=== PATIENT | female | born 1990 | race Caucasian/White ===

== ENCOUNTER 2020-12-30 14:46 | Outpatient (CLI) | payer OTHER, SELFPAY ==
[2020-12-30 15:30] VITALS: BP 117/72; PULSE 74; PULSE 78
[2020-12-30 15:34] LABS: Basophils Percent Auto 0.4 % (0.2-1.2); Eosinophils Absolute Auto 0.1 K/mm3 (0-0.3); Eosinophils Percent Auto 0.8 % (0-4.4); Hematocrit 34.8 % (37.0-47.0); Hemoglobin 11.8 g/dL (12.0-15.0); Immature Granulocyte Absolute 0.04 K/mm3 (0.00-0.031); Immature Granulocyte Percent A 0.4 % (0-0.5); Lymphocytes Absolute Auto 2.27 K/mm3 (0.9-3.2); Lymphocytes Percent Auto 22.8 % (18.3-44.2); Mean Corpuscular HGB Conc 33.9 g/dl (32-36); Mean Corpuscular Hemoglobin 30.1 pg (26-34); Mean Corpuscular Volume 88.8 fl (80-100); Mean Platelet Volume 12.3 fl (7.4-10.4); Monocytes Absolute Auto 0.8 K/mm3 (0.1-0.6); Neutrophils Absolute Auto 6.7 K/mm3 (1.3-6.7); Neutrophils Percent Auto 67.6 % (45.5-73.1); Platelet Count Result 158 k/mm3 (150-375); Red Blood Count 3.92 M/mm3 (4.2-5.4); Red Cell Distribution Width 13.4 % (11.5-14.5)
[2020-12-30 15:37] LABS: Add Urine Microscopic? NO; Appearance Urine Clear (Clear); Bilirubin Urine Negative (Negative); Blood Urine Negative (Negative); Color Urine Colorless (Yellow); Glucose Urine UA Negative (Negative); Ketones Urine Negative (Negative); Leukocyte Esterase Ur Negative LEU/UL (NEGATIVE); Nitrate Urine Negative (Negative); Protein Urine Negative (Negative); Specific Grav Ur 1.006 (1.001-1.035); Urobilinogen Urine Negative mg/dL (<2.0)
[2020-12-30 15:42] LABS: Creatinine Urine 33.1 mg/dL; Total Protein Urine Random 13 mg/dL; Ur Ttl Prot Creatinine Ratio 0.39 mg/mg (0-0.20)
[2020-12-30 15:45] LABS: Alanine Aminotransferase 23 U/L (4-35); Albumin Level 3.1 g/dL (3.5-5.1); Alkaline Phosphatase 130 U/L (38-126); Anion Gap 5 mmol/L (8-16); Aspartate Amino Transferase 31 U/L (14-36); Bilirubin,Total 0.2 mg/dL (0.2-1.3); Blood Urea Nitrogen 7 mg/dL (7-17); Calcium 8.7 mg/dL (8.4-10.2); Carbon Dioxide 24 mmol/L (22-30); Chloride 107 mmol/L (98-107); Estimated Glomerular Filt Rate > 60; Glucose 65 mg/dL (65-105); Potassium 4.3 mmol/L (3.4-5.0); Sodium 136 mmol/L (137-145); Uric Acid 4.8 mg/dL (2.5-7.5)
[2020-12-30 15:46] VITALS: BP 98/68; PULSE 78
[2020-12-30 15:51] VITALS: BP 128/76; PULSE 76
[2020-12-30 16:01] VITALS: BP 108/68; PULSE 76
--- NOTE | 2020-12-30 16:03 | PM.OBTRLD ---
OB - Triage/Final Diagnosis Visit Information Date of evaluation: 12/30/20 Reason for evaluation: other (htn) Comments/Additional reasons for admission: I have assessed the risk for this patient, Yumi Maravilla, and determined that she would benefit from observation care. Evaluation Laboratory results: Laboratory Tests 12/30/20 12/30/20 12/30/20 15:23 15:23 15:23 WBC 10.0 RBC 3.92 L Hgb 11.8 L Hct 34.8 L MCV 88.8 MCH 30.1 MCHC 33.9 RDW 13.4 Plt Count 158 MPV 12.3 H Immature Gran % (Auto) 0.4 Neut % (Auto) 67.6 Lymph % (Auto) 22.8 [place] % (Auto) 8.0 Eos % (Auto) 0.8 Baso % (Auto) 0.4 Lymph # (Auto) 2.27 [place] # (Auto) 0.8 H Eos # (Auto) 0.1 Baso # (Auto) 0.0 Abs Immat Gran (auto) 0.04 H Absolute Neuts (auto) 6.7 Absolute Nucleated RBC 0.0 Nucleated RBC % 0.0 Sodium 136 L Potassium 4.3 Chloride 107 Carbon Dioxide 24 Anion Gap 5 L BUN 7 Creatinine 0.80 Estim Creat Clear Calc Not Reportable Estimated GFR > 60 Glucose 65 Uric Acid 4.8 Calcium 8.7 Total Bilirubin 0.2 AST 31 ALT 23 Alkaline Phosphatase 130 H Total Protein 6.0 L Albumin 3.1 L Urine Color Colorless Urine Appearance Clear Urine pH 7.0 Ur Specific [place] 1.006 Urine Protein Negative Urine Glucose (UA) Negative Urine Ketones Negative Ur Blood (Man) Negative Urine Nitrate Negative Urine Bilirubin Negative Urine Urobilinogen Negative Ur Leukocyte Esterase Negative U Random Total Protein Urine Creatinine Protein/Creat Ratio 2 12/30/20 15:23 WBC RBC Hgb Hct MCV MCH MCHC RDW Plt Count MPV Immature Gran % (Auto) Neut % (Auto) Lymph % (Auto) [place] % (Auto) Eos % (Auto) Baso % (Auto) Lymph # (Auto) [place] # (Auto) Eos # (Auto) Baso # (Auto) Abs Immat Gran (auto) Absolute Neuts (auto) Absolute Nucleated RBC Nucleated RBC % Sodium Potassium Chloride Carbon Dioxide Anion Gap BUN Creatinine Estim Creat Clear Calc Estimated GFR Glucose Uric Acid Calcium Total Bilirubin AST ALT Alkaline Phosphatase Total Protein Albumin Urine Color Urine Appearance Urine pH Ur Specific [place] Urine Protein Urine Glucose (UA) Urine Ketones Ur Blood (Man) Urine Nitrate Urine Bilirubin Urine Urobilinogen Ur Leukocyte Esterase U Random Total Protein 13 Urine Creatinine 33.1 Protein/Creat Ratio 2 0.39 H Vital signs: Vital Signs - 24 hr 12/30/20 15:30 12/30/20 15:46 12/30/20 15:51 Pulse Rate 78 78 76 Blood Pressure 117/72 98/68 L 128/76 Blood Pressure [Left Arm] 117/72 12/30/20 16:01 Pulse Rate 76 Blood Pressure 108/68 Blood Pressure [Left Arm]
[2020-12-30 16:06] VITALS: BP 128/76; PULSE 77
== END 2020-12-30 16:15 | disposition home or self-care (01) ==
LOC: ANHOBOP 14:53 → ANHOBPP 14:57
PROVIDERS: PCP Family Medicine; Visit Provider Obstetrics & Gynecology
DX: O13.9 Gestational [pregnancy-induced] hypertension without significant proteinuria, unspecified trimester (principal); Z3A.00 Weeks of gestation of pregnancy not specified
CPT/HCPCS: 36415; 59025; 80053; 81003; 82570; 84156; 84550; 85025; 87086; 99199

== ENCOUNTER 2021-01-17 12:33 | Inpatient (IN) | payer OTHER, SELFPAY ==
[2021-01-17] VITALS (118 sets, daily range): BP systolic 92–154; BP diastolic 38–133; PULSE 68–188; TEMP 36.6–37.1; O2SAT 97–100
--- NOTE | 2021-01-17 12:57 | LDADM ---
This patient, Yumi Maravilla, was admitted to Labor/Delivery/Recovery 108 on 01/17/21 at 12:33. Plans for labor, pain management and were discussed with patient. Patient/family oriented to hospital policies and general routines including ID bracelet, bed and alarms, visiting hours, pain management, procedures, bathroom and other care routines, personal items, smoking policy, room service/diet and guest tray routines, security routines, and visiting hours. Patient/Family are encouraged to report perceived risks to care and to ask questions if they do not understand what they are told or what they should do. See OBIX for further documentation.
--- NOTE | 2021-01-17 13:09 | WPDOBADMIT ---
Obstetrics - Admit Note Admission Note: record reviewed. Additions to the history and/or subsequent changes in the physical findings follow. 30 y/o G1 at 37 weeks here with a gush of clear fluid at 1215 today. Irregular contractions. GBS unknown. Apparently she has chronic HTN and takes labetalol 200 mg po bid. Also takes Valtrex daily, no outbreaks. AVSS ABD soft, nontender, gravid, vertex EXT nontender Cervix 1/50/-3, gross ROM. BLE neg. NST reactive TOCO: irregular contractions A: IUP at 37 weeks with SROM, chronic HTN. P: Expectant management. Augment labor as needed.
[2021-01-17 13:47] LABS: Basophils Percent Auto 0.3 % (0.2-1.2); Eosinophils Absolute Auto 0.1 K/mm3 (0-0.3); Eosinophils Percent Auto 0.8 % (0-4.4); Hematocrit 35.6 % (37.0-47.0); Hemoglobin 11.8 g/dL (12.0-15.0); Immature Granulocyte Absolute 0.04 K/mm3 (0.00-0.031); Immature Granulocyte Percent A 0.4 % (0-0.5); Lymphocytes Absolute Auto 2.23 K/mm3 (0.9-3.2); Lymphocytes Percent Auto 21.6 % (18.3-44.2); Mean Corpuscular HGB Conc 33.1 g/dl (32-36); Mean Corpuscular Hemoglobin 29.4 pg (26-34); Mean Corpuscular Volume 88.6 fl (80-100); Mean Platelet Volume 12.9 fl (7.4-10.4); Monocytes Absolute Auto 0.8 K/mm3 (0.1-0.6); Monocytes Percent Auto 7.4 % (2.6-8.5); Neutrophils Absolute Auto 7.2 K/mm3 (1.3-6.7); Neutrophils Percent Auto 69.5 % (45.5-73.1); Platelet Count Result 168 k/mm3 (150-375); Red Blood Count 4.02 M/mm3 (4.2-5.4); Red Cell Distribution Width 13.7 % (11.5-14.5); White Blood Count 10.3 K/mm3 (4.5-10.0)
[2021-01-17 14:01] LABS: Alanine Aminotransferase 29 U/L (4-35); Albumin Level 3.4 g/dL (3.5-5.1); Alkaline Phosphatase 174 U/L (38-126); Anion Gap 8 mmol/L (8-16); Aspartate Amino Transferase 40 U/L (14-36); Bilirubin,Total 0.2 mg/dL (0.2-1.3); Blood Urea Nitrogen 12 mg/dL (7-17); Calcium 8.8 mg/dL (8.4-10.2); Carbon Dioxide 21 mmol/L (22-30); Chloride 106 mmol/L (98-107); Estimated Glomerular Filt Rate 59; Glucose 84 mg/dL (65-105); Potassium 4.4 mmol/L (3.4-5.0); Sodium 135 mmol/L (137-145)
[2021-01-17] MEDS: LACTATED RINGERS 1,000 ML 125 ML IV CONT (17:47)
[2021-01-17] MEDS: OXYTOCIN 30 UNITS/NS 500 ML 30 UNITS/500 ML BAG 6 UNITS IV CONT (17:47)
--- NOTE | 2021-01-17 20:47 | WPDANESEPP ---
Anes - Eval Pre Procedure Procedure: labor epidural Date/Time: 01/17/21 20:47 Surgeon: Izzy Preop Diagnosis: Labor pain Pre Op Diagnosis: Labor Patient Data Age: 30 Gender: F Height: Weight: Last Vital Signs Temp 37.1 C 01/17/21 17:30 Pulse 85 01/17/21 20:45 BP 127/74 01/17/21 20:45 Pulse Ox 100 01/17/21 20:45 Allergies Allergy/AdvReac Type Severity Reaction Status Date / Time Cephalosporins Allergy Intermediate HIVES Verified 04/02/19 07:54 lisinopril Allergy Unknown cough Verified 04/02/19 07:54 Home Medications Medication Instructions Recorded Confirmed Type PNV cmb#95-ferrous fumarate-FA 1 tablet PO DAILY 01/15/21 01/17/21 History [] cetirizine [Zyrtec] 10 mg PO DAILY 01/15/21 01/17/21 History labetalol 200 mg PO Q12H 01/15/21 01/17/21 History omega-3 fatty acids-vitamin E 2 cap PO DAILY 01/15/21 01/17/21 History [Fish Oil] valacyclovir [Valtrex] 500 mg PO DAILY 01/15/21 01/17/21 History venlafaxine 150 mg PO DAILY 01/15/21 01/17/21 History Laboratory Tests 01/17/21 01/17/21 01/17/21 13:34 13:34 13:34 WBC 10.3 K/mm3 H K/mm3 (4.5-10.0) RBC 4.02 M/mm3 L M/mm3 (4.2-5.4) Hgb 11.8 g/dL L g/dL (12.0-15.0) Hct 35.6 % L % (37.0-47.0) MCV 88.6 fl fl (80-100) MCH 29.4 pg pg (26-34) MCHC 33.1 g/dl g/dl (32-36) RDW 13.7 % % (11.5-14.5) Plt Count 168 k/mm3 k/mm3 (150-375) MPV 12.9 fl H fl (7.4-10.4) Immature Gran % (Auto) 0.4 % % (0-0.5) Neut % (Auto) 69.5 % % (45.5-73.1) Lymph % (Auto) 21.6 % % (18.3-44.2) [place] % (Auto) 7.4 % % (2.6-8.5) Eos % (Auto) 0.8 % % (0-4.4) Baso % (Auto) 0.3 % % (0.2-1.2) Lymph # (Auto) 2.23 K/mm3 K/mm3 (0.9-3.2) [place] # (Auto) 0.8 K/mm3 H K/mm3 (0.1-0.6) Eos # (Auto) 0.1 K/mm3 K/mm3 (0-0.3) Baso # (Auto) 0.0 K/mm3 K/mm3 (0.0-0.1) Abs Immat Gran (auto) 0.04 K/mm3 H K/mm3 (0.00-0.031) Absolute Neuts (auto) 7.2 K/mm3 H K/mm3 (1.3-6.7) Absolute Nucleated RBC 0.0 K/mm3 K/mm3 (0.0-0.012) Nucleated RBC % 0.0 % % (0.0-0.2) Sodium Potassium Chloride Carbon Dioxide Anion Gap BUN Creatinine Estim Creat Clear Calc Estimated GFR Glucose Uric Acid Calcium Total Bilirubin AST ALT Alkaline Phosphatase Total Protein Albumin RPR Pending Blood Type B Positive Antibody Screen Negative 01/17/21 13:34 WBC RBC Hgb Hct MCV MCH MCHC RDW Plt Count MPV Immature Gran % (Auto) Neut % (Auto) Lymph % (Auto) [place] % (Auto) Eos % (Auto) Baso % (Auto) Lymph # (Auto) [place] # (Auto) Eos # (Auto) Baso # (Auto) Abs Immat Gran (auto) Absolute Neuts (auto) Absolute Nucleated RBC Nucleated RBC % Sodium 135 mmol/L L mmol/L (137-145) Potassium 4.4 mmol/L mmol/L (3.4-5.0) Chloride 106 mmol/L mmol/L (98-107) Carbon Dioxide 21 mmol/L L mmol/L (22-30) Anion Gap 8 mmol/L mmol/L (8-16) BUN 12 mg/dL D mg/dL (7-17) Creatinine 1.10 mg/dL H mg/dL (0.7-1.0) Estim Creat Clear Calc Not Reportable Estimated GFR 59 (59 - ) Glucose 84 mg/dL mg/dL (65-105) Uric Acid 6.0 mg/dL mg/dL (2.5-7.5) Calcium 8.8 mg/dL mg/dL (8.4-10.2) Total Bilirubin 0.2 mg/dL mg/dL (0.2-1.3) AST 40 U/L H U/L (14-36) ALT 29 U/L U/L (4-35) Alkaline Phosphatase 174 U/L H U/L (38-126) Total Protein 7.0 g/dL g/dL (6.3-8.2) Albumin 3.
--- NOTE | 2021-01-17 22:26 | PM.OBPNLAB ---
Pain Control Date/time seen: 01/17/21 22:26 Comments: Comfortable with epidural. Pelvic Exam Dilation (cm): 8 Effacement (%): 100 station: 0 Contractions Contraction frequency: 4 Contraction pattern: Regular Status status: Category l Assessment and Plan Plan: continuous present management
[2021-01-18] VITALS (22 sets, daily range): BP systolic 55–150; BP diastolic 36–92; PULSE 67–125; RESP 16–18; TEMP 36.2–36.8; O2SAT 98–99
--- NOTE | 2021-01-18 01:43 | P.PCNOB_ITS ---
OB - Delivery Note Procedure Delivery date: 01/18/21 Procedure: Induction method: none Delivery augmentation: pitocin Delivery monitor: external FHT, external uterine and internal uterine Route of delivery: Laceration Description: Perineal - 2nd Degree Delivery repair: vicryl (3-0) Specimen: Yes (cord blood, placenta) Quantitative Blood Loss (ml): 120 Anesthesia type: Epidural Disposition: PACU Complications: None Narrative: 30 y/o G1 at 37 1/7 weeks gestation who presented to the hospital after a gush of fluid. SROM was diagnosed. Oxytocin was subsequently administered intravenously for augmentation of labor. She received an epidural for pain control. Her labor progressed and her cervix dilated completely. She pushed with good effort and delivered the infant's head to the perineum, followed by the body. The nose and mouth were bulb suctioned. After a delay, the cord was clamped and cut. The was handed off the field. Cord blood was collected. The placenta delivered spontaneously and was grossly normal in appearance. The usual 3 vessel cord was noted. A second degree midline perineal laceration was sustained. This was reapproximated using 3 0 Vicryl in the usual layered fashion. Excellent hemostasis resulted as did excellent reapproximation of the normal anatomy. Needle and instrument counts were correc t. The patient was taken to recovery room in stable condition. The infant went to the nursery in stable condition. I was present and scrubbed for the entire delivery. [place] [facility] Date of : 01/18/21 Time of : 01:16 Weeks of gestation at delivery: 37 Infant gender: Male Weight (pounds): 8 Weight (ounces): 4 presentation: vertex position: Left Occiput Anterior Placenta delivery description: Spontaneous and Normal Configuration cord vessel description: 3 Vessels and Delayed Cord Clamping score one minute: 9 score five minutes: 9
--- NOTE | 2021-01-18 01:48 | PM.OBDSVD ---
DS: Admitting Diagnosis Admitting Diagnosis Admitting Diagnosis: IUP at 37 1/7 weeks SROM Chronic HTN DS: Discharge Diagnosis Discharge Diagnosis (1) (normal spontaneous vaginal delivery): Code(s): O80 - Encounter for full-term uncomplicated delivery Status: Acute (2) SROM (spontaneous rupture of membranes): Status: Acute (3) Chronic hypertension affecting : Code(s): O10.919 - Unspecified pre-existing hypertension complicating , unspecified trimester Status: Acute OB - DS: Summary OB Procedures : None OB Procedures Intrapartum: Spontaneous Vag Delivery OB Procedures: : None DS: Data Data Completed and Pending Labs on day of discharge: Labs from last 24 hours 01/17/21 01/17/21 01/17/21 13:34 13:34 13:34 WBC RBC Hgb Hct MCV MCH MCHC RDW Plt Count MPV Immature Gran % (Auto) Neut % (Auto) Lymph % (Auto) [place] % (Auto) Eos % (Auto) Baso % (Auto) Lymph # (Auto) [place] # (Auto) Eos # (Auto) Baso # (Auto) Abs Immat Gran (auto) Absolute Neuts (auto) Absolute Nucleated RBC Nucleated RBC % Sodium 135 L Potassium 4.4 Chloride 106 Carbon Dioxide 21 L Anion Gap 8 BUN 12 D Creatinine 1.10 H Estim Creat Clear Calc Not Reportable Estimated GFR 59 Glucose 84 Uric Acid 6.0 Calcium 8.8 Total Bilirubin 0.2 AST 40 H ALT 29 Alkaline Phosphatase 174 H Total Protein 7.0 Albumin 3.4 L RPR Pending Blood Type B Positive Antibody Screen Negative 01/17/21 13:34 WBC 10.3 H RBC 4.02 L Hgb 11.8 L Hct 35.6 L MCV 88.6 MCH 29.4 MCHC 33.1 RDW 13.7 Plt Count 168 MPV 12.9 H Immature Gran % (Auto) 0.4 Neut % (Auto) 69.5 Lymph % (Auto) 21.6 [place] % (Auto) 7.4 Eos % (Auto) 0.8 Baso % (Auto) 0.3 Lymph # (Auto) 2.23 [place] # (Auto) 0.8 H Eos # (Auto) 0.1 Baso # (Auto) 0.0 Abs Immat Gran (auto) 0.04 H Absolute Neuts (auto) 7.2 H Absolute Nucleated RBC 0.0 Nucleated RBC % 0.0 Sodium Potassium Chloride Carbon Dioxide Anion Gap BUN Creatinine Estim Creat Clear Calc Estimated GFR Glucose Uric Acid Calcium Total Bilirubin AST ALT Alkaline Phosphatase Total Protein Albumin RPR Blood Type Antibody Screen Discharge Plan Discharge Attending physician on discharge: Romeo Magana Discharging Clinician: Romeo Magana Patient Disposition: Home, Self-Care Activity: may shower and pelvic rest Diet: regular Discharge Instructions: Call or return if temperature above 100.4? F, increased abdominal pain, increased vaginal bleeding or any new problems. Stand Alone Forms: General Discharge Information Follow-up/Referrals: Romeo Magana MD [Physician] - 6 Weeks Discharge Medications: New ibuprofen 600 mg tablet 600 mg PO Q6H PRN (Reason: cramps) Qty: 30 RF: 0 Continued labetalol 200 mg Tablet 200 mg PO Q12H RF: 0 cetirizine [Zyrtec] 10 mg Tablet 10 mg PO DAILY RF: 0 venlafaxine 150 mg Capsule,Extended Release 24hr 150 mg PO DAILY RF: 0 valacyclovir [Valtrex] 500 mg Tablet 500 mg PO DAILY RF: 0 Fish Oil 1,000 mg Capsule 2 cap PO DAILY RF: 0 PNV cmb#95-ferrous fumarate-FA [] 28 mg iron- 800 mcg Tablet 1 tablet PO DAILY RF: 0 Date of admission: 01/17/21 12:33 Primary Care Provider: Lexis,Caroline Harper Admitting Provider: Romeo Magana Attending physician on admission: Romeo Magana Condition: Stable
[2021-01-18] MEDS: OXYTOCIN 30 UNITS/NS 500 ML 30 UNITS/500 ML BAG 125 UNITS IV CONT (02:37)
[2021-01-18] MEDS: WITCH HAZEL 40 PADS 1 PAD TOPICAL (05:25)
[2021-01-18] MEDS: BENZOCAINE 20% AER SPR (*SP) 56 GM CAN 1 SPRAY TOPICAL (05:26)
--- NOTE | 2021-01-18 05:40 | OBPPTRN ---
Patient transferred to post room #291 via wheelchair with in crib. Support person present. Oriented to unit, room, information board, rooming in, admission packet and security measures. Patient verbalizes understanding.
--- NOTE | 2021-01-18 07:45 | PC.NURSE ---
Pt introductions made and plan of care discussed per post , pain management, breast feeding, daily care activities. PT verbalized understanding of such care
[2021-01-18 09:05] LABS: Rapid Plasma Reagin Non-Reactive (NonReactive)
[2021-01-18] MEDS: POLYSACCHARIDE IRON COMPLEX 150 MG CAPSULE PO (12:21)
[2021-01-18] MEDS: MULTIVIT/MIN/PREN/FOL AC/IRON TABLET 1 TAB PO (12:21)
[2021-01-18] MEDS: LABETALOL HCL 100 MG TABLET 200 MG PO (12:21)
[2021-01-18] MEDS: DOCUSATE SODIUM 100 MG CAPSULE PO (12:24)
[2021-01-18] MEDS: IBUPROFEN 600 MG TABLET PO ×2 (12:24→19:30)
[2021-01-18] MEDS: ACETAMINOPHEN 325 MG TABLET 650 MG PO (12:28)
[2021-01-19 00:20] VITALS: BP 124/71; PULSE 76; RESP 20; TEMP 36.4; O2SAT 98
[2021-01-19 00:24] VITALS: PULSE 74
[2021-01-19] MEDS: LABETALOL HCL 100 MG TABLET 200 MG PO ×2 (00:24→08:37)
[2021-01-19] MEDS: IBUPROFEN 600 MG TABLET PO (05:18)
[2021-01-19 06:53] LABS: Hematocrit 32.3 % (37.0-47.0); Hemoglobin 10.5 g/dL (12.0-15.0)
--- NOTE | 2021-01-19 07:05 | PM.OBPNVD ---
OB - PN: Subj Subjective Date/time seen: 01/19/21 07:05 Patient comments: no complaints and pain well controlled baby status: doing well and nursing well OB - PN: Obj Data Labs CBC & Chem 7: 01/19/21 05:05 01/17/21 13:34 Labs: Laboratory Results - last 24 hr 01/17/21 01/19/21 13:34 05:05 Hgb 10.5 L Hct 32.3 L RPR Non-reactive OB - PN A/P Plan day: 1 Plan: routine care, discharge home and follow up 6 weeks Time Spent With Patient Time: Total time spent is greater than 50% in coordination of care (as documented) at patient's floor/unit and/or counseling patient: Time with patient: less than 15 minutes Review of Systems Review of Systems: All systems reviewed & are unremarkable except as noted in HPI and below Exam Const: General: no acute distress Eyes: General: appearance normal, both eyes and all related structures Neck: Neck: supple and no JVD Thyroid: thyroid normal Resp: Effort & Inspection: normal respiratory effort Auscultation: clear to auscultation bilaterally Cardio: Rate: regular rate Rhythm: regular rhythm GI: Inspection: non-distended GI Palp: Yes Soft to palpation, No Tenderness to palpation present (GI) and No Guarding due to palpation present (GI) Auscultation: normal bowel sounds : General: Yes bladder normal to palpation External Female Exam: normal external appearance Speculum Exam - Vagina: normal vaginal discharge and No vaginal bleeding Speculum Exam - Cervix: nontender Bimanual exam- vagina & uterus: bladder normal to palpation and No Cervical tenderness present OB/external & speculum: No vaginal bleeding Skin: General skin exam: no rashes or lesions noted Extrem: General: normal to inspection and no edema Psych: Mental Status: mental status grossly normal Affect: normal affect
--- NOTE | 2021-01-19 07:06 | PM.DS ---
DS: Admitting Diagnosis Admitting Diagnosis Admitting Diagnosis: gest htn term iup DS: Summary Hospital Course Hospital Course: The patient was admitted at term in active labor with chronic hypertension. She underwent spontaneous vaginal delivery which was unremarkable. Her blood pressure was stable. Her hospital course was unremarkable. She was discharged home without reservation Time Spent with Patient Time attestation: Total time spent providing and/or coordinating discharge services: Exam Const: General: no acute distress Eyes: General: appearance normal, both eyes and all related structures Neck: Neck: supple and no JVD Thyroid: thyroid normal Resp: Effort & Inspection: normal respiratory effort Auscultation: clear to auscultation bilaterally Cardio: Rate: regular rate Rhythm: regular rhythm GI: Inspection: non-distended GI Palp: Yes Soft to palpation, No Tenderness to palpation present (GI) and No Guarding due to palpation present (GI) Auscultation: normal bowel sounds : General: Yes bladder normal to palpation External Female Exam: normal external appearance Speculum Exam - Vagina: normal vaginal discharge and No vaginal bleeding Speculum Exam - Cervix: nontender Bimanual exam- vagina & uterus: bladder normal to palpation and No Cervical tenderness present OB/external & speculum: No vaginal bleeding Skin: General skin exam: no rashes or lesions noted Extrem: General: normal to inspection and no edema Psych: Mental Status: mental status grossly normal Affect: normal affect DS: Data Data Completed and Pending Pending studies at discharge: Pending at discharge 01/18/21 01:22 Surgical [PTH] Routine Labs on day of discharge: Labs from last 24 hours 01/19/21 01/17/21 05:05 13:34 Hgb 10.5 L Hct 32.3 L RPR Non-reactive Discharge Plan Discharge Attending physician on discharge: Romeo Magana Discharging Clinician: Romeo Magana Patient Disposition: Home, Self-Care Activity: may shower and pelvic rest Diet: regular Discharge Instructions: Call or return if temperature above 100.4? F, increased abdominal pain, increased vaginal bleeding or any new problems. Stand Alone Forms: General Discharge Information Follow-up/Referrals: Romeo Magana MD [Physician] - 6 Weeks Discharge Medications: New ibuprofen 600 mg tablet 600 mg PO Q6H PRN (Reason: cramps) Qty: 30 RF: 0 Continued labetalol 200 mg Tablet 200 mg PO Q12H RF: 0 cetirizine [Zyrtec] 10 mg Tablet 10 mg PO DAILY RF: 0 venlafaxine 150 mg Capsule,Extended Release 24hr 150 mg PO DAILY RF: 0 valacyclovir [Valtrex] 500 mg Tablet 500 mg PO DAILY RF: 0 Fish Oil 1,000 mg Capsule 2 cap PO DAILY RF: 0 PNV cmb#95-ferrous fumarate-FA [] 28 mg iron- 800 mcg Tablet 1 tablet PO DAILY RF: 0 Date of admission: 01/17/21 12:33 Primary Care Provider: Lexis,Caroline Harper Admitting Provider: Romeo Magana Attending physician on admission: Romeo Magana Condition: Stable
[2021-01-19 08:00] VITALS: BP 137/87; PULSE 72; RESP 18; TEMP 36.3; O2SAT 99
--- NOTE | 2021-01-19 08:30 | PC.NURSE ---
Consult with pt., mother reports she has put to breast a few times, was sleepy and required supplementation. Mother has decided to pump and bottle feed and will continue. Mother is pumping using her Spectra pump from home. Mother is pumping regularly without difficulties or discomfort. Discussed infant is 37 week and may be sleepy at feedings. Advised to wake to feed every 3-4 hours and to work with 20-60 mls per feeding. is eagerly nippling EBM/formula. Reviewed breast pump care and usage, pumping schedule, nipple care, and collection and storage of breast milk. Encouraged [id number], breast massage and manual expression to stimulate supply. Assessed patient for correct flange size, placement and draw. Patient verbalizes and demonstrates understanding of instructions. Mother is feeding as required and waking infant to feed if needed. is currently meeting outcomes for weight, output, jaundice and feeding frequencies. Mother states she feels confident to continue current feeding plan at home. Reviewed transition to breast milk, signs of adequate intake, and engorgement/relief. Instructed to call ICP if intake/output less than required. Reviewed regular medications mother is taking. Information provided per Kaylyn. Reviewed community resources on the [facility] website and in the Mom/Baby guide. Information on outpatient services provided. Mother has no further questions at this time.
[2021-01-19 08:37] VITALS: PULSE 72
[2021-01-19] MEDS: DOCUSATE SODIUM 100 MG CAPSULE PO (08:37)
[2021-01-19] MEDS: MULTIVIT/MIN/PREN/FOL AC/IRON TABLET 1 TAB PO (08:39)
--- NOTE | 2021-01-19 10:53 | WPDANLDPN2 ---
Anes-Prog Note L&D Date/Time: 01/19/21 10:53 Comfortable throughout: labor and delivery Neuraxial method: epidural Epidural/Spinal procedure site: clean & non-tender Neuro status: Neuro function grossly intact. Cardiovascular status: normal Respiratory status: normal Airway patency: baseline Mental status: baseline Post-Op hydration status: normal Vital Signs: Last Vital Signs Temp 36.4 C 01/19/21 00:20 Pulse 72 01/19/21 08:37 Resp 20 01/19/21 00:20 BP 124/71 01/19/21 00:20 Pulse Ox 98 01/19/21 00:20 Pain score (VAS): 3 Post-procedural complaints: none Patient feedback: Patient satisfied with anesthetic care.
--- NOTE | 2021-01-19 11:34 | PC.NURSE ---
Patient viewed the discharge video Mother & Baby Care, The First Two Weeks . Patient was given the opportunity and encouraged to ask questions. Patient verbalized understanding of information shared and has been given the mother/baby guide for home reference.
[2021-01-21 08:13] VITALS: BP 139/72; PULSE 83; RESP 20; TEMP 36.8; O2SAT 100
== END 2021-01-19 12:58 | disposition home or self-care (01) | DRG 806 ==
LOC: ANHLDR 01-18 01:49 → ANHOB2 01-18 06:10
PROVIDERS: Admitting Provider Obstetrics & Gynecology; PCP Family Medicine; Visit Provider Obstetrics & Gynecology
DX: O10.92 Unspecified pre-existing hypertension complicating childbirth (principal); O98.52 Other viral diseases complicating childbirth; Z37.0 Single live birth; Z3A.37 37 weeks gestation of pregnancy; O36.8330 Maternal care for abnormalities of the fetal heart rate or rhythm, third trimester, not applicable or unspecified; O70.1 Second degree perineal laceration during delivery; O99.214 Obesity complicating childbirth; E66.9 Obesity, unspecified; B00.9 Herpesviral infection, unspecified
CPT/HCPCS: 36415; 80053; 84550; 85014; 85018; 85025; 86592; 86850; 86900; 86901; 88307; A9270; J2590; J2795; J7120

== ENCOUNTER 2022-03-03 15:34 | Outpatient (CLI) | payer OTHER, SELFPAY ==
--- NOTE | 2022-03-03 15:45 | ECG_ITS ---
Measurements Intervals [place] Rate: 73 P: 53 VT: 139 QRS: 40 QRSD: 78 T: 50 QT: 373 QTc: 413 Interpretive Statements SINUS RHYTHM BASELINE ARTIFACT NORMAL ECG COMPARED TO ECG 03/30/2019 10:40:53 NO SIGNIFICANT CHANGES Electronically Signed On 03-03-2022 18:15:40 CDT by Arnol Pang M.D.
== END 2022-03-03 15:35 | disposition home or self-care (01) ==
LOC: ANHSURGERY 15:36
PROVIDERS: PCP Family Medicine; Visit Provider Obstetrics & Gynecology
DX: Z01.818 Encounter for other preprocedural examination (principal); I10 Essential (primary) hypertension; N83.209 Unspecified ovarian cyst, unspecified side
CPT/HCPCS: 36415; 86850; 86900; 86901; 93005

== ENCOUNTER 2022-03-05 01:17 | Day surgery (SDC) | payer OTHER, SELFPAY ==
[2022-03-02 12:33] VITALS: BMI 37.0
--- NOTE | 2022-03-02 12:42 | PC.NURSE ---
Report to the Outpatient Waiting Room, entrance under the green pavilion located off [facility], at time 8:30 on date 03/05/22. OR Time: 10:30. - You and your visitor will be asked a series of questions to screen for COVID 19 for your protection. - A mask is required within the hospital. One visitor will be allowed to accompany the patient into the hospital. Patients visitor will be instructed to remain with patient at all times or leave the building. We will allow the visitor to come back to the postoperative area when patient is ready. Preoperative COVID Testing Requirements: No COVID Test needed if: (proof is required; if not received patient will have Rapid Test prior to entry) - Patient has received COVID Vaccine at least 14 days prior to procedure date or - Patient has positive COVID test result within last 90 days of surgery date. COVID Test needed if above criteria is not met Patients may have clear liquids (water, carbonated beverages, clear teas, apple juice) until 3 hours prior to surgery (7:30) with a maximum of 20 ounces. - No food from midnight until time of surgery Take the following medications with a SIP of water the morning of surgery: LABETALOL, VENLAFAXINE, PAIN PILL (IF NEEDED) Medications to discontinue per physician: VITAMINS/SUPPLEMENTS Date to take last dose: 03/02/22 Please no make-up, nail azerbaijani, hairspray, perfume, deodorant, or body powder the day of surgery. No jewelry (including any body piercings) or valuables the day of surgery, leave them at home. Please take a shower or bath the night before, or the morning of, surgery with an antibacterial soap. Wear comfortable, loose fitting clothing. - Jewelry must be removed prior to entering the operating room. Rings and piercings that are not removed may be cut off. - The hospital will not accept responsibility for valuables. - Please leave all valuables, including medications, at home the day of surgery. If you are going home after surgery, a licensed bobcat driver/labor must drive you home. - NO public transportation without another adult. - We recommend that an adult stay with you for 24 hours following discharge. - We also recommend that you do not drive, make important decision, drink alcoholic beverages, or take any drugs that were not prescribed by your health care provider for at least 24 hours after your discharge time. Follow any additional instructions given to you from your surgeon. Telephone instructions given to RANDALL WILKINS and asked if any additional questions and then verbalized understanding. Patient advised to call surgeon office or pre surgery nurse liaison [phone] if any additional questions.
--- NOTE | 2022-03-03 07:48 | PM.IMHP ---
H&P: HPI History of Present Illness Date/Time: 03/03/22 07:48 32-year-old female admitted for laparoscopy and possible left cystectomy on likely left oophorectomy admitted for laparoscopic procedure is noted. She has had pain discomfort and dyspareunia. She has got IUD in. Scan has shown complex left ovarian cyst measuring 4.2x3.5x3.7cm but no evidence of torsion. Watchful waiting was initially prescribed but she continues to have severe pain and will undergo the laparoscopy. Risks and benefits reviewed Chief Complaint: Pelvic pain and left ovarian cyst Review of Systems Review of Systems: All systems reviewed & are unremarkable except as noted in HPI and below PMFSH Family History Family History Father Diabetes mellitus Hypertension Mother Hypertension Social History Social History Smoking status: Never smoker Alcohol intake: never Substance use: never Substance use type: does not use Gender identity (if verbalized by the patient): Female Spiritual care concerns: No Meds Home Medications and Allergies Home Medications Medication Instructions Recorded Confirmed Type cetirizine [Zyrtec] 10 mg PO DAILY 01/15/21 03/02/22 History labetalol 200 mg PO DAILY 01/15/21 03/02/22 History omega-3 fatty acids-vitamin E 2 cap PO DAILY 01/15/21 03/02/22 History venlafaxine 150 mg PO DAILY 01/15/21 03/02/22 History ibuprofen 600 mg PO Q6H PRN #30 tablet 01/18/21 03/02/22 Rx acetaminophen-codeine 1 tablet PO Q4-6H PRN 03/02/22 03/02/22 History topiramate 100 mg PO HS 03/02/22 03/02/22 History Allergies Allergy/AdvReac Type Severity Reaction Status Date / Time Cephalosporins Allergy Intermediate HIVES Verified 03/02/22 12:32 lisinopril Allergy Unknown cough Verified 03/02/22 12:32 Exam Const: General: no acute distress Eyes: General: appearance normal, both eyes and all related structures Neck: Neck: supple and no JVD Thyroid: thyroid normal Resp: Effort & Inspection: normal respiratory effort Auscultation: clear to auscultation bilaterally Cardio: Rate: regular rate Rhythm: regular rhythm GI: Inspection: non-distended GI Palp: Yes Soft to palpation, No Tenderness to palpation present (GI) and No Guarding due to palpation present (GI) Auscultation: normal bowel sounds : External Female Exam: normal external appearance Speculum Exam - Vagina: normal appearance of the vagina Speculum Exam - Cervix: Cervical os closed Bimanual Exam- Adnexa, other: Adnexal mass present on the left tender Skin: General skin exam: no rashes or lesions noted Extrem: General: normal to inspection and no edema Psych: Mental Status: mental status grossly normal Affect: normal affect Assessment and Plan Additional Plan Impression: Complex left ovarian cyst with resultant pain Plan: Laparoscopy possible left cystectomy possible left oophorectomy
--- NOTE | 2022-03-04 13:00 | P.PNAN_ITS ---
Anes - Initial Pre Proc Eval Procedure: Operation Date: 03/05/22 10:30 Proposed Procedures p Laparoscopic Left Ovarian Cystectomy - Romeo Paul MD Date/Time: 03/04/22 13:00 Surgeon: Romeo Paul MD Pre Op Diagnosis: Pelvic Pain, Lt Ovarian Cyst Patient Data Age: 32 Gender: F Height: 1.73 m Weight: 110.68 kg Allergies Allergy/AdvReac Type Severity Reaction Status Date / Time Cephalosporins Allergy Intermediate HIVES Verified 03/05/22 08:48 lisinopril Allergy Unknown cough Verified 03/05/22 08:48 Home Medications Medication Instructions Recorded Confirmed Type cetirizine [Zyrtec] 10 mg PO DAILY 01/15/21 03/05/22 History labetalol 200 mg PO DAILY 01/15/21 03/05/22 History omega-3 fatty acids-vitamin E 2 cap PO DAILY 01/15/21 03/05/22 History venlafaxine 150 mg PO DAILY 01/15/21 03/05/22 History ibuprofen 600 mg PO Q6H PRN #30 tablet 01/18/21 03/05/22 Rx acetaminophen-codeine 1 tablet PO Q4-6H PRN 03/02/22 03/05/22 History topiramate 100 mg PO HS 03/02/22 03/05/22 History hydrocodone-acetaminophen 1 tablet PO Q4H PRN #30 tablet 03/05/22 Rx Patient hx anesthesia problems: none Family hx anesthesia problems: none Results Review: All pre-operative results and documents have been reviewed as part of the pre-operative evaluation. [facility] Past Medical History Medical History (Updated 03/05/22 @ 07:22 by Romeo Paul MD) Anxiety Depression Hypertension Migraine PATRICIA (obstructive sleep apnea) quit CPAP Family History Family History Father Diabetes mellitus Hypertension Mother Hypertension Social History Social History Smoking status: Never smoker Alcohol intake: never Substance use: never Substance use type: does not use Living arrangements: with family Gender identity (if verbalized by the patient): Female Spiritual care concerns: No Anes - Eval Final PreProcedure Day of Procedure 03/04/22 13:00 Patient weight: obese Heart: regular rate and rhythm Lungs: clear to auscultation and normal air movement Airway: Mallampati scale class II Neurological: alert and oriented Last oral intake: >/= 8 hours ASA classification: III Emergent: no Anesthetic plan: proceed Anesthesia type and monitoring: general ETT and standard monitoring Results Review: All pre-operative results and documents have been reviewed as part of the pre-operative evaluation. Informed Consent: The patient's anesthetic plan and its attendant risks and benefits were discussed with the patient/family/POA. Questions were solicited and answers provided to the satisfaction of the patient/family/POA.
[2022-03-05] VITALS (10 sets, daily range): BP systolic 102–129; BP diastolic 50–82; PULSE 60–85; RESP 9–16; TEMP 36–36.3; O2SAT 95–100
--- NOTE | 2022-03-05 07:21 | WPDHPUPDATE1 ---
History and Physical Update Update Date/Time: 03/05/22 07:21 History and Physical has been reviewed, including an updated exam of the patient. There are NO changes in the patient's condition. Risks, benefits, and alternatives have been discussed and questions answered. Patient agrees to proceed with procedure.
[2022-03-05] MEDS: ACETAMINOPHEN 500 MG TABLET 1000 MG PO (08:52)
[2022-03-05] MEDS: LACTATED RINGERS 1,000 ML 30 ML IV CONT ×2 (09:12→11:33)
[2022-03-05] MEDS: KETOROLAC 15 MG/ML VIAL (*BKC) IV PUSH (09:13)
[2022-03-05] MEDS: ceFAZolin SODIUM 1 GM VIAL IV PUSH (10:51)
--- NOTE | 2022-03-05 11:09 | P.OP_ITS ---
Procedure Note - Detailed Date of Procedure 03/05/22 Pre-op Diagnosis Pelvic Pain, Lt Ovarian Cyst Post-op Diagnosis Other (Abnormal placement IUD) Procedure Performed Diagnostic laparoscopy/laparoscopic left ovarian cyst destruction. Destruction of endometriosis. Removal of irregularly placed IUD Surgeon Romeo Paul MD Anesthesia General Indications This is 32 year female with large left ovarian cyst and pelvic pain. Findings Normal size uterus. The wing of the IUD was extruded approximately a 0.5cm through the fundus of the uterus. Small areas of endometriosis on the uterus were noted and 1 area of endometriosis along the left uterosacral ligament. Was a large left hemorrhagic cyst which was drained of his hemorrhagic fluid. Normal-appearing gallbladder in liver edge although the gallbladder was enlarged it did not look inflamed. Normal-appearing appendix was seen Description of Procedure Patient was prepped and draped in the normal sterile fashion placed in dorsal lithotomy position. Under excellent general trach anesthesia weighted speculum placed post were statin. Anterior lip of the cervix grasped with single-tooth tenaculum and the Forbes's cannula inserted the cervix attached to the single- tooth to be used later for uterine manipulation. After emptying the bladder clear urine the weighted speculum was removed the gloves were changed. Assuring no injury. Patient placed in Trendelenburg and suprapubic incision made. The 5mm trocar advanced under direct visualization assuring no injury. There was a fair amount of fluid in the cul-de-sac and this was suction. The wing of IUD was noted extruding through the fundus and a picture was taken. A large hemorrhagic cyst was seen on the left the right ovary appeared within normal limits as did the tubes bilaterally. The gallbladder was enlarged but not inflamed and appendix appeared within normal limits. Photo documentation was undertaken. Small area of endometriosis was seen anteriorly on the uterine fundus. There was a small area of endometriosis on the left uterosacral ligament. After suctioning this fluid the left ovary was opened in linear fashion using monopolar cautery at 35 w per 2nd. The inside of the ovarian cyst appeared consistent with and benign hemorrhagic cyst and irrigation was undertaken until clear. The small areas of endometriosis on the left uterosacral and the anterior portion of the uterus were cauterized at 35 w per 2nd with monopolar cautery. No other abnormality was seen and irrigation was undertaken until clear. The patient did receive 2 doses of Ancef IV. Watching from above the eye and returned to the vagina. The speculum was placed and the strings were grasped and the IUD was removed without difficulty. No bleeding was seen at the top of the fundus where the IUD had extruded. Irrigation was again undertaken after gloves were changed again. The gas was removed from the abdomen and the trocars removed. The incisions closed with 4 Monocryl and glue. The patient was awakened and went to recovery in satisfactory condition. All sponge, needle, instrument counts were correct. There were no complications noted An infraumbilical incision made the Veress needle passed in the abdomen. Abdomen filled with CO2 gas to 15mm. The 5mm trocar advanced under direct visualization Estimated Blood Loss 5 Drains No Packing No Pathology None sent Complications No immediate complications Condition Stable Disposition PACU
[2022-03-05] MEDS: ONDANSETRON INJ 4 MG/2 ML VIAL IV PUSH (11:36)
[2022-03-05] MEDS: fentaNYL CITRATE INJ (*CRX) 100 MCG/2 ML VIAL 25 MCG IV PUSH ×8 (11:41→13:39)
[2022-03-05] MEDS: oxyCODONE HCL (*CRX) 5 MG TAB IR PO (12:52)
== END 2022-03-05 13:55 | disposition home or self-care (01) ==
PROVIDERS: PCP Family Medicine; Visit Provider Obstetrics & Gynecology
PROC: (CPT 49320; principal; 2022-03-05 10:30)
DX: N83.202 Unspecified ovarian cyst, left side (principal); R10.2 Pelvic and perineal pain; T83.39XA Other mechanical complication of intrauterine contraceptive device, initial encounter; Y84.8 Other medical procedures as the cause of abnormal reaction of the patient, or of later complication, without mention of misadventure at the time of the procedure; N80.0 Endometriosis of uterus; N80.3 Endometriosis of pelvic peritoneum; N94.10 Unspecified dyspareunia; I10 Essential (primary) hypertension; G47.33 Obstructive sleep apnea (adult) (pediatric); F41.8 Other specified anxiety disorders; E66.9 Obesity, unspecified; Z68.36 Body mass index [BMI] 36.0-36.9, adult
CPT/HCPCS: 58301; 58662; A9270; J0690; J1100; J1170; J1200; J1885; J2250; J2405; J2704; J2710; J3010; J7030; J7120

== ENCOUNTER 2022-10-26 15:25 | Outpatient (CLI) | payer OTHER, SELFPAY ==
[2022-10-26 12:00] LABS: Mean Corpuscular HGB Conc 34.1 g/dl (32-36); Mean Corpuscular Hemoglobin 29.5 pg (26-34); Mean Corpuscular Volume 86.3 fl (80-100); Platelet Count Result 231 k/mm3 (150-375); Red Blood Count 4.75 M/mm3 (4.2-5.4); Red Cell Distribution Width 12.9 % (11.5-14.5); White Blood Count 7.2 K/mm3 (4.5-10.0)
[2022-10-26 12:17] LABS: Alanine Aminotransferase 50 U/L (6-35); Albumin Level 4.5 g/dL (3.5-5.1); Alkaline Phosphatase 81 U/L (38-126); Anion Gap 9 mmol/L (8-16); Aspartate Amino Transferase 31 U/L (14-36); Bilirubin,Total 0.4 mg/dL (0.2-1.3); Blood Urea Nitrogen 10 mg/dL (7-17); CRP 0.7 mg/dL (<1.0); Calcium 8.9 mg/dL (8.4-10.2); Carbon Dioxide 19 mmol/L (22-30); Chloride 110 mmol/L (98-107); Estimated Glomerular Filt Rate 41; Glucose 90 mg/dL (65-110); Lipase 114 U/L (23-300); Potassium 4.4 mmol/L (3.4-5.0); Sodium 138 mmol/L (137-145)
[2022-10-26 12:46] LABS: Monoscreen Negative (Negative); Negative Monotest Control Negative (Negative); Positive Monotest Control Positive (Positive)
[2022-10-26 12:54] LABS: Erythrocyte Sedimentation Rate 7 mm/hr (0-20)
[2022-10-26 19:13] LABS: Toxigenic C. Diff NEGATIVE (NEGATIVE)
[2022-10-30 11:32] LABS: Tissue Transglutaminase IgA Ab <1.0 U/mL (<15.0)
[2022-10-31 08:50] LABS: Tissue Transglutaminase IgG Ab <1.0 U/mL (<15.0)
[2022-11-01 23:17] LABS: Calprotectin, Stool 25 mcg/g
== END 2022-10-26 15:26 | disposition home or self-care (01) ==
LOC: ANHLAB 15:25
PROVIDERS: PCP Nurse Practitioner Family; Visit Provider Nurse Practitioner
DX: K52.9 Noninfective gastroenteritis and colitis, unspecified (principal); R10.9 Unspecified abdominal pain; K92.1 Melena
CPT/HCPCS: 36415; 80053; 83516; 83690; 83993; 84443; 85027; 85652; 86140; 86308; 87045; 87269; 87427; 87493

== ENCOUNTER 2022-11-19 01:44 | Day surgery (SDC) | payer OTHER, SELFPAY ==
[2022-11-11 11:02] VITALS: BMI 31.8
[2022-11-19] MEDS: LACTATED RINGERS 1,000 ML 150 ML IV CONT (11:53)
[2022-11-19 12:00] VITALS: BP 120/71; PULSE 82; RESP 18; TEMP 36.5; O2SAT 100
--- NOTE | 2022-11-19 12:22 | WPDANESEPPF ---
Anes - Initial Pre Proc Eval Procedure: Operation Date: 11/19/22 13:00 Proposed Procedures p Colonoscopy - Charbel Kaiser MD Date/Time: 11/19/22 12:22 Surgeon: Charbel Kaiser MD Pre Op Diagnosis: coloitis, abdominal pain Patient Data Age: 32 Gender: F Height: 1.73 m Weight: 94.5 kg Last Vital Signs Temp 97.7 F 11/19/22 12:00 Pulse 82 11/19/22 12:00 Resp 18 11/19/22 12:00 BP 120/71 11/19/22 12:00 Pulse Ox 100 11/19/22 12:00 O2 Del Method Room Air 11/19/22 12:00 Allergies Allergy/AdvReac Type Severity Reaction Status Date / Time Cephalosporins Allergy Intermediate HIVES Verified 11/19/22 11:58 lisinopril Allergy Unknown cough Verified 11/19/22 11:58 Home Medications Medication Instructions Recorded Confirmed Type cetirizine 10 mg tablet (Zyrtec) 10 mg PO DAILY 01/15/21 11/11/22 History labetalol 200 mg tablet 200 mg PO DAILY 01/15/21 11/11/22 History omega-3 fatty acids-vitamin E 2 cap PO DAILY 01/15/21 11/11/22 History 1,000 mg capsule topiramate 100 mg tablet 100 mg PO HS 03/02/22 11/11/22 History rifaximin 550 mg tablet (Xifaxan) 550 mg PO TID #42 tabs 10/28/22 11/11/22 Rx vilazodone 20 mg tablet (Viibryd) 20 mg PO DAILY 11/11/22 11/11/22 History Patient hx anesthesia problems: none Family hx anesthesia problems: none Results Review: All pre-operative results and documents have been reviewed as part of the pre-operative evaluation. [facility] Past Medical History Medical History (Updated 10/26/22 @ 10:50 by Dinorah Richard APRN) Abdominal pain Anxiety Colitis Depression Diarrhea Hematochezia Hypertension Migraine PATRICIA (obstructive sleep apnea) quit CPAP Family History Family History Father Diabetes mellitus Hypertension Mother Hypertension Social History Social History Smoking status: Never smoker Alcohol intake: never Substance use: never Substance use type: does not use Living arrangements: with family Gender identity (if verbalized by the patient): Female Spiritual care concerns: No Anes - Eval Final PreProcedure Day of Procedure 11/19/22 12:22 Patient weight: normal Heart: regular rate and rhythm Lungs: clear to auscultation Airway: Mallampati scale Neurological: alert and oriented Last oral intake: >/= 8 hours ASA classification: II Emergent: no Anesthetic plan: proceed Anesthesia type and monitoring: general GIVS and standard monitoring Results Review: All pre-operative results and documents have been reviewed as part of the pre-operative evaluation. Informed Consent: The patient's anesthetic plan and its attendant risks and benefits were discussed with the patient/family/POA. Questions were solicited and answers provided to the satisfaction of the patient/family/POA.
--- NOTE | 2022-11-19 12:49 | PM.HPGS ---
History of Present Illness History of Present Illness Consent: Risks, benefits, and alternatives have been discussed and questions answered. Patient agrees to proceed with procedure. Chief complaint: coloitis, abdominal pain Narrative: Yumi Maravilla is a 32 year old female was been having problems with her digestive tract since last August. She had developed abdominal discomfort and severe diarrhea. She went to emergency room where CT scan showed mild wall thickening of most of the colon. Apparently white blood count was normal at that time. She was given Augmentin for 10 days. She would be better, but symptoms and return. Another emergency room visit in October resulted in the finding of a normal colon on her CT scan. He has had stool cultures done which were negative. She has been tried on dicyclomine. Stool calprotectin level was done which was negative a celiac testing was negative. Review of Systems Review of Systems: All systems reviewed & are unremarkable except as noted in HPI and below PMFSH Past Medical History Medical History Abdominal pain Anxiety Colitis Depression Diarrhea Hematochezia Hypertension Migraine PATRICIA (obstructive sleep apnea) quit CPAP Family History Family History Father Diabetes mellitus Hypertension Mother Hypertension Social History Social History Smoking status: Never smoker Alcohol intake: never Substance use: never Substance use type: does not use Living arrangements: with family Gender identity (if verbalized by the patient): Female Spiritual care concerns: No Meds Home Medications and Allergies Home Medications Medication Instructions Recorded Confirmed Type cetirizine 10 mg tablet (Zyrtec) 10 mg PO DAILY 01/15/21 11/11/22 History labetalol 200 mg tablet 200 mg PO DAILY 01/15/21 11/11/22 History omega-3 fatty acids-vitamin E 2 cap PO DAILY 01/15/21 11/11/22 History 1,000 mg capsule topiramate 100 mg tablet 100 mg PO HS 03/02/22 11/11/22 History rifaximin 550 mg tablet (Xifaxan) 550 mg PO TID #42 tabs 10/28/22 11/11/22 Rx vilazodone 20 mg tablet (Viibryd) 20 mg PO DAILY 11/11/22 11/11/22 History Allergies Allergy/AdvReac Type Severity Reaction Status Date / Time Cephalosporins Allergy Intermediate HIVES Verified 11/19/22 11:58 lisinopril Allergy Unknown cough Verified 11/19/22 11:58 Vital Signs Vital Signs - 24 hr 11/19/22 12:00 Temperature 36.5 C Pulse Rate 82 Respiratory Rate 18 Blood Pressure 120/71 Pulse Oximetry 100 Oxygen Delivery Room Air Exam Const: General: alert Orientation/consciousness: patient oriented x3 Resp: Auscultation: clear to auscultation bilaterally Cardio: Rhythm: regular rhythm GI: GI Palp: Yes Soft to palpation and No Tenderness to palpation present (GI) Neuro: General: patient oriented x3 Assessment and Plan Assessment and plan (1) Diarrhea: Code(s): R19.7 - Diarrhea, unspecified Status: Acute Assessment and Plan: Colonoscopy with possible biopsy or polypectomy or cautery or injection of substances.
[2022-11-19 13:05] VITALS: BP 108/70; PULSE 74; RESP 20; O2SAT 98
[2022-11-19 13:15] VITALS: BP 116/61; PULSE 79; RESP 20; O2SAT 100
[2022-11-19 13:25] VITALS: BP 112/73; PULSE 69; RESP 17; O2SAT 100
== END 2022-11-19 13:41 | disposition home or self-care (01) ==
PROVIDERS: PCP Nurse Practitioner Family; Visit Provider Internal Medicine Gastroenterology
PROC: 0DJD8ZZ Inspection of Lower Intestinal Tract, Via Natural or Artificial Opening Endoscopic (ICD-10-PCS; CPT 45378; principal; 2022-11-19 13:00)
DX: R19.7 Diarrhea, unspecified (principal); K64.8 Other hemorrhoids; I10 Essential (primary) hypertension; G47.33 Obstructive sleep apnea (adult) (pediatric); F41.9 Anxiety disorder, unspecified; F32.A Depression, unspecified
CPT/HCPCS: 45380; 88305; J2704; J7120

== ENCOUNTER 2023-12-03 09:57 | Outpatient (CLI) | payer OTHER, SELFPAY ==
--- NOTE | 2023-12-03 10:11 | ECG_ITS ---
Measurements Intervals [place] Rate: 70 P: 65 WV: 137 QRS: 47 QRSD: 75 T: 63 QT: 382 QTc: 413 Interpretive Statements SINUS RHYTHM BASELINE ARTIFACT- II, III NORMAL ECG COMPARED TO ECG 03/03/2022 15:47:48 NO SIGNIFICANT CHANGES Electronically Signed On 12-03-2023 15:13:13 [employer] by Anthony Booker D.O.
== END 2023-12-03 09:58 | disposition home or self-care (01) ==
LOC: ANHLAB 09:58
PROVIDERS: PCP Nurse Practitioner Family; Visit Provider Obstetrics & Gynecology
DX: Z01.818 Encounter for other preprocedural examination (principal); I10 Essential (primary) hypertension; R10.2 Pelvic and perineal pain
CPT/HCPCS: 36415; 86850; 86900; 86901; 93005

== ENCOUNTER 2023-12-09 00:32 | Day surgery (SDC) | payer OTHER, SELFPAY ==
[2023-12-01 12:39] VITALS: BMI 26.2
--- NOTE | 2023-12-01 14:35 | PC.NURSE ---
Report to the Outpatient Waiting Room, entrance under the green pavilion located off [facility], at 1100 on 12-09-23. Planned Procedure Time: 1300. Time changes happen often and if your time is changed the preop area will call you the afternoon before. - You and your visitor will be asked to self-screen and do not enter if you have any COVID symptoms. - A mask is optional within the hospital at this time. Patients may have clear liquids (water, carbonated beverages, clear teas, apple juice) until 3 hours prior to surgery with a maximum of 20 ounces. - No food from midnight until time of surgery - Infants may have breast milk until 4 hours before surgery, infant formula 6 hours prior to surgery. - Children will be allowed to drink immediately following surgery. If applicable, please bring a bottle or sippy cup to assist with drinking. Juice, water, soda, and popsicles are readily available. For infants on formula, please bring formula the day of surgery. Pacifiers are allowed. Take the following medications with a SIP of water the morning of surgery: buspirone, escitalopram DO NOT STOP ANY OF YOUR OTHER PRESCRIPTION MEDICATIONS PRIOR TO SURGERY ?EXCEPT THE FOLLOWING Medications to discontinue per physician: vitamins and supplements; ibuprofen Date to take last dose: 12-06-23; per Dr. Beny Paul Please no make-up, nail indonesian, hairspray, perfume, deodorant, or body powder the day of surgery. No jewelry (including any body piercings) or valuables the day of surgery, leave them at home. Please take a shower or bath the night before, or the morning of, surgery with an antibacterial soap. Wear comfortable, loose fitting clothing. Children are encouraged to wear pajamas. - Jewelry must be removed prior to entering the operating room. Rings and piercings that are not removed may be cut off. - The hospital will not accept responsibility for valuables. - Please leave all valuables, including medications, at home the day of surgery. If you are going home after surgery, a licensed shag truck driver must drive you home. - NO public transportation without another adult if you receive anesthesia. - We recommend that an adult stay with you for 24 hours following discharge. - We also recommend that you do not drive, make important decision, drink alcoholic beverages, or take any drugs that were not prescribed by your health care provider for at least 24 hours after your discharge time. For Pediatric surgeries, we recommend two adults accompany the child home. Follow any additional instructions given to you from your surgeon. If you or anyone in your household have experienced Covid symptoms in the past week, please notify your surgeon or the nurse liaison at the phone number below for possible testing. Telephone instructions given Yumi Maravilla to and asked if any additional questions and then verbalized understanding. Patient advised to call surgeon office or pre surgery nurse liaison [phone] if any additional questions.
--- NOTE | 2023-12-06 13:12 | PM.IMHP ---
H&P: HPI History of Present Illness Date/Time: 12/06/23 13:12 Chief Complaint: Pelvic pain and desires permanent sterilization Narrative: 33-year-old 1 para 1 admitted for diagnostic laparoscopy and tubal ligation. She desires permanent irreversible sterilization. She was offered pills/patches/implants/injections and understands this to be permanent and irreversible. She also complains of pain discomfort and dyspareunia. Risks benefits reviewed in full [facility] Past Medical History Medical History Abdominal pain Anxiety Colitis Depression Diarrhea Hematochezia Hypertension Migraine PATRICIA (obstructive sleep apnea) quit CPAP Family History Family History Father Diabetes mellitus Hypertension Mother Hypertension Social History Social History Smoking status: Never smoker Second hand tobacco smoke exposure: No Alcohol intake: never Substance use: never Substance use type: does not use Living arrangements: with family Gender identity (if verbalized by the patient): Female Spiritual care concerns: No Meds Home Medications and Allergies Home Medications Medication Instructions Recorded Confirmed Type cetirizine 10 mg tablet (Zyrtec) 10 mg PO DAILY 01/15/21 12/01/23 History labetalol 200 mg tablet 200 mg PO DAILY 01/15/21 12/01/23 History omega-3 fatty acids-vitamin E 2 cap PO DAILY 01/15/21 12/01/23 History 1,000 mg capsule topiramate 100 mg tablet 100 mg PO HS 03/02/22 12/01/23 History buspirone 10 mg tablet 10 mg PO TID 12/01/23 12/01/23 History escitalopram oxalate 20 mg tablet 20 mg PO DAILY 12/01/23 12/01/23 History ibuprofen 200 mg tablet 400 mg PO Q6H PRN pain 12/01/23 12/01/23 History relugolix 40 mg-estradiol 1 1 tablet PO DAILY 12/01/23 12/01/23 History mg-norethindrone acetate 0.5 mg tablet ([place]) Allergies Allergy/AdvReac Type Severity Reaction Status Date / Time Cephalosporins Allergy Intermediate HIVES Verified 12/01/23 12:32 lisinopril Allergy Mild cough Verified 12/01/23 12:32 Exam Const: General: cooperative, healthy appearing and comfortable Orientation/consciousness: oriented to person, oriented to place and oriented to time Resp: Effort & Inspection: normal respiratory effort Cardio: Rate: regular rate Rhythm: regular rhythm Heart sounds: S1 normal heart sound present and S2 normal heart sound present GI: Inspection: normal to inspection : External Female Exam: normal external appearance Speculum Exam - Vagina: normal appearance of the vagina Speculum Exam - Cervix: normal appearance of the cervix Bimanual exam- vagina & uterus: uterine shape normal Bimanual Exam- Adnexa, other: tender bilaterally Assessment and Plan Assessment and plan (1) Pelvic pain: Code(s): R10.2 - Pelvic and perineal pain Status: Acute (2) Sterilization: Code(s): Z30.2 - Encounter for sterilization Status: Acute Plan Diagnostic laparoscopy with bilateral tubal ligation
[2023-12-09] VITALS (11 sets, daily range): BP systolic 90–116; BP diastolic 48–71; PULSE 74–87; RESP 11–22; TEMP 36.7–36.9; O2SAT 93–100
--- NOTE | 2023-12-09 06:39 | WPDHPUPDATE1 ---
History and Physical Update Update Date/Time: 12/09/23 06:39 History and Physical has been reviewed, including an updated exam of the patient. There are NO changes in the patient's condition. Risks, benefits, and alternatives have been discussed and questions answered. Patient agrees to proceed with procedure.
--- NOTE | 2023-12-09 11:38 | P.PNAN_ITS ---
Anes - Initial Pre Proc Eval Procedure: Operation Date: 12/09/23 13:00 Proposed Procedures p Diagnostic Laparoscopy, Laparoscopic Bilateral Tubal Sterilization with Fallopian Rings - Romeo Paul MD Date/Time: 12/09/23 11:38 Surgeon: Romeo Paul MD Pre Op Diagnosis: desires sterilization, pelvic pain,endometriosis Patient Data Age: 33 Gender: F Height: 1.75 m Weight: 81.1 kg Allergies Allergy/AdvReac Type Severity Reaction Status Date / Time Cephalosporins Allergy Intermediate HIVES Verified 12/01/23 12:32 lisinopril AdvReac Mild cough Verified 12/09/23 11:27 Home Medications Medication Instructions Recorded Confirmed Type cetirizine 10 mg tablet (Zyrtec) 10 mg PO DAILY 01/15/21 12/09/23 History labetalol 200 mg tablet 200 mg PO DAILY 01/15/21 12/09/23 History omega-3 fatty acids-vitamin E 2 cap PO DAILY 01/15/21 12/09/23 History 1,000 mg capsule topiramate 100 mg tablet 100 mg PO HS 03/02/22 12/09/23 History buspirone 10 mg tablet 10 mg PO TID 12/01/23 12/09/23 History escitalopram oxalate 20 mg tablet 20 mg PO DAILY 12/01/23 12/09/23 History ibuprofen 200 mg tablet 400 mg PO Q6H PRN pain 12/01/23 12/09/23 History relugolix 40 mg-estradiol 1 1 tablet PO DAILY 12/01/23 12/09/23 History mg-norethindrone acetate 0.5 mg tablet (Myfembree) hydrocodone 5 mg-acetaminophen 325 1 tablet PO Q4H PRN pain #20 tabs 12/09/23 Rx mg tablet Patient hx anesthesia problems: none Family hx anesthesia problems: none Results Review: All pre-operative results and documents have been reviewed as part of the pre-operative evaluation. [facility] Past Medical History Medical History (Updated 12/09/23 @ 12:19 by David Crawford DO) Abdominal pain Anxiety Colitis Depression Diarrhea Hematochezia Hypertension Migraine PATRICIA (obstructive sleep apnea) lost 80 lbs, no longer needed Family History Family History Father Diabetes mellitus Hypertension Mother Hypertension Social History Social History Smoking status: Never smoker Second hand tobacco smoke exposure: No Alcohol intake: never Substance use: never Substance use type: does not use Living arrangements: with family Gender identity (if verbalized by the patient): Female Spiritual care concerns: No Anes - Eval Final PreProcedure Day of Procedure 12/09/23 11:38 Patient weight: overweight Heart: regular rate and rhythm Lungs: clear to auscultation Airway: Mallampati scale class II Neurological: alert and oriented Last oral intake: >/= 8 hours ASA classification: II Emergent: no Anesthetic plan: proceed Anesthesia type and monitoring: general ETT and standard monitoring Results Review: All pre-operative results and documents have been reviewed as part of the pre- operative evaluation. Informed Consent: The patient's anesthetic plan and its attendant risks and benefits were discussed with the patient/family/POA. Questions were solicited and answers provided to the satisfaction of the patient/family/POA.
[2023-12-09] MEDS: LACTATED RINGERS 1,000 ML 30 ML IV CONT ×3 (11:49→15:24)
[2023-12-09] MEDS: ACETAMINOPHEN 500 MG TABLET 1000 MG PO (11:49)
[2023-12-09] MEDS: KETOROLAC 15 MG/ML VIAL (*BKC) IV PUSH (11:50)
--- NOTE | 2023-12-09 13:14 | W.PM.PROC2 ---
Procedure Note - Detailed Date of Procedure 12/09/23 Pre-op Diagnosis desires sterilization, pelvic pain,endometriosis Post-op Diagnosis Same (Desires sterilization/pelvic pain / endometriosis/left ovarian cyst) Procedure Performed laparoscopic destruction of endometriosis /bilateral tubal ligation with rings/ destruction of left ovarian cyst Surgeon Romeo Paul MD Anesthesia General Indications this is a 33-year-old female desires permanent sterilization and has pelvic pain with history of endometriosis and a left ovarian cyst Findings endometriosis along the left and right uterosacral ligaments. Benign-appearing left ovarian cyst. Normal appearing ovaries and tubes. Description of Procedure Patient was prepped and draped in the normal sterile fashion placed in the dorsal lithotomy position. Under excellent general trach anesthesia weighted speculum placed in posterior fornix vagina. Anterior lip of the cervix grasped with single-tooth tenaculum. The Forbes's cannula was inserted and attached to the single-tooth to be used later for uterine manipulation. After emptying bladder clear urine weighted speculum was removed and the gloves were changed. A supraumbilical incision made the Veress needle passed in the abdomen. Abdomen filled with CO2 gas to 15mm the 5mm trocar advanced under direct visualization assuring no injury. The patient placed in Trendelenburg and a suprapubic incision made. The 8mm trocar advanced under direct visualization assuring injury. The above findings were seen. The areas of endometriosis were cauterized at the with monopolar cautery at 35 w per 2nd. The left ovarian cyst was opened in linear fashion and drained of follicular fluid. The left fallopian tube was then grasped and a good knuckle of tube formed with excellent blanching following this the right fallopian tube was grasped was midportion a good knuckle of tube formed. Blanching was noted as well. The instruments were withdrawn the patient was awakened. The incisions closed with 4 Monocryl and glue after the trocars removed and the incisions were intact. There were no immediate complications Implants fallopian tube rings Estimated Blood Loss 5 Drains No Packing No Pathology None sent Complications No immediate complications Condition Stable Disposition PACU
[2023-12-09] MEDS: fentaNYL CITRATE INJ (*CRX) 100 MCG/2 ML VIAL 25 MCG IV PUSH ×8 (13:38→14:13)
[2023-12-09] MEDS: HYDROmorphone HCL INJ (*CRX) 1 MG/ML SYR 0.5 MG IV PUSH ×3 (14:30→14:40)
[2023-12-09] MEDS: oxyCODONE HCL (*CRX) 5 MG TAB IR PO (15:34)
== END 2023-12-09 15:58 | disposition home or self-care (01) ==
PROVIDERS: PCP Nurse Practitioner Family; Visit Provider Obstetrics & Gynecology
PROC: (CPT 49320; principal; 2023-12-09 13:00)
DX: Z30.2 Encounter for sterilization (principal); N80.3C3 Endometriosis of bilateral uterosacral ligament(s), unspecified depth; N83.202 Unspecified ovarian cyst, left side; I10 Essential (primary) hypertension; F41.9 Anxiety disorder, unspecified; F32.A Depression, unspecified
CPT/HCPCS: 58671; 58662; A4264; A9270; J1100; J1170; J1885; J2250; J2405; J2704; J3010; J7030; J7120

== ENCOUNTER 2023-12-18 17:12 | Emergency (ER) | payer OTHER, SELFPAY ==
--- NOTE | ~2023-12-18 | XR_ITS ---
EXAMINATION: XR chest 2V Exam Date/Time: 12/18/2023 18:00 RFID ENGINEER HISTORY: sepsis Comparison: None. RESULT: Lines, tubes, and devices: None. Lungs and pleura: Clear. Cardiomediastinal silhouette: Stable. Other: No acute osseous or upper abdominal finding. IMPRESSION: No acute cardiopulmonary process. Reviewed, dictated and finalized at location K. ENGINEER
--- NOTE | ~2023-12-18 | CT_ITS ---
EXAMINATION: CT abdomen pelvis w con DATE: 12/18/2023 19:17 INDICATION: abdominal pain, post operative pain TECHNIQUE: Computed tomography (CT) of the abdomen and pelvis was performed with 100 mL Omnipaque-350 intravenous contrast. Automated exposure control and iterative reconstruction technique were employe d. The dose-length product was 417.05 mGy-cm. COMPARISON: None. FINDINGS: Lower thorax: Unremarkable Liver: Subcentimeter hypodensities, likely cysts or hemangiomas. Mild enlargement. Biliary/Gallbladder: Gallbladder is normal. No bile duct dilation. Pancreas: No mass or duct dilation. Spleen: Mild enlargement. Adrenals:No mass. Kidneys: No suspicious mass, obstructing stone, or hydronephrosis. GI tract: Mild distal esophageal and gastric wall edema. Fluid-filled colon and wall hyperemia. No sm all or large bowel dilation. Appendix not visualized, no right lower quadrant inflammatory process Mesentery/Peritoneum: No ascites, mass, or free air. Retroperitoneum: No mass. Pelvis: Pelvic organs are within normal limits. Bilateral tubal ligation. Soft Tissues: Soft tissues and body wall unremarkable. Bones: No acute osseous finding. IMPRESSION: Mild esophagitis/gastritis. Mild hepatosplenomegaly. Fluid-filled colon with bowel wall hyperemia, may reflect a degree of colitis in the appropriate clin ical context. Reviewed, dictated and finalized at location K. GER COPY IMPRESSION: Mild esophagitis/gastritis. Mild hepatosplenomegaly. Fluid-filled colon with bowel wall hyperemia, may reflect a degree of colitis i n the appropriate clinical context.
[2023-12-18 17:21] VITALS: BP 114/74; PULSE 120; RESP 16; TEMP 37.3; O2SAT 100
--- NOTE | 2023-12-18 17:30 | ED.NAVMDI ---
HPI - Nausea/Vomiting/Diarrhea General Chief complaint: Nausea/Vomiting/Diarrhea Stated complaint: nausea, diarrhea Time Seen by Provider: 12/18/23 17:20 History of Present Illness HPI Narrative: Patient is a 33 year old female with history of HTN here with nausea, vomiting, diarrhea and lip swelling. She notes that on 12/09 She had a tubal ligation, ovarian cyst resection, endometriosis removal by Dr. Barros. She has been having continued pain since that surgery. Med last couple of days she started developing some associated nausea, vomiting, diarrhea. She has been having significantly worsening suprapubic pain/pelvic pain. She states it feels like her bladder is completely full however she has been having no difficulty with urination and no burning with urination. She denies any vaginal bleeding or discharge. She has been unable to keep anything down over the last 2 days and has had no solid p.o. intake over that time. When she woke up this morning she additionally noted some lip swelling which has been constant throughout the day today and not worsening. She Contacted the clinic today, advised that she likely needed to be seen in the clinic but were unable to get her in until office hours early this week. Given her persistent worsening symptoms she decided to come to the emergency department for further evaluation. She has been taking some Compazine without relief of symptoms. Related Data Home Medications Medication Instructions Recorded Confirmed cetirizine 10 mg tablet (Zyrtec) 10 mg PO DAILY 01/15/21 12/09/23 labetalol 200 mg tablet 200 mg PO DAILY 01/15/21 12/09/23 omega-3 fatty acids-vitamin E 2 cap PO DAILY 01/15/21 12/09/23 1,000 mg capsule topiramate 100 mg tablet 100 mg PO HS 03/02/22 12/09/23 buspirone 10 mg tablet 10 mg PO TID 12/01/23 12/09/23 escitalopram oxalate 20 mg tablet 20 mg PO DAILY 12/01/23 12/09/23 ibuprofen 200 mg tablet 400 mg PO Q6H PRN pain 12/01/23 12/09/23 relugolix 40 mg-estradiol 1 1 tablet PO DAILY 12/01/23 12/09/23 mg-norethindrone acetate 0.5 mg tablet (Myfembree) Allergies Allergy/AdvReac Type Severity Reaction Status Date / Time Cephalosporins Allergy Intermediate HIVES Verified 12/18/23 17:29 lisinopril AdvReac Mild cough Verified 12/18/23 17:29 Review of Systems Review of Systems: All systems reviewed & are unremarkable except as noted in HPI and below PMFSH Past Medical History Medical History (Updated 12/18/23 @ 20:04 by Piper Lawrence MD) Abdominal pain Anxiety Colitis Depression Diarrhea Hematochezia Hypertension Migraine PATRICIA (obstructive sleep apnea) lost 80 lbs, no longer needed Family History Family History Father Diabetes mellitus Hypertension Mother Hypertension Social History Social History Smoking status: Never smoker Second hand tobacco smoke exposure: No Alcohol intake: never Substance use: never Substance use type: does not use Living arrangements: with family Gender identity (if verbalized by the patient): Female Spiritual care concerns: No Exam Narrative: GENERAL: Ill-appearing, well-nourished, and in no acute distress. HEAD: Normocephalic, atraumatic. EYES: PERRLA and EOMI. ENT: Nares clear. Mucous membranes moist. upper lower lip swelling present, no intraoral swelling, no stridor present. NECK: Supple. CHEST: Clear to auscultation. No respiratory distress. HEART: tachycardic. Normal peripheral pulses. ABDOMEN: Soft, suprapubic tenderness without rebound or guarding. No CVA tenderness. Postoperative surgical incision sites appear clean and dry with only mild surrounding bruising consistent with recent surgery. EXTREMITIES: Normal range of motion. No edema. SKIN: Warm, dry, no rash. NEURO: No focal deficits. Alert and oriented x3. PSYCH: Normal mood and affect. Course Course E
[2023-12-18] MEDS: LACTATED RINGERS 1,000 ML 999 ML IV CONT (17:53)
[2023-12-18] MEDS: PANTOPRAZOLE SODIUM IV 40 MG VIAL IV PUSH (17:54)
[2023-12-18] MEDS: diphenhydrAMINE HCl INJ 50 MG/ML VIAL 25 MG IV PUSH (17:54)
[2023-12-18] MEDS: MORPHINE SULFATE (*CRX) 4 MG/ML INJ IV PUSH (17:54)
[2023-12-18] MEDS: ONDANSETRON INJ 4 MG/2 ML VIAL IV PUSH (17:54)
[2023-12-18 17:56] LABS: Basophils Percent Auto 0.4 % (0.2-1.2); Eosinophils Percent Auto 0.1 % (0-4.4); Hematocrit 41.2 % (37.0-47.0); Immature Granulocyte Absolute 0.04 K/mm3 (0.00-0.031); Immature Granulocyte Percent A 0.4 % (0-0.5); Immature Platelet Fraction Pct 5.2 % (0.9-11.2); Lymphocytes Absolute Auto 0.93 K/mm3 (0.9-3.2); Lymphocytes Percent Auto 9.4 % (18.3-44.2); Mean Corpuscular Hemoglobin 31.2 pg (26-34); Mean Corpuscular Volume 91.8 fl (80-100); Mean Platelet Volume 11.1 fl (7.4-10.4); Monocytes Absolute Auto 0.7 K/mm3 (0.1-0.6); Neutrophils Absolute Auto 8.2 K/mm3 (1.3-6.7); Neutrophils Percent Auto 82.7 % (45.5-73.1); Platelet Count Result 140 k/mm3 (150-375); Red Blood Count 4.49 M/mm3 (4.2-5.4); Red Cell Distribution Width 13.1 % (11.5-14.5); White Blood Count 9.9 K/mm3 (4.5-10.0)
[2023-12-18 18:04] LABS: INR 1.1; Prothrombin Time 14.2 Seconds (11.1-14.7)
[2023-12-18 18:05] LABS: Partial Thromboplastin Time 37.2 SECONDS (22.3-36.8)
[2023-12-18 18:06] LABS: Lipase 50 U/L (23-300)
[2023-12-18 18:08] LABS: Lactic Acid Reflex 1.2 mmol/L (0.7-2.0)
[2023-12-18 18:10] LABS: Alanine Aminotransferase 30 U/L (6-35); Albumin Level 4.2 g/dL (3.5-5.1); Alkaline Phosphatase 74 U/L (38-126); Anion Gap 9 mmol/L (8-16); Aspartate Amino Transferase 26 U/L (14-36); Bilirubin,Total 0.7 mg/dL (0.2-1.3); Blood Urea Nitrogen 12 mg/dL (7-17); CRP 6.7 mg/dL (<1.0); Calcium 9.2 mg/dL (8.4-10.2); Carbon Dioxide 20 mmol/L (22-30); Chloride 108 mmol/L (98-107); Estimated CRCL calculation 63 ml/min; Estimated Glomerular Filt Rate 52; Glucose 99 mg/dL (65-110); Potassium 3.6 mmol/L (3.4-5.0); Sodium 137 mmol/L (137-145)
[2023-12-18 18:23] VITALS: BP 107/67; PULSE 95; RESP 14; O2SAT 98
[2023-12-18 18:26] LABS: Appearance Urine Cloudy (Clear); Bacteria Urine None Seen /hpf; Bilirubin Urine 1+ (Negative); Blood Urine Negative (Negative); Color Urine Dark Yellow (Yellow); Glucose Urine UA Negative (Negative); Ketones Urine Trace mg/dL (Negative); Leukocyte Esterase Ur 1+ LEU/UL (Negative); Nitrate Urine Negative (Negative); Non Pathogenic Casts 0-2; Protein Urine 1+ mg/dL (Negative); RBC Urine 0-2 /hpf (0-2); Squamous Epithelial Cell Urine Many /hpf (Few); WBC Urine 21-50 /hpf; pH Urine 5.5 (5.0-9.0)
[2023-12-18 18:32] LABS: Add Urine Microscopic? YES
--- NOTE | 2023-12-18 18:41 | ECG_ITS ---
Measurements Intervals [place] Rate: 91 P: 68 [place]: 135 QRS: 50 QRSD: 74 T: 53 QT: 332 QTc: 410 Interpretive Statements SINUS RHYTHM WITHIN NORMAL LIMITS COMPARED TO ECG 12/03/2023 10:21:39 NO DIFFERENCE Electronically Signed On 12-19-2023 7:37:43 CREDIT BALANCE SPECIALIST by Timo De Leon M.D.
[2023-12-18] MEDS: CIPROFLOXACIN 400 MG/D5W 200ML 200 ML 200 MG IVPB (19:12)
[2023-12-18] MEDS: metroNIDAZOLE 500 MG TABLET PO (20:17)
[2023-12-18 20:20] VITALS: BP 104/74; PULSE 87; RESP 16; O2SAT 99
== END 2023-12-18 20:21 | disposition home or self-care (01) ==
PROVIDERS: Emergency Provider Student in an Organized Health Care Education/Training Program; PCP Nurse Practitioner Family
DX: K52.9 Noninfective gastroenteritis and colitis, unspecified (principal); N39.0 Urinary tract infection, site not specified; Z98.890 Other specified postprocedural states; I10 Essential (primary) hypertension; F41.9 Anxiety disorder, unspecified; F32.A Depression, unspecified
CPT/HCPCS: 36415; 71046; 74177; 80053; 81001; 83605; 83690; 85025; 85055; 85610; 85730; 86140; 87040; 87086; 93005; 96361; 96365; 96375; 99284; A9270; C9113; J0744; J1200; J2270; J2405; J7120; Q9967

== ENCOUNTER 2024-09-01 11:27 | Outpatient (CLI) | payer OTHER, SELFPAY ==
[2024-09-01 11:40] LABS: Basophils Absolute Auto 0.1 K/mm3 (0.0-0.1); Basophils Percent Auto 1.2 % (0.2-1.2); Eosinophils Absolute Auto 0.3 K/mm3 (0-0.3); Hematocrit 45.7 % (37.0-47.0); Hemoglobin 15.6 g/dL (12.0-15.0); Immature Granulocyte Absolute 0.01 K/mm3 (0.00-0.031); Immature Granulocyte Percent A 0.1 % (0-0.5); Lymphocytes Absolute Auto 2.66 K/mm3 (0.9-3.2); Lymphocytes Percent Auto 34.5 % (18.3-44.2); Mean Corpuscular HGB Conc 34.1 g/dl (32-36); Mean Corpuscular Hemoglobin 32.4 pg (26-34); Mean Corpuscular Volume 94.8 fl (80-100); Mean Platelet Volume 10.5 fl (7.4-10.4); Monocytes Absolute Auto 0.4 K/mm3 (0.1-0.6); Monocytes Percent Auto 5.3 % (2.6-8.5); Neutrophils Absolute Auto 4.2 K/mm3 (1.3-6.7); Neutrophils Percent Auto 54.9 % (45.5-73.1); Platelet Count Result 184 k/mm3 (150-375); Red Blood Count 4.82 M/mm3 (4.2-5.4); Red Cell Distribution Width 12.8 % (11.5-14.5); White Blood Count 7.7 K/mm3 (4.5-10.0)
[2024-09-01 11:48] LABS: Alanine Aminotransferase 32 U/L (6-35); Albumin Level 4.8 g/dL (3.5-5.1); Alkaline Phosphatase 59 U/L (38-126); Amylase 63 U/L (30-110); Aspartate Amino Transferase 35 U/L (14-36); Bilirubin,Total 0.6 mg/dL (0.2-1.3); Lipase 149 U/L (23-300)
== END 2024-09-01 11:28 | disposition home or self-care (01) ==
LOC: ANHLAB 11:28
PROVIDERS: PCP Nurse Practitioner Family; Visit Provider Surgery
DX: K80.10 Calculus of gallbladder with chronic cholecystitis without obstruction (principal)
CPT/HCPCS: 36415; 80076; 82150; 83690; 85025

== ENCOUNTER 2024-09-05 04:57 | Day surgery (SDC) | payer OTHER, SELFPAY ==
[2024-08-28 12:19] VITALS: BMI 24.0
--- NOTE | 2024-08-28 12:27 | SUR.PREOP ---
Report to the Outpatient Waiting Room, entrance under the green pavilion located off [facility], at time 0630 on date 09/05/2024. Planned Procedure Time: 0830.? Time changes happen often and if your time is changed the preop area will call you the afternoon before. - You and your visitor will be asked to self-screen and do not enter if you have any COVID symptoms. Please call surgeon if you need to reschedule. - A mask is optional within the hospital at this time. Patients may have clear liquids (water, carbonated beverages, clear teas, apple juice) until 3 hours prior to surgery with a maximum of 20 ounces. - No food from midnight until time of surgery and no smoking - Infants may have breast milk until 4 hours before surgery, infant formula 6 hours prior to surgery. - Children will be allowed to drink immediately following surgery.? If applicable, please bring a bottle or sippy cup to assist with drinking. Juice, water, soda, and popsicles are readily available.? For infants on formula, please bring formula the day of surgery.? Pacifiers are allowed. Take only the following medications with a SIP of water on the morning of surgery: levothyroxine, buspirone, escitalopram, control DO NOT STOP ANY OF YOUR OTHER PRESCRIPTION MEDICATIONS PRIOR TO SURGERY EXCEPT THE FOLLOWING Medications to discontinue per physician N/A Date to take last dose N/A Please no make-up, nail bulgarian, hairspray, perfume, deodorant, or body powder the day of surgery.? No jewelry (including any body piercings) or valuables the day of surgery, leave them at home.? Please take a shower or bath the night before, or the morning of, surgery with an antibacterial soap.? Wear comfortable, loose fitting clothing.? Children are encouraged to wear pajamas. - Jewelry must be removed prior to entering the operating room.? Rings and piercings that are not removed may be cut off. - The hospital will not accept responsibility for valuables.? - Please leave all valuables, including medications, at home the day of surgery. If you are going home after surgery, a licensed coal tram driver must drive you home.? - NO public transportation without another adult if you receive anesthesia. - We recommend that an adult stay with you for 24 hours following discharge. - We also recommend that you do not drive, make important decision, drink alcoholic beverages, or take any drugs that were not prescribed by your health care provider for at least 24 hours after your discharge time. For Pediatric surgeries, we recommend two adults accompany the child home. Follow any additional instructions given to you from your surgeon. Telephone instructions given to Yumi Maravilla and asked if any additional questions and then verbalized understanding. Patient advised to call surgeon office or pre surgery nurse liaison [phone] if any additional questions.
[2024-09-05] VITALS (9 sets, daily range): BP systolic 101–134; BP diastolic 54–67; PULSE 71–93; RESP 10–17; TEMP 36.1–36.3; O2SAT 94–100
[2024-09-05] MEDS: ACETAMINOPHEN 500 MG TABLET 1000 MG PO (06:55)
[2024-09-05] MEDS: LACTATED RINGERS 1,000 ML 30 ML IV CONT ×2 (07:00→10:03)
[2024-09-05] MEDS: KETOROLAC 15 MG/ML VIAL (*BKC) IV PUSH (07:05)
--- NOTE | 2024-09-05 07:16 | P.PNAN_ITS ---
Anes - Initial Pre Proc Eval Procedure: Operation Date: 09/05/24 08:30 Proposed Procedures p Laparoscopic Cholecystectomy - Fer Lopez MD Date/Time: 09/05/24 07:16 Surgeon: Fer Lopez MD Pre Op Diagnosis: Chr Cholecystitis with Stones Patient Data Age: 34 Gender: F Height: 1.75 m Weight: 74 kg Allergies Allergy/AdvReac Type Severity Reaction Status Date / Time Cephalosporins Allergy Intermediate HIVES Verified 08/28/24 12:18 lisinopril AdvReac Mild cough Verified 08/28/24 12:18 Home Medications Medication Instructions Recorded Confirmed Type cetirizine 10 mg tablet (Zyrtec) 10 mg PO DAILY 01/15/21 08/28/24 History topiramate 100 mg tablet 125 mg PO HS 03/02/22 08/28/24 History buspirone 10 mg tablet 10 mg PO TID 12/01/23 08/28/24 History escitalopram oxalate 20 mg tablet 20 mg PO DAILY 12/01/23 08/28/24 History relugolix 40 mg-estradiol 1 1 tablet PO DAILY 12/01/23 08/28/24 History mg-norethindrone acetate 0.5 mg tablet (Myfembree) Patient hx anesthesia problems: none Family hx anesthesia problems: none Results Review: All pre-operative results and documents have been reviewed as part of the pre- operative evaluation. [facility] Past Medical History Medical History Abdominal pain Anxiety Colitis Depression Diarrhea Hematochezia Hypertension Migraine PATRICIA (obstructive sleep apnea) lost 80 lbs, no longer needed Surgical History Surgical History H/O elbow surgery History of placement of ear tubes History of removal of ovarian cyst History of tubal ligation Family History Family History Father Diabetes mellitus Hypertension Mother Hypertension Social History Social History Smoking status: Never smoker Second hand tobacco smoke exposure: No Alcohol intake: never Substance use: never Substance use type: does not use Do You Feel Safe in your Home?: Yes Lack of Transportation: No Lack of Food: Never True Current Housing: I Have Housing Concerned About Future Housing: No Difficulty Paying Gas/Electric Bills: No Difficulty Paying for Meds: No Currently Unemployed: No Education: Bachelor's Degree Difficulty w/ Childcare or Family Care: No Living arrangements: with family Gender identity (if verbalized by the patient): Female Spiritual care concerns: No Anes - Eval Final PreProcedure Day of Procedure 09/05/24 07:16 Patient weight: normal Heart: regular rate and rhythm Lungs: clear to auscultation Airway: Mallampati scale class II Neurological: alert and oriented Last oral intake: >/= 8 hours ASA classification: II Emergent: no Anesthetic plan: proceed Anesthesia type and monitoring: general ETT and standard monitoring Results Review: All pre-operative results and documents have been reviewed as part of the pre- operative evaluation. Informed Consent: The patient's anesthetic plan and its attendant risks and benefits were discussed with the patient/family/POA. Questions were solicited and answers provided to the satisfaction of the patient/family/POA.
--- NOTE | 2024-09-05 07:40 | WPDHPUPDATE1 ---
History and Physical Update Update Date/Time: 09/05/24 07:40 History and Physical has been reviewed, including an updated exam of the patient. There are NO changes in the patient's condition. Risks, benefits, and alternatives have been discussed and questions answered. Patient agrees to proceed with procedure.
[2024-09-05 07:55] LABS: BEDSIDEPREGUCG Negative (Negative)
[2024-09-05] MEDS: CLINDAMYCIN 900 MG/D5W 50 ML 900 MG/50 ML PIGGYBACK 50 MG IVPB (09:07)
[2024-09-05] MEDS: BUPIVACAINE/EPINEPHRINE 0.5% 50 ML VIAL 20 ML INFILTRATE (09:38)
[2024-09-05] MEDS: fentaNYL CITRATE INJ (*CRX) 100 MCG/2 ML VIAL 25 MCG IV PUSH ×6 (10:24→10:52)
--- NOTE | 2024-09-05 11:05 | W.PM.PROC2 ---
Procedure Note - Detailed Date of Procedure 09/05/24 Pre-op Diagnosis Chr Cholecystitis with Stones Post-op Diagnosis Same Procedure Performed Laparoscopic cholecystectomy Surgeon Fer Lopez MD Roller Machine Operator Rica Jones [facility] Anesthesia General and Local Indications Patient has had postprandial right upper quadrant abdominal pain that is been very severe. She had an ultrasound that showed gallstones and a sonographic Ramirez sign. She continues to have symptoms and is taken to surgery now for laparoscopic cholecystectomy Findings Chronic inflammation, stones, normal liver, no biliary ductal dilatation Description of Procedure Patient was taken to surgery and induced into general anesthesia. The abdomen is prepped and draped. Trocars were placed in the usual fashion using a 5 mm camera and applied Medical optical trocars. The gallbladder was decompressed with a laparoscopic aspirator. The cholecystotomy was closed with a Vicryl endoloop. Gallbladder was carefully dissected in the cholecystohepatic triangle. The cystic artery and cystic duct were clearly dissected. Gallbladder was dissected off the liver over its lower 3rd and critical view was achieved. I securely clipped and divided the cystic duct and cystic artery. The gallbladder was then carefully dissected free of the peritoneum another attachments to the liver. Once it was completely freed, it was placed in an Endo-Catch bag and retrieved through the 10 11 epigastric trocar site. We replaced the epigastric trocar and reviewed the gallbladder fossa and right upper quadrant. There had really been no bleeding whatsoever. No irrigation was needed. We then evacuated CO2 and removed the trocar sleeves. The fascia at the epigastric trocar site was closed with [id number] 0 Vicryl suture. All skin wounds were closed with subcuticular 4-0 Monocryl skin suture. The wounds were dressed with Exofin surgical adhesive. Patient was awakened and taken to recovery in good condition. Sponge needle counts were correct x2. Estimated Blood Loss -5 Drains No Packing No Pathology Yes (Gallbladder) Complications None Condition Stable Disposition PACU [facility] Billing Surgery - Charge Forward: Surgery Billing (Laparoscopic cholecystectomy)
[2024-09-05] MEDS: ONDANSETRON INJ 4 MG/2 ML VIAL IV PUSH (11:13)
[2024-09-05] MEDS: oxyCODONE HCL (*CRX) 5 MG TAB IR PO (11:37)
== END 2024-09-05 11:50 | disposition home or self-care (01) ==
PROVIDERS: PCP Nurse Practitioner Family; Visit Provider Surgery
PROC: 0FT44ZZ Resection of Gallbladder, Percutaneous Endoscopic Approach (ICD-10-PCS; CPT 47562; principal; 2024-09-05 08:30)
DX: K80.10 Calculus of gallbladder with chronic cholecystitis without obstruction (principal); G89.18 Other acute postprocedural pain; F41.9 Anxiety disorder, unspecified; F32.A Depression, unspecified; I10 Essential (primary) hypertension; G47.33 Obstructive sleep apnea (adult) (pediatric); Z98.890 Other specified postprocedural states; Z98.51 Tubal ligation status
CPT/HCPCS: 47562; 36415; 86850; 86900; 86901; 88304; A9270; J1100; J1171; J1885; J2003; J2250; J2405; J2704; J3010; J7030; J7120

== ENCOUNTER 2024-09-10 13:59 | Outpatient (CLI) | payer OTHER, SELFPAY ==
--- NOTE | ~2024-09-10 | US_ITS ---
EXAMINATION: US right upper quadrant DATE: 09/10/2024 14:44 INDICATION: Upper quadrant abdominal pain. Other acute post procedural pain. TECHNIQUE: Multiple grayscale and Doppler ultrasound images of the abdomen were obtained. COMPARISON: CT abdomen and pelvis 12/18/2023 FINDINGS: The visualized portions of the head and body of the pancreas are normal. The liver is matheus l without focal lesion. There is normal flow in main portal vein. The gallbladder is absent. The comm on duct is normal and measures 4 mm. IMPRESSION: 1. Normal right upper quadrant ultrasound status post cholecystectomy. Reviewed, dictated and finalized at location B.
[2024-09-10 14:32] LABS: Basophils Absolute Auto 0.1 K/mm3 (0.0-0.1); Basophils Percent Auto 1.1 % (0.2-1.2); Eosinophils Absolute Auto 0.3 K/mm3 (0-0.3); Eosinophils Percent Auto 4.5 % (0-4.4); Immature Granulocyte Absolute 0.01 K/mm3 (0.00-0.031); Immature Granulocyte Percent A 0.1 % (0-0.5); Lymphocytes Absolute Auto 2.72 K/mm3 (0.9-3.2); Lymphocytes Percent Auto 36.9 % (18.3-44.2); Mean Corpuscular HGB Conc 34.1 g/dl (32-36); Mean Corpuscular Hemoglobin 32.4 pg (26-34); Mean Corpuscular Volume 94.9 fl (80-100); Mean Platelet Volume 10.6 fl (7.4-10.4); Monocytes Absolute Auto 0.3 K/mm3 (0.1-0.6); Monocytes Percent Auto 4.3 % (2.6-8.5); Neutrophils Absolute Auto 3.9 K/mm3 (1.3-6.7); Neutrophils Percent Auto 53.1 % (45.5-73.1); Platelet Count Result 172 k/mm3 (150-375); Red Blood Count 4.32 M/mm3 (4.2-5.4); Red Cell Distribution Width 12.3 % (11.5-14.5); White Blood Count 7.4 K/mm3 (4.5-10.0)
[2024-09-10 14:47] LABS: Alanine Aminotransferase 60 U/L (6-35); Albumin Level 4.2 g/dL (3.5-5.1); Alkaline Phosphatase 73 U/L (38-126); Aspartate Amino Transferase 65 U/L (14-36); Bilirubin,Total 0.4 mg/dL (0.2-1.3)
== END 2024-09-10 14:00 | disposition home or self-care (01) ==
PROVIDERS: PCP Nurse Practitioner Family; Visit Provider Surgery
DX: G89.18 Other acute postprocedural pain (principal)
CPT/HCPCS: 36415; 76705; 80076; 85025

== ENCOUNTER 2024-09-12 09:41 | Outpatient (CLI) | payer OTHER, SELFPAY ==
--- NOTE | ~2024-09-12 | NM_ITS ---
EXAMINATION: NM hepatobiliary wo pharm DATE: 09/12/2024 10:45 INDICATION: Abdominal pain postcholecystectomy COMPARISON: CT dated 09/11/2024 TECHNIQUE: 4 mCi Tc-99m mebrofenin (Choletec) was administered intravenously. Scintigraphic images o f the abdomen were obtained for one hour. FINDINGS: There is normal clearance of radiotracer from the blood pool. There is homogeneous tracer u ptake by the liver. There is extension of activity into the gallbladder fossa and caudally along the right paracolic gutter into the pelvis consistent with bile leak. There is a collection of activity i n the central upper abdomen which could be within the duodenum, reflux into the stomach or and additi onal biloma. IMPRESSION: 1. Prominent bile leak extending along the right paracolic gutter into the pelvis. Reviewed, dictated and finalized at location A. IMPRESSION: 1. Prominent bile leak extending along the right paracolic gutter into the pel vis.
== END 2024-09-12 09:42 | disposition home or self-care (01) ==
LOC: ANHIMG 09:41
PROVIDERS: PCP Nurse Practitioner Family; Visit Provider Surgery
DX: G89.18 Other acute postprocedural pain (principal); Z90.49 Acquired absence of other specified parts of digestive tract
CPT/HCPCS: 78226; A9537

== ENCOUNTER 2024-09-12 12:50 | Inpatient (IN) | payer OTHER, SELFPAY ==
--- NOTE | ~2024-09-12 | XR_ITS ---
EXAMINATION: XR ERCP DATE: 09/13/2024 08:41 INDICATION: Bile leak. TECHNIQUE: 5 spot fluoroscopic images of the right upper quadrant were obtained during endoscopic ret rograde cholangiopancreatography (ERCP). Fluoroscopy exposure time was 111 seconds. COMPARISON: CT abdomen and pelvis 09/11/2024 FINDINGS: There are surgical clips from cholecystectomy. The endoscope is in the second portion of th e duodenum. There is contrast opacification of the common duct with extraluminal leakage of contrast. The final images demonstrate a biliary stent in expected position. IMPRESSION: 1. Bile leak. 2. Biliary stent in expected position. Please refer to the ERCP procedure note for additional details . Reviewed, dictated and finalized at location [] IMPRESSION: 1. Bile leak. 2. Biliary stent in expected position. Please refer to the ERCP procedure note for additional details.
--- NOTE | ~2024-09-12 | XR_ITS ---
XR chest 2V Ordering provider: Fer Lopez MD History: 34 years Female with . NEW onset cough POST ERCP . Comparison: None. FINDINGS: MEDIASTINUM: The cardiac silhouette is not enlarged. LUNGS: No infiltrates, effusions or pneumothorax. OTHER: No free air under the diaphragm. IMPRESSION: No acute cardiopulmonary pathology. Reviewed, dictated and finalized at location A. BODY TECHNICIAN
--- NOTE | ~2024-09-12 | NM_ITS ---
EXAMINATION: NM hepatobiliary wo pharm DATE: 09/14/2024 13:58 INDICATION: Evaluate for persistent bile leak post ERCP and biliary stenting. COMPARISON: 09/12/2024 TECHNIQUE: 5 mCi Tc-99m mebrofenin (Choletec) was administered intravenously. Scintigraphic images o f the abdomen were obtained for one hour. FINDINGS: There is normal clearance of radiotracer from the blood pool. There is homogeneous tracer u ptake by the liver. Activity progresses through the common bile duct to the duodenum with initially activity evident at 10 minutes. No abnormal regions of activity accumulation to suggest bile leak. IMPRESSION: 1. Normal post cholecystectomy hepatobiliary scan with resolution of prior leak. Reviewed, dictated and finalized at location A. IMPRESSION: 1. Normal post cholecystectomy hepatobiliary scan with resolution of prior lou k.
--- NOTE | ~2024-09-12 | CT_ITS ---
CT abdomen pelvis wo con Ordering provider: Fer Lopez MD History: 34 years Female with . abdominal pain . Comparison: None. Technique: CT abdomen and pelvis without IV and without oral contrast. Automated exposure control and iterative reconstruction technique were employed. The dose-length product was 703.81 mGy-cm. Findings: VISUALIZED LOWER CHEST: Bilateral minimal effusion with adjacent atelectatic changes. UPPER ABDOMINAL ORGANS: Liver: Hepatomegaly. Biliary stent is noted. Gallbladder: Status post cholecystectomy. Spleen: Normal. Stomach/duodenum: Normal. Pancreas: Prominent pancreatic duct measuring 1.3 cm. Adrenals: Normal. Kidneys: Normal. PELVIC ORGANS: The bladder shows slightly thickened wall. Uterus: Normal. BOWEL AND MESENTERY: Colon: No evidence of diverticulitis. Fecal material is loaded in the colon. Appendix is not demonstr ated. Small Bowel: Slightly dilated small bowel loops are seen in the left pelvic area. Follow-up advised. No definite obstruction. Peritoneum/mesentery: No free air. Ascites is seen in the pelvis and in the upper abdomen. No mesenteric lymphadenopathy. Small mesenteric lymph nodes are noted. Possible Swirl sign is seen i n the root of the mesentery which may indicate internal hernia. Clinical correlation and follow-up ad vised. RETROPERITONEUM: Normal aorta. No retroperitoneal lymphadenopathy. MUSCULOSKELETAL: Superficial soft tissues: Fat stranding seen in the subcutaneous tissues which may indicate volume ov erload. The superficial soft tissues are normal. Bones: Normal spine. IMPRESSION: 1. Gross ascites. 2. Slightly dilated bowel loops in the left abdomen follow-up and clinical correlation advised. 3. Dilated pancreatic duct. 4. Possible Swirl sign of the mesentery. Possibility of internal hernia cannot be excluded. Clinica l correlation and follow-up advised. 5. Hepatomegaly 6. Bilateral basal atelectatic changes with minimal effusion. Reviewed, dictated and finalized at location A. T MARKETING INTERN IMPRESSION: 1. Gross ascites. 2. Slightly dilated bowel loops in the left abdomen follow-up and clinical cor relation advised. 3. Dilated pancreatic duct. 4. Possible Swirl sign of the mesentery. Possibility of internal hernia canno t be excluded. Clinical correlation and follow-up advised. 5. Hepatomegaly 6. Bilateral basal atelectatic changes with minimal effusion.
--- NOTE | ~2024-09-12 | CT_ITS ---
EXAMINATION:CT diagnostic chest wo con DATE: 09/17/2024 14:06 INDICATION: Back pain. TECHNIQUE: Computed tomography (CT) of the chest was performed without intravenous contrast. Automate d exposure control and iterative reconstruction technique were employed. The dose-length product (DLP ) was 189.04 mGy-cm. COMPARISON: CT abdomen and pelvis 09/17/2024 FINDINGS: The lungs demonstrate mild atelectasis. There are small pleural effusions. The heart size i s normal. There is a trace pericardial effusion. Partially visualized is a biliary stent in expected position. There are surgical clips from cholecystectomy. Periportal edema is noted. There is fat stra nding around the pancreas, consistent with pancreatitis. There is a small volume of perihepatic ascit es. There is multilevel mild facet joint osteoarthritis in the spine. IMPRESSION: 1. Small pleural effusions. 2. Acute pancreatitis. 3. Small volume of ascites. Reviewed, dictated and finalized at location A. ER
[2024-09-12 11:55] VITALS: BP 128/72; PULSE 73; RESP 16; TEMP 36.5; O2SAT 100
[2024-09-12 12:26] VITALS: BMI 24.0
--- NOTE | 2024-09-12 12:32 | ADMGEN ---
This patient, Yumi Maravilla, was admitted to [facility] Surg Room 314-01. Patient/family oriented to hospital policies and general routines including ID bracelet, bed and alarms, visiting hours, pain management, procedures, bathroom and other care routines, personal items, smoking policy, room service/diet, and visiting hours. Information on how to activate the Rapid Response Team has been discussed. Patient/Family are encouraged to report perceived risks to care and to ask questions if they do not understand what they are told or what they should do. Direct admit from home in [place]. pt had planned HIDA scan per Dr. Lopez. pt arrived at 1155 by wheelchair.
[2024-09-12] MEDS: IBUPROFEN IV 800 MG/200 ML 800 MG/200 ML BAG 400 MG IVPB ×2 (13:16→18:02)
[2024-09-12 13:17] LABS: Basophils Absolute Auto 0.1 K/mm3 (0.0-0.1); Basophils Percent Auto 0.5 % (0.2-1.2); Eosinophils Absolute Auto 0.1 K/mm3 (0-0.3); Eosinophils Percent Auto 0.9 % (0-4.4); Hematocrit 43.2 % (37.0-47.0); Hemoglobin 14.8 g/dL (12.0-15.0); Immature Granulocyte Absolute 0.03 K/mm3 (0.00-0.031); Immature Granulocyte Percent A 0.3 % (0-0.5); Lymphocytes Absolute Auto 1.38 K/mm3 (0.9-3.2); Lymphocytes Percent Auto 13.5 % (18.3-44.2); Mean Corpuscular HGB Conc 34.3 g/dl (32-36); Mean Corpuscular Volume 93.5 fl (80-100); Mean Platelet Volume 10.4 fl (7.4-10.4); Monocytes Absolute Auto 0.8 K/mm3 (0.1-0.6); Neutrophils Absolute Auto 7.8 K/mm3 (1.3-6.7); Neutrophils Percent Auto 76.8 % (45.5-73.1); Platelet Count Result 174 k/mm3 (150-375); Red Blood Count 4.62 M/mm3 (4.2-5.4); Red Cell Distribution Width 12.2 % (11.5-14.5); White Blood Count 10.2 K/mm3 (4.5-10.0)
[2024-09-12] MEDS: LACTATED RINGERS 1,000 ML 100 ML IV CONT (13:19)
[2024-09-12 13:27] LABS: Alanine Aminotransferase 57 U/L (6-35); Albumin Level 4.4 g/dL (3.5-5.1); Alkaline Phosphatase 84 U/L (38-126); Anion Gap 9 mmol/L (4-12); Aspartate Amino Transferase 39 U/L (14-36); Bilirubin,Total 1.1 mg/dL (0.2-1.3); Blood Urea Nitrogen 11 mg/dL (7-17); Calcium 9.3 mg/dL (8.4-10.2); Carbon Dioxide 26 mmol/L (22-30); Chloride 102 mmol/L (98-107); Estimated CRCL calculation 68 ml/min; Estimated Glomerular Filt Rate 58; Glucose 103 mg/dL (65-110); Sodium 137 mmol/L (137-145)
[2024-09-12] MEDS: ONDANSETRON INJ 4 MG/2 ML VIAL IV PUSH (13:32)
[2024-09-12 13:34] LABS: INR 1.1; Partial Thromboplastin Time 28.6 Seconds (22.3-36.8); Prothrombin Time 14.6 Seconds (11.1-14.7)
[2024-09-12 14:00] VITALS: BP 117/71; PULSE 81; RESP 16; TEMP 36.5; O2SAT 100
--- NOTE | 2024-09-12 14:08 | P.HP_ITS ---
H&P: HPI History of Present Illness Date/Time: 09/12/24 14:08 Chief Complaint: Postoperative bile leak Narrative: This is a 34-year-old woman who underwent laparoscopic cholecystectomy on 09/05/2024 for chronic calculous cholecystitis by Dr. Lopez. She was initially doing well following the surgery. She was taking the pain medication for her incisional pain. By postop day 5, she began to develop worsening abdominal pain. She reports the pain was different than the incisional pain. She describes her pain is radiating all the way from the suprapubic area across her entire upper abdomen and wraps around her right upper quadrant to her mid back. The pain also radiates into her right chest. She had associated nausea and poor appetite, but no vomiting. She called our office 2 days ago regarding her ab dominal pain. She had outpatient labs with a CBC and hepatic panel that were unremarkable with only mild elevation of AST and ALT. Total bilirubin normal. Right upper quadrant abdominal ultrasound was normal with an absent gallbladder, but no additional findings. Her symptoms progressively got worse yesterday and she presented to [facility]. They contacted our office and she was discharged from their ER and scheduled for an outpatient HIDA scan today. The HIDA scan showed a prominent bile leak extending along the right paracolic gutter into the pelvis. She was then directly admitted in the setting of a postoperative bile leak. GI has been consulted. She is now seen on the medical floor. Review of Systems Review of Systems: All systems reviewed & are unremarkable except as noted in HPI and below PMFSH Past Medical History Medical History (Updated 09/12/24 @ 14:17 by MARISOL Ferrell) Abdominal pain Anxiety Colitis Depression Diarrhea Hematochezia Hypertension Migraine PATRICIA (obstructive sleep apnea) lost 80 lbs, no longer needed Surgical History Surgical History (Updated 09/12/24 @ 14:17 by MARISOL Ferrell) H/O elbow surgery History of placement of ear tubes History of removal of ovarian cyst History of tubal ligation Status post laparoscopic cholecystectomy Family History Family History Father Diabetes mellitus Hypertension Mother Hypertension Social History Social History Smoking status: Never smoker Second hand tobacco smoke exposure: No Alcohol intake: former Drinks per week: 1 Substance use: never Substance use type: does not use Do You Feel Safe in your Home?: Yes Lack of Transportation: No Lack of Food: Never True Current Housing: I Have Housing Concerned About Future Housing: No Difficulty Paying Gas/Electric Bills: No Difficulty Paying for Meds: No Currently Unemployed: No Education: Don't Know Difficulty w/ Childcare or Family Care: No Living arrangements: with family Gender identity (if verbalized by the patient): Female Spiritual care concerns: No Meds Home Medications and Allergies Home Medications Medication Instructions Recorded Confirmed Type cetirizine 10 mg tablet (Zyrtec) 10 mg PO DAILY 01/15/21 09/12/24 History topiramate 100 mg tablet 125 mg PO HS 03/02/22 09/12/24 History buspirone 10 mg tablet 10 mg PO TID 12/01/23 09/12/24 History escitalopram oxalate 20 mg tablet 30 mg PO DAILY 12/01/23 09/12/24 History relugolix 40 mg-estradiol 1 1 tablet PO DAILY 12/01/23 09/12/24 History mg-norethindrone acetate 0.5 mg tablet (Myfembree) ketorolac 10 mg tablet 10 mg PO Q6H 4 days #16 tabs 09/05/24 09/12/24 Rx oxycodone-acetaminophen 5 mg-325 0.5 - 1 tablet PO Q6H PRN pain #15 09/10/24 09/12/24 Rx mg tablet tabs Allergies Allergy/AdvReac Type Severity Reaction Status Date / Time Cephalosporins Allergy Intermediate HIVES Verified 09/12/24 12:22 lisinopril AdvReac Mild cough Verified 09/12/24 12:22 Vital Signs Vital Signs - 24 hr 09/12/24 11:55 09/12/24 14:00 Temperature 97.7 F 97.7 F Pulse Rate 73 81 Respiratory Rate 16 16 Blood Pressure 128/72 117/71 Pulse Oximetry 100 100 Exam Const: General: no acute distress, awake and uncomfortable (Due to pain) Nutritional Appearance: average body habitus Orientation/consciousness: patient oriented x3 HENMT: Head: normocephalic and atraumatic Ears: hearing grossly normal bilaterally Mouth: Yes moist mucous membranes Eyes: General: appearance normal, both eyes and all related structures Pupils: Equal, round and reactive pupils present Neck: Neck: normal visual inspection and full ROM Resp: Effort & Inspection: no respiratory distress Auscultation: clear to auscultation bilaterally Cardio: Rate: regular rate Rhythm: regular rhythm Heart sounds: S1 normal heart sound present and S2 normal heart sound present Peripheral pulses: Peripheral pulses 2+ throughout GI: Inspection: non-distended and incision (dry and glue intact, healing well, no erythema) GI Palp: Yes Soft to palpation, Yes Tenderness to palpation present (GI) (Patient is diffusely tender with increased tenderness in RUQ), Yes Guarding due to palpation present (GI) (RUQ), Yes No hepatosplenomegaly present, No Hernia present and No Rebound tenderness present Auscultation: Hypoactive bowel sounds present Skin: General skin exam: normal color Neuro: General: moves all extremities and no focal motor deficits Speech: normal speech Motor exam (neuro): 5/5 motor strength present throughout Extrem: General: normal to inspection and no edema Psych: Mental Status: mental status grossly normal Attitude: cooperative Insight: Good insight present (Psych) Judgement: Good judgement present (Psych) H&P: Results Labs Labs: Short CBC 09/12/24 Range/Units 13:10 WBC 10.2 H (4.5-10.0) K/mm3 Hgb 14.8 (12.0-15.0) g/dL Hct 43.2 (37.0-47.0) % Plt Count 174 (150-375) k/mm3 BMP 09/12/24 13:10 Sodium 137 Potassium 4.0 Chloride 102 Carbon Dioxide 26 BUN 11 Creatinine 1.10 H Glucose 103 Calcium 9.3 Liver Function 09/12/24 Range/Units 13:10 Total Bilirubin 1.1 (0.2-1.3) mg/dL AST 39 H (14-36) U/L ALT 57 H (6-35) U/L Alkaline Phosphatase 84 (38-126) U/L Albumin 4.4 (3.5-5.1) g/dL Assessment and Plan Assessment and plan (1) Postoperative bile leak: Code(s): K91.89 - Other postprocedural complications and disorders of digestive system; K83.8 - Other specified diseases of biliary tract Status: Acute Assessment and Plan: Patient is one week postop from a laparoscopic cholecystectomy. She was found to have a postoperative bile leak on HIDA scan today. She has been admitted and started on IV antibiotics with levofloxacin and metronidazole. We will keep her NPO with IV fluids for hydration and analgesics as needed. GI has been consulted for ERCP, which they are planning for this afternoon. Findings on the HIDA scan, along with the plan of care at this time, was all discussed with the patient in detail. All questions were answered. (2) Status post laparoscopic cholecystectomy: Code(s): Z90.49 - Acquired absence of other specified parts of digestive tract Status: Acute Assessment and Plan: Laparoscopic cholecystectomy on 09/05/[address] Lopez (3) Chronic cholecystitis with calculus: Code(s): K80.10 - Calculus of gallbladder with chronic cholecystitis without obstruction Status: Acute Plan I have discussed the patient's case and plan of care with Dr. Lopez.
[2024-09-12] MEDS: MORPHINE SULFATE (*CRX) 2 MG/ML INJ IV PUSH ×2 (14:16→21:41)
[2024-09-12] MEDS: levoFLOXacin 750 MG/D5W 150 ML 750 MG/150 ML BAG 100 MG IVPB (14:19)
[2024-09-12 14:21] VITALS: O2SAT 100
[2024-09-12] MEDS: MORPHINE SULFATE (*CRX) 4 MG/ML INJ IV PUSH ×2 (15:51→19:20)
[2024-09-12] MEDS: metroNIDAZOLE 500 MG/ISO 100ML 500 MG/100 ML BAG 100 MG IVPB ×2 (15:53→21:41)
[2024-09-12] MEDS: busPIRone HCL 10 MG TABLET PO (16:55)
--- NOTE | 2024-09-12 17:04 | WPDGICN ---
Assessment and Plan Assessment and plan (1) Postoperative bile leak: Code(s): K91.89 - Other postprocedural complications and disorders of digestive system; K83.8 - Other specified diseases of biliary tract Status: Acute Assessment and Plan: The patient has clear evidence of bile duct leak post laparoscopic cholecystectomy. ERCP and stent placement is planned for tomorrow around 7:00 a.m.. (2) Status post laparoscopic cholecystectomy: Code(s): Z90.49 - Acquired absence of other specified parts of digestive tract Status: Acute GI Consult Note Consult date/time: 09/12/24 17:04 HPI: Yumi Maravilla is a 34 year old female who underwent lap travis on 09/05. The day after discharge, she started developing moderate to severe right shoulder pain, which she tolerated for a few days. However she started complaining of significant right upper quadrant abdominal pain about 5 days later. Initial studies 2 days ago included ultrasound of the right upper quadrant, CBC with diff, LFTs. CT scan at another institution was done and did not show anything other than postoperative changes . A HIDA scan revealed a bile leak. Consult requested for ERCP with the intention of placing a biliary stent. Patient is receiving analgesics and is covered with antibiotics. [facility] Past Medical History Medical History (Updated 09/12/24 @ 14:17 by MARISOL Ferrell) Abdominal pain Anxiety Colitis Depression Diarrhea Hematochezia Hypertension Migraine PATRICIA (obstructive sleep apnea) lost 80 lbs, no longer needed Surgical History Surgical History (Updated 09/12/24 @ 14:17 by MARISOL Ferrell) H/O elbow surgery History of placement of ear tubes History of removal of ovarian cyst History of tubal ligation Status post laparoscopic cholecystectomy Family History Family History Father Diabetes mellitus Hypertension Mother Hypertension Social History Social History Smoking status: Never smoker Second hand tobacco smoke exposure: No Alcohol intake: former Drinks per week: 1 Substance use: never Substance use type: does not use Do You Feel Safe in your Home?: Yes Lack of Transportation: No Lack of Food: Never True Current Housing: I Have Housing Concerned About Future Housing: No Difficulty Paying Gas/Electric Bills: No Difficulty Paying for Meds: No Currently Unemployed: No Education: Don't Know Difficulty w/ Childcare or Family Care: No Living arrangements: with family Gender identity (if verbalized by the patient): Female Spiritual care concerns: No Meds Home Medications and Allergies Home Medications Medication Instructions Recorded Confirmed Type cetirizine 10 mg tablet (Zyrtec) 10 mg PO DAILY 01/15/21 09/12/24 History topiramate 100 mg tablet 125 mg PO HS 03/02/22 09/12/24 History buspirone 10 mg tablet 10 mg PO TID 12/01/23 09/12/24 History escitalopram oxalate 20 mg tablet 30 mg PO DAILY 12/01/23 09/12/24 History relugolix 40 mg-estradiol 1 1 tablet PO DAILY 12/01/23 09/12/24 History mg-norethindrone acetate 0.5 mg tablet (Myfembree) ketorolac 10 mg tablet 10 mg PO Q6H 4 days #16 tabs 09/05/24 09/12/24 Rx oxycodone-acetaminophen 5 mg-325 0.5 - 1 tablet PO Q6H PRN pain #15 09/10/24 09/12/24 Rx mg tablet tabs Allergies Allergy/AdvReac Type Severity Reaction Status Date / Time Cephalosporins Allergy Intermediate HIVES Verified 09/12/24 12:22 lisinopril AdvReac Mild cough Verified 09/12/24 12:22 Vital Signs Vital Signs - 24 hr 09/12/24 11:55 09/12/24 14:00 09/12/24 14:21 Temperature 97.7 F 97.7 F Pulse Rate 73 81 Respiratory Rate 16 16 Blood Pressure 128/72 117/71 Pulse Oximetry 100 100 100 Oxygen Delivery Room Air Exam Const: General: in distress Eyes: Other: anicteric GI: GI Palp: Yes Soft to palpation, Yes Tenderness to palpation present (GI) and Yes Guarding due to palpation present (GI) Auscultation: normal bowel sounds Results Labs 09/12/24 13:10 09/12/24 13:10 Labs: Short CBC 09/12/24 Range/Units 13:10 WBC 10.2 H (4.5-10.0) K/mm3 Hgb 14.8 (12.0-15.0) g/dL Hct 43.2 (37.0-47.0) % Plt Count 174 (150-375) k/mm3 BMP 09/12/24 13:10 Sodium 137 Potassium 4.0 Chloride 102 Carbon Dioxide 26 BUN 11 Creatinine 1.10 H Glucose 103 Calcium 9.3 Liver Function 09/12/24 Range/Units 13:10 Total Bilirubin 1.1 (0.2-1.3) mg/dL AST 39 H (14-36) U/L ALT 57 H (6-35) U/L Alkaline Phosphatase 84 (38-126) U/L Albumin 4.4 (3.5-5.1) g/dL
[2024-09-12] MEDS: TOPIRAMATE 25 MG TABLET 125 MG PO (21:41)
[2024-09-12] MEDS: FAMOTIDINE 20 MG/2 ML VIAL IV PUSH (21:41)
[2024-09-12 22:08] VITALS: BP 105/62; PULSE 79; RESP 18; TEMP 36.6; O2SAT 96
[2024-09-13] VITALS (15 sets, daily range): BP systolic 102–133; BP diastolic 61–82; PULSE 86–102; RESP 12–20; TEMP 35.9–37.4; O2SAT 98–100
[2024-09-13] MEDS: MORPHINE SULFATE (*CRX) 4 MG/ML INJ IV PUSH ×3 (00:06→13:20)
[2024-09-13] MEDS: IBUPROFEN IV 800 MG/200 ML 800 MG/200 ML BAG 400 MG IVPB ×5 (00:08→23:55)
[2024-09-13] MEDS: metroNIDAZOLE 500 MG/ISO 100ML 500 MG/100 ML BAG 100 MG IVPB ×3 (04:31→21:37)
[2024-09-13] MEDS: INDOMETHACIN 50 MG SUPP.RECT 100 MG RECTAL (05:44)
[2024-09-13] MEDS: LACTATED RINGERS 1,000 ML 100 ML IV CONT (05:49)
[2024-09-13] MEDS: MORPHINE SULFATE (*CRX) 2 MG/ML INJ IV PUSH ×2 (06:23→10:04)
[2024-09-13] MEDS: LACTATED RINGERS 1,000 ML 150 ML IV CONT ×2 (06:37→21:36)
--- NOTE | 2024-09-13 07:13 | WPDANESEPPF ---
Anes - Initial Pre Proc Eval Procedure: Operation Date: 09/13/24 07:30 Proposed Procedures p Endoscopic Retro Cholangiopancreatogram - Kamaljit Jaramillo MD Date/Time: 09/13/24 07:13 Surgeon: Fer Lopez MD Pre Op Diagnosis: Bile leak Patient Data Age: 34 Gender: F Height: 1.75 m Weight: 73.7 kg Last Vital Signs Temp 36.5 C 09/13/24 06:20 Pulse 88 09/13/24 06:20 Resp 18 09/13/24 06:20 BP 117/72 09/13/24 06:20 Pulse Ox 99 09/13/24 06:20 O2 Del Method Room Air 09/13/24 06:20 Allergies Allergy/AdvReac Type Severity Reaction Status Date / Time Cephalosporins Allergy Intermediate HIVES Verified 09/13/24 06:33 lisinopril AdvReac Mild cough Verified 09/13/24 06:33 Home Medications Medication Instructions Recorded Confirmed Type cetirizine 10 mg tablet (Zyrtec) 10 mg PO DAILY 01/15/21 09/12/24 History topiramate 100 mg tablet 125 mg PO HS 03/02/22 09/12/24 History buspirone 10 mg tablet 10 mg PO TID 12/01/23 09/12/24 History escitalopram oxalate 20 mg tablet 30 mg PO DAILY 12/01/23 09/12/24 History relugolix 40 mg-estradiol 1 1 tablet PO DAILY 12/01/23 09/12/24 History mg-norethindrone acetate 0.5 mg tablet (Myfembree) ketorolac 10 mg tablet 10 mg PO Q6H 4 days #16 tabs 09/05/24 09/12/24 Rx oxycodone-acetaminophen 5 mg-325 0.5 - 1 tablet PO Q6H PRN pain #15 09/10/24 09/12/24 Rx mg tablet tabs Laboratory Tests 09/12/24 13:10 WBC 10.2 H K/mm3 (4.5-10.0) RBC 4.62 M/mm3 (4.2-5.4) Hgb 14.8 g/dL (12.0-15.0) Hct 43.2 % (37.0-47.0) MCV 93.5 fl (80-100) MCH 32.0 pg (26-34) MCHC 34.3 g/dl (32-36) RDW 12.2 % (11.5-14.5) Plt Count 174 k/mm3 (150-375) MPV 10.4 fl (7.4-10.4) Immature Gran % (Auto) 0.3 % (0-0.5) Neut % (Auto) 76.8 H % (45.5-73.1) Lymph % (Auto) 13.5 L % (18.3-44.2) Blair % (Auto) 8.0 % (2.6-8.5) Eos % (Auto) 0.9 % (0-4.4) Baso % (Auto) 0.5 % (0.2-1.2) Lymph # (Auto) 1.38 K/mm3 (0.9-3.2) Blair # (Auto) 0.8 H K/mm3 (0.1-0.6) Eos # (Auto) 0.1 K/mm3 (0-0.3) Baso # (Auto) 0.1 K/mm3 (0.0-0.1) Abs Immat Gran (auto) 0.03 K/mm3 (0.00-0.031) Absolute Neuts (auto) 7.8 H K/mm3 (1.3-6.7) Absolute Nucleated RBC 0.000 K/mm3 (0.0-0.012) Nucleated RBC % 0.0 % (0.0-0.2) PT 14.6 Seconds (11.1-14.7) INR 1.1 APTT 28.6 Seconds (22.3-36.8) Sodium 137 mmol/L (137-145) Potassium 4.0 mmol/L (3.4-5.0) Chloride 102 mmol/L (98-107) Carbon Dioxide 26 mmol/L (22-30) Anion Gap 9 mmol/L (4-12) BUN 11 mg/dL (7-17) Creatinine 1.10 H mg/dL (0.7-1.0) Estim Creat Clear Calc 68 ml/min Estimated GFR 58 L (59 - ) Glucose 103 mg/dL (65-110) Calcium 9.3 mg/dL (8.4-10.2) Total Bilirubin 1.1 mg/dL (0.2-1.3) AST 39 H U/L (14-36) ALT 57 H U/L (6-35) Alkaline Phosphatase 84 U/L (38-126) Total Protein 8.0 g/dL (6.3-8.2) Albumin 4.4 g/dL (3.5-5.1) Patient hx anesthesia problems: none Family hx anesthesia problems: none Results Review: All pre-operative results and documents have been reviewed as part of the pre-operative evaluation. COUNTS INCLUDE 234 BEDS AT THE [facility] Past Medical History Medical History Abdominal pain Anxiety Colitis Depression Diarrhea Hematochezia Hypertension Migraine PATRICIA (obstructive sleep apnea) lost 80 lbs, no longer needed Surgical History Surgical History H/O elbow surgery History of placement of ear tubes History of removal of ovarian cyst History of tubal ligation Status post laparoscopic cholecystectomy Family History Family History Father Diabetes mellitus Hypertension Mother Hypertension Social History Social History Smoking status: Never smoker Second hand tobacco smoke exposure: No Alcohol intake: former Drinks per week: 1 Substance use: never Substance use type: does not use Do You Feel Safe in your Home?: Yes Lack of Transportation: No Lack of Food: Never True Current Housing: I Have Housing Concerned About Future Housing: No Difficulty Paying Gas/Electric Bills: No Difficulty Paying for Meds: No Currently Unemployed: No Education: Don't Know Difficulty w/ Childcare or Family Care: No Living arrangements: with family Gender identity (if verbalized by the patient): Female Spiritual care concerns: No Anes - Eval Final PreProcedure Day of Procedure 09/13/24 07:13 Patient weight: normal Heart: regular rate and rhythm Lungs: clear to auscultation Airway: Mallampati scale class II Neurological: alert and oriented Last oral intake: >/= 8 hours ASA classification: II Emergent: no Anesthetic plan: proceed Anesthesia type and monitoring: general ETT Results Review: All pre-operative results and documents have been reviewed as part of the pre-operative evaluation. Informed Consent: The patient's anesthetic plan and its attendant risks and benefits were discussed with the patient/family/POA. Questions were solicited and answers provided to the satisfaction of the patient/family/POA.
--- NOTE | 2024-09-13 08:21 | P.PNGI_ITS ---
Progress Note: A&P Assessment and Plan (1) Postoperative bile leak: Code(s): K91.89 - Other postprocedural complications and disorders of digestive system; K83.8 - Other specified diseases of biliary tract Status: Acute Assessment and Plan: The patient is deemed a good candidate for the ERCP. . Consent signed. Will proceed. (2) Status post laparoscopic cholecystectomy: Code(s): Z90.49 - Acquired absence of other specified parts of digestive tract Status: Acute Subjective Date/time seen: 09/13/24 08:21 Interval history: Patient continued to have generalized abdominal pain throughout the night. No fever. She is down for ERCP and stent placement. Objective Data Vital Signs Vital Signs: Vital Signs - 24 hr 09/12/24 11:55 09/12/24 14:00 09/12/24 14:21 Temperature 97.7 F 97.7 F Pulse Rate 73 81 Respiratory Rate 16 16 Blood Pressure 128/72 117/71 Pulse Oximetry 100 100 100 Oxygen Delivery Room Air 09/12/24 22:08 09/13/24 05:23 09/13/24 06:20 Temperature 97.9 F 97.8 F 97.7 F Pulse Rate 79 93 88 Respiratory Rate 18 18 18 Blood Pressure 105/62 113/79 117/72 Pulse Oximetry 96 100 99 Oxygen Delivery Room Air Intake/Output Intake/Output: Intake & Output 09/10/24 09/11/24 09/12/24 09/13/24 23:59 23:59 23:59 23:59 Intake Total 1840 200 Balance 1840 200 Meds/Results Medications: Active Medications Generic Name Dose Route Start Last Admin Trade Name Freq PRN Reason Stop Dose Admin Buspirone HCl 10 mg 09/12/24 17:00 09/12/24 16:55 Buspirone Hcl 10 Mg Tablet PO 10 mg TID RAFAEL Administration Famotidine 20 mg 09/12/24 21:00 09/12/24 21:41 Famotidine 20 Mg/2 Ml Vial IV PUSH 20 mg Q12HR RAFAEL Administration Lactated Ringer's 1,000 mls @ 100 mls/hr 09/12/24 12:50 09/13/24 05:49 Lr - Lactated Ringers Iv IV CONT 100 mls/hr .Q10H RAFAEL Administration Ibuprofen 800 mg in 200 mls @ 400 mls/hr 09/12/24 19:00 09/13/24 05:44 Caldolor 800 Mg/200 Ml IVPB 400 mls/hr Q6HR RAFAEL Administration Levofloxacin/Dextrose 750 mg in 150 mls @ 100 mls/hr 09/13/24 09:00 Levaquin 750 Mg/D5w 150 Ml IVPB Q24H RAFAEL Metronidazole 500 mg in 100 mls @ 100 mls/hr 09/12/24 14:00 09/13/24 04:31 Flagyl 500 Mg/Iso Soln 100 Ml IVPB 100 mls/hr Q8HR RAFAEL Administration Lactated Ringer's 1,000 mls @ 150 mls/hr 09/13/24 06:35 09/13/24 08:18 Lr - Lactated Ringers Iv IV CONT 150 mls/hr .Q6H40M RAFAEL Infusion Morphine Sulfate 2 mg 09/12/24 12:50 09/13/24 06:23 Morphine Sulfate (*Crx) 2 Mg/Ml Inj IV PUSH 2 mg Q2H PRN Administration Breakthrough Pain Rated 4-6 or NPO Morphine Sulfate 4 mg 09/12/24 12:50 09/13/24 04:29 Morphine Sulfate (*Crx) 4 Mg/Ml Inj IV PUSH 4 mg Q2H PRN Administration Breakthrough Pain Rated 7-10 or NPO Naloxone HCl 0.1 mg 09/12/24 12:50 Naloxone Hcl 0.4 Mg/Ml Vial IV PUSH Q2M PRN Opiate Reversal Ondansetron HCl 4 mg 09/12/24 12:50 09/12/24 13:32 Ondansetron Inj 4 Mg/2 Ml Vial IV PUSH 4 mg Q4H PRN Administration Nausea And Vomiting Topiramate 125 mg 09/12/24 21:00 09/12/24 21:41 Topiramate 25 Mg Tablet PO 125 mg HS RAFAEL Administration Labs Labs: Laboratory Results - last 24 hr 09/12/24 13:10 WBC 10.2 H RBC 4.62 Hgb 14.8 Hct 43.2 MCV 93.5 MCH 32.0 MCHC 34.3 RDW 12.2 Plt Count 174 MPV 10.4 Immature Gran % (Auto) 0.3 Neut % (Auto) 76.8 H Lymph % (Auto) 13.5 L [place] % (Auto) 8.0 Eos % (Auto) 0.9 Baso % (Auto) 0.5 Lymph # (Auto) 1.38 [place] # (Auto) 0.8 H Eos # (Auto) 0.1 Baso # (Auto) 0.1 Abs Immat Gran (auto) 0.03 Absolute Neuts (auto) 7.8 H Absolute Nucleated RBC 0.000 Nucleated RBC % 0.0 PT 14.6 INR 1.1 APTT 28.6 Sodium 137 Potassium 4.0 Chloride 102 Carbon Dioxide 26 Anion Gap 9 BUN 11 Creatinine 1.10 H Estim Creat Clear Calc 68 Estimated GFR 58 L Glucose 103 Calcium 9.3 Total Bilirubin 1.1 AST 39 H ALT 57 H Alkaline Phosphatase 84 Total Protein 8.0 Albumin 4.4
--- NOTE | 2024-09-13 09:27 | PC.NURSE ---
Report from Amy in GI
[2024-09-13] MEDS: busPIRone HCL 10 MG TABLET PO ×3 (09:53→17:11)
[2024-09-13] MEDS: levoFLOXacin 750 MG/D5W 150 ML 750 MG/150 ML BAG 100 MG IVPB (09:53)
[2024-09-13] MEDS: FAMOTIDINE 20 MG/2 ML VIAL IV PUSH ×2 (09:53→20:08)
[2024-09-13] MEDS: HYDROmorphone HCL INJ (*CRX) 1 MG/ML SYR IV PUSH ×4 (15:26→22:11)
--- NOTE | 2024-09-13 15:27 | PM.PNGS ---
Progress Note: A&P Assessment and Plan (1) Postoperative bile leak: Code(s): K91.89 - Other postprocedural complications and disorders of digestive system; K83.8 - Other specified diseases of biliary tract Status: Acute Assessment and Plan: Successful ERCP with stent placement done today. Patient is having some nausea and still complaining of a lot of abdominal pain. Her abdominal pain is likely related to bile peritonitis. Continue IV antibiotics. Discussed the case with Dr. Lopez, who will speak with the patient in regards to the option of laparoscopic washout versus monitoring with antibiotics for now. I will also switch her pain medication to IV Dilaudid to try and improve her pain control. Will keep her on a clear liquid diet for now. Will make her NPO while waiting for the discussion regarding surgery. (2) Status post laparoscopic cholecystectomy: Code(s): Z90.49 - Acquired absence of other specified parts of digestive tract Status: Acute Assessment and Plan: Laparoscopic cholecystectomy on 09/05/[address] Lopez (3) Chronic cholecystitis with calculus: Code(s): K80.10 - Calculus of gallbladder with chronic cholecystitis without obstruction Status: Acute Plan I have discussed the patient's case and plan of care with Dr. Lopez. Subjective Subjective Date/Time Seen: 09/13/24 15:27 Patient reports: voiding w/o difficulty, no flatus and no bowel movement Interval history: 09/05/24 - Laparoscopic cholecystectomy 09/12/24 - ERCP ERCP with stent placement done this morning and successful. Patient still complaining of a lot of abdominal pain. She now feels like her pain is across her entire abdomen and more in the pelvis today. She states her pain is going into her lower back today. She feels bloated and distended. She had a small amount of Jell-O for lunch and developed nausea. She denies vomiting. She is afebrile. Review of Systems Review of Systems: All systems reviewed & are unremarkable except as noted in HPI and below Exam Const: General: uncomfortable Orientation/consciousness: patient oriented x3 GI: Inspection: incision (incisions healing well, dry and intact) and other (mildly distended) GI Palp: Yes Soft to palpation, Yes Tenderness to palpation present (GI) (diffusely tender), Yes Guarding due to palpation present (GI) and No Rebound tenderness present Auscultation: Hypoactive bowel sounds present Objective Data Vital Signs Vital Signs: Vital Signs - 24 hr 09/12/24 22:08 09/13/24 05:23 09/13/24 06:20 Temperature 97.9 F 97.8 F 97.7 F Pulse Rate 79 93 88 Respiratory Rate 18 18 18 Blood Pressure 105/62 113/79 117/72 Pulse Oximetry 96 100 99 Oxygen Delivery Room Air Oxygen Flow Rate 09/13/24 08:22 09/13/24 08:32 09/13/24 08:42 Temperature 96.7 F L Pulse Rate 93 94 96 Respiratory Rate 14 16 12 Blood Pressure 106/69 112/72 117/77 Pulse Oximetry 100 100 100 Oxygen Delivery Simple Face Mask Simple Face Mask Simple Face Mask Oxygen Flow Rate 8 8 8 09/13/24 08:52 09/13/24 09:02 09/13/24 09:12 Temperature Pulse Rate 96 94 97 Respiratory Rate 18 12 18 Blood Pressure 126/82 126/79 126/75 Pulse Oximetry 100 100 100 Oxygen Delivery Room Air Simple Face Mask Room Air Oxygen Flow Rate 4 09/13/24 09:22 09/13/24 09:55 09/13/24 10:10 Temperature 97.5 F L 97.6 F Pulse Rate 95 98 86 Respiratory Rate 18 18 20 Blood Pressure 118/72 127/74 133/76 Pulse Oximetry 99 98 99 Oxygen Delivery Room Air Oxygen Flow Rate 09/13/24 10:36 09/13/24 14:36 Temperature 97.5 F L 98.4 F Pulse Rate 92 86 Respiratory Rate 20 18 Blood Pressure 120/80 124/78 Pulse Oximetry 100 100 Oxygen Delivery Oxygen Flow Rate Intake/Output Intake/Output: Intake & Output 09/10/24 09/11/24 09/12/24 09/13/24 23:59 23:59 23:59 23:59 Intake Total 1840 900 Balance 1840 900 Meds/Results Medications: Active Medications Generic Name Dose Route Start Last Admin Trade Name Freq PRN Reason Stop Dose Admin Buspirone HCl 10 mg 09/12/24 17:00 09/13/24 12:19 Buspirone Hcl 10 Mg Tablet PO 10 mg TID RAFAEL Administration Famotidine 20 mg 09/12/24 21:00 09/13/24 09:53 Famotidine 20 Mg/2 Ml Vial IV PUSH 20 mg Q12HR RAFAEL Administration Hydromorphone HCl 0.5 mg 09/13/24 14:57 Hydromorphone Hcl Inj (*Crx) 1 Mg/Ml Syr IV PUSH Q3H PRN Pain Rated 4-6 Hydromorphone HCl 1 mg 09/13/24 14:57 09/13/24 15:26 Hydromorphone Hcl Inj (*Crx) 1 Mg/Ml Syr IV PUSH 1 mg Q2H PRN Administration Pain Rated 7-10 Lactated Ringer's 1,000 mls @ 100 mls/hr 09/12/24 12:50 09/13/24 05:49 Lr - Lactated Ringers Iv IV CONT 100 mls/hr .Q10H RAFAEL Administration Ibuprofen 800 mg in 200 mls @ 400 mls/hr 09/12/24 19:00 09/13/24 12:48 Caldolor 800 Mg/200 Ml IVPB Infused Q6HR RAFAEL Infusion Levofloxacin/Dextrose 750 mg in 150 mls @ 100 mls/hr 09/13/24 09:00 09/13/24 11:23 Levaquin 750 Mg/D5w 150 Ml IVPB Infused Q24H RAFAEL Infusion Metronidazole 500 mg in 100 mls @ 100 mls/hr 09/12/24 14:00 09/13/24 13:21 Flagyl 500 Mg/Iso Soln 100 Ml IVPB 100 mls/hr Q8HR RAFAEL Administration Naloxone HCl 0.1 mg 09/12/24 12:50 Naloxone Hcl 0.4 Mg/Ml Vial IV PUSH Q2M PRN Opiate Reversal Ondansetron HCl 4 mg 09/12/24 12:50 09/12/24 13:32 Ondansetron Inj 4 Mg/2 Ml Vial IV PUSH 4 mg Q4H PRN Administration Nausea And Vomiting Topiramate 125 mg 09/12/24 21:00 09/12/24 21:41 Topiramate 25 Mg Tablet PO 125 mg HS RAFAEL Administration Radiology Results: ITS Impressions Endo Retro Cholangiopancreatogram 09/13/24 09:29 IMPRESSION: 1. Bile leak. 2. Biliary stent in expected position. Please refer to the ERCP procedure note for additional details.
--- NOTE | 2024-09-13 16:58 | WPDGIPROGNO ---
Progress Note: A&P Assessment and Plan (1) Postoperative bile leak: Code(s): K91.89 - Other postprocedural complications and disorders of digestive system; K83.8 - Other specified diseases of biliary tract Status: Acute (2) Status post endoscopic retrograde cholangiopancreatography: Code(s): Z98.890 - Other specified postprocedural states Status: Acute Assessment and Plan: Bile leak resolved with stent, however manipulation of the papilla might have cause pancreatitis. Will order lipase in am along with CBC, CMP and increase LR rate to 150 cc/hr since now. Subjective Date/time seen: 09/13/24 16:58 Interval history: the patient underwent ERCP with stent placement for bile leak this am. She started getting epigastric pain, sometimes radiating to the back , pressure like. She received dilaudid with relief Objective Data Vital Signs Vital Signs: Vital Signs - 24 hr 09/12/24 22:08 09/13/24 05:23 09/13/24 06:20 Temperature 97.9 F 97.8 F 97.7 F Pulse Rate 79 93 88 Respiratory Rate 18 18 18 Blood Pressure 105/62 113/79 117/72 Pulse Oximetry 96 100 99 Oxygen Delivery Room Air Oxygen Flow Rate 09/13/24 08:22 09/13/24 08:32 09/13/24 08:42 Temperature 96.7 F L Pulse Rate 93 94 96 Respiratory Rate 14 16 12 Blood Pressure 106/69 112/72 117/77 Pulse Oximetry 100 100 100 Oxygen Delivery Simple Face Mask Simple Face Mask Simple Face Mask Oxygen Flow Rate 8 8 8 09/13/24 08:52 09/13/24 09:02 09/13/24 09:12 Temperature Pulse Rate 96 94 97 Respiratory Rate 18 12 18 Blood Pressure 126/82 126/79 126/75 Pulse Oximetry 100 100 100 Oxygen Delivery Room Air Simple Face Mask Room Air Oxygen Flow Rate 4 09/13/24 09:22 09/13/24 09:55 09/13/24 10:10 Temperature 97.5 F L 97.6 F Pulse Rate 95 98 86 Respiratory Rate 18 18 20 Blood Pressure 118/72 127/74 133/76 Pulse Oximetry 99 98 99 Oxygen Delivery Room Air Oxygen Flow Rate 09/13/24 10:36 09/13/24 14:36 Temperature 97.5 F L 98.4 F Pulse Rate 92 86 Respiratory Rate 20 18 Blood Pressure 120/80 124/78 Pulse Oximetry 100 100 Oxygen Delivery Oxygen Flow Rate Intake/Output Intake/Output: Intake & Output 09/10/24 09/11/24 09/12/24 09/13/24 23:59 23:59 23:59 23:59 Intake Total 1840 900 Balance 1840 900 Meds/Results Medications: Active Medications Generic Name Dose Route Start Last Admin Trade Name Freq PRN Reason Stop Dose Admin Buspirone HCl 10 mg 09/12/24 17:00 09/13/24 12:19 Buspirone Hcl 10 Mg Tablet PO 10 mg TID RAFAEL Administration Famotidine 20 mg 09/12/24 21:00 09/13/24 09:53 Famotidine 20 Mg/2 Ml Vial IV PUSH 20 mg Q12HR RAFAEL Administration Hydromorphone HCl 0.5 mg 09/13/24 14:57 Hydromorphone Hcl Inj (*Crx) 1 Mg/Ml Syr IV PUSH Q3H PRN Pain Rated 4-6 Hydromorphone HCl 1 mg 09/13/24 14:57 09/13/24 15:26 Hydromorphone Hcl Inj (*Crx) 1 Mg/Ml Syr IV PUSH 1 mg Q2H PRN Administration Pain Rated 7-10 Lactated Ringer's 1,000 mls @ 100 mls/hr 09/12/24 12:50 09/13/24 05:49 Lr - Lactated Ringers Iv IV CONT 100 mls/hr .Q10H RAFAEL Administration Ibuprofen 800 mg in 200 mls @ 400 mls/hr 09/12/24 19:00 09/13/24 12:48 Caldolor 800 Mg/200 Ml IVPB Infused Q6HR RAFAEL Infusion Levofloxacin/Dextrose 750 mg in 150 mls @ 100 mls/hr 09/13/24 09:00 09/13/24 11:23 Levaquin 750 Mg/D5w 150 Ml IVPB Infused Q24H RAFAEL Infusion Metronidazole 500 mg in 100 mls @ 100 mls/hr 09/12/24 14:00 09/13/24 13:21 Flagyl 500 Mg/Iso Soln 100 Ml IVPB 100 mls/hr Q8HR RAFAEL Administration Naloxone HCl 0.1 mg 09/12/24 12:50 Naloxone Hcl 0.4 Mg/Ml Vial IV PUSH Q2M PRN Opiate Reversal Ondansetron HCl 4 mg 09/12/24 12:50 09/12/24 13:32 Ondansetron Inj 4 Mg/2 Ml Vial IV PUSH 4 mg Q4H PRN Administration Nausea And Vomiting Topiramate 125 mg 09/12/24 21:00 09/12/24 21:41 Topiramate 25 Mg Tablet PO 125 mg HS RAFAEL Administration Radiology Results: ITS Impressions Endo Retro Cholangiopancreatogram 09/13/24 09:29 IMPRESSION: 1. Bile leak. 2. Biliary stent in expected position. Please refer to the ERCP procedure note for additional details.
[2024-09-13] MEDS: DEXTROSE 5%/LACTATED RINGERS 1,000 ML 150 ML IV CONT (17:12)
[2024-09-13] MEDS: TOPIRAMATE 25 MG TABLET 125 MG PO (20:08)
[2024-09-14] VITALS (10 sets, daily range): BP systolic 112–124; BP diastolic 67–80; PULSE 98–109; RESP 13–20; TEMP 36.5–36.6; O2SAT 96–100
[2024-09-14] MEDS: HYDROmorphone HCL INJ (*CRX) 1 MG/ML SYR IV PUSH ×5 (02:12→12:47)
[2024-09-14] MEDS: metroNIDAZOLE 500 MG/ISO 100ML 500 MG/100 ML BAG 100 MG IVPB ×3 (05:20→21:27)
[2024-09-14] MEDS: IBUPROFEN IV 800 MG/200 ML 800 MG/200 ML BAG 400 MG IVPB ×4 (06:21→23:07)
[2024-09-14] MEDS: ONDANSETRON INJ 4 MG/2 ML VIAL IV PUSH (06:21)
[2024-09-14] MEDS: LACTATED RINGERS 1,000 ML 150 ML IV CONT ×3 (06:25→21:35)
[2024-09-14 06:26] LABS: Basophils Percent Auto 0.4 % (0.2-1.2); Eosinophils Absolute Auto 0.3 K/mm3 (0-0.3); Eosinophils Percent Auto 3.9 % (0-4.4); Hematocrit 35.8 % (37.0-47.0); Hemoglobin 12.4 g/dL (12.0-15.0); Immature Granulocyte Absolute 0.02 K/mm3 (0.00-0.031); Immature Granulocyte Percent A 0.3 % (0-0.5); Immature Platelet Fraction Pct 3.4 % (0.9-11.2); Lymphocytes Absolute Auto 1.13 K/mm3 (0.9-3.2); Lymphocytes Percent Auto 16.2 % (18.3-44.2); Mean Corpuscular HGB Conc 34.6 g/dl (32-36); Mean Corpuscular Hemoglobin 32.7 pg (26-34); Mean Corpuscular Volume 94.5 fl (80-100); Monocytes Absolute Auto 0.6 K/mm3 (0.1-0.6); Monocytes Percent Auto 8.8 % (2.6-8.5); Neutrophils Absolute Auto 4.9 K/mm3 (1.3-6.7); Neutrophils Percent Auto 70.4 % (45.5-73.1); Platelet Count Result 133 k/mm3 (150-375); Red Blood Count 3.79 M/mm3 (4.2-5.4); Red Cell Distribution Width 12.2 % (11.5-14.5)
[2024-09-14 07:22] LABS: Alanine Aminotransferase 31 U/L (6-35); Albumin Level 3.3 g/dL (3.5-5.1); Alkaline Phosphatase 103 U/L (38-126); Anion Gap 7 mmol/L (4-12); Aspartate Amino Transferase 23 U/L (14-36); Bilirubin,Total 1.4 mg/dL (0.2-1.3); Blood Urea Nitrogen 7 mg/dL (7-17); Calcium 8.2 mg/dL (8.4-10.2); Carbon Dioxide 24 mmol/L (22-30); Chloride 105 mmol/L (98-107); Estimated CRCL calculation 75 ml/min; Estimated Glomerular Filt Rate > 60; Glucose 97 mg/dL (65-110); Potassium 3.4 mmol/L (3.4-5.0); Sodium 136 mmol/L (137-145)
[2024-09-14 08:16] LABS: Lipase 14709 U/L (23-300)
[2024-09-14] MEDS: busPIRone HCL 10 MG TABLET PO ×3 (09:09→18:06)
[2024-09-14] MEDS: levoFLOXacin 750 MG/D5W 150 ML 750 MG/150 ML BAG 100 MG IVPB (09:21)
[2024-09-14] MEDS: FAMOTIDINE 20 MG/2 ML VIAL IV PUSH ×2 (09:21→20:36)
--- NOTE | 2024-09-14 09:22 | WPDGIPROGNO ---
Progress Note: A&P Assessment and Plan (1) Pancreatitis: Code(s): K85.90 - Acute pancreatitis without necrosis or infection, unspecified Status: Acute Assessment and Plan: Patient's lipase this morning was 14,000. there is post ERCP pancreatitis, however her hematocrit is down to 35 from 41 and BUN and creatinine are also low, with adequate hydration with lactated Ringer's at 150 cc/hour, that is, 1.5 cc/kilogram per hour. She is getting a HIDA scan this morning to document closure of the bile leak. Will continue hydrating and watch for objective signs of evolving pancreatitis, however at this moment despite pain, she does not exhibit signs of necrosis or SIRS. Subjective Date/time seen: 09/14/24 09:22 Interval history: The patient continued having generalized abdominal pain, with intermittent component localized to the epigastrium and occasional radiation to the back. She has been requiring Dilaudid. Objective Data Vital Signs Vital Signs: Vital Signs - 24 hr 09/13/24 09:55 09/13/24 10:10 09/13/24 10:36 Temperature 97.5 F L 97.6 F 97.5 F L Pulse Rate 98 86 92 Respiratory Rate 18 20 20 Blood Pressure 127/74 133/76 120/80 Pulse Oximetry 98 99 100 Oxygen Delivery 09/13/24 14:36 09/13/24 20:10 09/13/24 20:00 Temperature 98.4 F 98.8 F Pulse Rate 86 102 H Respiratory Rate 18 18 Blood Pressure 124/78 120/77 Pulse Oximetry 100 99 Oxygen Delivery Room Air 09/13/24 23:48 09/14/24 04:25 Temperature 99.4 F 97.7 F Pulse Rate 100 98 Respiratory Rate 20 20 Blood Pressure 102/61 120/76 Pulse Oximetry 98 99 Oxygen Delivery Intake/Output Intake/Output: Intake & Output 09/11/24 09/12/24 09/13/24 09/14/24 23:59 23:59 23:59 23:59 Intake Total 1840 1711.5 1944 Output Total 700 Balance 1840 1711.5 1244 Meds/Results Medications: Active Medications Generic Name Dose Route Start Last Admin Trade Name Freq PRN Reason Stop Dose Admin Buspirone HCl 10 mg 09/12/24 17:00 09/14/24 09:09 Buspirone Hcl 10 Mg Tablet PO 10 mg TID RAFAEL Administration Famotidine 20 mg 09/12/24 21:00 09/14/24 09:21 Famotidine 20 Mg/2 Ml Vial IV PUSH 20 mg Q12HR RAFAEL Administration Hydromorphone HCl 0.5 mg 09/13/24 14:57 Hydromorphone Hcl Inj (*Crx) 1 Mg/Ml Syr IV PUSH Q3H PRN Pain Rated 4-6 Hydromorphone HCl 1 mg 09/13/24 14:57 09/14/24 09:18 Hydromorphone Hcl Inj (*Crx) 1 Mg/Ml Syr IV PUSH 1 mg Q2H PRN Administration Pain Rated 7-10 Ibuprofen 800 mg in 200 mls @ 400 mls/hr 09/12/24 19:00 09/14/24 06:51 Caldolor 800 Mg/200 Ml IVPB Infused Q6HR RAFAEL Infusion Levofloxacin/Dextrose 750 mg in 150 mls @ 100 mls/hr 09/13/24 09:00 09/14/24 09:21 Levaquin 750 Mg/D5w 150 Ml IVPB 100 mls/hr Q24H RAFAEL Administration Metronidazole 500 mg in 100 mls @ 100 mls/hr 09/12/24 14:00 09/14/24 06:20 Flagyl 500 Mg/Iso Soln 100 Ml IVPB Infused Q8HR RAFAEL Infusion Lactated Ringer's 1,000 mls @ 150 mls/hr 09/13/24 21:15 09/14/24 06:25 Lr - Lactated Ringers Iv IV CONT 150 mls/hr .Q6H40M RAFAEL Administration Naloxone HCl 0.1 mg 09/12/24 12:50 Naloxone Hcl 0.4 Mg/Ml Vial IV PUSH Q2M PRN Opiate Reversal Ondansetron HCl 4 mg 09/12/24 12:50 09/14/24 06:21 Ondansetron Inj 4 Mg/2 Ml Vial IV PUSH 4 mg Q4H PRN Administration Nausea And Vomiting Topiramate 125 mg 09/12/24 21:00 09/13/24 20:08 Topiramate 25 Mg Tablet PO 125 mg HS RAFAEL Administration Radiology Results: ITS Impressions Endo Retro Cholangiopancreatogram 09/13/24 09:29 IMPRESSION: 1. Bile leak. 2. Biliary stent in expected position. Please refer to the ERCP procedure note for additional details. Labs Labs: Laboratory Results - last 24 hr 09/14/24 05:56 WBC 7.0 RBC 3.79 L Hgb 12.4 Hct 35.8 L MCV 94.5 MCH 32.7 MCHC 34.6 RDW 12.2 Plt Count 133 L MPV 11.0 H Immature Gran % (Auto) 0.3 Neut % (Auto) 70.4 Lymph % (Auto) 16.2 L [place] % (Auto) 8.8 H Eos % (Auto) 3.9 Baso % (Auto) 0.4 Lymph # (Auto) 1.13 [place] # (Auto) 0.6 Eos # (Auto) 0.3 Baso # (Auto) 0.0 Abs Immat Gran (auto) 0.02 Absolute Neuts (auto) 4.9 Absolute Nucleated RBC 0.000 Nucleated RBC % 0.0 % Immature Plt Fraction 3.4 Sodium 136 L Potassium 3.4 Chloride 105 Carbon Dioxide 24 Anion Gap 7 BUN 7 Creatinine 1.00 Estim Creat Clear Calc 75 Estimated GFR > 60 Glucose 97 Calcium 8.2 L Total Bilirubin 1.4 H AST 23 ALT 31 Alkaline Phosphatase 103 Total Protein 6.0 L Albumin 3.3 L Lipase 98854 H
--- NOTE | 2024-09-14 11:01 | P.PNGS_ITS ---
Progress Note: A&P Assessment and Plan (1) Post-ERCP acute pancreatitis: Code(s): K91.89 - Other postprocedural complications and disorders of digestive system; K85.90 - Acute pancreatitis without necrosis or infection, unspecified Status: Acute Assessment and Plan: Lipase 14,709. Pain severe today and not being managed with p.r.n. medications. Will start Dilaudid [employer] for better pain control. (2) Postoperative bile leak: Code(s): K91.89 - Other postprocedural complications and disorders of digestive system; K83.8 - Other specified diseases of biliary tract Status: Acute Assessment and Plan: The patient had stent placed yesterday and now has pancreatitis. Most likely her pain is due to pancreatitis but will repeat HIDA scan today to see if there is any additional bile leakage. (3) Status post laparoscopic cholecystectomy: Code(s): Z90.49 - Acquired absence of other specified parts of digestive tract Status: Chronic Assessment and Plan: Surgery performed 8 days ago, 09/05/2024 Subjective Subjective Date/Time Seen: 09/14/24 11:01 Post Op day: 1 (Post ERCP with stent) Patient reports: still having pain (Pain not really controlled with p.r.n. Dilaudid q.2 hours), afebrile and other (Voiding very infrequently, difficult to urinate) Review of Systems Review of Systems: All systems reviewed & are unremarkable except as noted in HPI and below (HPI) Exam Const: General: no acute distress, alert, awake, uncomfortable and thin Nutritional Appearance: thin Orientation/consciousness: patient oriented x3 and No confusion GI: Inspection: non-distended, incision (All incisions healing well) and scaphoid GI Palp: Yes Soft to palpation, Yes Tenderness to palpation present (GI) (Diffusely tender with guarding), Yes Guarding due to palpation present (GI), No Hernia present and No Palpable mass present Auscultation: Hypoactive bowel sounds present Objective Data Vital Signs Vital Signs: Vital Signs - 24 hr 09/13/24 14:36 09/13/24 20:10 09/13/24 20:00 Temperature 36.9 C 37.1 C Pulse Rate 86 102 H Respiratory Rate 18 18 Blood Pressure 124/78 120/77 Pulse Oximetry 100 99 Oxygen Delivery Room Air 09/13/24 23:48 09/14/24 04:25 Temperature 37.4 C 36.5 C Pulse Rate 100 98 Respiratory Rate 20 20 Blood Pressure 102/61 120/76 Pulse Oximetry 98 99 Oxygen Delivery Intake/Output Intake/Output: Intake & Output 09/11/24 09/12/24 09/13/24 09/14/24 23:59 23:59 23:59 23:59 Intake Total 1840 1711.5 1944 Output Total 700 Balance 1840 1711.5 1244 Meds/Results Medications: Active Medications Generic Name Dose Route Start Last Admin Trade Name Freq PRN Reason Stop Dose Admin Buspirone HCl 10 mg 09/12/24 17:00 09/14/24 09:09 Buspirone Hcl 10 Mg Tablet PO 10 mg TID RAFAEL Administration Famotidine 20 mg 09/12/24 21:00 09/14/24 09:21 Famotidine 20 Mg/2 Ml Vial IV PUSH 20 mg Q12HR RAFAEL Administration Hydromorphone HCl 0.5 mg 09/13/24 14:57 Hydromorphone Hcl Inj (*Crx) 1 Mg/Ml Syr IV PUSH Q3H PRN Pain Rated 4-6 Hydromorphone HCl 1 mg 09/13/24 14:57 09/14/24 09:18 Hydromorphone Hcl Inj (*Crx) 1 Mg/Ml Syr IV PUSH 1 mg Q2H PRN Administration Pain Rated 7-10 Ibuprofen 800 mg in 200 mls @ 400 mls/hr 09/12/24 19:00 09/14/24 06:51 Caldolor 800 Mg/200 Ml IVPB Infused Q6HR RAFAEL Infusion Levofloxacin/Dextrose 750 mg in 150 mls @ 100 mls/hr 09/13/24 09:00 09/14/24 09:21 Levaquin 750 Mg/D5w 150 Ml IVPB 100 mls/hr Q24H RAFAEL Administration Metronidazole 500 mg in 100 mls @ 100 mls/hr 09/12/24 14:00 09/14/24 06:20 Flagyl 500 Mg/Iso Soln 100 Ml IVPB Infused Q8HR RAFAEL Infusion Lactated Ringer's 1,000 mls @ 150 mls/hr 09/13/24 21:15 09/14/24 06:25 Lr - Lactated Ringers Iv IV CONT 150 mls/hr .Q6H40M RAFAEL Administration Hydromorphone HCl 6 mg in 30 mls @ 5 mls/hr 09/14/24 10:38 Dilaudid 0.2 Mg/Ml [employer] IV CONT PRN PRN [employer] Management Protocol 1 MG/HR Sodium Chloride 1,000 mls @ 999 mls/hr 09/14/24 10:43 Normal Saline Iv IV CONT 09/14/24 11:43 .Q1H1M ONE Naloxone HCl 0.1 mg 09/12/24 12:50 Naloxone Hcl 0.4 Mg/Ml Vial IV PUSH Q2M PRN Opiate Reversal Ondansetron HCl 4 mg 09/12/24 12:50 09/14/24 06:21 Ondansetron Inj 4 Mg/2 Ml Vial IV PUSH 4 mg Q4H PRN Administration Nausea And Vomiting Topiramate 125 mg 09/12/24 21:00 09/13/24 20:08 Topiramate 25 Mg Tablet PO 125 mg HS RAFAEL Administration Radiology Results: ITS Impressions Endo Retro Cholangiopancreatogram 09/13/24 09:29 IMPRESSION: 1. Bile leak. 2. Biliary stent in expected position. Please refer to the ERCP procedure note for additional details. Labs Labs: Laboratory Results - last 24 hr 09/14/24 05:56 WBC 7.0 RBC 3.79 L Hgb 12.4 Hct 35.8 L MCV 94.5 MCH 32.7 MCHC 34.6 RDW 12.2 Plt Count 133 L MPV 11.0 H Immature Gran % (Auto) 0.3 Neut % (Auto) 70.4 Lymph % (Auto) 16.2 L [place] % (Auto) 8.8 H Eos % (Auto) 3.9 Baso % (Auto) 0.4 Lymph # (Auto) 1.13 [place] # (Auto) 0.6 Eos # (Auto) 0.3 Baso # (Auto) 0.0 Abs Immat Gran (auto) 0.02 Absolute Neuts (auto) 4.9 Absolute Nucleated RBC 0.000 Nucleated RBC % 0.0 % Immature Plt Fraction 3.4 Sodium 136 L Potassium 3.4 Chloride 105 Carbon Dioxide 24 Anion Gap 7 BUN 7 Creatinine 1.00 Estim Creat Clear Calc 75 Estimated GFR > 60 Glucose 97 Calcium 8.2 L Total Bilirubin 1.4 H AST 23 ALT 31 Alkaline Phosphatase 103 Total Protein 6.0 L Albumin 3.3 L Lipase 72574 H
--- NOTE | 2024-09-14 13:35 | WPDANESPN ---
Anes - Prog Note Post-Op Date/Time: 09/14/24 13:35 Cardiovascular status: normal Respiratory status: normal Airway patency: baseline Mental status: baseline Post-Op hydration status: normal Vital Signs: Last Vital Signs Temp 36.5 C 09/14/24 04:25 Pulse 98 09/14/24 04:25 Resp 20 09/14/24 04:25 BP 120/76 09/14/24 04:25 Pulse Ox 99 09/14/24 04:25 O2 Del Method Room Air 09/13/24 20:00 O2 Flow Rate 4 09/13/24 09:02 Pain Score (VAS): 1 I/O: Intake & Output 09/13/24 09/14/24 09/14/24 23:59 07:59 15:59 Intake Total 711.5 1944 350 Output Total 700 Balance 711.5 1244 350 Laboratory Tests 09/14/24 05:56 09/14/24 05:56 09/14/24 05:56 WBC 7.0 RBC 3.79 L Hgb 12.4 Hct 35.8 L MCV 94.5 MCH 32.7 MCHC 34.6 RDW 12.2 Plt Count 133 L MPV 11.0 H Immature Gran % (Auto) 0.3 Neut % (Auto) 70.4 Lymph % (Auto) 16.2 L [place] % (Auto) 8.8 H Eos % (Auto) 3.9 Baso % (Auto) 0.4 Lymph # (Auto) 1.13 [place] # (Auto) 0.6 Eos # (Auto) 0.3 Baso # (Auto) 0.0 Abs Immat Gran (auto) 0.02 Absolute Neuts (auto) 4.9 Absolute Nucleated RBC 0.000 Nucleated RBC % 0.0 % Immature Plt Fraction 3.4 Sodium 136 L Potassium 3.4 Chloride 105 Carbon Dioxide 24 Anion Gap 7 BUN 7 Creatinine 1.00 Estim Creat Clear Calc 75 Estimated GFR > 60 Glucose 97 Calcium 8.2 L Total Bilirubin 1.4 H AST 23 ALT 31 Alkaline Phosphatase 103 Total Protein 6.0 L Albumin 3.3 L Lipase 85590 H Post-procedural complaints: none Patient Feedback: Patient satisfied with anesthetic care.
--- NOTE | 2024-09-14 13:36 | WPDANESPN ---
Anes - Prog Note Post-Op Date/Time: 09/14/24 13:36 Cardiovascular status: normal Respiratory status: normal Airway patency: baseline Mental status: baseline Post-Op hydration status: normal Vital Signs: Last Vital Signs Temp 36.5 C 09/14/24 04:25 Pulse 98 09/14/24 04:25 Resp 20 09/14/24 04:25 BP 120/76 09/14/24 04:25 Pulse Ox 99 09/14/24 04:25 O2 Del Method Room Air 09/13/24 20:00 O2 Flow Rate 4 09/13/24 09:02 Pain Score (VAS): 5 I/O: Intake & Output 09/13/24 09/14/24 09/14/24 23:59 07:59 15:59 Intake Total 711.5 1944 350 Output Total 700 Balance 711.5 1244 350 Laboratory Tests 09/14/24 05:56 09/14/24 05:56 09/14/24 05:56 WBC 7.0 RBC 3.79 L Hgb 12.4 Hct 35.8 L MCV 94.5 MCH 32.7 MCHC 34.6 RDW 12.2 Plt Count 133 L MPV 11.0 H Immature Gran % (Auto) 0.3 Neut % (Auto) 70.4 Lymph % (Auto) 16.2 L [place] % (Auto) 8.8 H Eos % (Auto) 3.9 Baso % (Auto) 0.4 Lymph # (Auto) 1.13 [place] # (Auto) 0.6 Eos # (Auto) 0.3 Baso # (Auto) 0.0 Abs Immat Gran (auto) 0.02 Absolute Neuts (auto) 4.9 Absolute Nucleated RBC 0.000 Nucleated RBC % 0.0 % Immature Plt Fraction 3.4 Sodium 136 L Potassium 3.4 Chloride 105 Carbon Dioxide 24 Anion Gap 7 BUN 7 Creatinine 1.00 Estim Creat Clear Calc 75 Estimated GFR > 60 Glucose 97 Calcium 8.2 L Total Bilirubin 1.4 H AST 23 ALT 31 Alkaline Phosphatase 103 Total Protein 6.0 L Albumin 3.3 L Lipase 07529 H Post-procedural complaints: none Patient Feedback: Patient satisfied with anesthetic care.
[2024-09-14] MEDS: HYDROmorphon 0.2MG/ML PCA(*CRX 6 MG/30 ML PCA.VIAL IV CONT (14:32)
[2024-09-14] MEDS: SODIUM CHLORIDE 0.9% IV 1,000 ML 999 ML IV CONT (15:43)
[2024-09-14] MEDS: TOPIRAMATE 25 MG TABLET 125 MG PO (20:36)
[2024-09-15] VITALS (12 sets, daily range): BP systolic 98–119; BP diastolic 60–75; PULSE 90–112; RESP 16–20; TEMP 36.4–36.9; O2SAT 94–99
[2024-09-15] MEDS: LACTATED RINGERS 1,000 ML 150 ML IV CONT ×4 (04:20→23:07)
[2024-09-15] MEDS: HYDROmorphon 0.2MG/ML PCA(*CRX 6 MG/30 ML PCA.VIAL IV CONT ×2 (04:46→15:21)
[2024-09-15] MEDS: IBUPROFEN IV 800 MG/200 ML 800 MG/200 ML BAG 400 MG IVPB ×3 (06:08→19:47)
[2024-09-15 06:36] LABS: Basophils Percent Auto 0.5 % (0.2-1.2); Eosinophils Absolute Auto 0.3 K/mm3 (0-0.3); Eosinophils Percent Auto 3.7 % (0-4.4); Hemoglobin 10.4 g/dL (12.0-15.0); Immature Granulocyte Absolute 0.02 K/mm3 (0.00-0.031); Immature Granulocyte Percent A 0.3 % (0-0.5); Immature Platelet Fraction Pct 3.5 % (0.9-11.2); Lymphocytes Percent Auto 16.5 % (18.3-44.2); Mean Corpuscular HGB Conc 34.7 g/dl (32-36); Mean Corpuscular Hemoglobin 32.4 pg (26-34); Mean Corpuscular Volume 93.5 fl (80-100); Mean Platelet Volume 10.4 fl (7.4-10.4); Monocytes Absolute Auto 0.5 K/mm3 (0.1-0.6); Monocytes Percent Auto 6.7 % (2.6-8.5); Neutrophils Absolute Auto 5.7 K/mm3 (1.3-6.7); Neutrophils Percent Auto 72.3 % (45.5-73.1); Platelet Count Result 118 k/mm3 (150-375); Red Blood Count 3.21 M/mm3 (4.2-5.4); Red Cell Distribution Width 12.4 % (11.5-14.5); White Blood Count 7.9 K/mm3 (4.5-10.0)
[2024-09-15] MEDS: metroNIDAZOLE 500 MG/ISO 100ML 500 MG/100 ML BAG 100 MG IVPB ×3 (06:42→20:54)
[2024-09-15 06:52] LABS: Alanine Aminotransferase 20 U/L (6-35); Albumin Level 2.5 g/dL (3.5-5.1); Alkaline Phosphatase 89 U/L (38-126); Anion Gap 10 mmol/L (4-12); Aspartate Amino Transferase 19 U/L (14-36); Bilirubin,Total 1.1 mg/dL (0.2-1.3); Blood Urea Nitrogen 9 mg/dL (7-17); Calcium 7.8 mg/dL (8.4-10.2); Carbon Dioxide 21 mmol/L (22-30); Chloride 107 mmol/L (98-107); Estimated CRCL calculation 54 ml/min; Estimated Glomerular Filt Rate 44; Glucose 70 mg/dL (65-110); Sodium 138 mmol/L (137-145)
[2024-09-15 07:10] LABS: CRP 24.4 mg/dL (<1.0)
[2024-09-15 07:27] LABS: Lipase 9947 U/L (23-300)
[2024-09-15] MEDS: busPIRone HCL 10 MG TABLET PO ×3 (08:39→16:24)
[2024-09-15] MEDS: FAMOTIDINE 20 MG/2 ML VIAL IV PUSH ×2 (08:39→19:59)
[2024-09-15] MEDS: levoFLOXacin 750 MG/D5W 150 ML 750 MG/150 ML BAG 100 MG IVPB (08:39)
[2024-09-15] MEDS: ONDANSETRON INJ 4 MG/2 ML VIAL IV PUSH (08:43)
--- NOTE | 2024-09-15 09:27 | P.PNGI_ITS ---
Progress Note: A&P Assessment and Plan (1) Postoperative bile leak: Code(s): K91.89 - Other postprocedural complications and disorders of digestive system; K83.8 - Other specified diseases of biliary tract Status: Acute Assessment and Plan: treated with ercp, sphincterotomy and stenting hida post ercp without any more leak on abx (2) Status post laparoscopic cholecystectomy: Code(s): Z90.49 - Acquired absence of other specified parts of digestive tract Status: Chronic (3) Post-ERCP acute pancreatitis: Code(s): K91.89 - Other postprocedural complications and disorders of digestive system; K85.90 - Acute pancreatitis without necrosis or infection, unspecified Status: Acute Assessment and Plan: clinically better, normal h/h (actually down after fluids) and no sirs criteria still npo, will start diet once pain is better (4) Upper abdominal pain: Code(s): R10.10 - Upper abdominal pain, unspecified Status: Acute Assessment and Plan: on pain meds (5) Elevated liver enzymes: Code(s): R74.8 - Abnormal levels of other serum enzymes Status: Acute Assessment and Plan: normalization of liver enzymes after ercp with bile duct stenting Subjective Date/time seen: 09/15/24 09:27 Interval history: 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, 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 still npo but having ice chips Review of Systems 2 Review of Systems: All systems reviewed & are unremarkable except as noted in HPI and below Exam Const: General: no acute distress, alert, awake and thin Orientation/consciousness: patient oriented x3 HENMT: Face/Nose/Sinus: Normal nares present Eyes: General: appearance normal, both eyes and all related structures Neck: Neck: supple Resp: Effort & Inspection: normal respiratory effort Cardio: Rate: regular rate GI: Inspection: non-distended and incision (All incisions healing well) GI Palp: Yes Soft to palpation, Yes Tenderness to palpation present (GI) (Diffusely tender with guarding) and Yes Guarding due to palpation present (GI) Auscultation: Hypoactive bowel sounds present Skin: General skin exam: normal color Neuro: Speech: normal speech Motor exam (neuro): 5/5 motor strength present throughout Extrem: General: normal to inspection Psych: Mental Status: mental status grossly normal Objective Data Vital Signs Vital Signs: Vital Signs - 24 hr 09/14/24 14:32 09/14/24 15:00 09/14/24 15:32 Temperature 97.9 F Pulse Rate 104 H Respiratory Rate 13 13 14 Blood Pressure 124/80 Pulse Oximetry 99 100 98 Oxygen Delivery 09/14/24 16:30 09/14/24 17:30 09/14/24 20:00 Temperature 97.9 F Pulse Rate 109 H Respiratory Rate 14 16 Blood Pressure 112/67 Pulse Oximetry 99 99 96 Oxygen Delivery 09/14/24 19:38 09/14/24 21:38 09/14/24 20:00 Temperature Pulse Rate Respiratory Rate 16 16 Blood Pressure Pulse Oximetry 96 97 Oxygen Delivery Room Air 09/14/24 23:38 09/15/24 00:00 09/15/24 01:38 Temperature 98.2 F Pulse Rate 90 Respiratory Rate 14 16 16 Blood Pressure 118/70 Pulse Oximetry 97 99 99 Oxygen Delivery 09/15/24 03:38 09/15/24 04:46 09/15/24 04:46 Temperature Pulse Rate Respiratory Rate 16 18 18 Blood Pressure Pulse Oximetry 98 Oxygen Delivery 09/15/24 04:00 09/15/24 05:38 Temperature 98.2 F Pulse Rate 106 H Respiratory Rate 18 16 Blood Pressure 119/75 Pulse Oximetry 96 Oxygen Delivery Intake/Output Intake/Output: Intake & Output 09/12/24 09/13/24 09/14/24 09/15/24 23:59 23:59 23:59 23:59 Intake Total 1840 1711.5 3914 1560 Output Total 1600 650 Balance 1840 1711.5 2314 910 Meds/Results Medications: Active Medications Generic Name Dose Route Start Last Admin Trade Name Freq PRN Reason Stop Dose Admin Buspirone HCl 10 mg 09/12/24 17:00 09/15/24 08:39 Buspirone Hcl 10 Mg Tablet PO 10 mg TID RAFAEL Administration Famotidine 20 mg 09/12/24 21:00 09/15/24 08:39 Famotidine 20 Mg/2 Ml Vial IV PUSH 20 mg Q12HR RAFAEL Administration Hydromorphone HCl 0.5 mg 09/13/24 14:57 Hydromorphone Hcl Inj (*Crx) 1 Mg/Ml Syr IV PUSH Q3H PRN Pain Rated 4-6 Hydromorphone HCl 1 mg 09/13/24 14:57 09/14/24 12:47 Hydromorphone Hcl Inj (*Crx) 1 Mg/Ml Syr IV PUSH 1 mg Q2H PRN Administration Pain Rated 7-10 Ibuprofen 800 mg in 200 mls @ 400 mls/hr 09/12/24 19:00 09/15/24 06:38 Caldolor 800 Mg/200 Ml IVPB Infused Q6HR RAFAEL Infusion Levofloxacin/Dextrose 750 mg in 150 mls @ 100 mls/hr 09/13/24 09:00 09/15/24 08:39 Levaquin 750 Mg/D5w 150 Ml IVPB 100 mls/hr Q24H RAFAEL Administration Metronidazole 500 mg in 100 mls @ 100 mls/hr 09/12/24 14:00 09/15/24 07:42 Flagyl 500 Mg/Iso Soln 100 Ml IVPB Infused Q8HR RAFAEL Infusion Lactated Ringer's 1,000 mls @ 150 mls/hr 09/13/24 21:15 09/15/24 04:20 Lr - Lactated Ringers Iv IV CONT 150 mls/hr .Q6H40M RAFAEL Administration Hydromorphone HCl 6 mg in 30 mls @ 0 mls/hr 09/14/24 10:38 09/15/24 05:38 Dilaudid 0.2 Mg/Ml Nursing Education Specialist IV CONT 0 mg/hr PRN PRN 0 mls/hr PRESCRIPTION BENEFIT SPECIALIST Management Titration Protocol 0 MG/HR Naloxone HCl 0.1 mg 09/12/24 12:50 Naloxone Hcl 0.4 Mg/Ml Vial IV PUSH Q2M PRN Opiate Reversal Ondansetron HCl 4 mg 09/12/24 12:50 09/15/24 08:43 Ondansetron Inj 4 Mg/2 Ml Vial IV PUSH 4 mg Q4H PRN Administration Nausea And Vomiting Topiramate 125 mg 09/12/24 21:00 09/14/24 20:36 Topiramate 25 Mg Tablet PO 125 mg HS RAFAEL Administration Radiology Results: ITS Impressions Endo Retro Cholangiopancreatogram 09/13/24 09:29 IMPRESSION: 1. Bile leak. 2. Biliary stent in expected position. Please refer to the ERCP procedure note for additional details. Hepatobiliary Scan Nuclear Medicine 09/14/24 13:59 IMPRESSION: 1. Normal post cholecystectomy hepatobiliary scan with resolution of prior leak. Labs Labs: Laboratory Results - last 24 hr 09/15/24 06:11 WBC 7.9 RBC 3.21 L Hgb 10.4 L Hct 30.0 L MCV 93.5 MCH 32.4 MCHC 34.7 RDW 12.4 Plt Count 118 L MPV 10.4 Immature Gran % (Auto) 0.3 Neut % (Auto) 72.3 Lymph % (Auto) 16.5 L [place] % (Auto) 6.7 Eos % (Auto) 3.7 Baso % (Auto) 0.5 Lymph # (Auto) 1.30 [place] # (Auto) 0.5 Eos # (Auto) 0.3 Baso # (Auto) 0.0 Abs Immat Gran (auto) 0.02 Absolute Neuts (auto) 5.7 Absolute Nucleated RBC 0.000 Nucleated RBC % 0.0 % Immature Plt Fraction 3.5 Sodium 138 Potassium 3.0 L Chloride 107 Carbon Dioxide 21 L Anion Gap 10 BUN 9 Creatinine 1.40 H Estim Creat Clear Calc 54 Estimated GFR 44 L Glucose 70 Calcium 7.8 L Total Bilirubin 1.1 AST 19 ALT 20 Alkaline Phosphatase 89 C-Reactive Protein 24.4 H Total Protein 5.0 L Albumin 2.5 L Lipase 9947 H
[2024-09-15] MEDS: HYDROmorphone HCL INJ (*CRX) 1 MG/ML SYR 0.5 MG IV PUSH (13:50)
--- NOTE | 2024-09-15 13:54 | WPDPN ---
Progress Note: A&P Assessment and Plan (1) Post-ERCP acute pancreatitis: Code(s): K91.89 - Other postprocedural complications and disorders of digestive system; K85.90 - Acute pancreatitis without necrosis or infection, unspecified Status: Acute Assessment and Plan: Mild improvement today. She is still having some mild to moderate epigastric abdominal pain. Lipase is decreased down to 10,000 today. Still has some nausea which is liquids so will hold off on advancing diet today and continue with sips of clear liquids as tolerated. Her potassium is low 3.0. Will need to give her some IV bolus potassium today. Recheck potassium levels tomorrow. (2) Postoperative bile leak: Code(s): K91.89 - Other postprocedural complications and disorders of digestive system; K83.8 - Other specified diseases of biliary tract Status: Acute Assessment and Plan: Postop bile leak seems to have stopped. HIDA scan yesterday was negative for bile leak. Continue supportive management. Continue with [employer] for now. If she is able to take p.o. better then hopefully can transition to oral pain medications. Subjective Date/time seen: 09/15/24 13:54 Interval history: Patient's feels a little bit better today but still having moderate amount of nausea. Very small bowel movement today. Has been trying few sips of water which causes to have some mild abdominal pain. White blood count is normal. Lipase is decreased from 15,000 down to 10,000. Liver enzymes are otherwise normal. Potassium is low today at 3.0. Still has a White in but is willing to have removed today. She continues on a demand [employer] and scheduled IV ibuprofen Exam GI: Other: And soft nondistended. Mild diffuse tenderness. Little more pronounced tenderness in the epigastric region of the abdomen. No peritoneal signs. Urinary Catheter: Urinary Catheter: patent and draining and urine clear Objective Data Vital Signs Vital Signs: Vital Signs - 24 hr 09/14/24 14:32 09/14/24 15:00 09/14/24 15:32 Temperature 36.6 C Pulse Rate 104 H Respiratory Rate 13 13 14 Blood Pressure 124/80 Pulse Oximetry 99 100 98 Oxygen Delivery 09/14/24 16:30 09/14/24 17:30 09/14/24 20:00 Temperature 36.6 C Pulse Rate 109 H Respiratory Rate 14 16 Blood Pressure 112/67 Pulse Oximetry 99 99 96 Oxygen Delivery 09/14/24 19:38 09/14/24 21:38 09/14/24 20:00 Temperature Pulse Rate Respiratory Rate 16 16 Blood Pressure Pulse Oximetry 96 97 Oxygen Delivery Room Air 09/14/24 23:38 09/15/24 00:00 09/15/24 01:38 Temperature 36.8 C Pulse Rate 90 Respiratory Rate 14 16 16 Blood Pressure 118/70 Pulse Oximetry 97 99 99 Oxygen Delivery 09/15/24 03:38 09/15/24 04:46 09/15/24 04:46 Temperature Pulse Rate Respiratory Rate 16 18 18 Blood Pressure Pulse Oximetry 98 Oxygen Delivery 09/15/24 04:00 09/15/24 05:38 09/15/24 08:00 Temperature 36.8 C 36.4 C Pulse Rate 106 H 108 H Respiratory Rate 18 16 16 Blood Pressure 119/75 108/70 Pulse Oximetry 96 98 Oxygen Delivery 09/15/24 08:39 09/15/24 12:00 Temperature 36.8 C Pulse Rate 105 H Respiratory Rate 16 Blood Pressure 99/62 L Pulse Oximetry 98 Oxygen Delivery Room Air Intake/Output Intake/Output: Intake & Output 09/12/24 09/13/24 09/14/24 09/15/24 23:59 23:59 23:59 23:59 Intake Total 1840 1711.5 3914 2542.5 Output Total 1600 650 Balance 1840 1711.5 2314 1892.5 Meds/Results Medications: Active Medications Generic Name Dose Route Start Last Admin Trade Name Freq PRN Reason Stop Dose Admin Buspirone HCl 10 mg 09/12/24 17:00 09/15/24 12:35 Buspirone Hcl 10 Mg Tablet PO 10 mg TID RAFAEL Administration Famotidine 20 mg 09/12/24 21:00 09/15/24 08:39 Famotidine 20 Mg/2 Ml Vial IV PUSH 20 mg Q12HR RAFAEL Administration Hydromorphone HCl 0.5 mg 09/13/24 14:57 09/15/24 13:50 Hydromorphone Hcl Inj (*Crx) 1 Mg/Ml Syr IV PUSH 0.5 mg Q3H PRN Administration Pain Rated 4-6 Hydromorphone HCl 1 mg 09/13/24 14:57 09/14/24 12:47 Hydromorphone Hcl Inj (*Crx) 1 Mg/Ml Syr IV PUSH 1 mg Q2H PRN Administration Pain Rated 7-10 Ibuprofen 800 mg in 200 mls @ 400 mls/hr 09/12/24 19:00 09/15/24 12:35 Caldolor 800 Mg/200 Ml IVPB 400 mls/hr Q6HR RAFAEL Administration Levofloxacin/Dextrose 750 mg in 150 mls @ 100 mls/hr 09/13/24 09:00 09/15/24 08:39 Levaquin 750 Mg/D5w 150 Ml IVPB 100 mls/hr Q24H RAFAEL Administration Metronidazole 500 mg in 100 mls @ 100 mls/hr 09/12/24 14:00 09/15/24 13:11 Flagyl 500 Mg/Iso Soln 100 Ml IVPB 100 mls/hr Q8HR RAFAEL Administration Lactated Ringer's 1,000 mls @ 150 mls/hr 09/13/24 21:15 09/15/24 10:53 Lr - Lactated Ringers Iv IV CONT 150 mls/hr .Q6H40M RAFAEL Administration Hydromorphone HCl 6 mg in 30 mls @ 0 mls/hr 09/14/24 10:38 09/15/24 05:38 Dilaudid 0.2 Mg/Ml Business Management Associate IV CONT 0 mg/hr PRN PRN 0 mls/hr [employer]O Management Titration Protocol 0 MG/HR Sodium Chloride 500 mls @ 500 mls/hr 09/15/24 13:51 Normal Saline Iv IV CONT 09/15/24 14:50 .Q1H ONE Potassium Chloride 40 meq/ 520 mls @ 130 mls/hr 09/15/24 13:51 Sodium Chloride IVPB 09/15/24 17:50 ONCE ONE Naloxone HCl 0.1 mg 09/12/24 12:50 Naloxone Hcl 0.4 Mg/Ml Vial IV PUSH Q2M PRN Opiate Reversal Ondansetron HCl 4 mg 09/12/24 12:50 09/15/24 08:43 Ondansetron Inj 4 Mg/2 Ml Vial IV PUSH 4 mg Q4H PRN Administration Nausea And Vomiting Topiramate 125 mg 09/12/24 21:00 09/14/24 20:36 Topiramate 25 Mg Tablet PO 125 mg HS RAFAEL Administration Radiology Results: ITS Impressions Endo Retro Cholangiopancreatogram 09/13/24 09:29 IMPRESSION: 1. Bile leak. 2. Biliary stent in expected position. Please refer to the ERCP procedure note for additional details. Hepatobiliary Scan Nuclear Medicine 09/14/24 13:59 IMPRESSION: 1. Normal post cholecystectomy hepatobiliary scan with resolution of prior leak. Labs Labs: Laboratory Results - last 24 hr 09/15/24 06:11 WBC 7.9 RBC 3.21 L Hgb 10.4 L Hct 30.0 L MCV 93.5 MCH 32.4 MCHC 34.7 RDW 12.4 Plt Count 118 L MPV 10.4 Immature Gran % (Auto) 0.3 Neut % (Auto) 72.3 Lymph % (Auto) 16.5 L [place] % (Auto) 6.7 Eos % (Auto) 3.7 Baso % (Auto) 0.5 Lymph # (Auto) 1.30 [place] # (Auto) 0.5 Eos # (Auto) 0.3 Baso # (Auto) 0.0 Abs Immat Gran (auto) 0.02 Absolute Neuts (auto) 5.7 Absolute Nucleated RBC 0.000 Nucleated RBC % 0.0 % Immature Plt Fraction 3.5 Sodium 138 Potassium 3.0 L Chloride 107 Carbon Dioxide 21 L Anion Gap 10 BUN 9 Creatinine 1.40 H Estim Creat Clear Calc 54 Estimated GFR 44 L Glucose 70 Calcium 7.8 L Total Bilirubin 1.1 AST 19 ALT 20 Alkaline Phosphatase 89 C-Reactive Protein 24.4 H Total Protein 5.0 L Albumin 2.5 L Lipase 9947 H
[2024-09-15] MEDS: SODIUM CHLORIDE 0.9% IV 500 ML IV CONT (14:33)
[2024-09-15] MEDS: POTASSIUM CHLORIDE INJ 40 MEQ in SODIUM CHLORIDE 0.9% IV 500 ML 130 MEQ IVPB (14:33)
[2024-09-15] MEDS: TOPIRAMATE 25 MG TABLET 125 MG PO (20:14)
[2024-09-15] MEDS: HYDROmorphone HCL INJ (*CRX) 1 MG/ML SYR IV PUSH (23:33)
--- NOTE | 2024-09-16 01:29 | PC.NURSE ---
Daylight Savings Time For Daylight Savings Time Ending in the Fall - Clocks are moved back. For Daylight Savings Time Beginning in the Spring - Clocks are moved ahead. For [facility], the time of change occurs at 0200 hrs. Time is taken from the printing pressman. This entry on the patient's chart recognizes the change in time reflected during documentation. Example: 2 entries for vital signs may be charted for 0200 hrs.
--- NOTE | 2024-09-16 01:30 | PC.NURSE ---
Daylight Savings Time For Daylight Savings Time Ending in the Fall - Clocks are moved back. For Daylight Savings Time Beginning in the Spring - Clocks are moved ahead. For [facility], the time of change occurs at 0200 hrs. Time is taken from the fence manufacture supervisor. This entry on the patient's chart recognizes the change in time reflected during documentation. Example: 2 entries for vital signs may be charted for 0200 hrs.
[2024-09-16 04:00] VITALS: BP 104/68; PULSE 99; RESP 20; TEMP 36.9; O2SAT 98
[2024-09-16] MEDS: LACTATED RINGERS 1,000 ML 150 ML IV CONT (04:34)
[2024-09-16] MEDS: HYDROmorphone HCL INJ (*CRX) 1 MG/ML SYR 0.5 MG IV PUSH (04:40)
[2024-09-16] MEDS: IBUPROFEN IV 800 MG/200 ML 800 MG/200 ML BAG 400 MG IVPB (04:43)
[2024-09-16] MEDS: metroNIDAZOLE 500 MG/ISO 100ML 500 MG/100 ML BAG 100 MG IVPB (05:22)
[2024-09-16 06:05] VITALS: RESP 18
[2024-09-16] MEDS: HYDROmorphon 0.2MG/ML PCA(*CRX 6 MG/30 ML PCA.VIAL IV CONT (06:05)
[2024-09-16 06:32] LABS: Hemoglobin 9.3 g/dL (12.0-15.0); Mean Corpuscular HGB Conc 34.4 g/dl (32-36); Mean Corpuscular Hemoglobin 31.8 pg (26-34); Mean Corpuscular Volume 92.5 fl (80-100); Platelet Count Result 114 k/mm3 (150-375); Red Blood Count 2.92 M/mm3 (4.2-5.4); White Blood Count 6.1 K/mm3 (4.5-10.0)
[2024-09-16 06:47] LABS: Anion Gap 10 mmol/L (4-12); Blood Urea Nitrogen 10 mg/dL (7-17); Calcium 7.8 mg/dL (8.4-10.2); Carbon Dioxide 20 mmol/L (22-30); Chloride 107 mmol/L (98-107); Estimated CRCL calculation 51 ml/min; Estimated Glomerular Filt Rate 40; Glucose 64 mg/dL (65-110); Potassium 2.9 mmol/L (3.4-5.0); Sodium 137 mmol/L (137-145)
[2024-09-16] MEDS: FAMOTIDINE 20 MG/2 ML VIAL IV PUSH (07:39)
[2024-09-16] MEDS: levoFLOXacin 750 MG/D5W 150 ML 750 MG/150 ML BAG 100 MG IVPB (07:39)
[2024-09-16] MEDS: busPIRone HCL 10 MG TABLET PO ×3 (07:39→16:58)
[2024-09-16 07:48] LABS: Lipase 6209 U/L (23-300)
[2024-09-16] MEDS: POTASSIUM CHLORIDE 20 MEQ ER TABLET 40 MEQ PO (08:59)
[2024-09-16] MEDS: KCL 20 MEQ/SW 100 ML 100 ML 50 MEQ IVPB (08:59)
[2024-09-16 09:00] VITALS: RESP 16
--- NOTE | 2024-09-16 10:40 | WPDPN ---
Progress Note: A&P Assessment and Plan (1) Post-ERCP acute pancreatitis: Code(s): K91.89 - Other postprocedural complications and disorders of digestive system; K85.90 - Acute pancreatitis without necrosis or infection, unspecified Status: Acute Assessment and Plan: Post ERCP the acute pancreatitis is improving. Her appetite is improving and her epigastric abdominal pain is improving as well. Lipase is down to 6000 today. She tolerated full liquids. She would like to try some low-fat solid food today. We will go ahead advance her diet. (2) Postoperative bile leak: Code(s): K91.89 - Other postprocedural complications and disorders of digestive system; K83.8 - Other specified diseases of biliary tract Status: Acute Assessment and Plan: Bile leak has resolved. Will go ahead stop IV antibiotics. Continue supportive care. Hopefully home next 1 to 2 days. Subjective Date/time seen: 09/16/24 10:40 Interval history: Patient feels better today. Able to tolerate clear liquids and then had full liquid diet. Had 2 bowel movements. Pain in the abdomen still diffuse been much better. Much less nausea today. Potassium is still low at 2.9 today. She is currently getting magnesium IV bolus as well as oral and IV potassium replacement. White blood count is normal. Lipase is decreased further down to 6000 today from 9000 yesterday. Exam GI: Other: Abdomen is soft and minimally distended. Mild diffuse tenderness but improved over yesterday's exam. Incisions are healing well without any redness or drainage. Objective Data Vital Signs Vital Signs: Vital Signs - 24 hr 09/15/24 12:00 09/15/24 15:21 09/15/24 15:21 Temperature 36.8 C Pulse Rate 105 H Respiratory Rate 16 16 18 Blood Pressure 99/62 L Pulse Oximetry 98 Oxygen Delivery 09/15/24 15:58 09/15/24 20:00 09/15/24 20:00 Temperature 36.4 C 36.9 C Pulse Rate 110 H 112 H 112 H Respiratory Rate 16 20 20 Blood Pressure 111/68 98/62 L Pulse Oximetry 98 96 96 Oxygen Delivery Room Air 09/15/24 23:21 09/16/24 04:00 09/16/24 06:05 Temperature 36.9 C 36.9 C Pulse Rate 103 H 99 Respiratory Rate 18 20 18 Blood Pressure 104/60 104/68 Pulse Oximetry 94 98 Oxygen Delivery 09/16/24 06:05 09/16/24 09:00 09/16/24 08:00 Temperature Pulse Rate Respiratory Rate 18 16 Blood Pressure Pulse Oximetry Oxygen Delivery Room Air Intake/Output Intake/Output: Intake & Output 09/13/24 09/14/24 09/15/24 09/16/24 23:59 23:59 23:59 22:59 Intake Total 1711.5 3914 7763.5 1463.3 Output Total 1600 1450 Balance 1711.5 2314 6313.5 1463.3 Meds/Results Medications: Active Medications Generic Name Dose Route Start Last Admin Trade Name Freq PRN Reason Stop Dose Admin Buspirone HCl 10 mg 09/12/24 17:00 09/16/24 07:39 Buspirone Hcl 10 Mg Tablet PO 10 mg TID RAFAEL Administration Famotidine 20 mg 09/12/24 21:00 09/16/24 07:39 Famotidine 20 Mg/2 Ml Vial IV PUSH 20 mg Q12HR RAFAEL Administration Hydromorphone HCl 0.5 mg 09/13/24 14:57 09/16/24 04:40 Hydromorphone Hcl Inj (*Crx) 1 Mg/Ml Syr IV PUSH 0.5 mg Q3H PRN Administration Pain Rated 4-6 Hydromorphone HCl 1 mg 09/13/24 14:57 09/15/24 23:33 Hydromorphone Hcl Inj (*Crx) 1 Mg/Ml Syr IV PUSH 1 mg Q2H PRN Administration Pain Rated 7-10 Levofloxacin/Dextrose 750 mg in 150 mls @ 100 mls/hr 09/13/24 09:00 09/16/24 09:09 Levaquin 750 Mg/D5w 150 Ml IVPB Infused Q24H RAFAEL Infusion Metronidazole 500 mg in 100 mls @ 100 mls/hr 09/12/24 14:00 09/16/24 06:25 Flagyl 500 Mg/Iso Soln 100 Ml IVPB Infused Q8HR RAFAEL Infusion Lactated Ringer's 1,000 mls @ 150 mls/hr 09/13/24 21:15 09/16/24 04:34 Lr - Lactated Ringers Iv IV CONT 150 mls/hr .Q6H40M RAFAEL Administration Hydromorphone HCl 6 mg in 30 mls @ 0 mls/hr 09/14/24 10:38 09/16/24 09:00 Dilaudid 0.2 Mg/Ml Rn Case Manager Hospice IV CONT 0 mg/hr PRN PRN 0 mls/hr COLORIST PHOTOGRAPHY Management Titration Protocol 0 MG/HR Ibuprofen 800 mg in 200 mls @ 400 mls/hr 09/15/24 15:15 09/16/24 05:15 Caldolor 800 Mg/200 Ml IVPB Infused Q8HR RAFAEL Infusion Naloxone HCl 0.1 mg 09/12/24 12:50 Naloxone Hcl 0.4 Mg/Ml Vial IV PUSH Q2M PRN Opiate Reversal Ondansetron HCl 4 mg 09/12/24 12:50 09/15/24 08:43 Ondansetron Inj 4 Mg/2 Ml Vial IV PUSH 4 mg Q4H PRN Administration Nausea And Vomiting Topiramate 125 mg 09/12/24 21:00 09/15/24 20:14 Topiramate 25 Mg Tablet PO 125 mg HS RAFAEL Administration Radiology Results: ITS Impressions Endo Retro Cholangiopancreatogram 09/13/24 09:29 IMPRESSION: 1. Bile leak. 2. Biliary stent in expected position. Please refer to the ERCP procedure note for additional details. Hepatobiliary Scan Nuclear Medicine 09/14/24 13:59 IMPRESSION: 1. Normal post cholecystectomy hepatobiliary scan with resolution of prior leak. Labs Labs: Laboratory Results - last 24 hr 09/16/24 06:23 WBC 6.1 RBC 2.92 L Hgb 9.3 L Hct 27.0 L MCV 92.5 MCH 31.8 MCHC 34.4 RDW 13.0 Plt Count 114 L MPV 10.0 Sodium 137 Potassium 2.9 L Chloride 107 Carbon Dioxide 20 L Anion Gap 10 BUN 10 Creatinine 1.50 H Estim Creat Clear Calc 51 Estimated GFR 40 L Glucose 64 L Calcium 7.8 L Lipase 6209 H
[2024-09-16] MEDS: HYDROcodone/acetaminophen (*CRX) 5-325 MG TABLET 1 TAB PO ×3 (11:12→20:21)
[2024-09-16] MEDS: MAGNESIUM SULF 2 GM/WATER 50ML 2 GM/50 ML BAG IVPB (11:13)
[2024-09-16] MEDS: LACTATED RINGERS 1,000 ML 125 ML IV CONT (11:13)
[2024-09-16] MEDS: oxyCODONE HCL (*CRX) 5 MG TAB IR PO ×2 (13:24→17:13)
--- NOTE | 2024-09-16 14:26 | WPDGIPROGNO ---
Progress Note: A&P Assessment and Plan (1) Postoperative bile leak: Code(s): K91.89 - Other postprocedural complications and disorders of digestive system; K83.8 - Other specified diseases of biliary tract Status: Acute Assessment and Plan: treated with ercp, sphincterotomy and stenting hida post ercp without any more leak on abx tolerating diet but some pain, advised to smaller amount if pain clinically better, will lower iv fluids (2) Status post laparoscopic cholecystectomy: Code(s): Z90.49 - Acquired absence of other specified parts of digestive tract Status: Chronic (3) Post-ERCP acute pancreatitis: Code(s): K91.89 - Other postprocedural complications and disorders of digestive system; K85.90 - Acute pancreatitis without necrosis or infection, unspecified Status: Acute Assessment and Plan: clinically better, normal h/h (actually down after fluids) and no sirs criteria started on diet lower iv fluids monitor (4) Upper abdominal pain: Code(s): R10.10 - Upper abdominal pain, unspecified Status: Acute Assessment and Plan: on pain meds, changes to oral today (5) Elevated liver enzymes: Code(s): R74.8 - Abnormal levels of other serum enzymes Status: Acute Assessment and Plan: normalization of liver enzymes after ercp with bile duct stenting Subjective Date/time seen: 09/16/24 14:26 Interval history: today had more pain in her back after eating lunch, no nausea mesa removed and she is having good urine output Review of Systems Review of Systems: All systems reviewed & are unremarkable except as noted in HPI and below Exam Const: General: no acute distress, alert, awake and thin Orientation/consciousness: patient oriented x3 HENMT: Face/Nose/Sinus: Normal nares present Eyes: General: appearance normal, both eyes and all related structures Neck: Neck: supple Resp: Effort & Inspection: normal respiratory effort Cardio: Rate: regular rate GI: Inspection: non-distended and incision (All incisions healing well) GI Palp: Yes Soft to palpation and Yes Tenderness to palpation present (GI) (Diffusely tender but improving) Auscultation: normal bowel sounds Skin: General skin exam: normal color Neuro: Speech: normal speech Motor exam (neuro): 5/5 motor strength present throughout Extrem: General: normal to inspection Psych: Mental Status: mental status grossly normal Objective Data Vital Signs Vital Signs: Vital Signs - 24 hr 09/15/24 15:58 09/15/24 20:00 09/15/24 20:00 Temperature 97.6 F 98.4 F Pulse Rate 110 H 112 H 112 H Respiratory Rate 16 20 20 Blood Pressure 111/68 98/62 L Pulse Oximetry 98 96 96 Oxygen Delivery Room Air 09/15/24 23:21 09/16/24 04:00 09/16/24 06:05 Temperature 98.4 F 98.4 F Pulse Rate 103 H 99 Respiratory Rate 18 20 18 Blood Pressure 104/60 104/68 Pulse Oximetry 94 98 Oxygen Delivery 09/16/24 06:05 09/16/24 09:00 09/16/24 08:00 Temperature Pulse Rate Respiratory Rate 18 16 Blood Pressure Pulse Oximetry Oxygen Delivery Room Air Intake/Output Intake/Output: Intake & Output 09/13/24 09/14/24 09/15/24 09/16/24 23:59 23:59 23:59 22:59 Intake Total 1711.5 3914 7763.5 2859.0 Output Total 1600 1450 Balance 1711.5 2314 6313.5 2859.0 Meds/Results Medications: Active Medications Generic Name Dose Route Start Last Admin Trade Name Freq PRN Reason Stop Dose Admin Acetaminophen 1,000 mg 09/16/24 10:48 Acetaminophen 500 Mg Tablet PO Q6H PRN Mild Pain (1-3) or Fever Hydrocodone Bitart/Acetaminophen 1 tab 09/16/24 10:49 09/16/24 11:12 Hydrocodone/Acetaminophen (*Crx) 5-325 Mg Tablet PO 1 tab Q4H PRN Administration Pain Rated 4-6 Buspirone HCl 10 mg 09/12/24 17:00 09/16/24 12:13 Buspirone Hcl 10 Mg Tablet PO 10 mg TID RAFAEL Administration Famotidine 20 mg 09/16/24 21:00 Famotidine 20 Mg Tablet PO Q12HR RAFAEL Hydromorphone HCl 1 mg 09/16/24 10:48 Hydromorphone Hcl Inj (*Crx) 1 Mg/Ml Syr IV PUSH Q4H PRN Pain Rated 7-10 Lactated Ringer's 1,000 mls @ 75 mls/hr 09/13/24 21:15 09/16/24 11:13 Lr - Lactated Ringers Iv IV CONT 125 mls/hr .[id number] RAFAEL Administration Naloxone HCl 0.1 mg 09/12/24 12:50 Naloxone Hcl 0.4 Mg/Ml Vial IV PUSH Q2M PRN Opiate Reversal Ondansetron HCl 4 mg 09/12/24 12:50 09/15/24 08:43 Ondansetron Inj 4 Mg/2 Ml Vial IV PUSH 4 mg Q4H PRN Administration Nausea And Vomiting Oxycodone HCl 5 mg 09/16/24 10:49 09/16/24 13:24 Oxycodone Hcl (*Crx) 5 Mg Tab Ir PO 5 mg Q4H PRN Administration Pain Rated 7-10 Topiramate 125 mg 09/12/24 21:00 09/15/24 20:14 Topiramate 25 Mg Tablet PO 125 mg HS RAFAEL Administration Radiology Results: ITS Impressions Endo Retro Cholangiopancreatogram 09/13/24 09:29 IMPRESSION: 1. Bile leak. 2. Biliary stent in expected position. Please refer to the ERCP procedure note for additional details. Hepatobiliary Scan Nuclear Medicine 09/14/24 13:59 IMPRESSION: 1. Normal post cholecystectomy hepatobiliary scan with resolution of prior leak. Labs Labs: Laboratory Results - last 24 hr 09/16/24 06:23 WBC 6.1 RBC 2.92 L Hgb 9.3 L Hct 27.0 L MCV 92.5 MCH 31.8 MCHC 34.4 RDW 13.0 Plt Count 114 L MPV 10.0 Sodium 137 Potassium 2.9 L Chloride 107 Carbon Dioxide 20 L Anion Gap 10 BUN 10 Creatinine 1.50 H Estim Creat Clear Calc 51 Estimated GFR 40 L Glucose 64 L Calcium 7.8 L Lipase 6209 H
[2024-09-16] MEDS: HYDROmorphone HCL INJ (*CRX) 1 MG/ML SYR IV PUSH ×3 (14:39→22:07)
[2024-09-16 16:00] VITALS: BP 108/71; PULSE 103; RESP 18; TEMP 36.6; O2SAT 99
[2024-09-16] MEDS: ONDANSETRON INJ 4 MG/2 ML VIAL IV PUSH (17:39)
[2024-09-16 20:00] VITALS: BP 117/83; PULSE 100; RESP 16; TEMP 36.4; O2SAT 100
[2024-09-16] MEDS: FAMOTIDINE 20 MG TABLET PO (20:22)
[2024-09-16] MEDS: TOPIRAMATE 25 MG TABLET 125 MG PO (20:22)
[2024-09-17] VITALS: BP 106/74; PULSE 96; RESP 16; TEMP 36.3; O2SAT 97
[2024-09-17] MEDS: LACTATED RINGERS 1,000 ML 75 ML IV CONT (00:38)
[2024-09-17] MEDS: oxyCODONE HCL (*CRX) 5 MG TAB IR PO (00:38)
[2024-09-17] MEDS: ONDANSETRON INJ 4 MG/2 ML VIAL IV PUSH ×3 (02:24→19:20)
[2024-09-17] MEDS: HYDROmorphone HCL INJ (*CRX) 1 MG/ML SYR IV PUSH ×4 (02:25→19:20)
[2024-09-17 04:00] VITALS: BP 111/74; PULSE 94; RESP 16; TEMP 36.4; O2SAT 96
[2024-09-17] MEDS: HYDROcodone/acetaminophen (*CRX) 5-325 MG TABLET 1 TAB PO ×3 (06:07→20:55)
[2024-09-17] MEDS: busPIRone HCL 10 MG TABLET PO ×3 (07:35→17:01)
[2024-09-17] MEDS: FAMOTIDINE 20 MG TABLET PO ×2 (07:35→20:43)
[2024-09-17 07:41] LABS: Hematocrit 32.4 % (37.0-47.0); Hemoglobin 10.7 g/dL (12.0-15.0); Mean Corpuscular Hemoglobin 31.8 pg (26-34); Mean Corpuscular Volume 96.4 fl (80-100); Mean Platelet Volume 10.6 fl (7.4-10.4); Platelet Count Result 166 k/mm3 (150-375); Red Blood Count 3.36 M/mm3 (4.2-5.4); Red Cell Distribution Width 13.2 % (11.5-14.5); White Blood Count 7.2 K/mm3 (4.5-10.0)
[2024-09-17 07:55] VITALS: BP 120/66; PULSE 88; RESP 16; TEMP 36.5; O2SAT 100
[2024-09-17 08:07] LABS: Alanine Aminotransferase 17 U/L (6-35); Albumin Level 3.1 g/dL (3.5-5.1); Alkaline Phosphatase 109 U/L (38-126); Anion Gap 12 mmol/L (4-12); Aspartate Amino Transferase 22 U/L (14-36); Bilirubin,Total 0.7 mg/dL (0.2-1.3); Blood Urea Nitrogen 7 mg/dL (7-17); Calcium 8.2 mg/dL (8.4-10.2); Carbon Dioxide 22 mmol/L (22-30); Chloride 108 mmol/L (98-107); Estimated CRCL calculation 54 ml/min; Estimated Glomerular Filt Rate 44; Glucose 85 mg/dL (65-110); Phosphorus 3.3 mg/dL (2.5-4.5); Potassium 3.4 mmol/L (3.4-5.0); Sodium 142 mmol/L (137-145)
[2024-09-17 08:11] LABS: Lipase 3980 U/L (23-300)
[2024-09-17 12:00] VITALS: BP 114/75; PULSE 85; TEMP 36; O2SAT 100
[2024-09-17] MEDS: HYDROcodone/acetaminophen (*CRX) 10-325 MG TABLET 1 TAB PO ×2 (12:11→17:01)
--- NOTE | 2024-09-17 16:49 | PM.PNGS ---
Progress Note: A&P Assessment and Plan (1) Chronic cholecystitis with calculus: Code(s): K80.10 - Calculus of gallbladder with chronic cholecystitis without obstruction Status: Resolved Assessment and Plan: Laparoscopic cholecystectomy performed 09/05/2024 (2) Postoperative bile leak: Code(s): K91.89 - Other postprocedural complications and disorders of digestive system; K83.8 - Other specified diseases of biliary tract Status: Acute Assessment and Plan: Diagnosed by imaging 09/12/2024 (3) Post-ERCP acute pancreatitis: Code(s): K91.89 - Other postprocedural complications and disorders of digestive system; K85.90 - Acute pancreatitis without necrosis or infection, unspecified Status: Acute Assessment and Plan: ERCP with stent placement 09/13/2024. HIDA scan next day, 09/14/2024, showed resolution of the bile leak. Discussed management with Dr. Jaramillo. Will try full liquids with Ensure as well as albumin for 3rd spacing. Continue p.r.n. narcotic pain medications. Subjective Subjective Date/Time Seen: 09/17/24 16:49 Patient reports: still having pain (Particularly after eating soft food, liquids not as bad), bowel movement, afebrile and other (Edema) Review of Systems Review of Systems: All systems reviewed & are unremarkable except as noted in HPI and below (HPI) Exam Const: General: comfortable (More comfortable, gets in and out of bed much better than could Tuesday), no acute distress, alert, awake and thin Orientation/consciousness: patient oriented x3 and No confusion GI: Inspection: no abdominal wall ecchymosis, non-distended, incision (Clean, dry, healing) and no visible herniation GI Palp: Yes abdominal tenderness (Diffuse, slightly less than Tuesday) and Yes Firmness to palpation present (GI) Auscultation: Hypoactive bowel sounds present Objective Data Vital Signs Vital Signs: Vital Signs - 24 hr 09/16/24 20:00 09/17/24 00:00 09/17/24 04:00 Temperature 36.4 C 36.3 C L 36.4 C Pulse Rate 100 96 94 Respiratory Rate 16 16 16 Blood Pressure 117/83 106/74 111/74 Pulse Oximetry 100 97 96 Oxygen Delivery 09/17/24 07:55 09/17/24 08:00 09/17/24 12:00 Temperature 36.5 C 36.0 C L Pulse Rate 88 85 Respiratory Rate 16 Blood Pressure 120/66 114/75 Pulse Oximetry 100 100 Oxygen Delivery Room Air Intake/Output Intake/Output: Intake & Output 09/15/24 09/16/24 09/16/24 09/17/24 00:59 00:59 23:59 23:59 Intake Total 1851.2 Output Total Balance 1851.2 Meds/Results Medications: Active Medications Generic Name Dose Route Start Last Admin Trade Name Freq PRN Reason Stop Dose Admin Acetaminophen 1,000 mg 09/16/24 10:48 Acetaminophen 500 Mg Tablet PO Q6H PRN Mild Pain (1-3) or Fever Hydrocodone Bitart/Acetaminophen 1 tab 09/16/24 10:49 09/17/24 09:53 Hydrocodone/Acetaminophen (*Crx) 5-325 Mg Tablet PO 1 tab Q4H PRN Administration Pain Rated 4-6 Hydrocodone Bitart/Acetaminophen 1 tab 09/17/24 10:01 09/17/24 12:11 Hydrocodone/Acetaminophen (*Crx) 10-325 Mg Tablet PO 1 tab Q4H PRN Administration Pain Rated 7-10 Buspirone HCl 10 mg 09/12/24 17:00 09/17/24 12:10 Buspirone Hcl 10 Mg Tablet PO 10 mg TID RAFAEL Administration Famotidine 20 mg 09/16/24 21:00 09/17/24 07:35 Famotidine 20 Mg Tablet PO 20 mg Q12HR RAFAEL Administration Hydromorphone HCl 1 mg 09/16/24 10:48 09/17/24 14:13 Hydromorphone Hcl Inj (*Crx) 1 Mg/Ml Syr IV PUSH 1 mg Q4H PRN Administration Pain Rated 7-10 Albumin Human 280 mls @ 84 mls/hr 09/17/24 17:00 Albutein IVPB 09/17/24 20:19 ONCE ONE Albumin Human 280 mls @ 84 mls/hr 09/18/24 05:00 Albutein IVPB 09/18/24 08:19 ONCE ONE Naloxone HCl 0.1 mg 09/12/24 12:50 Naloxone Hcl 0.4 Mg/Ml Vial IV PUSH Q2M PRN Opiate Reversal Ondansetron HCl 4 mg 09/12/24 12:50 09/17/24 07:37 Ondansetron Inj 4 Mg/2 Ml Vial IV PUSH 4 mg Q4H PRN Administration Nausea And Vomiting Topiramate 125 mg 09/12/24 21:00 09/16/24 20:22 Topiramate 25 Mg Tablet PO 125 mg HS RAFAEL Administration Radiology Results: ITS Impressions Endo Retro Cholangiopancreatogram 09/13/24 09:29 IMPRESSION: 1. Bile leak. 2. Biliary stent in expected position. Please refer to the ERCP procedure note for additional details. Hepatobiliary Scan Nuclear Medicine 09/14/24 13:59 IMPRESSION: 1. Normal post cholecystectomy hepatobiliary scan with resolution of prior leak. Abdomen/Pelvis CT 09/17/24 10:49 IMPRESSION: 1. Gross ascites. 2. Slightly dilated bowel loops in the left abdomen follow-up and clinical correlation advised. 3. Dilated pancreatic duct. 4. Possible Swirl sign of the mesentery. Possibility of internal hernia cannot be excluded. Clinical correlation and follow-up advised. 5. Hepatomegaly 6. Bilateral basal atelectatic changes with minimal effusion. Chest CT 09/17/24 14:11 IMPRESSION: 1. Small pleural effusions. 2. Acute pancreatitis. 3. Small volume of ascites. Labs Labs: Laboratory Results - last 24 hr 09/17/24 06:34 WBC 7.2 RBC 3.36 L Hgb 10.7 L Hct 32.4 L MCV 96.4 MCH 31.8 MCHC 33.0 RDW 13.2 Plt Count 166 MPV 10.6 H Sodium 142 Potassium 3.4 Chloride 108 H Carbon Dioxide 22 Anion Gap 12 BUN 7 Creatinine 1.40 H Estim Creat Clear Calc 54 Estimated GFR 44 L Glucose 85 Calcium 8.2 L Phosphorus 3.3 Magnesium 2.0 Total Bilirubin 0.7 AST 22 ALT 17 Alkaline Phosphatase 109 Total Protein 6.0 L Albumin 3.1 L Lipase 3980 H lipase continues to decrease, white blood cell count normal, still showing JEANNINE with creatinine 1.4 GFR 44 Imaging Attestation: I personally reviewed and interpreted this imaging study as follows: (CT scan abdomen and pelvis noncontrast from this morning) My impression: Reviewed with Dr. Solis, does not appear that pancreatic duct is dilated to 1.3 cm. This is difficult to interpret because he could not give her IV contrast but most likely, this is just edema between the pancreas and the posterior pancreatic vessels. She does have severe pancreatitis by CT scan. There is considerable free fluid or ascites. There was also a lot of interstitial edema in the subcutaneous and other soft tissues. Cannot tell if there is pancreatic necrosis as she cannot have IV contrast with her current kidney function. No evidence of mesenteric volvulus or obstruction Radiologist's impression: 1. Gross ascites. 2. Slightly dilated bowel loops in the left abdomen follow-up and clinical correlation advised. 3. Dilated pancreatic duct. 4. Possible Swirl sign of the mesentery. Possibility of internal hernia cannot be excluded. Clinical correlation and follow-up advised. 5. Hepatomegaly 6. Bilateral basal atelectatic changes with minimal effusion.
--- NOTE | 2024-09-17 16:55 | P.PNGI_ITS ---
Progress Note: A&P Assessment and Plan (1) Post-ERCP acute pancreatitis: Code(s): K91.89 - Other postprocedural complications and disorders of digestive system; K85.90 - Acute pancreatitis without necrosis or infection, unspecified Status: Acute Assessment and Plan: The patient has post ERCP pancreatitis, not necrotizing. She received adequate hydration during the 1st 48 hours and beyond. Now she has evidence of third-spacing based on CT findings and clinical examination. Her creatinine is 1.4, probably reflecting some degree of renal hypoperfusion Due to 3rd spacing. Will administer albumin, 1 gram/kilogram (70 g) every 12 hours, which may ensure a preferential intravascular volume replacement and therefore improve renal perfusion. Regarding nutrition, patient tolerates full liquid diet and will provide it , in addition to supplemental doses of Ensure. In that way, will preserve intestinal trophism therefore avoiding intestinal atrophy and subsequent bacterial overgrowth and superinfection of pancreatic bed. Will continue to follow closely. CMP, CBC, CRP and lipase for a.m. Time Spent With Patient Time with patient: less than 15 minutes Subjective Date/time seen: 09/17/24 16:55 Interval history: the patient still has severe abdominal pain especially after attempting soft diet. She does well with full liquid diet. She is still requiring full doses of analgesics. Urinary output is adequate. No fever Exam Const: General: cooperative and healthy appearing Resp: Effort & Inspection: normal respiratory effort and able to speak in complete sentences Auscultation: clear to auscultation bilaterally Cardio: Rate: regular rate Rhythm: regular rhythm GI: Inspection: normal to inspection GI Palp: Yes Tenderness to palpation present (GI) and No No hepatosplenomegaly present Auscultation: normal bowel sounds Rectal Exam: deferred Other: tender in the epigastric and both upper quadrants. No rebound. Skin: General skin exam: normal color Extrem: General: edema Other: Bilateral pitting edema in both pretibia regions. Psych: Appearance: grossly normal Mental Status: mental status grossly nor mal Objective Data Vital Signs Vital Signs: Vital Signs - 24 hr 09/16/24 20:00 09/17/24 00:00 09/17/24 04:00 Temperature 97.6 F 97.3 F L 97.6 F Pulse Rate 100 96 94 Respiratory Rate 16 16 16 Blood Pressure 117/83 106/74 111/74 Pulse Oximetry 100 97 96 Oxygen Delivery 09/17/24 07:55 11/04/24 08:00 09/17/24 12:00 Temperature 97.7 F 96.8 F L Pulse Rate 88 85 Respiratory Rate 16 Blood Pressure 120/66 114/75 Pulse Oximetry 100 100 Oxygen Delivery Room Air Intake/Output Intake/Output: Intake & Output 09/15/24 09/16/24 09/16/24 09/17/24 00:59 00:59 23:59 23:59 Intake Total 1851.2 Output Total Balance 1851.2 Meds/Results Medications: Active Medications Generic Name Dose Route Start Last Admin Trade Name Freq PRN Reason Stop Dose Admin Acetaminophen 1,000 mg 09/16/24 10:48 Acetaminophen 500 Mg Tablet PO Q6H PRN Mild Pain (1-3) or Fever Hydrocodone Bitart/Acetaminophen 1 tab 09/16/24 10:49 09/17/24 09:53 Hydrocodone/Acetaminophen (*Crx) 5-325 Mg Tablet PO 1 tab Q4H PRN Administration Pain Rated 4-6 Hydrocodone Bitart/Acetaminophen 1 tab 09/17/24 10:01 09/17/24 12:11 Hydrocodone/Acetaminophen (*Crx) 10-325 Mg Tablet PO 1 tab Q4H PRN Administration Pain Rated 7-10 Buspirone HCl 10 mg 09/12/24 17:00 09/17/24 12:10 Buspirone Hcl 10 Mg Tablet PO 10 mg TID RAFAEL Administration Famotidine 20 mg 09/16/24 21:00 09/17/24 07:35 Famotidine 20 Mg Tablet PO 20 mg Q12HR RAFAEL Administration Hydromorphone HCl 1 mg 09/16/24 10:48 09/17/24 14:13 Hydromorphone Hcl Inj (*Crx) 1 Mg/Ml Syr IV PUSH 1 mg Q4H PRN Administration Pain Rated 7-10 Albumin Human 280 mls @ 84 mls/hr 09/17/24 17:00 Albutein IVPB 09/17/24 20:19 ONCE ONE Albumin Human 280 mls @ 84 mls/hr 09/18/24 05:00 Albutein IVPB 09/18/24 08:19 ONCE ONE Naloxone HCl 0.1 mg 09/12/24 12:50 Naloxone Hcl 0.4 Mg/Ml Vial IV PUSH Q2M PRN Opiate Reversal Ondansetron HCl 4 mg 09/12/24 12:50 09/17/24 07:37 Ondansetron Inj 4 Mg/2 Ml Vial IV PUSH 4 mg Q4H PRN Administration Nausea And Vomiting Topiramate 125 mg 09/12/24 21:00 09/16/24 20:22 Topiramate 25 Mg Tablet PO 125 mg HS RAFAEL Administration Radiology Results: ITS Impressions Endo Retro Cholangiopancreatogram 09/13/24 09:29 IMPRESSION: 1. Bile leak. 2. Biliary stent in expected position. Please refer to the ERCP procedure note for additional details. Hepatobiliary Scan Nuclear Medicine 09/14/24 13:59 IMPRESSION: 1. Normal post cholecystectomy hepatobiliary scan with resolution of prior leak. Abdomen/Pelvis CT 09/17/24 10:49 IMPRESSION: 1. Gross ascites. 2. Slightly dilated bowel loops in the left abdomen follow-up and clinical correlation advised. 3. Dilated pancreatic duct. 4. Possible Swirl sign of the mesentery. Possibility of internal hernia cannot be excluded. Clinical correlation and follow-up advised. 5. Hepatomegaly 6. Bilateral basal atelectatic changes with minimal effusion. Chest CT 09/17/24 14:11 IMPRESSION: 1. Small pleural effusions. 2. Acute pancreatitis. 3. Small volume of ascites. Labs Labs: Laboratory Results - last 24 hr 09/17/24 06:34 WBC 7.2 RBC 3.36 L Hgb 10.7 L Hct 32.4 L MCV 96.4 MCH 31.8 MCHC 33.0 RDW 13.2 Plt Count 166 MPV 10.6 H Sodium 142 Potassium 3.4 Chloride 108 H Carbon Dioxide 22 Anion Gap 12 BUN 7 Creatinine 1.40 H Estim Creat Clear Calc 54 Estimated GFR 44 L Glucose 85 Calcium 8.2 L Phosphorus 3.3 Magnesium 2.0 Total Bilirubin 0.7 AST 22 ALT 17 Alkaline Phosphatase 109 Total Protein 6.0 L Albumin 3.1 L Lipase 3980 H
[2024-09-17] MEDS: ALBUMIN HUMAN IVPB (17:01)
[2024-09-17 20:00] VITALS: BP 120/75; PULSE 87; RESP 16; TEMP 36.5; O2SAT 100
[2024-09-17] MEDS: TOPIRAMATE 25 MG TABLET 125 MG PO (20:43)
[2024-09-18] MEDS: HYDROcodone/acetaminophen (*CRX) 10-325 MG TABLET 1 TAB PO ×4 (01:48→19:36)
[2024-09-18] MEDS: ALBUMIN HUMAN IVPB ×2 (04:49→18:04)
[2024-09-18] MEDS: HYDROmorphone HCL INJ (*CRX) 1 MG/ML SYR IV PUSH ×3 (04:54→20:15)
[2024-09-18 05:16] VITALS: BP 123/76; PULSE 80; RESP 16; TEMP 36.3; O2SAT 98
[2024-09-18 06:26] LABS: Basophils Percent Auto 0.6 % (0.2-1.2); Eosinophils Absolute Auto 0.3 K/mm3 (0-0.3); Eosinophils Percent Auto 7.2 % (0-4.4); Hemoglobin 8.5 g/dL (12.0-15.0); Immature Granulocyte Absolute 0.02 K/mm3 (0.00-0.031); Immature Granulocyte Percent A 0.4 % (0-0.5); Lymphocytes Absolute Auto 1.63 K/mm3 (0.9-3.2); Lymphocytes Percent Auto 34.8 % (18.3-44.2); Mean Corpuscular Hemoglobin 31.6 pg (26-34); Mean Corpuscular Volume 92.9 fl (80-100); Mean Platelet Volume 10.2 fl (7.4-10.4); Monocytes Absolute Auto 0.3 K/mm3 (0.1-0.6); Monocytes Percent Auto 6.8 % (2.6-8.5); Neutrophils Absolute Auto 2.4 K/mm3 (1.3-6.7); Neutrophils Percent Auto 50.2 % (45.5-73.1); Platelet Count Result 130 k/mm3 (150-375); Red Blood Count 2.69 M/mm3 (4.2-5.4); Red Cell Distribution Width 13.2 % (11.5-14.5); White Blood Count 4.7 K/mm3 (4.5-10.0)
[2024-09-18 06:56] LABS: Alanine Aminotransferase 13 U/L (6-35); Albumin Level 3.3 g/dL (3.5-5.1); Alkaline Phosphatase 74 U/L (38-126); Anion Gap 12 mmol/L (4-12); Aspartate Amino Transferase 16 U/L (14-36); Bilirubin,Total 0.4 mg/dL (0.2-1.3); Blood Urea Nitrogen 5 mg/dL (7-17); CRP 13.5 mg/dL (<1.0); Calcium 8.3 mg/dL (8.4-10.2); Carbon Dioxide 22 mmol/L (22-30); Chloride 109 mmol/L (98-107); Estimated CRCL calculation 58 ml/min; Estimated Glomerular Filt Rate 47; Glucose 88 mg/dL (65-110); Potassium 3.1 mmol/L (3.4-5.0); Sodium 143 mmol/L (137-145)
[2024-09-18 07:09] LABS: Lipase 2479 U/L (23-300)
[2024-09-18] MEDS: ESCITALOPRAM OXALATE 10 MG TABLET 30 MG PO (09:07)
[2024-09-18] MEDS: FAMOTIDINE 20 MG TABLET PO ×2 (09:07→20:17)
[2024-09-18 09:08] VITALS: RESP 16; O2SAT 98
[2024-09-18] MEDS: busPIRone HCL 10 MG TABLET PO ×3 (09:08→17:05)
[2024-09-18] MEDS: ENOXAPARIN 40 MG/0.4 ML SYRINGE SUB-Q (09:08)
[2024-09-18] MEDS: POTASSIUM CHLORIDE 20 MEQ ER TABLET PO ×2 (09:08→17:05)
--- NOTE | 2024-09-18 09:48 | P.PNGI_ITS ---
Progress Note: A&P Assessment and Plan (1) Post-ERCP acute pancreatitis: Code(s): K91.89 - Other postprocedural complications and disorders of digestive system; K85.90 - Acute pancreatitis without necrosis or infection, unspecified Status: Acute Assessment and Plan: The patient is doing well. Less pain, less requirement for analgesics, adequate urinary output. CRP less than previous values, and creatinine with tendency to improve, from 1.4-1.3. Hematocrit still diluted and no increase in BUN. There is no systemic inflammatory response syndrome which is a good sign pointing towards good progression and not complicating with necrosis. Will continue administering Albumin to increase osmotic capacity and draw 3rd space fluid to the intravascular space and improve kidney perfusion. Tolerating full liquid diet and Ensure. Subjective Date/time seen: 09/18/24 09:48 Interval history: Still with pain, especially in right flank and right subcostal, especially when moving or taking a deep breath, no fever, chills. Urinating propperly. Getting her second round of albumin 75 g. Exam Narrative: Less tender than previous exam. Objective Data Vital Signs Vital Signs: Vital Signs - 24 hr 09/17/24 12:00 09/17/24 20:00 09/18/24 05:16 Temperature 96.8 F L 97.7 F 97.3 F L Pulse Rate 85 87 80 Respiratory Rate 16 16 Blood Pressure 114/75 120/75 123/76 Pulse Oximetry 100 100 98 Intake/Output Intake/Output: Intake & Output 09/16/24 09/16/24 09/17/24 09/18/24 00:59 23:59 23:59 23:59 Intake Total 3741.2 1240 Output Total 900 550 Balance 2841.2 690 Meds/Results Medications: Active Medications Generic Name Dose Route Start Last Admin Trade Name Freq PRN Reason Stop Dose Admin Acetaminophen 1,000 mg 09/16/24 10:48 Acetaminophen 500 Mg Tablet PO Q6H PRN Mild Pain (1-3) or Fever Hydrocodone Bitart/Acetaminophen 1 tab 09/16/24 10:49 09/17/24 20:55 Hydrocodone/Acetaminophen (*Crx) 5-325 Mg Tablet PO 1 tab Q4H PRN Administration Pain Rated 4-6 Hydrocodone Bitart/Acetaminophen 1 tab 09/17/24 10:01 11/05/24 09:07 Hydrocodone/Acetaminophen (*Crx) 10-325 Mg Tablet PO 1 tab Q4H PRN Administration Pain Rated 7-10 Buspirone HCl 10 mg 09/12/24 17:00 09/18/24 09:08 Buspirone Hcl 10 Mg Tablet PO 10 mg TID RAFAEL Administration Enoxaparin Sodium 40 mg 09/18/24 09:00 09/18/24 09:08 Enoxaparin 40 Mg/0.4 Ml Syringe SUB-Q 40 mg DAILY RAFAEL Administration Escitalopram Oxalate 30 mg 09/18/24 09:00 09/18/24 09:07 Escitalopram Oxalate 10 Mg Tablet PO 30 mg DAILY RAFAEL Administration Famotidine 20 mg 09/16/24 21:00 09/18/24 09:07 Famotidine 20 Mg Tablet PO 20 mg Q12HR RAFAEL Administration Hydromorphone HCl 1 mg 09/16/24 10:48 09/18/24 04:54 Hydromorphone Hcl Inj (*Crx) 1 Mg/Ml Syr IV PUSH 1 mg Q4H PRN Administration Pain Rated 7-10 Levothyroxine Sodium 50 mcg 09/18/24 06:30 09/18/24 09:07 Levothyroxine Sodium 50 Mcg Tablet PO Not Given DAILY@0630 RAFAEL Naloxone HCl 0.1 mg 09/12/24 12:50 Naloxone Hcl 0.4 Mg/Ml Vial IV PUSH Q2M PRN Opiate Reversal Ondansetron HCl 4 mg 09/12/24 12:50 09/17/24 19:20 Ondansetron Inj 4 Mg/2 Ml Vial IV PUSH 4 mg Q4H PRN Administration Nausea And Vomiting Potassium Chloride 20 meq 09/18/24 08:00 09/18/24 09:08 Potassium Chloride 20 Meq Er Tablet PO 20 meq BIDWM RAFAEL Administration Topiramate 125 mg 09/12/24 21:00 09/17/24 20:43 Topiramate 25 Mg Tablet PO 125 mg HS RAFAEL Administration Radiology Results: ITS Impressions Endo Retro Cholangiopancreatogram 09/13/24 09:29 IMPRESSION: 1. Bile leak. 2. Biliary stent in expected position. Please refer to the ERCP procedure note for additional details. Hepatobiliary Scan Nuclear Medicine 09/14/24 13:59 IMPRESSION: 1. Normal post cholecystectomy hepatobiliary scan with resolution of prior leak. Abdomen/Pelvis CT 09/17/24 10:49 IMPRESSION: 1. Gross ascites. 2. Slightly dilated bowel loops in the left abdomen follow-up and clinical correlation advised. 3. Dilated pancreatic duct. 4. Possible Swirl sign of the mesentery. Possibility of internal hernia cannot be excluded. Clinical correlation and follow-up advised. 5. Hepatomegaly 6. Bilateral basal atelectatic changes with minimal effusion. Chest CT 09/17/24 14:11 IMPRESSION: 1. Small pleural effusions. 2. Acute pancreatitis. 3. Small volume of ascites. Labs Labs: Laboratory Results - last 24 hr 09/18/24 06:02 WBC 4.7 RBC 2.69 L Hgb 8.5 L Hct 25.0 L MCV 92.9 MCH 31.6 MCHC 34.0 RDW 13.2 Plt Count 130 L MPV 10.2 Immature Gran % (Auto) 0.4 Neut % (Auto) 50.2 Lymph % (Auto) 34.8 [place] % (Auto) 6.8 Eos % (Auto) 7.2 H Baso % (Auto) 0.6 Lymph # (Auto) 1.63 [place] # (Auto) 0.3 Eos # (Auto) 0.3 Baso # (Auto) 0.0 Abs Immat Gran (auto) 0.02 Absolute Neuts (auto) 2.4 Absolute Nucleated RBC 0.000 Nucleated RBC % 0.0 Sodium 143 Potassium 3.1 L Chloride 109 H Carbon Dioxide 22 Anion Gap 12 BUN 5 L Creatinine 1.30 H Estim Creat Clear Calc 58 Estimated GFR 47 L Glucose 88 Calcium 8.3 L Total Bilirubin 0.4 AST 16 ALT 13 Alkaline Phosphatase 74 C-Reactive Protein 13.5 H Total Protein 6.0 L Albumin 3.3 L Lipase 2479 H
--- NOTE | 2024-09-18 13:15 | P.PNGS_ITS ---
Progress Note: A&P Assessment and Plan (1) Chronic cholecystitis with calculus: Code(s): K80.10 - Calculus of gallbladder with chronic cholecystitis without obstruction Status: Resolved Assessment and Plan: Laparoscopic cholecystectomy performed 09/05/2024 (2) Postoperative bile leak: Code(s): K91.89 - Other postprocedural complications and disorders of digestive system; K83.8 - Other specified diseases of biliary tract Status: Acute Assessment and Plan: Diagnosed by imaging 09/12/2024 (3) Post-ERCP acute pancreatitis: Code(s): K91.89 - Other postprocedural complications and disorders of digestive system; K85.90 - Acute pancreatitis without necrosis or infection, unspecified Status: Acute Assessment and Plan: ERCP with stent placement 09/13/2024. HIDA scan next day, 09/14/2024, showed resolution of the bile leak. Appreciate Dr. Jaramillo's help. Tolerating full liquids Ensure well. No recurrence of abdominal pain after eating. Albumin seems to be working to return 3rd space fluids to vascular system. She also feels as though she has diuresed quite a bit since yesterday. Pain is much bet ter. Making good progress. Subjective Subjective Date/Time Seen: 09/18/24 13:15 Patient reports: feels better, pain is less, tolerating liquids well, voiding w/o difficulty, bowel movement and afebrile Review of Systems Review of Systems: All systems reviewed & are unremarkable except as noted in HPI and below (HPI) Exam Const: General: cooperative, comfortable, alert, awake and thin Orientation/consciousness: No confusion GI: Inspection: non-distended, incision (Dry and healing), scaphoid and no visible herniation GI Palp: Yes Firmness to palpation present (GI) (Firm centrally, soft peripheral), Yes Tenderness to palpation present (GI) (Less tender than previously), No Hernia present and No Palpable mass present Objective Data Vital Signs Vital Signs: Vital Signs - 24 hr 09/17/24 20:00 09/18/24 05:16 09/18/24 09:08 Temperature 36.5 C 36.3 C L Pulse Rate 87 80 Respiratory Rate 16 16 16 Blood Pressure 120/75 123/76 Pulse Oximetry 100 98 98 Oxygen Delivery Room Air Intake/Output Intake/Output: Intake & Output 11/0309/16/24 09/17/24 09/18/24 00:59 23:59 23:59 23:59 Intake Total 3741.2 1240 Output Total 900 550 Balance 2841.2 690 Meds/Results Medications: Active Medications Generic Name Dose Route Start Last Admin Trade Name Freq PRN Reason Stop Dose Admin Acetaminophen 1,000 mg 09/16/24 10:48 Acetaminophen 500 Mg Tablet PO Q6H PRN Mild Pain (1-3) or Fever Hydrocodone Bitart/Acetaminophen 1 tab 09/16/24 10:49 09/17/24 20:55 Hydrocodone/Acetaminophen (*Crx) 5-325 Mg Tablet PO 1 tab Q4H PRN Administration Pain Rated 4-6 Hydrocodone Bitart/Acetaminophen 1 tab 09/17/24 10:01 09/18/24 12:54 Hydrocodone/Acetaminophen (*Crx) 10-325 Mg Tablet PO 1 tab Q4H PRN Administration Pain Rated 7-10 Buspirone HCl 10 mg 09/12/24 17:00 09/18/24 12:54 Buspirone Hcl 10 Mg Tablet PO 10 mg TID RAFAEL Administration Enoxaparin Sodium 40 mg 09/18/24 09:00 09/18/24 09:08 Enoxaparin 40 Mg/0.4 Ml Syringe SUB-Q 40 mg DAILY RAFAEL Administration Escitalopram Oxalate 30 mg 09/18/24 09:00 09/18/24 09:07 Escitalopram Oxalate 10 Mg Tablet PO 30 mg DAILY RAFAEL Administration Famotidine 20 mg 09/16/24 21:00 09/18/24 09:07 Famotidine 20 Mg Tablet PO 20 mg Q12HR RAFAEL Administration Hydromorphone HCl 1 mg 09/16/24 10:48 09/18/24 04:54 Hydromorphone Hcl Inj (*Crx) 1 Mg/Ml Syr IV PUSH 1 mg Q4H PRN Administration Pain Rated 7-10 Levothyroxine Sodium 50 mcg 09/18/24 06:30 09/18/24 09:07 Levothyroxine Sodium 50 Mcg Tablet PO Not Given DAILY@0630 RAFAEL Naloxone HCl 0.1 mg 09/12/24 12:50 Naloxone Hcl 0.4 Mg/Ml Vial IV PUSH Q2M PRN Opiate Reversal Ondansetron HCl 4 mg 09/12/24 12:50 09/17/24 19:20 Ondansetron Inj 4 Mg/2 Ml Vial IV PUSH 4 mg Q4H PRN Administration Nausea And Vomiting Potassium Chloride 20 meq 09/18/24 08:00 09/18/24 09:08 Potassium Chloride 20 Meq Er Tablet PO 20 meq BIDWM RAFAEL Administration Topiramate 125 mg 09/12/24 21:00 09/17/24 20:43 Topiramate 25 Mg Tablet PO 125 mg HS RAFAEL Administration Radiology Results: ITS Impressions Endo Retro Cholangiopancreatogram 09/13/24 09:29 IMPRESSION: 1. Bile leak. 2. Biliary stent in expected position. Please refer to the ERCP procedure note for additional details. Hepatobiliary Scan Nuclear Medicine 09/14/24 13:59 IMPRESSION: 1. Normal post cholecystectomy hepatobiliary scan with resolution of prior leak. Abdomen/Pelvis CT 09/17/24 10:49 IMPRESSION: 1. Gross ascites. 2. Slightly dilated bowel loops in the left abdomen follow-up and clinical correlation advised. 3. Dilated pancreatic duct. 4. Possible Swirl sign of the mesentery. Possibility of internal hernia cannot be excluded. Clinical correlation and follow-up advised. 5. Hepatomegaly 6. Bilateral basal atelectatic changes with minimal effusion. Chest CT 09/17/24 14:11 IMPRESSION: 1. Small pleural effusions. 2. Acute pancreatitis. 3. Small volume of ascites. Labs Labs: Laboratory Results - last 24 hr 09/18/24 06:02 WBC 4.7 RBC 2.69 L Hgb 8.5 L Hct 25.0 L MCV 92.9 MCH 31.6 MCHC 34.0 RDW 13.2 Plt Count 130 L MPV 10.2 Immature Gran % (Auto) 0.4 Neut % (Auto) 50.2 Lymph % (Auto) 34.8 [place] % (Auto) 6.8 Eos % (Auto) 7.2 H Baso % (Auto) 0.6 Lymph # (Auto) 1.63 [place] # (Auto) 0.3 Eos # (Auto) 0.3 Baso # (Auto) 0.0 Abs Immat Gran (auto) 0.02 Absolute Neuts (auto) 2.4 Absolute Nucleated RBC 0.000 Nucleated RBC % 0.0 Sodium 143 Potassium 3.1 L Chloride 109 H Carbon Dioxide 22 Anion Gap 12 BUN 5 L Creatinine 1.30 H Estim Creat Clear Calc 58 Estimated GFR 47 L Glucose 88 Calcium 8.3 L Total Bilirubin 0.4 AST 16 ALT 13 Alkaline Phosphatase 74 C-Reactive Protein 13.5 H Total Protein 6.0 L Albumin 3.3 L Lipase 2479 H CRP, lipase, creatinine all lower. H&H lower but not significant drop.
[2024-09-18 14:00] VITALS: BP 120/63; PULSE 65; RESP 18; TEMP 36.6; O2SAT 95
[2024-09-18] MEDS: ONDANSETRON INJ 4 MG/2 ML VIAL IV PUSH (19:39)
[2024-09-18] MEDS: TOPIRAMATE 25 MG TABLET 125 MG PO (20:17)
[2024-09-18 21:19] VITALS: BP 121/72; PULSE 74; RESP 16; TEMP 36.6; O2SAT 99
[2024-09-19] MEDS: HYDROcodone/acetaminophen (*CRX) 10-325 MG TABLET 1 TAB PO (00:38)
[2024-09-19 05:24] VITALS: BP 110/76; PULSE 68; RESP 12; TEMP 36.2; O2SAT 98
[2024-09-19] MEDS: LEVOTHYROXINE SODIUM 50 MCG TABLET PO (05:34)
[2024-09-19] MEDS: ALBUMIN HUMAN IVPB (05:34)
[2024-09-19 06:14] LABS: Basophils Percent Auto 0.8 % (0.2-1.2); Eosinophils Absolute Auto 0.4 K/mm3 (0-0.3); Eosinophils Percent Auto 7.9 % (0-4.4); Hematocrit 29.1 % (37.0-47.0); Hemoglobin 9.6 g/dL (12.0-15.0); Immature Granulocyte Absolute 0.01 K/mm3 (0.00-0.031); Immature Granulocyte Percent A 0.2 % (0-0.5); Lymphocytes Absolute Auto 2.03 K/mm3 (0.9-3.2); Lymphocytes Percent Auto 38.9 % (18.3-44.2); Mean Corpuscular Hemoglobin 31.4 pg (26-34); Mean Corpuscular Volume 95.1 fl (80-100); Mean Platelet Volume 10.3 fl (7.4-10.4); Monocytes Absolute Auto 0.4 K/mm3 (0.1-0.6); Neutrophils Absolute Auto 2.3 K/mm3 (1.3-6.7); Neutrophils Percent Auto 44.2 % (45.5-73.1); Platelet Count Result 170 k/mm3 (150-375); Red Blood Count 3.06 M/mm3 (4.2-5.4); Red Cell Distribution Width 13.6 % (11.5-14.5); White Blood Count 5.2 K/mm3 (4.5-10.0)
[2024-09-19 06:47] LABS: Alanine Aminotransferase 12 U/L (6-35); Alkaline Phosphatase 76 U/L (38-126); Anion Gap 7 mmol/L (4-12); Aspartate Amino Transferase 17 U/L (14-36); Bilirubin,Total 0.5 mg/dL (0.2-1.3); Blood Urea Nitrogen 9 mg/dL (7-17); Calcium 8.9 mg/dL (8.4-10.2); Carbon Dioxide 26 mmol/L (22-30); Chloride 109 mmol/L (98-107); Estimated CRCL calculation 58 ml/min; Estimated Glomerular Filt Rate 47; Glucose 87 mg/dL (65-110); Potassium 3.6 mmol/L (3.4-5.0); Sodium 142 mmol/L (137-145)
[2024-09-19 07:19] LABS: Lipase 2038 U/L (23-300)
[2024-09-19] MEDS: ENOXAPARIN 40 MG/0.4 ML SYRINGE SUB-Q (08:09)
[2024-09-19] MEDS: FAMOTIDINE 20 MG TABLET PO ×2 (08:09→20:22)
[2024-09-19] MEDS: busPIRone HCL 10 MG TABLET PO ×3 (08:09→17:01)
[2024-09-19] MEDS: ESCITALOPRAM OXALATE 10 MG TABLET 30 MG PO (08:09)
[2024-09-19] MEDS: POTASSIUM CHLORIDE 20 MEQ ER TABLET PO ×2 (08:10→17:01)
--- NOTE | 2024-09-19 09:55 | PCNWS ---
Weekly nutritional screen. Patient is tolerating current low fiber diet with adequate intake 100%, Ensure Enlive QID also in place. No weight loss reported. No nutritional recommendations at this time.
--- NOTE | 2024-09-19 11:20 | P.PNGI_ITS ---
Progress Note: A&P Assessment and Plan (1) Post-ERCP acute pancreatitis: Code(s): K91.89 - Other postprocedural complications and disorders of digestive system; K85.90 - Acute pancreatitis without necrosis or infection, unspecified Status: Acute Plan The patient is doing well, although still with some abdominal pain episodes. However, she is tolerating diet very well and is willing to advance to a low- fiber diet today. Her creatinine is stable, 1.3, and her urine output is adequate. She still has some edema in her lower extremities, but I explained to her that it will take a while to resolve, and the administration of diuretics is not urgent at it may Even be harmful if we are trying to watch her renal function closely and replace intravascular space with albumin. will continue to follow and administer an extra dose of albumin tonight, 1 gram/kilogram. Time Spent With Patient Time with patient: 15 - 25 minutes Subjective Date/time seen: 09/19/24 11:20 Interval history: the patient is still feeling diffuse abdominal pain but requiring less analgesics than yesterday. She also complained of occasional pain when taking a deep breath, located to her upper abdomen/ lower chest. There is no fever. Adequate urinary output. Still getting intravenous albumin. She tolerates liquid diet and Ensure very well, and is hungry. Exam Resp: Auscultation: clear to auscultation bilaterally, no crackles, no rales, no rhonchi and no wheezes GI: GI Palp: Yes Soft to palpation, No Tenderness to palpation present (GI) and No Guarding due to palpation present (GI) Auscultation: normal bowel sounds Objective Data Vital Signs Vital Signs: Vital Signs - 24 hr 09/18/24 14:00 09/18/24 21:19 09/19/24 05:24 Temperature 97.9 F 97.9 F 97.2 F L Pulse Rate 65 74 68 Respiratory Rate 18 16 12 Blood Pressure 120/63 121/72 110/76 Pulse Oximetry 95 99 98 Intake/Output Intake/Output: Intake & Output 09/16/24 09/17/24 09/18/24 09/19/24 23:59 23:59 23:59 23:59 Intake Total 3741.2 2457 874 Output Total 900 1300 400 Balance 2841.2 1157 474 Meds/Results Medications: Active Medications Generic Name Dose Route Start Last Admin Trade Name Freq PRN Reason Stop Dose Admin Acetaminophen 1,000 mg 09/16/24 10:48 Acetaminophen 500 Mg Tablet PO Q6H PRN Mild Pain (1-3) or Fever Hydrocodone Bitart/Acetaminophen 1 tab 09/16/24 10:49 09/17/24 20:55 Hydrocodone/Acetaminophen (*Crx) 5-325 Mg Tablet PO 1 tab Q4H PRN Administration Pain Rated 4-6 Hydrocodone Bitart/Acetaminophen 1 tab 09/17/24 10:01 09/19/24 00:38 Hydrocodone/Acetaminophen (*Crx) 10-325 Mg Tablet PO 1 tab Q4H PRN Administration Pain Rated 7-10 Buspirone HCl 10 mg 09/12/24 17:00 09/19/24 08:09 Buspirone Hcl 10 Mg Tablet PO 10 mg TID RAFAEL Administration Enoxaparin Sodium 40 mg 09/18/24 09:00 09/19/24 08:09 Enoxaparin 40 Mg/0.4 Ml Syringe SUB-Q 40 mg DAILY RAFAEL Administration Escitalopram Oxalate 30 mg 09/18/24 09:00 09/19/24 08:09 Escitalopram Oxalate 10 Mg Tablet PO 30 mg DAILY RAFAEL Administration Famotidine 20 mg 09/16/24 21:00 09/19/24 08:09 Famotidine 20 Mg Tablet PO 20 mg Q12HR RAFAEL Administration Hydromorphone HCl 1 mg 09/16/24 10:48 09/18/24 20:15 Hydromorphone Hcl Inj (*Crx) 1 Mg/Ml Syr IV PUSH 1 mg Q4H PRN Administration Pain Rated 7-10 Levothyroxine Sodium 50 mcg 09/18/24 06:30 09/19/24 05:34 Levothyroxine Sodium 50 Mcg Tablet PO 50 mcg DAILY@0630 RAFAEL Administration Naloxone HCl 0.1 mg 09/12/24 12:50 Naloxone Hcl 0.4 Mg/Ml Vial IV PUSH Q2M PRN Opiate Reversal Ondansetron HCl 4 mg 09/12/24 12:50 09/18/24 19:39 Ondansetron Inj 4 Mg/2 Ml Vial IV PUSH 4 mg Q4H PRN Administration Nausea And Vomiting Potassium Chloride 20 meq 09/18/24 08:00 09/19/24 08:10 Potassium Chloride 20 Meq Er Tablet PO 20 meq BIDWM RAFAEL Administration Topiramate 125 mg 09/12/24 21:00 09/18/24 20:17 Topiramate 25 Mg Tablet PO 125 mg HS RAFAEL Administration Radiology Results: ITS Impressions Endo Retro Cholangiopancreatogram 09/13/24 09:29 IMPRESSION: 1. Bile leak. 2. Biliary stent in expected position. Please refer to the ERCP procedure note for additional details. Hepatobiliary Scan Nuclear Medicine 09/14/24 13:59 IMPRESSION: 1. Normal post cholecystectomy hepatobiliary scan with resolution of prior leak. Abdomen/Pelvis CT 09/17/24 10:49 IMPRESSION: 1. Gross ascites. 2. Slightly dilated bowel loops in the left abdomen follow-up and clinical correlation advised. 3. Dilated pancreatic duct. 4. Possible Swirl sign of the mesentery. Possibility of internal hernia cannot be excluded. Clinical correlation and follow-up advised. 5. Hepatomegaly 6. Bilateral basal atelectatic changes with minimal effusion. Chest CT 09/17/24 14:11 IMPRESSION: 1. Small pleural effusions. 2. Acute pancreatitis. 3. Small volume of ascites. Labs Labs: Laboratory Results - last 24 hr 09/19/24 05:34 WBC 5.2 RBC 3.06 L Hgb 9.6 L Hct 29.1 L MCV 95.1 MCH 31.4 MCHC 33.0 RDW 13.6 Plt Count 170 MPV 10.3 Immature Gran % (Auto) 0.2 Neut % (Auto) 44.2 L Lymph % (Auto) 38.9 [place] % (Auto) 8.0 Eos % (Auto) 7.9 H Baso % (Auto) 0.8 Lymph # (Auto) 2.03 [place] # (Auto) 0.4 Eos # (Auto) 0.4 H Baso # (Auto) 0.0 Abs Immat Gran (auto) 0.01 Absolute Neuts (auto) 2.3 Absolute Nucleated RBC 0.000 Nucleated RBC % 0.0 Sodium 142 Potassium 3.6 Chloride 109 H Carbon Dioxide 26 Anion Gap 7 BUN 9 Creatinine 1.30 H Estim Creat Clear Calc 58 Estimated GFR 47 L Glucose 87 Calcium 8.9 Total Bilirubin 0.5 AST 17 ALT 12 Alkaline Phosphatase 76 Total Protein 6.0 L Albumin 4.0 Lipase 2038 H
--- NOTE | 2024-09-19 13:38 | P.PNGS_ITS ---
Progress Note: A&P Assessment and Plan (1) Chronic cholecystitis with calculus: Code(s): K80.10 - Calculus of gallbladder with chronic cholecystitis without obstruction Status: Resolved Assessment and Plan: Now postop day 14 from laparoscopic cholecystectomy. (2) Status post laparoscopic cholecystectomy: Code(s): Z90.49 - Acquired absence of other specified parts of digestive tract Status: Chronic Assessment and Plan: Wounds healing well. No further evidence of bile leak (3) Postoperative bile leak: Code(s): K91.89 - Other postprocedural complications and disorders of digestive system; K83.8 - Other specified diseases of biliary tract Status: Acute Assessment and Plan: HIDA scan day after ERCP showed no leak. (4) Status post endoscopic retrograde cholangiopancreatography: Code(s): Z98.890 - Other specified postprocedural states Status: Acute Assessment and Plan: Postprocedure day 6. (5) Post-ERCP acute pancreatitis: Code(s): K91.89 - Other postprocedural complications and disorders of digestive system; K85.90 - Acute pancreatitis without necrosis or infection, unspecified Status: Acute Assessment and Plan: Improving. Dr. Jaramillo's note and assistance appreciated. Lipase continues to decrease. Creatinine still 1.3 today. Seems to be diuresing with multiple voids. To get more albumin today. Has developed a cough. Will get chest x-ray and start some cough syrup. Subjective Subjective Date/Time Seen: 09/19/24 13:38 Post Op day: #6 ERCP Patient reports: feels better, pain is less, voiding w/o difficulty, afebrile and other (Has developed pretty significant cough about 10:00am.) Review of Systems Review of Systems: All systems reviewed & are unremarkable except as noted in HPI and below (HPI) Constitutional: Constitutional: Reports as per HPI Respiratory: Respiratory: Reports cough Exam Const: General: comfortable, alert, awake, well nourished and thin Orientation/consciousness: No confusion GI: Inspection: non-distended and incision (Dry and healing) GI Palp: Yes Soft to palpation and Yes Tenderness to palpation present (GI) Objective Data Vital Signs Vital Signs: Vital Signs - 24 hr 09/18/24 14:00 09/18/24 21:19 09/19/24 05:24 Temperature 36.6 C 36.6 C 36.2 C L Pulse Rate 65 74 68 Respiratory Rate 18 16 12 Blood Pressure 120/63 121/72 110/76 Pulse Oximetry 95 99 98 Intake/Output Intake/Output: Intake & Output 09/16/24 09/17/24 09/18/24 09/19/24 23:59 23:59 23:59 23:59 Intake Total 3741.2 2457 2031 Output Total 900 1300 2100 Balance 2841.2 1157 -69 Meds/Results Medications: Active Medications Generic Name Dose Route Start Last Admin Trade Name Freq PRN Reason Stop Dose Admin Acetaminophen 1,000 mg 09/16/24 10:48 Acetaminophen 500 Mg Tablet PO Q6H PRN Mild Pain (1-3) or Fever Hydrocodone Bitart/Acetaminophen 1 tab 09/16/24 10:49 09/17/24 20:55 Hydrocodone/Acetaminophen (*Crx) 5-325 Mg Tablet PO 1 tab Q4H PRN Administration Pain Rated 4-6 Hydrocodone Bitart/Acetaminophen 1 tab 09/17/24 10:01 09/19/24 00:38 Hydrocodone/Acetaminophen (*Crx) 10-325 Mg Tablet PO 1 tab Q4H PRN Administration Pain Rated 7-10 Buspirone HCl 10 mg 09/12/24 17:00 09/19/24 12:19 Buspirone Hcl 10 Mg Tablet PO 10 mg TID RAFAEL Administration Enoxaparin Sodium 40 mg 09/18/24 09:00 09/19/24 08:09 Enoxaparin 40 Mg/0.4 Ml Syringe SUB-Q 40 mg DAILY RAFAEL Administration Escitalopram Oxalate 30 mg 09/18/24 09:00 09/19/24 08:09 Escitalopram Oxalate 10 Mg Tablet PO 30 mg DAILY RAFAEL Administration Famotidine 20 mg 09/16/24 21:00 09/19/24 08:09 Famotidine 20 Mg Tablet PO 20 mg Q12HR RAFAEL Administration Hydromorphone HCl 1 mg 09/16/24 10:48 09/18/24 20:15 Hydromorphone Hcl Inj (*Crx) 1 Mg/Ml Syr IV PUSH 1 mg Q4H PRN Administration Pain Rated 7-10 Albumin Human 200 mls @ 60 mls/hr 09/19/24 20:00 Albutein IVPB 09/19/24 23:19 ONCE ONE Levothyroxine Sodium 50 mcg 09/18/24 06:30 09/19/24 05:34 Levothyroxine Sodium 50 Mcg Tablet PO 50 mcg DAILY@0630 RAFAEL Administration Naloxone HCl 0.1 mg 09/12/24 12:50 Naloxone Hcl 0.4 Mg/Ml Vial IV PUSH Q2M PRN Opiate Reversal Ondansetron HCl 4 mg 09/12/24 12:50 09/18/24 19:39 Ondansetron Inj 4 Mg/2 Ml Vial IV PUSH 4 mg Q4H PRN Administration Nausea And Vomiting Potassium Chloride 20 meq 09/18/24 08:00 09/19/24 08:10 Potassium Chloride 20 Meq Er Tablet PO 20 meq BIDWM RAFAEL Administration Topiramate 125 mg 09/12/24 21:00 09/18/24 20:17 Topiramate 25 Mg Tablet PO 125 mg HS RAFAEL Administration Radiology Results: ITS Impressions Endo Retro Cholangiopancreatogram 09/13/24 09:29 IMPRESSION: 1. Bile leak. 2. Biliary stent in expected position. Please refer to the ERCP procedure note for additional details. Hepatobiliary Scan Nuclear Medicine 09/14/24 13:59 IMPRESSION: 1. Normal post cholecystectomy hepatobiliary scan with resolution of prior leak. Abdomen/Pelvis CT 09/17/24 10:49 IMPRESSION: 1. Gross ascites. 2. Slightly dilated bowel loops in the left abdomen follow-up and clinical correlation advised. 3. Dilated pancreatic duct. 4. Possible Swirl sign of the mesentery. Possibility of internal hernia cannot be excluded. Clinical correlation and follow-up advised. 5. Hepatomegaly 6. Bilateral basal atelectatic changes with minimal effusion. Chest CT 09/17/24 14:11 IMPRESSION: 1. Small pleural effusions. 2. Acute pancreatitis. 3. Small volume of ascites. Labs Labs: Laboratory Results - last 24 hr 09/19/24 05:34 WBC 5.2 RBC 3.06 L Hgb 9.6 L Hct 29.1 L MCV 95.1 MCH 31.4 MCHC 33.0 RDW 13.6 Plt Count 170 MPV 10.3 Immature Gran % (Auto) 0.2 Neut % (Auto) 44.2 L Lymph % (Auto) 38.9 [place] % (Auto) 8.0 Eos % (Auto) 7.9 H Baso % (Auto) 0.8 Lymph # (Auto) 2.03 [place] # (Auto) 0.4 Eos # (Auto) 0.4 H Baso # (Auto) 0.0 Abs Immat Gran (auto) 0.01 Absolute Neuts (auto) 2.3 Absolute Nucleated RBC 0.000 Nucleated RBC % 0.0 Sodium 142 Potassium 3.6 Chloride 109 H Carbon Dioxide 26 Anion Gap 7 BUN 9 Creatinine 1.30 H Estim Creat Clear Calc 58 Estimated GFR 47 L Glucose 87 Calcium 8.9 Total Bilirubin 0.5 AST 17 ALT 12 Alkaline Phosphatase 76 Total Protein 6.0 L Albumin 4.0 Lipase 2038 H
[2024-09-19 14:00] VITALS: BP 127/70; PULSE 70; RESP 17; TEMP 36.2; O2SAT 100
[2024-09-19] MEDS: HYDROcodone/acetaminophen (*CRX) 5-325 MG TABLET 1 TAB PO ×2 (14:30→22:37)
[2024-09-19] MEDS: guaiFENesin/DEXTROMETHORPHAN 10 ML UDC PO (14:31)
[2024-09-19] MEDS: ALBUMIN HUMAN 25% 25 GM/100 ML 200 ML IVPB (20:16)
[2024-09-19] MEDS: TOPIRAMATE 25 MG TABLET 125 MG PO (20:21)
[2024-09-19 21:20] VITALS: BP 125/81; PULSE 62; RESP 18; TEMP 36.7; O2SAT 100
[2024-09-20 06:00] VITALS: BP 114/73; PULSE 60; RESP 20; TEMP 36.7; O2SAT 98
[2024-09-20] MEDS: LEVOTHYROXINE SODIUM 50 MCG TABLET PO (06:32)
[2024-09-20] MEDS: HYDROcodone/acetaminophen (*CRX) 5-325 MG TABLET 1 TAB PO (06:34)
[2024-09-20 06:41] LABS: Hematocrit 28.6 % (37.0-47.0); Hemoglobin 9.4 g/dL (12.0-15.0); Mean Corpuscular HGB Conc 32.9 g/dl (32-36); Mean Corpuscular Hemoglobin 31.4 pg (26-34); Mean Corpuscular Volume 95.7 fl (80-100); Mean Platelet Volume 10.3 fl (7.4-10.4); Platelet Count Result 182 k/mm3 (150-375); Red Blood Count 2.99 M/mm3 (4.2-5.4); Red Cell Distribution Width 13.4 % (11.5-14.5); White Blood Count 5.1 K/mm3 (4.5-10.0)
[2024-09-20 06:56] LABS: Anion Gap 13 mmol/L (4-12); Blood Urea Nitrogen 11 mg/dL (7-17); CRP 4.4 mg/dL (<1.0); Calcium 9.3 mg/dL (8.4-10.2); Carbon Dioxide 23 mmol/L (22-30); Chloride 110 mmol/L (98-107); Estimated CRCL calculation 63 ml/min; Estimated Glomerular Filt Rate 52; Glucose 90 mg/dL (65-110); Lipase 1061 U/L (23-300); Potassium 3.8 mmol/L (3.4-5.0); Sodium 146 mmol/L (137-145)
[2024-09-20] MEDS: POTASSIUM CHLORIDE 20 MEQ ER TABLET PO (08:08)
[2024-09-20] MEDS: FAMOTIDINE 20 MG TABLET PO (08:08)
[2024-09-20] MEDS: ESCITALOPRAM OXALATE 10 MG TABLET 30 MG PO (08:08)
[2024-09-20] MEDS: busPIRone HCL 10 MG TABLET PO (08:08)
--- NOTE | 2024-09-20 11:45 | P.PNGI_ITS ---
Progress Note: A&P Assessment and Plan (1) Post-ERCP acute pancreatitis: Code(s): K91.89 - Other postprocedural complications and disorders of digestive system; K85.90 - Acute pancreatitis without necrosis or infection, unspecified Status: Acute Assessment and Plan: The patient is clinically doing well. She received her last dose of albumin last night. Urinary output is adequate. Her creatinine today is 1.2, and she tolerated food very well. She is in a stable condition to be discharged home, with instruction not to eat fatty food or red meats. She will gradually recover her normal weight after urinating and resolving her peripheral edema. She is told not to take any diuretics. She will contact our office for an ERCP and stent removal in 6 weeks. Subjective Date/time seen: 09/20/24 11:45 Interval history: The patient feels much better, has some residual abdominal pain sometimes radiating to the back but she thinks is more attributable to position in bed. Adequate urinary output. No fever. Exam Const: General: cooperative and healthy appearing Resp: Effort & Inspection: normal respiratory effort and able to speak in complete sentences Auscultation: clear to auscultation bilaterally Cardio: Rate: regular rate Rhythm: regular rhythm GI: Inspection: normal to inspection GI Palp: No No hepatosplenomegaly pre sent Auscultation: normal bowel sounds Rectal Exam: deferred Skin: General skin exam: normal color Psych: Appearance: grossly normal Mental Status: mental status grossly normal Objective Data Vital Signs Vital Signs: Vital Signs - 24 hr 09/19/24 14:00 09/19/24 21:20 09/20/24 06:00 Temperature 97.1 F L 98.1 F 98.0 F Pulse Rate 70 62 60 Respiratory Rate 17 18 20 Blood Pressure 127/70 125/81 114/73 Pulse Oximetry 100 100 98 Oxygen Delivery 09/20/24 08:00 Temperature Pulse Rate Respiratory Rate Blood Pressure Pulse Oximetry Oxygen Delivery Room Air Intake/Output Intake/Output: Intake & Output 09/17/24 09/18/24 09/19/24 09/20/24 23:59 23:59 23:59 23:59 Intake Total 3741.2 2457 2731 240 Output Total 900 1300 2600 Balance 2841.2 1157 131 240 Meds/Results Medications: Active Medications Generic Name Dose Route Start Last Admin Trade Name Freq PRN Reason Stop Dose Admin Acetaminophen 1,000 mg 09/16/24 10:48 Acetaminophen 500 Mg Tablet PO Q6H PRN Mild Pain (1-3) or Fever Hydrocodone Bitart/Acetaminophen 1 tab 09/16/24 10:49 09/20/24 06:34 Hydrocodone/Acetaminophen (*Crx) 5-325 Mg Tablet PO 1 tab Q4H PRN Administration Pain Rated 4-6 Hydrocodone Bitart/Acetaminophen 1 tab 09/17/24 10:01 09/19/24 00:38 Hydrocodone/Acetaminophen (*Crx) 10-325 Mg Tablet PO 1 tab Q4H PRN Administration Pain Rated 7-10 Buspirone HCl 10 mg 09/12/24 17:00 09/20/24 08:08 Buspirone Hcl 10 Mg Tablet PO 10 mg TID RAFAEL Administration Enoxaparin Sodium 40 mg 09/18/24 09:00 09/20/24 08:07 Enoxaparin 40 Mg/0.4 Ml Syringe SUB-Q Not Given DAILY [facility] Escitalopram Oxalate 30 mg 09/18/24 09:00 09/20/24 08:08 Escitalopram Oxalate 10 Mg Tablet PO 30 mg DAILY RAFAEL Administration Famotidine 20 mg 09/16/24 21:00 09/20/24 08:08 Famotidine 20 Mg Tablet PO 20 mg Q12HR RAFAEL Administration Guaifenesin/Dextromethorphan 10 ml 09/19/24 13:46 09/19/24 14:31 Guaifenesin/Dextromethorphan 10 Ml Udc PO 10 ml Q4H PRN Administration Cough Hydromorphone HCl 1 mg 09/16/24 10:48 09/18/24 20:15 Hydromorphone Hcl Inj (*Crx) 1 Mg/Ml Syr IV PUSH 1 mg Q4H PRN Administration Pain Rated 7-10 Levothyroxine Sodium 50 mcg 09/18/24 06:30 09/20/24 06:32 Levothyroxine Sodium 50 Mcg Tablet PO 50 mcg DAILY@0630 RAFAEL Administration Naloxone HCl 0.1 mg 09/12/24 12:50 Naloxone Hcl 0.4 Mg/Ml Vial IV PUSH Q2M PRN Opiate Reversal Ondansetron HCl 4 mg 09/12/24 12:50 09/18/24 19:39 Ondansetron Inj 4 Mg/2 Ml Vial IV PUSH 4 mg Q4H PRN Administration Nausea And Vomiting Potassium Chloride 20 meq 09/18/24 08:00 09/20/24 08:08 Potassium Chloride 20 Meq Er Tablet PO 20 meq BIDWM RAFAEL Administration Topiramate 125 mg 09/12/24 21:00 09/19/24 20:21 Topiramate 25 Mg Tablet PO 125 mg HS RAFAEL Administration Radiology Results: ITS Impressions Endo Retro Cholangiopancreatogram 09/13/24 09:29 IMPRESSION: 1. Bile leak. 2. Biliary stent in expected position. Please refer to the ERCP procedure note for additional details. Hepatobiliary Scan Nuclear Medicine 09/14/24 13:59 IMPRESSION: 1. Normal post cholecystectomy hepatobiliary scan with resolution of prior leak. Abdomen/Pelvis CT 09/17/24 10:49 IMPRESSION: 1. Gross ascites. 2. Slightly dilated bowel loops in the left abdomen follow-up and clinical correlation advised. 3. Dilated pancreatic duct. 4. Possible Swirl sign of the mesentery. Possibility of internal hernia cannot be excluded. Clinical correlation and follow-up advised. 5. Hepatomegaly 6. Bilateral basal atelectatic changes with minimal effusion. Chest CT 09/17/24 14:11 IMPRESSION: 1. Small pleural effusions. 2. Acute pancreatitis. 3. Small volume of ascites. Chest X-Ray 09/19/24 15:19 IMPRESSION: No acute cardiopulmonary pathology. Labs Labs: Laboratory Results - last 24 hr 09/20/24 06:09 WBC 5.1 RBC 2.99 L Hgb 9.4 L Hct 28.6 L MCV 95.7 MCH 31.4 MCHC 32.9 RDW 13.4 Plt Count 182 MPV 10.3 Sodium 146 H Potassium 3.8 Chloride 110 H Carbon Dioxide 23 Anion Gap 13 H BUN 11 Creatinine 1.20 H Estim Creat Clear Calc 63 Estimated GFR 52 L Glucose 90 Calcium 9.3 C-Reactive Protein 4.4 H Lipase 1061 H
--- NOTE | 2024-09-20 12:06 | P.DS_ITS ---
DS: Admitting Diagnosis Discharge Date 09/20/2024 Admitting Diagnosis Postoperative bile leak DS: Discharge Diagnosis Discharge Diagnosis (1) Postoperative bile leak: Code(s): K91.89 - Other postprocedural complications and disorders of digestive system; K83.8 - Other specified diseases of biliary tract Status: Acute (2) Status post laparoscopic cholecystectomy: Code(s): Z90.49 - Acquired absence of other specified parts of digestive tract Status: Chronic (3) Post-ERCP acute pancreatitis: Code(s): K91.89 - Other postprocedural complications and disorders of digestive system; K85.90 - Acute pancreatitis without necrosis or infection, unspecified Status: Acute (4) JEANNINE (acute kidney injury): Code(s): N17.9 - Acute kidney failure, unspecified Status: Acute DS: Summary Hospital Course Reason for hospitalization: This is a 34-year-old woman who underwent laparoscopic cholecystectomy on 09/05/2024 for chronic calculous cholecystitis by Dr. Lopez. She was initially doing well following the surgery. She was taking the pain medication for her incisional pain. By postop day 5, she began to develop worsening abdominal pain. Her pain would radiate all the way from the suprapubic area across her entire upper abdomen and wrap around her right upper quadrant to her mid back. She had associated nausea and poor appetite, but no vomiting. She called the surgeon's office regarding her abdominal pain. She had outpatient labs with a CBC and hepatic panel that were unremarkable with only mild elevation of AST and ALT. Total bilirubin normal. Right upper quadrant abdominal ultrasound was normal with an absent gallbladder, but no additional findings. Her symptoms continued to get worse and she presented to [facility]. They contacted the surgeon's office and she was discharged from their ER and scheduled for an outpatient HIDA scan stat that showed a prominent bile leak extending along the right paracolic gutter into the pelvis. She was then directly admitted in the setting of a postoperative bile leak. Hospital Course: She was admitted and started on broad-spectrum IV antibiotics, analgesics, and IV fluids. GI was consulted and proceeded with an ERCP on 09/13/2024. A bile leak was observed on cholangiogram at the level of the cystic duct stump and a biliary stent was placed successfully. She had increased pain following the ERCP and was found to have post ERCP pancreatitis. The day following ERCP, her lipase was 14,709. She was treated with IV fluids and analgesics. She had a repeat HIDA scan following the ERCP that showed resolution of the prior bile leak. Her abdominal pain was improving, but she began complaining of pleuritic chest pain bilaterally with deep breathing. CT scan of the chest, abdomen, and pelvis was repeated and showed gross ascites, acute pancreatitis, slightly dilated bowel loops in the left abdomen, possible swirl sign of the mesentery, dilated pancreatic duct, hepatomegaly, bilateral basal atelectatic changes and minimal pleural effusion. Her diet was advanced as tolerated and she was also provided nutritional supplements. Serial labs were monitored. She was found to have JEANNINE with her creatinine at 1.4-1.5, which was felt to be related to volume depletion or renal hypoperfusion. She had third spacing and was treated with IV albumin to improve intravascular volume. Lipase was trending down daily. Creatinine started improving and was eventually down to 1.2 on discharge. She also had mild hypokalemia that was treated with potassium supplementation. CRP monitored and came down from 24.4 to 4.4 on discharge. On 09/19/2024, she also started complaining of a productive cough. She had a chest x-ray that was negative. She was treated with antitussives and incentive spirometry was encouraged. Prior to discharge, she was able to tolerate a low-fat diet and her abdominal pain had nearly resolved. She had adequate urine output. She had clinically improved and was stable for discharge on 09/20/2024 with plan to follow up with GI for stent removal in 6 weeks. She will also follow up with Dr. Lopez as an outpatient. Status at Discharge Functional status at discharge: independent ambulation Overall status at discharge: patient is progressing back to baseline Time Spent with Patient Time attestation: Total time spent providing and/or coordinating discharge services: Time spent: Greater than 30 minutes Exam Const: General: comfortable and awake GI: Inspection: no abdominal wall ecchymosis, non-distended and incision (Dry and healing) GI Palp: Yes Soft to palpation, No Tenderness to palpation present (GI), No Guarding due to palpation present (GI) and No Rebound tenderness present Auscultation: normal bowel sounds Extrem: General: no edema DS: Data Data Completed and Pending Labs on day of discharge: Labs from last 24 hours 09/20/24 06:09 WBC 5.1 RBC 2.99 L Hgb 9.4 L Hct 28.6 L MCV 95.7 MCH 31.4 MCHC 32.9 RDW 13.4 Plt Count 182 MPV 10.3 Sodium 146 H Potassium 3.8 Chloride 110 H Carbon Dioxide 23 Anion Gap 13 H BUN 11 Creatinine 1.20 H Estim Creat Clear Calc 63 Estimated GFR 52 L Glucose 90 Calcium 9.3 C-Reactive Protein 4.4 H Lipase 1061 H Procedures/Treatments: Procedures Operation Date: 09/13/24 07:30 Actual Procedure Side Surgeon p Endoscopic Retro Cholangiopancreatogram with common bile duct stent placement (10FR x 7cm) Kamaljit Jaramillo MD Imaging Radiologist's impression: ITS Impressions Endo Retro Cholangiopancreatogram 09/13/24 09:29 IMPRESSION: 1. Bile leak. 2. Biliary stent in expected position. Please refer to the ERCP procedure note for additional details. Hepatobiliary Scan Nuclear Medicine 09/14/24 13:59 IMPRESSION: 1. Normal post cholecystectomy hepatobiliary scan with resolution of prior leak. Abdomen/Pelvis CT 09/17/24 10:49 IMPRESSION: 1. Gross ascites. 2. Slightly dilated bowel loops in the left abdomen follow-up and clinical correlation advised. 3. Dilated pancreatic duct. 4. Possible Swirl sign of the mesentery. Possibility of internal hernia cannot be excluded. Clinical correlation and follow-up advised. 5. Hepatomegaly 6. Bilateral basal atelectatic changes with minimal effusion. Chest CT 09/17/24 14:11 IMPRESSION: 1. Small pleural effusions. 2. Acute pancreatitis. 3. Small volume of ascites. Chest X-Ray 09/19/24 15:19 IMPRESSION: No acute cardiopulmonary pathology. Discharge Plan Discharge Attending physician on discharge: Fer Lopez Consulting providers: Kamaljit Jaramillo; Gentry Shepard; Mirella Douglas Bryce C.; Colton Zhong; Balaji Solis V.; Fer Perkins; Jeb Farrar Discharging Clinician: Yasmine Santiago Anticipated Discharge Date/Time: 09/20/24 11:56 Patient Disposition: Home, Self-Care Activity: may shower Diet: low fat Wound Care Instructions: incision open to air Discharge Instructions: * Call to schedule a follow-up appointment with Dr. Lopez in 2 weeks. * Follow-up with GI as recommended. Patient to call the office to set up ERCP and stent removal in 6 weeks. * Continue a strict low fat diet, avoid red meats * No heavy lifting more than 15 lbs for another 1-2 weeks Patient Instructions: Antibiotic Form, Pain Management (DC), Endoscopic Biliary Stent Placement (DC) Stand Alone Forms: General Discharge Information Follow-up/Referrals: Fer Lopez MD [Physician] - 2 Weeks Kamaljit Jaramillo MD [Physician] - Call for Appointment Discharge Medications: New potassium chloride 20 mEq tablet extended release 20 meq PO DAILY 7 Days Qty: 7 0RF Continued escitalopram oxalate 20 mg tablet 30 mg PO DAILY buspirone 10 mg tablet 10 mg PO TID Myfembree 40-1-0.5 mg tablet 1 tablet PO DAILY ketorolac 10 mg tablet 10 mg PO Q6H 4 Days Qty: 16 0RF Rx Instructions: after lap travis 09/05/24 cetirizine [Zyrtec] 10 mg Tablet 10 mg PO DAILY topiramate 100 mg Tablet 125 mg PO HS Patient Comments: patient takes for migraines oxycodone-acetaminophen 5-325 mg tablet 0.5 - 1 tablet PO Q6H PRN (Reason: pain) Qty: 15 0RF Rx Instructions: after lap travis 09/05/24 Date of admission: 09/12/24 12:51 Primary Care Provider: Caroline Pires Admitting Provider: Fer Lopez Attending physician on admission: Yasmine Santiago Condition: Stable Quality VTE Prophylaxis VTE prophylaxis: mechanical ordered and pharmacologic ordered
== END 2024-09-20 12:20 | disposition home or self-care (01) | DRG 393 ==
PROVIDERS: Internal Medicine Gastroenterology; Surgery; Admitting Provider Surgery; PCP Family Medicine; Visit Provider Nurse Practitioner Family
PROC: 0F798DZ Dilation of Common Bile Duct with Intraluminal Device, Via Natural or Artificial Opening Endoscopic (ICD-10-PCS; CPT 43260; principal; 2024-09-13 07:30)
DX: K91.89 Other postprocedural complications and disorders of digestive system (principal); K85.90 Acute pancreatitis without necrosis or infection, unspecified; N17.9 Acute kidney failure, unspecified; K83.8 Other specified diseases of biliary tract; E87.6 Hypokalemia; G47.33 Obstructive sleep apnea (adult) (pediatric); I10 Essential (primary) hypertension; Z90.49 Acquired absence of other specified parts of digestive tract
CPT/HCPCS: 36415; 71046; 71250; 74176; 74329; 78226; 80048; 80053; 83690; 83735; 84100; 85025; 85027; 85055; 85610; 85730; 86140; A9270; A9537; C1876; J0330; J1100; J1170; J1171; J1650; J1741; J1836; J1956; J2003; J2250; J2270; J2405; J2704; J3010; J3475; J3480; J7030; J7040; J7120; J7121; P9047; Q9966

== ENCOUNTER 2024-10-24 10:34 | Outpatient (CLI) | payer OTHER, SELFPAY ==
[2024-10-24 11:56] LABS: Lipase 110 U/L (23-300)
== END 2024-10-24 10:35 | disposition home or self-care (01) ==
LOC: ANHLAB 10:36
PROVIDERS: PCP Family Medicine; Visit Provider Surgery
DX: K80.10 Calculus of gallbladder with chronic cholecystitis without obstruction (principal); K91.89 Other postprocedural complications and disorders of digestive system; K83.8 Other specified diseases of biliary tract
CPT/HCPCS: 36415; 83690

== ENCOUNTER 2024-11-01 01:20 | Day surgery (SDC) | payer OTHER, SELFPAY ==
[2024-10-29 09:34] VITALS: BMI 25.1
[2024-11-01] VITALS (7 sets, daily range): BP systolic 110–135; BP diastolic 74–85; PULSE 60–89; RESP 16–19; TEMP 36.2; O2SAT 100
--- NOTE | ~2024-11-01 | XR_ITS ---
EXAMINATION: XR ERCP DATE: 11/01/2024 13:51 INDICATION: Right upper quadrant abdominal pain. TECHNIQUE: 8 spot fluoroscopic images of the right upper quadrant were obtained during endoscopic ret rograde cholangiopancreatography (ERCP). Fluoroscopy exposure time was 42 seconds. COMPARISON: CT 09/17/2024 FINDINGS: The endoscope is in the second portion of the duodenum. There is contrast opacification of the biliary tree. There are surgical clips from cholecystectomy. IMPRESSION: 1. No visible choledocholithiasis. Please refer to the ERCP procedure note for additional details. Reviewed, dictated and finalized at location [facility]. [facility]
[2024-11-01] MEDS: INDOMETHACIN 50 MG SUPP.RECT 100 MG RECTAL (11:18)
[2024-11-01] MEDS: LACTATED RINGERS 1,000 ML 150 ML IV CONT ×2 (11:35→13:42)
[2024-11-01 11:36] LABS: BEDSIDEPREGUCG Negative (Negative)
--- NOTE | 2024-11-01 12:33 | WPDANESEPPF ---
Anes - Initial Pre Proc Eval Procedure: Operation Date: 11/01/24 13:00 Proposed Procedures p Endoscopic Retro Cholangiopancreatogram - Kamaljit Jaramillo MD Date/Time: 11/01/24 12:33 Surgeon: Kamaljit Jaramillo MD Pre Op Diagnosis: acute pancreatitis w/o necrosis or infection Patient Data Age: 34 Gender: F Height: 1.73 m Weight: 73 kg Last Vital Signs Temp 36.2 C L 11/01/24 11:33 Pulse 89 11/01/24 11:33 Resp 19 11/01/24 11:33 BP 110/74 11/01/24 11:33 Pulse Ox 100 11/01/24 11:33 O2 Del Method Room Air 11/01/24 11:33 Allergies Allergy/AdvReac Type Severity Reaction Status Date / Time Cephalosporins Allergy Intermediate HIVES Verified 11/01/24 11:33 lisinopril AdvReac Mild cough Verified 11/01/24 11:33 Home Medications ?Medication ?Instructions ?Recorded ?Confirmed ?Type cetirizine 10 mg tablet (Zyrtec) 10 mg PO DAILY 01/15/21 11/01/24 History topiramate 100 mg tablet 125 mg PO HS 03/02/22 11/01/24 History buspirone 10 mg tablet 10 mg PO TID 12/01/23 11/01/24 History escitalopram oxalate 20 mg tablet 30 mg PO DAILY 12/01/23 11/01/24 History relugolix 40 mg-estradiol 1 1 tablet PO DAILY 12/01/23 11/01/24 History mg-norethindrone acetate 0.5 mg tablet (Myfembree) famotidine 40 mg tablet (Pepcid) 40 mg PO DAILY #30 tabs 10/04/24 11/01/24 Rx semaglutide 0.25 mg or 0.5 mg (2 0.25 mg subcut WEEKLY 10/29/24 10/29/24 History mg/3 mL) subcutaneous pen injector (Ozempic) Laboratory Tests 11/01/24 11:33 POC Urine HCG, Qual Negative (Negative) Patient hx anesthesia problems: none Family hx anesthesia problems: none Results Review: All pre-operative results and documents have been reviewed as part of the pre-operative evaluation. [facility] Past Medical History Medical History Elevated liver enzymes Upper abdominal pain Hematochezia Diarrhea Abdominal pain Colitis Depression Anxiety Migraine PATRICIA (obstructive sleep apnea) lost 80 lbs, no longer needed Hypertension Surgical History Surgical History Status post laparoscopic cholecystectomy 09/05/[address] Lopez History of placement of ear tubes H/O elbow surgery History of removal of ovarian cyst History of tubal ligation Family History Family History Father Diabetes mellitus Hypertension Mother Hypertension Social History Social History Smoking status: Never smoker Second hand tobacco smoke exposure: No Alcohol intake: former Drinks per week: 1 Substance use: never Substance use type: does not use Do You Feel Safe in your Home?: Yes Lack of Transportation: No Lack of Food: Never True Current Housing: I Have Housing Concerned About Future Housing: No Difficulty Paying Gas/Electric Bills: No Difficulty Paying for Meds: No Currently Unemployed: No Education: Don't Know Difficulty w/ Childcare or Family Care: No Living arrangements: with family Gender identity (if verbalized by the patient): Female Spiritual care concerns: No Anes - Eval Final PreProcedure Day of Procedure 11/01/24 12:33 Patient weight: normal Heart: regular rate and rhythm Lungs: clear to auscultation Airway: Mallampati scale class II Neurological: alert and oriented Last oral intake: >/= 8 hours ASA classification: III Emergent: no Anesthetic plan: proceed Anesthesia type and monitoring: general ETT and standard monitoring Results Review: All pre-operative results and documents have been reviewed as part of the pre-operative evaluation. Informed Consent: The patient's anesthetic plan and its attendant risks and benefits were discussed with the patient/family/POA. Questions were solicited and answers provided to the satisfaction of the patient/family/POA.
--- NOTE | 2024-11-01 13:32 | PM.IMHP ---
H&P: HPI History of Present Illness Date/Time: 11/01/24 13:32 Chief Complaint: History of biliary leak and stent placement.- comes now for stent removal Narrative: On 09/13/2024 the patient underwent an ERCP and common bile duct stent placement for a postoperative biliary leak. She had an episode of mild pancreatitis which was resolved and did well after that. She comes today for stent removal and cholangiogram to document leak sealing. Review of Systems Review of Systems: All systems reviewed & are unremarkable except as noted in HPI and below PMFSH Past Medical History Medical History Elevated liver enzymes Upper abdominal pain Hematochezia Diarrhea Abdominal pain Colitis Depression Anxiety Migraine PATRICIA (obstructive sleep apnea) lost 80 lbs, no longer needed Hypertension Surgical History Surgical History Status post laparoscopic cholecystectomy 09/05/[address] Lopez History of placement of ear tubes H/O elbow surgery History of removal of ovarian cyst History of tubal ligation Family History Family History Father Diabetes mellitus Hypertension Mother Hypertension Social History Social History Smoking status: Never smoker Second hand tobacco smoke exposure: No Alcohol intake: former Drinks per week: 1 Substance use: never Substance use type: does not use Do You Feel Safe in your Home?: Yes Lack of Transportation: No Lack of Food: Never True Current Housing: I Have Housing Concerned About Future Housing: No Difficulty Paying Gas/Electric Bills: No Difficulty Paying for Meds: No Currently Unemployed: No Education: Don't Know Difficulty w/ Childcare or Family Care: No Living arrangements: with family Gender identity (if verbalized by the patient): Female Spiritual care concerns: No Meds Home Medications and Allergies Home Medications ?Medication ?Instructions ?Recorded ?Confirmed ?Type cetirizine 10 mg tablet (Zyrtec) 10 mg PO DAILY 01/15/21 11/01/24 History topiramate 100 mg tablet 125 mg PO HS 03/02/22 11/01/24 History buspirone 10 mg tablet 10 mg PO TID 12/01/23 11/01/24 History escitalopram oxalate 20 mg tablet 30 mg PO DAILY 12/01/23 11/01/24 History relugolix 40 mg-estradiol 1 1 tablet PO DAILY 12/01/23 11/01/24 History mg-norethindrone acetate 0.5 mg tablet (Myfembree) famotidine 40 mg tablet (Pepcid) 40 mg PO DAILY #30 tabs 10/04/24 11/01/24 Rx semaglutide 0.25 mg or 0.5 mg (2 0.25 mg subcut WEEKLY 10/29/24 10/29/24 History mg/3 mL) subcutaneous pen injector (Ozempic) Allergies Allergy/AdvReac Type Severity Reaction Status Date / Time Cephalosporins Allergy Intermediate HIVES Verified 11/01/24 11:33 lisinopril AdvReac Mild cough Verified 11/01/24 11:33 Vital Signs Vital Signs - 24 hr 11/01/24 11:33 Temperature 97.2 F L Pulse Rate 89 Respiratory Rate 19 Blood Pressure 110/74 Pulse Oximetry 100 Oxygen Delivery Room Air Exam Const: General: cooperative and healthy appearing Resp: Effort & Inspection: normal respiratory effort and able to speak in complete sentences Auscultation: clear to auscultation bilaterally Cardio: Rate: regular rate Rhythm: regular rhythm GI: Inspection: normal to inspection GI Palp: No No hepatosplenomegaly present Auscultation: normal bowel sounds Rectal Exam: deferred Skin: General skin exam: normal color Psych: Appearance: grossly normal Mental Status: mental status grossly normal Assessment and Plan Assessment and plan (1) Postoperative bile leak: Code(s): K91.89 - Other postprocedural complications and disorders of digestive system; K83.8 - Other specified diseases of biliary tract Status: Acute Assessment and Plan: The patient is deemed a good candidate for the procedure.Will removed tent and perform occlusion cholangiogram. Consent signed. Will proceed.
[2024-11-01] MEDS: ONDANSETRON INJ 4 MG/2 ML VIAL IV PUSH (14:01)
== END 2024-11-01 14:50 | disposition home or self-care (01) ==
PROVIDERS: PCP Family Medicine; Visit Provider Internal Medicine Gastroenterology
PROC: (CPT 43260; principal; 2024-11-01 13:00)
DX: Z46.59 Encounter for fitting and adjustment of other gastrointestinal appliance and device (principal); K91.89 Other postprocedural complications and disorders of digestive system; K83.8 Other specified diseases of biliary tract; F32.A Depression, unspecified; F41.9 Anxiety disorder, unspecified; I10 Essential (primary) hypertension; G47.33 Obstructive sleep apnea (adult) (pediatric); Z79.85 Long-term (current) use of injectable non-insulin antidiabetic drugs; Z98.890 Other specified postprocedural states; Z90.49 Acquired absence of other specified parts of digestive tract; Z98.51 Tubal ligation status
CPT/HCPCS: 43275; 74329; A9270; J0330; J1100; J2003; J2405; J2704; J7120

== ENCOUNTER 2025-02-28 14:14 | Emergency (ER) | payer OTHER, SELFPAY ==
[2025-02-28] VITALS (8 sets, daily range): BP systolic 91–106; BP diastolic 57–67; PULSE 74–94; RESP 16–20; TEMP 36.6; O2SAT 97–100
--- NOTE | ~2025-02-28 | XR_ITS ---
XR chest 1V portable Ordering provider: Krystal Barrios MD History: 35 years Female with . Right upper quadrant pain . Comparison: September 19, 2024 FINDINGS: MEDIASTINUM: The cardiac silhouette is not enlarged. LUNGS: No infiltrates, effusions or pneumothorax. OTHER: No free air under the diaphragm. IMPRESSION: No acute cardiopulmonary pathology. Reviewed, dictated and finalized at location A.
--- NOTE | ~2025-02-28 | CT_ITS ---
CLINICAL INDICATION: Upper abdominal pain COMPARISON: 09/17/2024. TECHNIQUE: Multiple contiguous axial images of the abdomen and pelvis were performed following the ad ministration of with 100 mL Omnipaque-350 intravenous contrast The dose-length product (DLP) was 356.73 mGy-cm. Automated exposure control and iterative reconstruction technique were employed. FINDINGS/OBSERVATIONS: Visualized lower thorax: The bilateral lung bases are clear. The heart is of normal size, without pericardial effusion. Small hiatal hernia is present. Liver: The liver demonstrates homogeneous enhancement and is enlarged measuring 19 cm in longitudinal dimens ion. Gallbladder and biliary system: The gallbladder is surgically absent. Pancreas: The pancreas enhances homogeneously without ductal dilatation. Spleen: The spleen enhances homogeneously and is enlarged measuring 13 cm in longitudinal dimension. Kidneys: The bilateral kidneys enhance symmetrically without hydronephrosis or renal calculi. Adrenal glands: Unremarkable. Gastrointestinal tract: Fecal stasis is identified within the cecum and ascending colon with significant air opacification an d distention of the transverse and descending colons, possibly the source of patient's discomfort. The sigmoid colon is of normal caliber just below the level of the spleen. Remaining loops of bowel are unremarkable. Appendix: The air-filled appendix is of normal caliber (axial series, images 103 through 109). Vasculature: Unremarkable. Lymph nodes: No pathologically enlarged or morphologically suspicious lymph nodes within the retroperitoneum or at the root of the mesentery. Pelvic structures: The bladder is minimally distended, and otherwise unremarkable. The uterus is anteverted and anteflexed, and otherwise unremarkable. Body wall and musculoskeletal: No significant degenerative disease within the lower thoracic or lumbosacral spine. IMPRESSION: Hepatosplenomegaly (although decreased in size from previous examination dated 09/17/2024). Significant air opacification and marked distention of the transverse and descending colons without a discrete source of obstruction and normal caliber bowel beyond this location. No additional acute abnormality is appreciated. Reviewed, dictated and finalized at location A. IMPRESSION: Hepatosplenomegaly (although decreased in size from previous examination dated 09/17/2024). Significant air opacification and marked distention of the transverse and desce nding colons without a discrete source of obstruction and normal caliber bowel beyond this location. No additional acute abnormality is appreciated.
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
--- OUTSIDE RECORDS SUMMARY | 2025-02-28 14:25 | XMS_ITS | Encounter Summary ---
Author Organization [facility] Address [address] [place] [address] Care Team Providers Care Adjustment Supervisor Name Role Phone Carolien Pires MD Primary Care Provider Encounter Details Date Type Department Care Team (Late Contact Info) Description 11/04/2021 Community Orders [facility] Pearl Bolden MD [address] [place] [phone] Social History Tobacco Use Types Packs/Day Years Used Date Smoking Tobacco: Never Smokeless Tobacco: Never Alcohol Use Standard Drinks/Week Comments Never 0 (1 standard drink = 0.6 oz pur e alcohol) Comments No Sex and Gender Information Value Date Recorded Sex Assigned at Not on file Legal Sex Female 9:26 PM CDT Gender Identity Female 02/11/2022 12:11 PM CDT Sexual Orientation Straight 02/11/2022 12 :11 PM CDT COVID-19 Exposure Response Date Recorded In the last month, have you been in contact with someone who was confirmed or suspected to have Coronavirus / COVID-19? 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 - [address], [address] [place] [address] Julia Richey MD [address] [place] [address] documented as of this encounter Visit Diagnoses Diagnosis Pain and swelling of wrist, left- Primary documented in this encounter Care Teams Adjustment Supervisor Relationship Specialty Start Date End Date Caroline Pires MD [address] [place] [address] PCP - General FAMILY PRACTICE 11/04/21 documented as of this encounter
--- OUTSIDE RECORDS SUMMARY | 2025-02-28 14:25 | XMS_ITS | Encounter Summary ---
Author Organization [facility] - [facility] Address [address] [place] [address] Care Team Providers Care Research Laboratory Specialist Name Role Phone Caroline Pires MD Primary Care Provider Encounter Details Date Type Department Care Team (Late Contact Info) Description 12/28/2022 Carbon Ads Message [facility] Patient Accounts [address] [place] [address] [facility] Card Payment Social History Tobacco Use Types Packs/Day Years [...] Exposure Response Date Recorded In the last 10 days, have yo u been in contact with someone who was confirmed or suspected to have Coronavirus/COVID-19? 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
--- OUTSIDE RECORDS SUMMARY | 2025-02-28 14:26 | XMS_ITS | Encounter Summary ---
Author Organization [facility] Address [address] [place] [address] Care Team Providers Care Spanish Lecturer Name Role Phone Unavailable Primary Care Provider Unavailabl e Encounter Details Date Type Department Care Team (Latest Contact Info) Description 08/05/2008 Outpatient Historical [facility] 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
--- OUTSIDE RECORDS SUMMARY | 2025-02-28 14:26 | XMS_ITS | Clinical Summary ---
Author Organization [facility] Address [address] 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
--- OUTSIDE RECORDS SUMMARY | 2025-02-28 14:26 | XMS_ITS | Clinical Summary ---
Author Organization [facility] Address [address] [place] [address] Care Team Providers Care Electronic Equipment Maint Tech Name Role Phone Unavailable Primary Care Provider Unavailabl e Source Comments [facility],non-owned Affiliates and Associated Physician Practices is amultiple site organization consisting of ambulatory clinics and hospital sitesin [place], [place], [place] and [place]. This disclosure is being madepursuant to the Care Everywhere program and may not contain all information available regarding this patient. 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 Gender Identity Not on file Sexual Orientation Not on file Plan of Treatment Health Maintenance Due Date Last Done Comments PAP SMEAR 1990 HIV SCREENING 01/30/2007 HEPATITIS C SCREENING 01/26/2010 DTAP/TDAP/TD VACCINES (1 - Tdap) 01/30/2011 HEPATITIS B VACCINE (1 of 3 - 19+ 3-dose series) 01/30/2011 COVID-19 VACCINE ( - 2023-2 5 season) 2024 DEPRESSION SCREENING 11/14/2024 INFLUENZA VACCINE (Season Ended) 2025 ZOSTER VACCINE (1 of 2) 01/30/2042 HIB VACCINE Aged Out No longer eligi ble based on patient's age to complete this topic HPV VACCINE Aged Out No longer eligi ble based on patient's age to complete this topic MENINGOCOCCAL (Group B) VACC INE SHARED DECISION-MAKING Aged Out No longer eligibl e based on patient's age to complete this topic MENINGOCOCCAL GROUPS A/C/Y/W VACCINE Aged Out No longer eligible b ased on patient's age to complete this topic PNEUMOCOCCAL VACCINE Aged Out No long er eligible based on patient's age to complete this topic [address] [place] [address] [facility] [place] [address] SELF PAY NO INSURANCE Member Subscriber Plan / Payer (Ef fective for All Dates) Name:Yumi Maravilla Member ID:Not on file Relation to Subscriber:Not on file Name:YUMI MARAVILLA Subscriber ID:Not on file (Home) Address: [address] [address] Payer ID:Not on file Group ID:Not on file Type:Self Pay Address: [place], [place] [employer] HE[employer]LINK HEALTHLINK HEALTHLINK Member Subscriber Plan / Payer (Ef fective for All Dates) Name:Yumi Maravilla Member ID:[id number] Relation to Subscriber:Spouse Name:CLAUDETTEROGER Subscriber ID:Not on file Date of :1983 Payer ID:Not on file Type:HMO Address: [address]
--- OUTSIDE RECORDS SUMMARY | 2025-02-28 14:26 | XMS_ITS | Encounter Summary ---
Author Organization [facility] Address 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 Gender Identity Not on file Sexual Orientation Not on file documented as of this encounter Plan of Treatment Not on file documented as of this encounter Procedures Procedure Name Priority Date/Time Associated Diagnosis Comments POC , URINE Routine 01/09/2008 12:20 PM RAC SPECIALIST HEMOGLOBIN AND HEMATOCRIT Stat 01/09/2008 12:15 PM RAC SPECIALIST documented in this encounter Results * POC , URINE (01/09/2008 12:20 PM RAC SPECIALIST) , URINE POC Negative Negative [facility] Urine specimen (specimen) 01/09/2008 12:20 PM RAC SPECIALIST 01/09/2008 12:20 PM RAC SPECIALIST us Cheikh Griggs POINT OF CARE TESTING Final Resu lt [facility] [address] [place] [address] * (ABNORMAL) HEMOGLOBIN AND HEMATOCRIT (01/09/2008 12:15 PM RAC SPECIALIST) HEMATOCRIT 43.3 35.5 - 44.0 % [facility] HEMOGLOBIN 15.0(H) 11.8 - 14.8 g/dL [facility] Blood specimen (specimen) 01/09/2008 12:15 PM RAC SPECIALIST 01/09/2008 12:42 PM RAC SPECIALIST Cheikh Griggs HEMATOLOGY ORDERABLES Final Resu lt [facility] [address] [place] [address] documented in this encounter Visit Diagnoses Diagnosis Unspecified otitis media documented in this encounter
--- OUTSIDE RECORDS SUMMARY | 2025-02-28 14:26 | XMS_ITS | Encounter Summary ---
Author Organization [facility] Address 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 Gender Identity Not on file Sexual Orientation Not on file documented as of this encounter Plan of Treatment Not on file documented as of this encounter Procedures Procedure Name Priority Date/Time Associated Diagnosis Comments CT IAC WO CONTRAST Timed Study 01/01/2008 3: 16 PM TAX REVENUE OFFICER documented in this encounter Results * CT IAC WO CONTRAST (01/01/2008 3:16 PM TAX REVENUE OFFICER) Anatomical Region Laterality Modality Head Other 01/01/2008 3:16 PM TAX REVENUE OFFICER Narrative 01/01/2008 8:26 PM TAX REVENUE OFFICER [facility] [address], [place] [address] Admit Date: 01/01/2008 YUMI DÍAZ Sex: F Admit Prov: AVA CARDENAS Date: 1990 Primary Care Prov: CMRN: [id number] Room: [facility] SSN: [id number] IMAGING SERVICES Ordering Prov: N/A Accession Number: [id number] [address] SCAN OF IAC NONCONTRAST 01/01/2008 History: Cholesteatoma. Scan protocol: Patient was scanned in the axial plane with 0.625 mm slice thickness. Coronal images were generated as reformats. Findings: Right middle and inner ear: There are some strands of tissue in the right external auditory canal. Tympanic membrane is not thickened. Prussak's space, attic air cells and remainder of mastoid air cells are normal. Mesotympanum appears normal. Ossicles are intact. Cochlea and semicircular canals appear normal. Facial nerve appears normal. Internal auditory canal is normal. Left middle and inner ear: Mastoid air cells are clear. Tympanic membrane and ossicular chain is normal. Prussak's space and epitympanic recess appear normal. Tegmen tympani is intact. Semicircular canals are normal. External auditory canal appears normal. Impression: No cholesteatoma identified. Strands of soft tissue density material in the right external auditory canal. Otherwise negative. . Dictated by: DIANA BANERJEE 01/01/2008 16:31 Electronically signed by: DIANA BANERJEE 01/01/2008 20:26 Transcribed: 01/01/2008 19:43 SJ Procedure Note Provider, Historical - 01/01/2008 [facility] [address], [place] [address] Admit Date: 01/01/2008 DÍAZYUMI Sex: F Admit Prov: AVA CARDENAS Date: 1990 Primary Care Prov: CMRN: [id number] Room: [facility] SSN: [id number] IMAGING SERVICES Ordering Prov: N/A Interpretation CT SCAN OF IAC NONCONTRAST 01/01/2008 History: Cholesteatoma. Scan protocol: Patient was scanned in the axial plane with 0.625 mmslice thickness. Coronal images were generated as reformats. Findings: Right middle and inner ear: There are some strands of tissue in the right external auditorycanal. Tympanic membrane is not thickened. Prussak's space, attic air cellsand remainder of mastoid air cells are normal. Mesotympanum appearsnormal. Ossicles are intact. Cochlea and semicircular canals appear normal.Facial nerve appears normal. Internal auditory canal is normal. Left middle and inner ear: Mastoid air cells are clear. Tympanic membrane and ossicular chainis normal. Prussak's space and epitympanic recess appear normal.Tegmen tympani is intact. Semicircular canals are normal. External auditorycanal appears normal. Impression: No cholesteatoma identified. Strands of soft tissue density materialin the right external auditory canal. Otherwise negative. . Dictated by: DIANA BANERJEE 01/01/2008 16:31 Electronically signed by: DIANA BANERJEE 01/01/2008 20:26 Transcribed: 01/01/2008 19:[address] ORDERABLES Final Result documented in this encounter Visit Diagnoses Diagnosis Cholesteatoma, unspecified documented in this encounter
--- OUTSIDE RECORDS SUMMARY | 2025-02-28 14:26 | XMS_ITS | Encounter Summary ---
Author Organization [facility] Address 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
--- OUTSIDE RECORDS SUMMARY | 2025-02-28 14:26 | XMS_ITS | Encounter Summary ---
Author Organization [facility] Address 

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
--- NOTE | 2025-02-28 14:46 | ED_ITS ---
HPI - Abdominal Pain General Chief Complaint: Abdominal Pain Stated Complaint: abd pain Time Seen by Provider: 02/28/25 14:46 Source: patient Mode of arrival: ambulatory Limitations: no limitations History of Present Illness HPI narrative: 35 years old white female came to the ED by private car complaining of epigastric pain radiating to day, unknown dose to beats, diarrhea of of the last 2 weeks, pain got worse overnight. Patient denies any fever, chills, nausea, vomiting. Patient denies aggravating or relieving factors. History migraine headache, depression, hypothyroidism, cholecystectomy, complicated with biliary duct stent placement with pancreatitis October 2024 Related Data Home Medications ?Medication ?Instructions ?Recorded ?Confirmed ?Last Taken ?Type cetirizine 10 mg tablet (Zyrtec) 10 mg PO DAILY 01/15/21 11/01/24 10/31/24 History topiramate 100 mg tablet 125 mg PO HS 03/02/22 11/01/24 10/31/24 History buspirone 10 mg tablet 10 mg PO TID 12/01/23 11/01/24 10/31/24 History escitalopram oxalate 20 mg tablet 30 mg PO DAILY 12/01/23 11/01/24 10/31/24 History relugolix 40 mg-estradiol 1 1 tablet PO DAILY 12/01/23 11/01/24 10/31/24 History mg-norethindrone acetate 0.5 mg tablet (Myfembree) semaglutide 0.25 mg or 0.5 mg (2 0.25 mg subcut WEEKLY 10/29/24 10/29/24 10/19/24 History mg/3 mL) subcutaneous pen injector (Ozempic) Allergies Allergy/AdvReac Type Severity Reaction Status Date / Time Cephalosporins Allergy Intermediate HIVES Verified 11/01/24 11:33 lisinopril AdvReac Mild cough Verified 11/01/24 11:33 Review of Systems 2 Review of Systems: All systems reviewed & are unremarkable except as noted in HPI and below PMFSH Past Medical History Medical History Elevated liver enzymes Upper abdominal pain Hematochezia Diarrhea Abdominal pain Colitis Depression Anxiety Migraine PATRICIA (obstructive sleep apnea) lost 80 lbs, no longer needed Hypertension Surgical History Surgical History Status post laparoscopic cholecystectomy 09/05/[address] Lopez History of placement of ear tubes H/O elbow surgery History of removal of ovarian cyst History of tubal ligation Family History Family History Father Diabetes mellitus Hypertension Mother Hypertension Social History Social History Smoking status: Never smoker Second hand tobacco smoke exposure: No Alcohol intake: former Drinks per week: 1 Substance use: never Substance use type: does not use Do You Feel Safe in your Home?: Yes Lack of Transportation: No Lack of Food: Never True Current Housing: I Have Housing Concerned About Future Housing: No Difficulty Paying Gas/Electric Bills: No Difficulty Paying for Meds: No Currently Unemployed: No Education: Don't Know Difficulty w/ Childcare or Family Care: No Living arrangements: with family Gender identity (if verbalized by the patient): Female Spiritual care concerns: No Exam 2 Narrative: General appearance: Well-developed, well-nourished Skin: Normal color Head: Normocephalic, nontraumatic Eyes: Clear conjunctiva ENT: Oropharynx normal, ears normal, nose normal Neck: Supple, nontender Chest and respiratory: Airway patent, no respiratory distress, no accessory muscle use Heart: Regular rate/rhythm Abdomen: Soft, severe epigastric tenderness, no organomegaly, quiet bowel sounds Musculoskeletal: Normal range of motion, nontender back Neurologic: Alert and oriented ?3, MARKET ANALYST is normal as tested, no gross motor deficit Course Consultations Consultation #1: DR JARAMILLO REQUEST TO DISCHARGE PATIENT HOME ON [place] AND OUTPATIENT FOLLOW-UP Date: 02/28/25 Time: 17:33 Vital Signs Vital signs: Vital Signs Temperature 36.6 C 02/28/25 14:34 Pulse Rate 94 02/28/25 14:34 Respiratory Rate 20 02/28/25 14:34 Blood Pressure 103/67 02/28/25 14:34 Pulse Oximetry 100 02/28/25 14:34 Oxygen Delivery Room Air 02/28/25 14:34 Temperature 36.6 C 02/28/25 14:34 Pulse Rate 94 02/28/25 14:34 Respiratory Rate 20 02/28/25 14:34 Blood Pressure 103/67 02/28/25 14:34 Pulse Oximetry 100 02/28/25 14:34 Oxygen Delivery Room Air 02/28/25 14:34 MDM - Abdominal Pain MDM Narrative Medical decision making narrative: Patient came with epigastric pain Vital signs are stable Physical examination consistent with tenderness at the epigastric area Differential diagnosis include pancreatitis, esophagitis, gastritis, colitis, constipation, diverticulitis, urinary tract infection, post cholecystectomy syndrome, IBS Blood workup includes CBC, CMP, lipase showed creatinine 1.19, AST 37 ALT 42, lipase 76 CT abdomen and pelvis with IV contrast showed SIGMOID AIR OPACIFICATION HAD MARKED DISTENSION OF THE TRANSVERSE AND DESCENDING COLONS WITHOUT A DISCRETE SOURCE OF OBSTRUCTION Urinalysis showed no significant evidence of infection DIAGNOSIS ABDOMINAL PAIN, PROBABLY IBS RELATED SYMPTOMS DISCHARGED HOME, DISCUSSED WITH DR. JARAMILLO FOR OUTPATIENT FOLLOW-UP DISCHARGED ON [place]. THE PT WAS DISCHARGED TO HOME.THE PT,S CONDITION UPON DISCHARGE WAS FAIR,EDUCATION WAS PROVIDED TO THE PT IN REFERENCE TO THE FINAL IMPRESSION,DISCHARGE STUDY RESULTS,TREATMENT,PROGNOSIS AND NEED FOR FOLLOW UP . Differential Diagnosis Differential diagnosis: Likely abdominal pain, acute appendicitis, constipation, diverticulitis, gastroenteritis, pancreatitis and small bowel obstruction Medical Records Attestation: I reviewed the patient's medical records. Lab Data Attestation: I reviewed the patient's lab results. 02/28/25 15:21 02/28/25 15:21 Labs: Lab Results 02/28/25 02/28/25 Range/Units 15:21 15:27 WBC 6.5 (4.5-10.0) K/mm3 RBC 4.14 L (4.2-5.4) M/mm3 Hgb 13.0 D (12.0-15.0) g/dL Hct 37.8 (37.0-47.0) % MCV 91.3 (80-100) fl MCH 31.4 (26-34) pg MCHC 34.4 (32-36) g/dl RDW 12.7 (11.5-14.5) % Plt Count 181 (150-375) k/mm3 MPV 10.6 H (7.4-10.4) fl Immature Gran % (Auto) 0.3 (0-0.5) % Neut % (Auto) 45.9 (45.5-73.1) % Lymph % (Auto) 39.0 (18.3-44.2) % Todd % (Auto) 6.6 (2.6-8.5) % Eos % (Auto) 7.4 H (0-4.4) % Baso % (Auto) 0.8 (0.2-1.2) % Lymph # (Auto) 2.53 (0.9-3.2) K/mm3 Todd # (Auto) 0.4 (0.1-0.6) K/mm3 Eos # (Auto) 0.5 H (0-0.3) K/mm3 Baso # (Auto) 0.1 (0.0-0.1) K/mm3 Abs Immat Gran (auto) 0.02 (0.00-0.031) K/mm3 Absolute Neuts (auto) 3.0 (1.3-6.7) K/mm3 Absolute Nucleated RBC 0.000 (0.0-0.012) K/mm3 Nucleated RBC % 0.0 (0.0-0.2) % Sodium 137 (137-145) mmol/L Potassium 3.6 (3.4-5.0) mmol/L Chloride 106 (98-107) mmol/L Carbon Dioxide 22 (22-30) mmol/L Anion Gap 9 (4-12) mmol/L BUN 11 (7-17) mg/dL Creatinine 1.19 H (0.7-1.0) mg/dL Estim Creat Clear Calc 63 ml/min Estimated GFR 52 L (59 - ) Glucose 87 (65-110) mg/dL Calcium 9.3 (8.4-10.2) mg/dL Total Bilirubin 0.6 (0.2-1.3) mg/dL AST 37 H (14-36) U/L ALT 42 H (6-35) U/L Alkaline Phosphatase 51 (38-126) U/L Total Protein 7.0 (6.3-8.2) g/dL Albumin 4.5 (3.5-5.1) g/dL Lipase 76 (23-300) U/L Urine Color Yellow (Yellow) Urine Appearance Clear (Clear) Urine pH 5.5 (5.0-9.0) Ur Specific [place] 1.010 (1.001-1.035) Urine Protein Negative (Negative) mg/dL Urine Glucose (UA) Negative (Negative) mg/dL Urine Ketones Negative (Negative) mg/dL Ur Blood (Man) Negative (Negative) Urine Nitrate Negative (Negative) Urine Bilirubin Negative (Negative) Urine Urobilinogen 0.2 (<2.0) mg/dL Add Ur Microanalysis Reviewed Leukocyte Esterase Rfl Trace H (Negative) AKIL/UL Urine RBC 0-2 (0-2) /hpf Urine WBC 6-10 H (0-3) /hpf Ur Squamous Epith Cells Few (Few) /hpf Urine Bacteria Rare /hpf Urine Casts 6-10 POC Urine HCG, Qual Negative (Negative) Imaging Data Radiologist's impression: ITS Impressions Chest X-Ray 02/28/25 15:17 IMPRESSION: No acute cardiopulmonary pathology. Abdomen/Pelvis CT 02/28/25 16:52 IMPRESSION: Hepatosplenomegaly (although decreased in size from previous examination dated 09/17/2024). Significant air opacification and marked distention of the transverse and descending colons without a discrete source of obstruction and normal caliber bowel beyond this location. No additional acute abnormality is appreciated. Critical Care Time Critical Care Time Critical Care Time: No Discharge Plan Discharge Clinical Impression: Abdominal pain Patient Disposition: Home Condition: Stable Instructions: Abdominal Pain (ED) Additional Instructions: RETURN IF SYMPTOMS ARE WORSENING , CALL DR JARAMLILO FOR APPOINTMENT, TAKE TYLENOL NEEDED FOR ACHES AND PAIN, CONTINUE HOME MEDICATIONS. CLEAR LIQUID DIET Patient Language: Setswana Prescriptions: New dicyclomine 20 mg tablet 20 mg PO QID PRN (Reason: abdominal pain) Qty: 20 0RF No Action famotidine [Pepcid] 40 mg tablet 40 mg PO DAILY Qty: 30 3RF escitalopram oxalate 20 mg tablet 30 mg PO DAILY buspirone 10 mg tablet 10 mg PO TID Myfembree 40-1-0.5 mg tablet 1 tablet PO DAILY cetirizine [Zyrtec] 10 mg Tablet 10 mg PO DAILY topiramate 100 mg Tablet 125 mg PO HS Patient Comments: patient takes for migraines Ozempic 0.25 mg or 0.5 mg (2 mg/3 mL) pen injector 0.25 mg subcut WEEKLY Rx Instructions: for 4 weeks Follow-up/Referrals: Caroline Pires MD [Primary Care Provider] - Kamaljit Jaramillo MD [Physician] - 03/04/25 Stand Alone Forms: Work/School Release IP
--- OUTSIDE RECORDS SUMMARY | 2025-02-28 15:06 | XMS_ITS | Encounter Summary ---
Author Organization [facility] Address [address] [place] [address] Care Team Providers Care Beef Specialist Name Role Phone Caroline Pires MD Primary Care Provider Encounter Details Date Type Department Care Team (Late Contact Info) Description 11/04/2021 Community Orders [facility] EPICCARE LINK Pearl Bolden MD [address] [place] [phone] Social History Tobacco Use Types Packs/Day [...] COVID-19? No / Unsure 11/04/2021 3:21 PM INFORMAL WAITER/WAITRESS documented as of this encounter Plan of Treatment Upcoming Encounters Date Type Department Care Team (Late Contact Info) Description 04/30/2025 11:40 AM CDT Office Visit [facility] Multispecialty Care - [address], [address] [place] [address] Julia Richey MD [address] [place] [address] documented as of this encounter Visit Diagnoses Diagnosis Pain and swelling of wrist, left- Primary documented in this encounter Care Teams Beef Specialist Relationship Specialty Start Date End Date Caroline Pires MD [address] [place] [address] PCP - General FAMILY PRACTICE 11/04/21 documented as of this encounter
--- OUTSIDE RECORDS SUMMARY | 2025-02-28 15:06 | XMS_ITS | Encounter Summary ---
Author Organization [facility] Address 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
--- OUTSIDE RECORDS SUMMARY | 2025-02-28 15:06 | XMS_ITS | Clinical Summary ---
Author Organization [facility] Address [address] [place] [address] Phone Care Team Providers Care Service Assistant Name Role Phone Unavailable Primary Care Provider Unavailabl e Social History Tobacco Use Types Packs/Day Years Used Date Smoking Tobacco: Never Assessed Comments Unknown Sex and Gender Information Value Date Recorded Sex Assigned at Not on file Legal Sex Female 5:31 AM IRON HANDLER Gender Identity Not on file Sexual Orientation [...]
--- OUTSIDE RECORDS SUMMARY | 2025-02-28 15:06 | XMS_ITS | Encounter Summary ---
Author Organization [facility] Address [address] [place] [address] Care Team Providers Care Credit Administration Officer Name Role Phone Unavailable Primary Care Provider Unavailabl e Encounter Details Date Type Department Care Team (Latest Contact Info) Description 08/05/2008 Outpatient Historical [facility] 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
--- OUTSIDE RECORDS SUMMARY | 2025-02-28 15:06 | XMS_ITS | Referral Summary ---
Author Organization [facility] Address [address] [place] [address] Care Team Providers Care Grounds Cleaner Name Role Phone Caroline Pires MD Primary Care Provider Allergies Active Allergy Reactions Criticality Noted Date Comments Cephalosporins Hives,Rash Medium 09/29/2021 Lisinopril Cough Low 09/29/2021 Medications busPIRone (BUSPAR) 5 mg tabletIndications: Generalized Anxiety Disorder Take 2 tablets (10 mg total) by mouth 3 (three) times a day 06/17/20 23 Active clonazePAM (KlonoPIN) 0.5 mg tablet Take 1 tablet (0.5 mg total) by mouth as needed for anxiety 06/03/20 23 Active escitalopram (LEXAPRO) 20 mg tabletIndications: Anxiety with Depression Take 1 tablet (20 mg total) by mouth every morning 05/09/20 23 Active labetaloL (NORMODYNE,TRANDAT E) 200 mg tabletIndications: hypertension Take 0.5 tablets (100 mg total) by mouth nightly Active ondansetron ODT (ZOFRAN-ODT) 4 mg disintegrating tablet Take 1 tablet (4 mg total) by mouth every 8 (eight) hours as needed for nausea 04/30/20 23 Active QUEtiapine (SEROquel) 100 mg tabletIndications: Depression associated with Bipolar Disorder Take 1.5 tablets (150 mg total) by mouth nightly 05/11/20 23 Active hydrOXYzine (ATARAX) 25 mg tablet TAKE 1-2 TABLETS BY MOUTH THREE TIMES A DAY NEEDED FOR ANXIETY. 08/05/20 Active Myfembree 40-1-0.5 mg tabletIndications: pain associated with endometriosis Take 1 tablet by mouth early childhood lead teacher before breakfast 07/21/20 23 Active spironolactone (ALDACTONE) 50 mg tabletIndications: hypertension Take 1 tablet (50 mg total) by mouth early childhood lead teacher before breakfast 06/20/20 23 Active topiramate (TOPAMAX) 100 mg tabletIndications: Migraine Prevention Take 1 tablet (100 mg total) by mouth nightly 07/07/20 23 Active valACYclovir (VALTREX) 500 mg tabletIndications: Prophylaxis, Medical,HSV Take 1 tablet (500 mg total) by mouth early childhood lead teacher before breakfast 07/07/20 23 Active cyclobenzaprine (FLEXERIL) 10 mg tablet Take 1 tablet (10 mg total) by mouth 3 (three) times a day as needed for muscle spasms 08/12/20 Active minocycline (MINOCIN,DYNACIN) 100 mg capsule Take by mouth daily 09/08/20 Active HYDROcodone-acetam inophen (NORCO) 5-325 mg per tabletIndications: Pain Take 1 tablet by mouth every 6 (six) hours as needed for pain 20 tablet 09/12/20 Active naloxone (NARCAN) 4 mg/actuation spray,non-aerosol Administer 1 spray into affected nostril(s) as needed for opioid reversal or respiratory depression Call 911. Administer a single spray in one nostril. Repeat every 3 minutes as needed if no or minimal response. 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 023 Immunizations Immunization Administration Dates Next Due DTP 07/18/1996, 4,1992,06/09,1992 Hep A, Adult 03/07/2014 Hep B, Adolescent or Pediatric 01/21/1997,1995,05/30/1996 HiB 06/25/1993, 2,1992,03/27 IPV 04/10/2014 Influenza, Quadrivalent, Spl it, Preservative Free, Intradermal 08/24/2017 Influenza, Quadrivalent, Spl it, Preservative Free, Intramuscular 08/30/2022,10/30/2021 Influenza, Trivalent, IM (MDV) 09/01/2018 Influenza, Unspecified 08/19/2016,08/20/2015 MMR 07/18/1996,06/25/1993 OPV 07/18/1996, 4,1992,03/27 Pfizer SARS-CoV-2 Monovalent Vaccination (12+ Yrs) PURPLE 09/18/2021 Typhoid Inactivated 04/10/2014 Yellow Fever 04/10/2014 Social History Tobacco Use Types Packs/Day Years Used Date Smoking Tobacco: Never Smokeless Tobacco: Never Tobacco Cessation:Counseling Given: Not Answered AUDIT-C Answer Date Recorded Q1: How often do you have a drink containing alcohol? Never 08/30/2023 Q2: How many drinks containi ng alcohol do you have on a typical day when you are drinking? Patient does not drink Q3: How often do you have si x or more drinks on one occasion? Never 08/30/2023 Personal Safety Answer Date Recorded Have you ever been in or are you currently in a harmful physical or emotional relationship or is someone making you feel afraid or unsafe? 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 Gender Identity Not on file Sexual Orientation Not on file Last Filed Vital Signs Vital Sign Reading Time Taken Comments Blood Pressure 126/68 08/30/2023 4:30 PM CDT Pulse 86 08/30/2023 4:30 PM CDT Temperature 36 C (96.8 F) 08/30/2023 3:24 PM CDT Respiratory Rate 10 08/30/2023 4:30 PM CDT Oxygen Saturation 97% 08/30/2023 4:30 PM CDT Inhaled Oxygen Concentration - - Weight 81.6 kg (180 lb) 08/10/2023 11:50 AM CDT Height 175.3 cm (5' 9 ) 08/10/2023 11:50 AM CDT Body Mass Index 26.58 08/10/2023 11:50 AM CDT Plan of Treatment Not on file Insurance [facility] [id number] [place] [phone] [facility] [id number] Care Teams Grounds Cleaner Relationship Specialty Start Date End Date Caroline Pires MD [address] [place] [address] PCP - General Family Medicine 05/11/23
--- OUTSIDE RECORDS SUMMARY | 2025-02-28 15:06 | XMS_ITS | Clinical Summary ---
Author Organization [facility] Address [address] [place] [address] Care Team Providers Care Grain Manager Name Role Phone Unavailable Primary Care Provider Unavailabl e Source Comments [facility],non-owned Affiliates and Associated Physician Practices is amultiple site organization consisting of ambulatory clinics and hospital sitesin [place], [place], [place] and [place]. This disclosure is being madepursuant to the Care Everywhere program and may not contain all information available regarding this patient. Last updated 18.[facility] Social History Tobacco Use Types Packs/Day Years Used Date Smoking Tobacco: Never Assessed Comments Unknown Sex and Gender Information Value Date Recorded Sex Assigned at Not on file Legal Sex Female 5:37 AM APPLIANCE ADJUSTER Gender Identity Not on file Sexual Orientation [...] patient's age to complete this topic Insurance [address] [place] [address] [facility] SELF PAY NO INSURANCE Member Subscriber Plan / Payer (Ef fective for All Dates) Name:Yumi Maravilla Member ID:Not on file Relation to Subscriber:Not on file Name:YUMI MARAVILLA Subscriber ID:Not on file (Home) Address: [address] [address] Payer ID:Not on file Group ID:Not on file Type:Self Pay Address: [place], [place] [employer] HE[employer]LINK HE[employer]LINK HE[employer]LINK Member Subscriber Plan / Payer (Ef fective for All Dates) Name:Yumi Maravilla Member ID:[id number] Relation to Subscriber:Spouse Name:CLAUDETTEROGER Subscriber ID:Not on file Date of :1983 Payer ID:Not on file Type:HMO Address: [address]
--- OUTSIDE RECORDS SUMMARY | 2025-02-28 15:06 | XMS_ITS | Encounter Summary ---
Author Organization [facility] Address 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
--- OUTSIDE RECORDS SUMMARY | 2025-02-28 15:06 | XMS_ITS | Encounter Summary ---
Author Organization [facility] Address 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 Gender Identity Not on file Sexual Orientation Not on file documented as of this encounter Plan of Treatment Not on file documented as of this encounter Procedures Procedure Name Priority Date/Time Associated Diagnosis Comments CT IAC WO CONTRAST Timed Study 01/01/2008 3: 16 PM EXTRUDING MACHINE OPERATOR documented in this encounter Results * CT IAC WO CONTRAST (01/01/2008 3:16 PM EXTRUDING MACHINE OPERATOR) Anatomical Region Laterality Modality Head Other 01/01/2008 3:16 PM EXTRUDING MACHINE OPERATOR Narrative 01/01/2008 8:26 PM EXTRUDING MACHINE OPERATOR [facility] [address], [place] [address] Admit Date: 01/01/2008 YUMI DÍAZ Sex: F Admit Prov: AVA CARDENAS Date: 1990 Primary Care Prov: CMRN: [id number] Room: [facility] SSN: [id number] IMAGING SERVICES Ordering Prov: N/A Accession Number: [id number] Interpretation CT SCAN OF IAC NONCONTRAST 01/01/2008 [...] SJ Procedure Note Provider, Historical - 01/01/2008 [facility] [address], [place] [address] Admit Date: 01/01/2008 DÍAZYUMI Sex: F Admit Prov: AVA CARDENAS Date: 1990 Primary Care Prov: CMRN: [id number] Room: [facility] SSN: [id number] IMAGING SERVICES Ordering Prov: N/A Interpretation CT [...]
--- OUTSIDE RECORDS SUMMARY | 2025-02-28 15:06 | XMS_ITS | Encounter Summary ---
Author Organization [facility] Address [address] [place] [address] Care Team Providers Care Bank Secrecy Act Officer Name Role Phone Caroline Pires MD Primary Care Provider Encounter Details Date Type Department Care Team (Late Contact Info) Description 12/28/2022 Realty[employer] Message [facility] [place][Note 2] Patient Accounts [address] [place] [address] [facility] Card Payment Social [...] Coronavirus/COVID-19? No / Unsure 12/20/2022 2:29 PM COUNTY EXTENSION AGENT documented as of this encounter Plan of Treatment Upcoming Encounters Date Type Department Care Team (Late Contact Info) Description 04/30/2025 11:40 AM CDT Office Visit [facility] Medical Group Multispecialty Care - [address], [address] [place] [phone] Julia Richey MD [address] [place] [address] documented as of this encounter Visit Diagnoses Not on filedocumented in this encounter Care Teams Bank Secrecy Act Officer Relationship Specialty Start Date End Date Caroline Pires MD [address] [place] [address] PCP - General FAMILY PRACTICE 11/04/21 documented as of this encounter
--- OUTSIDE RECORDS SUMMARY | 2025-02-28 15:06 | XMS_ITS | Continuity of Care Document ---
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 DETECTED 0.91 - 1.09 EQUIVOCAL > OR = 1.10 POSITIVE = ANTIBODY DETECTED A POSITIVE RESULT INDICATES THAT THE PATIENT HAS ANTIBODY TO VARICELLA ZOSTER VIRUS AND IMPLIES IMMUNITY. IT DOES NOT DIFFERENTIATE BETWEEN AN ACTIVE OR PAST INFECTION. TESTING PERFORMED AT [address] [address] SERUM SPECIMEN / Unknown 05/02/2017 10:25 AM CDT 05/02/2017 10:27 AM CDT us Generic Conversion Md [facility] Final R esult [facility] [address] [place] [address], [place] [phone] Visit Diagnoses Diagnosis Start Date Excessive or [...] Cervicalgia 11/25/2022 Closed fracture of cervical spine ([facility]CC [facility]) Closed fracture of cervical vertebra, unspecified level [...] mention of status migrainosus 02/05/2025 Care Teams Director Of Retention Relationship Specialty Start Date End Date Caroline Benson MD [address] [place] [address] PCP - General FAMILY PRACTICE 11/04/21
--- OUTSIDE RECORDS SUMMARY | 2025-02-28 15:06 | XMS_ITS | Encounter Summary ---
Author Organization [facility] Address 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 Gender Identity Not on file Sexual Orientation Not on file documented as of this encounter Plan of Treatment Not on file documented as of this encounter Procedures Procedure Name Priority Date/Time Associated Diagnosis Comments POC , URINE Routine 01/09/2008 12:20 PM LEAD SYSTEMS DEVELOPER HEMOGLOBIN AND HEMATOCRIT Stat 01/09/2008 12:15 PM LEAD SYSTEMS DEVELOPER documented in this encounter Results * POC , URINE (01/09/2008 12:20 PM LEAD SYSTEMS DEVELOPER) , URINE POC Negative Negative [facility] Urine specimen (specimen) 01/09/2008 12:20 PM LEAD SYSTEMS DEVELOPER 01/09/2008 12:20 PM LEAD SYSTEMS DEVELOPER us Cheikh Griggs POINT OF CARE TESTING Final Resu lt [facility] [address] [place] [address] * (ABNORMAL) HEMOGLOBIN AND HEMATOCRIT (01/09/2008 12:15 PM LEAD SYSTEMS DEVELOPER) HEMATOCRIT 43.3 35.5 - 44.0 % [facility] HEMOGLOBIN 15.0(H) 11.8 - 14.8 g/dL [facility] Blood specimen (specimen) 01/09/2008 12:15 PM LEAD SYSTEMS DEVELOPER 01/09/2008 12:42 PM LEAD SYSTEMS DEVELOPER Cheikh Griggs HEMATOLOGY ORDERABLES Final Resu lt [facility] [address] [place] [address] documented in this encounter Visit Diagnoses Diagnosis Unspecified otitis media documented in this encounter
--- OUTSIDE RECORDS SUMMARY | 2025-02-28 15:06 | XMS_ITS | Clinical Summary ---
Author Organization [facility] Address [address] [place] [address] Care Team Providers Care Field Sales Associate Name Role Phone Caroline Pires MD Primary [...] with endometriosis Take 1 tablet by mouth galvanometer assembler before breakfast 07/21/20 23 Active spironolactone (ALDACTONE) 50 mg tabletIndications: hypertension Take 1 tablet (50 mg total) by mouth galvanometer assembler before breakfast 06/20/20 23 Active topiramate (TOPAMAX) 100 mg tabletIndications: Migraine Prevention Take 1 tablet (100 mg total) by mouth nightly 07/07/20 23 Active valACYclovir (VALTREX) 500 mg tabletIndications: Prophylaxis, Medical,HSV Take 1 tablet (500 mg total) by mouth galvanometer assembler before breakfast 07/07/20 23 Active cyclobenzaprine (FLEXERIL) [...] 09/18/2021 Typhoid Inactivated 04/10/2014 Yellow Fever 04/10/2014 Surgical History Surgery Date Site/Laterality Comments ELBOW SURGERY Left unknown date Medical History Medical History Date Comments Anxiety Depression Hypertension Family History Medical History Relation Name Comments Diabetes Father Jerardo Heart attack Father Jerardo Hypertension Father Jerardo Depression Mother Swathi Relation Name Status Comments Father Jerardo Mother Swathi Social History Tobacco Use Types Packs/Day Years [...] on file 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 Gender Identity Not on file Sexual Orientation Not on file Obstetrics History Last Filed Vital Signs Vital Sign Reading [...] 08/10/2023 11:50 AM CDT Plan of Treatment Health Maintenance Due Date Last Done Comments Cervical Cancer Screening 1992 Depression Screening 1992 Hepatitis C Screening 1992 DTaP/Tdap/Td Vaccine (6 - Tdap) 01/30/2003 07/18/1996, 11/26/1993, 1992, Additional history exists Varicella Vaccines (1 of 2 - 13+ 2-dose series) 01/30/2005 Regular Well Visit/Exam 18-64 01/30/2010 Covid-19 Vaccine ( season) 2024 09/18/2021, 07/19/2021, 06/28/2021 Influenza Vaccine (Season Ended) 2025 08/30/2022, 10/30/2021, 09/01/2018, Additional history exists Hepatitis B Screening Completed 01/21/1997 , 07/18/1996, 05/30/1996 HPV Vaccines Aged Out No longer eligi ble based on patient's age to complete this topic Pneumococcal vaccine <65 Aged Out No longer eligible based on patient's age to complete this [place] [address] [facility] [id number] [place] [id number] [facility] [id number] Care Teams Field Sales Associate Relationship Specialty Start Date End Date Caroline Pires MD [address] [place] [address] PCP - General Family Medicine 05/11/23
[2025-02-28 15:29] LABS: BEDSIDEPREGUCG Negative (Negative)
[2025-02-28 15:31] LABS: Basophils Absolute Auto 0.1 K/mm3 (0.0-0.1); Basophils Percent Auto 0.8 % (0.2-1.2); Eosinophils Absolute Auto 0.5 K/mm3 (0-0.3); Eosinophils Percent Auto 7.4 % (0-4.4); Hematocrit 37.8 % (37.0-47.0); Immature Granulocyte Absolute 0.02 K/mm3 (0.00-0.031); Immature Granulocyte Percent A 0.3 % (0-0.5); Lymphocytes Absolute Auto 2.53 K/mm3 (0.9-3.2); Mean Corpuscular HGB Conc 34.4 g/dl (32-36); Mean Corpuscular Hemoglobin 31.4 pg (26-34); Mean Corpuscular Volume 91.3 fl (80-100); Mean Platelet Volume 10.6 fl (7.4-10.4); Monocytes Absolute Auto 0.4 K/mm3 (0.1-0.6); Monocytes Percent Auto 6.6 % (2.6-8.5); Neutrophils Percent Auto 45.9 % (45.5-73.1); Platelet Count Result 181 k/mm3 (150-375); Red Blood Count 4.14 M/mm3 (4.2-5.4); Red Cell Distribution Width 12.7 % (11.5-14.5); White Blood Count 6.5 K/mm3 (4.5-10.0)
[2025-02-28 15:44] LABS: Alanine Aminotransferase 42 U/L (6-35); Albumin Level 4.5 g/dL (3.5-5.1); Alkaline Phosphatase 51 U/L (38-126); Anion Gap 9 mmol/L (4-12); Aspartate Amino Transferase 37 U/L (14-36); Bilirubin,Total 0.6 mg/dL (0.2-1.3); Blood Urea Nitrogen 11 mg/dL (7-17); Calcium 9.3 mg/dL (8.4-10.2); Carbon Dioxide 22 mmol/L (22-30); Chloride 106 mmol/L (98-107); Estimated CRCL calculation 63 ml/min; Estimated Glomerular Filt Rate 52; Glucose 87 mg/dL (65-110); Lipase 76 U/L (23-300); Potassium 3.6 mmol/L (3.4-5.0); Sodium 137 mmol/L (137-145)
[2025-02-28 15:48] LABS: Add Urine Microscopic? YES; Appearance Urine Clear (Clear); Bacteria Urine Rare /hpf; Bilirubin Urine Negative (Negative); Blood Urine Negative (Negative); Color Urine Yellow (Yellow); Glucose Urine UA Negative (Negative); Ketones Urine Negative (Negative); Leukocyte Esterase Ur Trace LEU/UL (Negative); Need Manual Microscopic Reviewed; Nitrate Urine Negative (Negative); Protein Urine Negative (Negative); RBC Urine 0-2 /hpf (0-2); Squamous Epithelial Cell Urine Few /hpf (Few); Urobilinogen Urine 0.2 mg/dL (<2.0); pH Urine 5.5 (5.0-9.0)
[2025-02-28] MEDS: SODIUM CHLORIDE 0.9% IV 1,000 ML 999 ML IV CONT (16:07)
[2025-02-28] MEDS: ONDANSETRON INJ 4 MG/2 ML VIAL IV PUSH (16:07)
[2025-02-28] MEDS: HYDROmorphone HCL INJ (*CRX) 2 MG/ML VIAL 0.5 MG IV PUSH (16:09)
== END 2025-02-28 18:13 | disposition home or self-care (01) ==
PROVIDERS: Emergency Provider Emergency Medicine; PCP Family Medicine
DX: R10.13 Epigastric pain (principal); I10 Essential (primary) hypertension; E03.9 Hypothyroidism, unspecified; F32.A Depression, unspecified; F41.9 Anxiety disorder, unspecified; Z90.49 Acquired absence of other specified parts of digestive tract; Z79.899 Other long term (current) drug therapy; Z79.85 Long-term (current) use of injectable non-insulin antidiabetic drugs; R16.2 Hepatomegaly with splenomegaly, not elsewhere classified
CPT/HCPCS: 36415; 71045; 74177; 80053; 81001; 81025; 83690; 85025; 87086; 96361; 96374; 96375; 99284; J1171; J2405; J7030; Q9967

== ENCOUNTER 2025-07-08 08:34 | Outpatient (CLI) | payer OTHER, SELFPAY ==
--- OUTSIDE RECORDS SUMMARY | 2025-07-08 08:50 | XMS_ITS | Encounter Summary ---
Author Organization [facility] Address 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 Gender Identity Not on file Sexual Orientation Not on file documented as of this encounter Plan of Treatment Not on file documented as of this encounter Procedures Procedure Name Priority Date/Time Associated Diagnosis Comments CT IAC WO CONTRAST Timed Study 01/01/2008 3: 16 PM BATCH FREEZER OPERATOR documented in this encounter Results * CT IAC WO CONTRAST (01/01/2008 3:16 PM BATCH FREEZER OPERATOR) Anatomical Region Laterality Modality Head Other 01/01/2008 3:16 PM BATCH FREEZER OPERATOR Narrative 01/01/2008 8:26 PM BATCH FREEZER OPERATOR [facility] [address] [place], [place] [address] Admit Date: 01/01/2008 YUMI DÍAZ Sex: F Admit Prov: AVA CARDENAS Date: 1990 Primary Care Prov: CMRN: [id number] Room: [facility] SSN: [id number] IMAGING SERVICES Ordering Prov: N/A Accession Number: [id number] Interpretation CT SCAN OF IAC NONCONTRAST 01/01/2008 [...] SJ Procedure Note Provider, Historical - 01/01/2008 [facility] [address] [place], [place] [address] Admit Date: 01/01/2008 DÍAZYUMI Sex: F Admit Prov: AVA CARDENAS Date: 1990 Primary Care Prov: CMRN: [id number] Room: [facility] SSN: [id number] IMAGING SERVICES Ordering Prov: N/A Interpretation CT [...]
--- OUTSIDE RECORDS SUMMARY | 2025-07-08 08:50 | XMS_ITS | Clinical Summary ---
Author Organization [facility] Address [address] 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
--- OUTSIDE RECORDS SUMMARY | 2025-07-08 08:50 | XMS_ITS | Encounter Summary ---
Author Organization [facility] Address [address] [place] [address] Care Team Providers Care Band Maker Name Role Phone Caroline Pires MD Primary Care Provider Encounter Details Date Type Department Care Team (Late Contact Info) Description 11/04/2021 Community Orders [facility] EPICCARE LINK Pearl Bolden MD [address] [place] [id number] Social History Tobacco Use Types Packs/Day [...] COVID-19? 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 EDUCATION SPECIALIST documented as of this encounter Plan of Treatment Upcoming Encounters Date Type Department Care Team (Late Contact Info) Description 07/23/2025 11:40 AM CDT Office Visit [facility] Mult[facility] - [address], [address] [place] [address] Julia Richey MD [address] [place] [address] documented as of this encounter Visit Diagnoses Diagnosis Pain and swelling of wrist, left- Primary documented in this encounter Care Teams Band Maker Relationship Specialty Start Date End Date Caroline Pires MD [address] [place] [address] PCP - General FAMILY PRACTICE 11/04/21 documented as of this encounter
--- OUTSIDE RECORDS SUMMARY | 2025-07-08 08:50 | XMS_ITS | Encounter Summary ---
Author Organization [facility] Address [address] [place] [address] Care Team Providers Care Music Minister Name Role Phone Caroline Pires MD Primary Care Provider Encounter Details Date Type Department Care Team (Late Contact Info) Description 12/28/2022 [employer] Message [facility] Patient Accounts [address] [place] [address] [facility] Credit Card Payment Social [...] Coronavirus/COVID-19? No / Unsure 12/20/2022 2:29 PM WIRELINE FIELD OPERATOR documented as of this encounter Plan of Treatment Upcoming Encounters Date Type Department Care Team (Late Contact Info) Description 07/23/2025 11:40 AM CDT Office Visit [facility] Mult[facility] - [address], [address] [place] [phone] Julia Richey MD [address] [place] [address] documented as of this encounter Visit Diagnoses Not on filedocumented in this encounter Care Teams Music Minister Relationship Specialty Start Date End Date Caroline Pires MD [address] [place] [address] PCP - General FAMILY PRACTICE 11/04/21 documented as of this encounter
--- OUTSIDE RECORDS SUMMARY | 2025-07-08 08:50 | XMS_ITS | Continuity of Care Document ---
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 CULTURE IS NOT INDICATED 02/27/2022 7:11 PM T [facility] URINE SPECIMEN OBTAINED BY CLEAN CATCH PROCEDURE / Unknown 02/27/2022 6:17 PM CDT us Karan Pinon MD URINE ORDERABLES Indy linda Result [facility] [address] [place] [address], [place] [phone] * URIC ACID BLOOD (11/04/2021 3:28 PM WATER TREATMENT PLANT OPERATOR) URIC ACID 4.5 2.6 - 6.0 MG/DL 11/04/2021 3:48 PM WATER TREATMENT PLANT OPERATOR [facility] 11/04/2021 3:28 PM WATER TREATMENT PLANT OPERATOR us Pearl Bolden MD LABORATORY Final Result [facility] [address] [place] [address], * VIDAL BLOCK (10/06/2021 12:49 PM WATER TREATMENT PLANT OPERATOR) Brandon Thompson CRNA - 10/06/2021 12:49 PM WATER TREATMENT PLANT OPERATOR Brandon Dillard CRNA 10/06/2021 1:20 PM [facility] Block Date/Time: 10/06/2021 12:49 PM Patient Location During Procedure: [place] Block Checklist: Completed: patient identified, site marked, [...] 40 mL Additional Notes No S/S of GENERAL MANAGER FARM or CVS sequelae. Block adequate. Tiva began Brandon Dillard CRNA NM ANESTHESIA Edited R esult - Final * MRSA SCREENING (10/06/2021 11:40 AM WATER TREATMENT PLANT OPERATOR) SPEC DESCRIPTION NASAL 10/06/2021 11:43 AM WATER TREATMENT PLANT OPERATOR [facility] SPECIAL REQUESTS NO SPECIAL REQUEST 10/06/2021 11:43 AM WATER TREATMENT PLANT OPERATOR [facility] CULTURE RESULT NO METHICILLIN RESISTANT STAPHYLOCOCCUS AUREUS ISOLATED 10/07/2021 12:21 PM WATER TREATMENT PLANT OPERATOR [facility] SPECIMEN FROM INTERNAL NOSE / Unknown 10/06/2021 11:40 AM WATER TREATMENT PLANT OPERATOR 10/06/2021 12:24 PM WATER TREATMENT PLANT OPERATOR Pearl Bolden MD MICROBIOLOGY - GENERAL ORDERABLE S Final Result Performing Organization Address City/[facility]/ZIP Co de Phone Number [facility] [address] [place] [address], * TBGOLD-TUBERCULOSIS TST CELL MEDIATED IMMUNITY (05/02/2017 10:25 AM CDT) [facility] TB QUANTIFERON NEGATIVE Negative 05/04/2017 11:16 PM CDT [facility] Comment: Negative test result. M. tuberculosis complex infection unlikely. NIL (TB) 0.06 IU/mL 05/04/2017 11:16 PM CDT [facility] MITOGEN NIL 8.41 IU/mL 05/04/2017 11:16 PM CDT [facility] ANTIGEN - NIL VALUE 0.00 IU/mL 05/04/2017 11:16 PM CDT [facility] Comment: The Nil tube value is used [...] (RR-05):1-25). For additional information, please refer to: http://education.[employer] vascular solution/faq/QFT (This link is being provided for informational/ educational purposes only). Test Performed by [employer]ient[employer] Esther, [employer] [facility], [address] [place] [address] José Westfall M.D., Ph.D., Director of Laboratories , [place] [phone] MISCELLANEOUS SAMPLES / Unknown 05/02/2017 10:25 AM CDT 05/02/2017 10:28 AM CDT us Generic Conversion Md [facility] Final R warrenirma Performing Organization Address City/[facility]/ZIP Co de Phone Number [facility] [address] [place] [address], * VARICELLA ZOSTER IGG (05/02/2017 10:25 AM CDT) VARICELLA ZOSTER IGG EIA 1.93 INDEX 05/06/2017 1:31 PM CDT [facility] Comment: INDEX EXPLANATION OF RESULTS --------- < OR = 0.90 NEGATIVE = NO ANTIBODY DETECTED 0.91 - 1.09 EQUIVOCAL > OR = 1.10 POSITIVE = ANTIBODY DETECTED A POSITIVE RESULT INDICATES THAT THE PATIENT HAS ANTIBODY TO VARICELLA ZOSTER VIRUS AND IMPLIES IMMUNITY. IT DOES NOT DIFFERENTIATE BETWEEN AN ACTIVE OR PAST INFECTION. [place] [address] SERUM SPECIMEN / Unknown 05/02/2017 10:25 AM CDT 05/02/2017 10:27 AM CDT us Generic Conversion Md [facility] Final R génesis Performing Organization Address [facility]/ZIP Co de Phone Number [facility] [address] [place] [address], [place] [phone] Visit Diagnoses Diagnosis Start Date Excessive or [...] Cervicalgia 11/25/2022 Closed fracture of cervical spine (CMS/HCC HHS/HCC) Closed fracture of cervical vertebra, unspecified level [...] migraine without mention of status migrainosus 02/05/2025 Migraine without aura, not intractable, without status migrainosus 04/30/2025 Chronic migraine w/o aura w/o status migrainosus, not intractable Chronic migraine without aura, without mention of intractable migraine without mention of status migrainosus 04/30/2025 Migraine without aura, not intractable, without status migrainosus 05/12/2025 Care Teams Pipe Smoking Machine Operator Relationship Specialty Start Date End Date Caroline Benson MD [address] [place] [address] PCP - General FAMILY PRACTICE 11/04/21
--- OUTSIDE RECORDS SUMMARY | 2025-07-08 08:50 | XMS_ITS | Clinical Summary ---
Author Organization [facility] Address [address] [place] [address] Care Team Providers Care Jeep Mechanic Name Role Phone Caroline Pires MD Primary [...] with endometriosis Take 1 tablet by mouth principal clerk before breakfast 07/21/20 23 Active spironolactone (ALDACTONE) 50 mg tabletIndications: hypertension Take 1 tablet (50 mg total) by mouth principal clerk before breakfast 06/20/20 23 Active topiramate (TOPAMAX) 100 mg tabletIndications: Migraine Prevention Take 1 tablet (100 mg total) by mouth nightly 07/07/20 23 Active valACYclovir (VALTREX) 500 mg tabletIndications: Prophylaxis, Medical,HSV Take 1 tablet (500 mg total) by mouth principal clerk before breakfast 07/07/20 23 Active cyclobenzaprine (FLEXERIL) [...] on file Legal Sex Female 12:16 AM FACING BASTER Gender Identity Not on file Sexual Orientation [...] 11:50 AM CDT Height 175.3 cm (5' 9) 08/10/2023 11:50 AM CDT Body Mass Index 26.58 08/10/2023 11:50 AM CDT Plan of Treatment Health Maintenance Due Date Last Done Comments Cervical Cancer Screening 1992 Depression Screening 1992 Hepatitis C Screening 1992 DTaP/Tdap/Td Vaccine (6 - Tdap) 01/30/2003 07/18/1996, 11/26/1993, 1992, Additional history exists Varicella Vaccines (1 of 2 - 13+ 2-dose series) 01/30/2005 Regular Well Visit/Exam 18-64 01/30/2010 HPV Vaccines (1 - 3-dose SCDM series) 01/30/2019 Covid-19 Vaccine ( season) 2024 09/18/2021, 07/19/2021, 06/28/2021 Influenza Vaccine (#1) 2025 , 10/30/2021, 09/01/2018, Additional history exists Hepatitis B Screening Completed 01/21/1997 , 07/18/1996, 05/30/1996 Pneumococcal vaccine <65 Aged Out No longer eligible based on patient's age to complete [place] [address] [facility] [id number] [place] [address] [facility] [id number] Care Teams Jeep Mechanic Relationship Specialty Start Date End Date Caroline Pires MD [address] [place] [address] PCP - General Family Medicine 05/11/23
--- OUTSIDE RECORDS SUMMARY | 2025-07-08 08:50 | XMS_ITS | Encounter Summary ---
Author Organization [facility] Address [address] [place] [address] Care Team Providers Care Malt House Kiln Operator Name Role Phone Unavailable Primary Care Provider [...] on file Legal Sex Female 5:31 AM ONE PIECE EXPANSION MAKER HAND Gender Identity Not on file Sexual Orientation Not on file documented as of this encounter Plan of Treatment Not on file documented as of this encounter Procedures Procedure Name Priority Date/Time Associated Diagnosis Comments POC , URINE Routine 01/09/2008 12:20 PM ONE PIECE EXPANSION MAKER HAND HEMOGLOBIN AND HEMATOCRIT Stat 01/09/2008 12:15 PM ONE PIECE EXPANSION MAKER HAND documented in this encounter Results * POC , URINE (01/09/2008 12:20 PM ONE PIECE EXPANSION MAKER HAND) , URINE POC Negative Negative [facility] Urine specimen (specimen) 01/09/2008 12:20 PM ONE PIECE EXPANSION MAKER HAND 01/09/2008 12:20 PM ONE PIECE EXPANSION MAKER HAND us Cheikh Griggs POINT OF CARE TESTING Final Resu lt [facility] [address] [place] [address] * (ABNORMAL) HEMOGLOBIN AND HEMATOCRIT (01/09/2008 12:15 PM ONE PIECE EXPANSION MAKER HAND) HEMATOCRIT 43.3 35.5 - 44.0 % [facility] HEMOGLOBIN 15.0(H) 11.8 - 14.8 g/dL [facility] Blood specimen (specimen) 01/09/2008 12:15 PM ONE PIECE EXPANSION MAKER HAND 01/09/2008 12:42 PM ONE PIECE EXPANSION MAKER HAND Cheikh Griggs HEMATOLOGY ORDERABLES Final Resu lt [facility] [address] [place] [address] documented in this encounter Visit Diagnoses Diagnosis Unspecified otitis media documented in this encounter
--- OUTSIDE RECORDS SUMMARY | 2025-07-08 08:50 | XMS_ITS | Encounter Summary ---
Author Organization [facility] Address [address] [place] [address] Care Team Providers Care Poker In Name Role Phone Unavailable Primary Care Provider Unavailabl e Encounter Details Date Type Department Care Team (Latest Contact Info) Description 08/05/2008 Outpatient Historical [facility] [address] [place] [address] Cheikh Griggs Central Hearing Loss Social History Tobacco Use Types Packs/Day Years Used Date Smoking Tobacco: Never Assessed Comments Unknown Sex and Gender Information Value Date Recorded Sex Assigned at Not on file Legal Sex Female 5:31 AM ANESTHESIOLOGIST PHYSICIAN Gender Identity Not on file Sexual Orientation Not on file documented as of this encounter Plan of Treatment Not on file documented as of this encounter Visit Diagnoses Diagnosis Central hearing loss documented in this encounter
--- OUTSIDE RECORDS SUMMARY | 2025-07-08 08:50 | XMS_ITS | Encounter Summary ---
Author Organization [facility] Address [address] [place] [address] Care Team Providers Care Flame Annealing Machine Operator Name Role Phone Unavailable Primary Care Provider Unavailabl e Encounter Details Date Type Department Care Team (Latest Contact Info) Description 06/17/2008 Outpatient Historical [facility] Griggs, Cheikh Unspecified Hearing Loss Social History Tobacco Use Types Packs/Day Years Used Date Smoking Tobacco: Never Assessed Comments Unknown Sex and Gender Information Value Date Recorded Sex Assigned at Not on file Legal Sex Female 5:31 AM METAL BONDING CRIB ATTENDANT Gender Identity Not on file Sexual Orientation Not on file documented as of this encounter Plan of Treatment Not on file documented as of this encounter Visit Diagnoses Diagnosis Unspecified hearing loss documented in this encounter
--- OUTSIDE RECORDS SUMMARY | 2025-07-08 08:50 | XMS_ITS | Clinical Summary ---
Author Organization [facility] Address [address] [place] [address] Care Team Providers Care Utilization Review Rn Name Role Phone Angie Vieira APRN-INSULATION HELPER Primary Care Provide r Source Comments [facility],non-owned Affiliates and Associated Physician Practices is amultiple site organization consisting of ambulatory clinics and hospital sitesin [place], [place], [place] and [place]. This disclosure is being madepursuant to the Care Everywhere program and may not contain all information available regarding this patient. Last updated 18.[facility] Allergies Active Allergy Reactions Criticality Noted Date Comments Cephalosporins Urticaria,Rash,Unknown Medium 1 Lisinopril Cough Low 09/28/2021 Medications * Be aware that medications may not be up to date on this document. Alwaysverify current medications with the patient. gabapentin (Neurontin) 600 MG tablet Take 1 (one) tablet by mouth at bedtime Active escitalopram (Lexapro) 20 MG tablet Take 1 (one) tablet by mouth once daily Active topiramate (Topamax) 25 MG tablet Take 5 (five) tablets by mouth at bedtime Active levothyroxine (Synthroid) 50 MCG tablet Take 1 (one) tablet by mouth daily before breakfast Active Ubrelvy 100 MG tablet Take 1 (one) tablet by mouth 2 times daily as needed Active clonazePAM (KlonoPIN) 1 MG tablet Take 1 (one) tablet by mouth as needed 5 Active ondansetron, disintegrating , (Zofran ODT) 4 MG tablet Take 1 (one) tablet by mouth every 8 hours as needed Active docusate sodium (Colace) 100 MG capsule Take 1 (one) capsule by mouth 2 times daily as needed for Constipation (relief of difficult bowel movements) 30 capsule 03/26/2025 3:45 PM CDT Active acetaminophen (Tylenol) 325 MG tablet Take 2 (two) tablets by mouth every 6 hours as needed for Fever or Pain Maximum allowable Acetaminophen amount = 4 Grams (4000 mg) / 24 hours. 60 tablet 1 5 Active oxyCODONE-acet aminophen (Percocet) 5-325 MG tabletIndicati ons:Endometrio sis Take 1 (one) tablet by mouth every 6 hours as needed for Pain 30 tablet 03/26/2025 3:45 PM CDT Active ibuprofen (Motrin) 600 MG tablet Take 1 (one) tablet by mouth every 6 hours as needed for Pain 30 tablet 1 03/26/2025 3:45 PM CDT 5 Active docusate sodium (Colace) 100 MG capsule Take 1 (one) capsule by mouth 2 times daily 60 capsule 5 Active Active Problems Problem Noted Date Diagnosed Date Endometriosis 03/26/2025 Social History Tobacco Use Types Packs/Day Years Used Date Smoking Tobacco: Never Smokeless Tobacco: Never Tobacco Cessation:Counseling Given: Not Answered Alcohol Use Standard Drinks/Week Comments Yes 0 (1 standard drink = 0.6 oz pur e alcohol) RARELY Comments No Sex and Gender Information Value Date Recorded Sex Assigned at Not on file Legal Sex Female 5:37 AM INFORMATION DEVELOPER Gender Identity Not on file Sexual Orientation Not on file Last Filed Vital Signs Vital Sign Reading Time Taken Comments Blood Pressure 101/65 03/26/2025 4:45 PM CDT Pulse 89 03/26/2025 4:34 PM CDT Temperature 35.8 C (96.5 F) 03/26/2025 4:34 PM CDT Respiratory Rate 14 03/26/2025 4:34 PM CDT Oxygen Saturation 97% 03/26/2025 4:34 PM CDT Inhaled Oxygen Concentration - - Weight 72.1 kg (159 lb) 03/26/2025 11:01 AM CDT Height 172.7 cm (5' 8) 03/26/2025 11:01 AM CDT Body Mass Index 24.18 03/26/2025 11:01 AM CDT Plan of Treatment Health Maintenance Due Date Last Done Comments HIV SCREENING 01/30/2007 HEPATITIS C SCREENING 01/26/2010 DTAP/TDAP/TD VACCINES (1 - Tdap) 01/30/2011 HEPATITIS B VACCINE (1 of 3 - 19+ 3-dose series) 01/30/2011 PAP SMEAR 01/30/2013 HPV VACCINE (1 - 3-dose SCDM series) 01/30/2019 COVID-19 VACCINE (3 - 2023- season) 2024 09/18/2021, 06/28/2021 DEPRESSION SCREENING 11/14/2024 INFLUENZA VACCINE (#1) 2025 , 08/30/2022, 10/30/2021, Additional history exists ZOSTER VACCINE (1 of 2) 01/30/2042 HIB VACCINE Aged Out No longer eligi ble based on patient's age to complete this topic MENINGOCOCCAL (Group B) VACCINE SHARED DECISION-MAKING Aged Out No longer eligible based on patient's age to complete this topic MENINGOCOCCAL GROUPS A/C/Y/W VACCINE Aged Out No longer eligible based on patient's age to complete this topic PNEUMOCOCCAL VACCINE Aged Out No long er eligible based on patient's age to complete this topic Insurance [id number] SELF PAY NO INSURANCE Member Subscriber Plan / Payer (Ef fective for All Dates) Name:Yumi Maravilla Member ID:Not on file Relation to Subscriber:Not on file Name:YUMI MARAVILLA Subscriber ID:Not on file (Home) Address: [address] [place] [address] Payer ID:Not on file Group ID:Not on file Type:Self Pay Address: [facility] [employer] Care Teams Utilization Review Rn Relationship Specialty Start Date End Date Angie Vieira, GANG LEADER-INSULATION HELPER [address] [place] [address] PCP - General Nurse Practitioner Family 03/22/25
--- OUTSIDE RECORDS SUMMARY | 2025-07-08 08:50 | XMS_ITS | Encounter Summary ---
Author Organization [facility] Address [address] [place] [address] Care Team Providers Care Envelope Fold Operator Name Role Phone Unavailable Primary Care Provider Unavailabl e Encounter Details Date Type Department Care Team (Latest Contact Info) Description 12/25/2007 Outpatient Historical HIS [facility] Griggs, Cheikh Unspecified Hearing Loss Social History Tobacco Use Types Packs/Day Years Used Date Smoking Tobacco: Never Assessed Comments Unknown Sex and Gender Information Value Date Recorded Sex Assigned at Not on file Legal Sex Female 5:31 AM HUMAN RELATIONS TEACHER Gender Identity Not on file Sexual Orientation Not on file documented as of this encounter Plan of Treatment Not on file documented as of this encounter Visit Diagnoses Diagnosis Unspecified hearing loss documented in this encounter
[2025-07-08 09:23] LABS: Hematocrit 40.3 % (37.0-47.0); Hemoglobin 13.6 g/dL (12.0-15.0); Immature Granulocyte Percent A 0.2 % (0-0.5); Lymphocytes Absolute Auto 2.16 K/mm3 (0.9-3.2); Mean Corpuscular HGB Conc 33.7 g/dl (32-36); Mean Corpuscular Hemoglobin 30.6 pg (26-34); Mean Corpuscular Volume 90.6 fl (80-100); Nucleated Red Blood Cells Absolute Auto 0.000 K/mm3 (0.0-0.012); Nucleated Red Blood Cells Perc 0.0 % (0.0-0.2); Platelet Count Result 180 k/mm3 (150-375); Red Blood Count 4.45 M/mm3 (4.2-5.4); White Blood Count 5.4 K/mm3 (4.5-10.0)
== END 2025-07-08 08:35 | disposition home or self-care (01) ==
LOC: ANHLAB 08:35
PROVIDERS: PCP Family Medicine; Visit Provider Obstetrics & Gynecology
DX: N80.9 Endometriosis, unspecified (principal)
CPT/HCPCS: 36415; 85025; 86850; 86900; 86901

== ENCOUNTER 2025-07-12 01:35 | Day surgery (SDC) | payer OTHER, SELFPAY ==
--- NOTE | 2025-07-02 14:22 | SUR.PREOP ---
Report to the Outpatient Waiting Room, entrance under the green pavilion located off [facility], at time _0730_ on date _07/12/2025_. Planned Procedure Time: _0930_.? Time changes happen often and if your time is changed the preop area will call you the afternoon before. - You and your visitor will be asked to self-screen and do not enter if you have any COVID symptoms. Please call surgeon if you need to reschedule. - A mask is optional within the hospital at this time. Patients may have clear liquids (water, carbonated beverages, clear teas, apple juice) until 3 hours prior to surgery with a maximum of 20 ounces. - No food from midnight until time of surgery and no smoking, or chewing tobacco (or any form of nicotine). No chewing gum, candy or mints. Take only the following medications with a SIP of water on the morning of surgery: _LEVOTHYROXINE, BUSPIRONE, ESCITALOPRAM_ DO NOT STOP ANY OF YOUR OTHER PRESCRIPTION MEDICATIONS PRIOR TO SURGERY EXCEPT THE FOLLOWING Hold all vitamins and supplements for 3 days per anesthesiologist. Medications to discontinue per physician _NA_ Date to take last dose_NA_ Please no make-up, nail yakut, hairspray, perfume, deodorant, or body powder the day of surgery.? No jewelry (including any body piercings) or valuables the day of surgery, leave them at home.? Please take a shower or bath the night before, or the morning of, surgery with an antibacterial soap.? Wear comfortable, loose fitting clothing.? - Jewelry must be removed prior to entering the operating room.? Rings and piercings that are not removed may be cut off. - The hospital will not accept responsibility for valuables.? - Please leave all valuables, including medications, at home the day of surgery. If you are going home after surgery, a licensed diesel pile driver operator must drive you home.? - NO public transportation without another adult if you receive anesthesia. - We recommend that an adult stay with you for 24 hours following discharge. - We also recommend that you do not drive, make important decision, drink alcoholic beverages, or take any drugs that were not prescribed by your health care provider for at least 24 hours after your discharge time. Follow any additional instructions given to you from your surgeon. Telephone instructions given to _RANDALL_and asked if any additional questions and then verbalized understanding. Patient advised to call surgeon office or pre surgery nurse liaison [phone] if any additional questions.
[2025-07-02 14:29] VITALS: BMI 23.9
--- NOTE | 2025-07-09 13:00 | PM.IMHP ---
H&P: HPI History of Present Illness Date/Time: 07/09/25 13:00 Chief Complaint: Severe pelvic pain Narrative: This is a 35-year-old 1 para 1 admitted for robotic total vaginal hysterectomy bilateral salpingo-oophorectomy secondary to a known history of stage III endometriosis. She has pain discomfort dyspareunia. She has been to the ER many times. She asked to proceed with robotic hysterectomy and bilateral salpingo-oophorectomy. We did review the hormone changes that occur with this procedure and the physical and psychological changes that can occur risks and benefits of the procedure reviewed including but not exclusive of , aspiration pneumonia, bleeding, transfusion perforation injury to bowel, bladder, ureters, or other internal organs with need for open. She received the [employer] handout entitled hysterectomy as well as the de Isabelle handout. She had all questions answered. She asked to proceed Review of Systems Review of Systems: All systems reviewed & are unremarkable except as noted in HPI and below PMFSH Past Medical History Medical History Elevated liver enzymes Upper abdominal pain Hematochezia Diarrhea Abdominal pain Colitis Depression Anxiety Migraine PATRICIA (obstructive sleep apnea) lost 80 lbs, no longer needed Hypertension Surgical History Surgical History Status post laparoscopic cholecystectomy 09/05/[address] Lopez History of placement of ear tubes H/O elbow surgery History of removal of ovarian cyst History of tubal ligation Family History Family History Father Diabetes mellitus Hypertension Mother Hypertension Social History Social History Smoking status: Never smoker Second hand tobacco smoke exposure: No Alcohol intake: never Drinks per week: 1 Substance use: never Substance use type: does not use Do You Feel Safe in your Home?: Yes Lack of Transportation: No Lack of Food: Never True Current Housing: I Have Housing Concerned About Future Housing: No Difficulty Paying Gas/Electric Bills: No Difficulty Paying for Meds: No Currently Unemployed: No Education: Don't Know Difficulty w/ Childcare or Family Care: No Living arrangements: with family Gender identity (if verbalized by the patient): Female Spiritual care concerns: No Meds Home Medications and Allergies Home Medications ?Medication ?Instructions ?Recorded ?Confirmed ?Type topiramate 100 mg tablet 125 mg PO HS 03/02/22 07/02/25 History buspirone 10 mg tablet 10 mg PO DAILY 12/01/23 07/02/25 History escitalopram oxalate 20 mg tablet 20 mg PO DAILY 12/01/23 07/02/25 History baclofen 5 mg tablet 5 mg PO TID 07/02/25 07/02/25 History levothyroxine 25 mcg tablet 25 mcg PO DAILY 07/02/25 07/02/25 History methylphenidate HCl 10 mg 10 mg PO DAILY 07/02/25 07/02/25 History tablet,extended release quetiapine 100 mg tablet 200 mg PO DAILY 07/02/25 07/02/25 History gabapentin 600 mg tablet 600 mg PO HS 07/05/25 07/05/25 History Allergies Allergy/AdvReac Type Severity Reaction Status Date / Time Cephalosporins Allergy Intermediate HIVES Verified 07/02/25 14:10 lisinopril AdvReac Mild cough Verified 07/02/25 14:10 Exam Const: General: cooperative, healthy appearing and comfortable Nutritional Appearance: average body habitus Orientation/consciousness: oriented to person, oriented to place and oriented to time HENMT: Head: normal to inspection Resp: Effort & Inspection: normal respiratory effort Cardio: Rate: regular rate Rhythm: regular rhythm Heart sounds: S1 normal heart sound present and S2 normal heart sound present GI: Inspection: normal to inspection : External Female Exam: normal external appearance Speculum Exam - Vagina: normal appearance of the vagina Speculum Exam - Cervix: normal appearance of the cervix Bimanual exam- vagina & uterus: Cervical tenderness present, enlarged and fixed Bimanual Exam- Adnexa, other: tender bilaterally Assessment and Plan Assessment and plan (1) Endometriosis: Code(s): N80.9 - Endometriosis, unspecified Status: Acute Plan Proceed with robotic total vaginal hysterectomy bilateral salpingo-oophorectomy
--- OUTSIDE RECORDS SUMMARY | 2025-07-11 03:45 | XMS_ITS ---
Author Organization [facility] Address [address] [place] [address] Care Team Providers Care Carpenter Supervisor Wooden Ship Name Role Phone Dr. Caroline Pires Primary Care Provider [phone] Angie Vieira Unavailable [phone] Allergies Allergen (clinical drug ingredient) Drug/Non Drug Allergy documented on EMR Reaction Allergy Type Onset Date Status lisinopril Lisinopril cough Drug Allergy 09/28/2021 Acti ve Medicinal cephalosporin and acting as antibacterial agent (FN) Cephalosporins Unknown Drug Allergy 09/28/2021 Active Results Component Value Reference Range Notes Free T4 And TSH (Not yet rev iewed by provider) Interpretation: Performing Lab: Notes/Report: Test Performed by: [place] [address] Principal Consultant: Martinez Medel DO T4 Free 0.64 0.60-1.70 ng/dL TSH 1.38 0.45-5.33 mcIU/mL REASON FOR VISIT go over genesight testing Medications Medication SIG (Take, Route, Frequency, Duration) Notes Start Date End Date Status busPIRone HCl 10 MG Tablet 1 tablet Orally 3 times a day; Duration: 30 days ,PRN Reason:for anxiety 06/17/2025 08/16/2025 Unknown Topiramate 100 MG Tablet TAKE 1 TABLET(S) BY MOUTH EVERY NIGHT AT BEDTIME Oral Once a day; Duration: 90 days Unknown clonazePAM 1 MG Tablet 1 tablet Orally twice a day; Duration: 15 days As needed 06/17/2025 Unknown Topiramate 25 MG Tablet TAKE 1 TABLET BY MOUTH EVERY DAY AT BEDTIME TAKE WITH 100MG TABLET TO EQUAL 125MG DAILY AT BEDTIME Orally Once a day; Duration: 90 days Unknown Tretinoin 0.025 % Cream 1 application in the evening to face Externally Once a day; Duration: 30 days Unknown busPIRone HCl 10 MG Tablet 1 Oral three times a day; Duration: 30 days ,PRN Reason:for anxiety 06/17/2025 12/14/2025 Unknown hydrOXYzine HCl 25 MG Tablet 1 tablet as needed Orally 3 times a day; Duration: 30 days Unknown Baclofen 5 MG Tablet Oral; Duration: 30 Days Unknown Levothyroxine Sodium 50 MCG Tablet 1 tablet every other morning on an empty stomach Orally; Duration: 90 days alternating every other day with 25mcg tablet Unknown Dicyclomine HCl 20 MG Tablet 1 tablet Orally 4 times a day; Duration: 10 days As needed before meals 04/29/2025 Unknown Desvenlafaxine Succinate ER 25 MG Tablet Extended Release 24 Hour 1 tablet Orally Once a day; Duration: 30 days 07/11/2025 Active Ubrelvy 100 MG Tablet 1 tablet Orally twice a day; Duration: 30 days 12/25/2024 Unknown Levothyroxine Sodium 25 MCG Tablet 1 tablet every other day alt with 50mcg Orally Once a day; Duration: 45 days alertnating every other day with 50mcg Alternating doses 03/11/2025 Unknown Gabapentin 600 MG Tablet 1 tablet Orally Once a day Unknown valACYclovir HCl 500 MG Tablet Oral; Duration: 90 01/15/2021 Unknown Methylphenidate HCl ER 20 MG Tablet Extended Release 1 tablet Orally daily; Duration: 30 days Dose increased from 10mg to 20mg 07/11/2025 Active Methylphenidate HCl 5 MG Tablet 1 tablet on an empty stomach-take no later than 2-3pm Orally Once a day; Duration: 30 days As needed 07/11/2025 Active Social History Tobacco Use: Social History Observation Description Date Details (start date - stop date) Never Smoker NA - NA Social History Household: Social Info Question Answer Notes Household Marital status: Tobacco Use: Social Info Question Answer Notes Tobacco Control (Standard) Tobacco use: Nonsmoker Additional Details Category Social Info Options Details Miscellaneous: 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 Socia lly Problems Problem Type SNOMED Code ICD Code Onset Dates Problem Status W/U Status Risk Notes Problem Esophageal spasm (K22.4) Active confirmed Vital Signs Temperature 98.4 degrees Fahrenheit 07/11/20 25 Blood pressure systolic 112 mm Hg 07/11/20 25 Blood pressure diastolic 62 mm Hg 025 Heart Rate 89 /min 07/11/2025 Height 69.00 in 07/11/2025 Weight 168.2 lbs 07/11/2025 BMI 24.84 kg/m2 07/11/2025 Oximetry 99 % 07/11/2025 Height-cm 175.26 cm 07/11/2025 Weight-kg 76.3 kg 07/11/2025 Encounters Encounter Location Date Provider Diagnosis [address] [address] 07/11/2025 Angie Vieira Anxiety disorder, unspecified F41.9 ; Attention deficit hyperactivity disorder (ADHD), predominantly inattentive type F90.0 ; Endometriosis N80.9 ; Major depressive disorder, single episode, severe without psychotic features F32.2 ; Cold extremities R20.9 and Esophageal spasm K22.4 Assessments Encounter Date Diagnosis (ICD Code) Assessment Notes Treatment Notes Treatment Clinical Notes Section Notes 07/11/2025 Anxiety disorder, unspecified (ICD-10 - F41.9) -Uses Buspar and hydroxyzine TID. She feels that hydroxyzine works best. She also uses clonazepam as needed. -Reviewed Gene[employer] testing with patient. Will wean off Esctiatlopram over the month -Will start desvenlafaxine. -She has notice huge improvement with methylphendidate ER 10mg -She isn't sure if what she is experiencing is ADD vs anxiety. -She scored 5/6 on Adult ADHD Self-Report Scale -GeneSight testing completed today -She is still doing counseling with Delores Power 07/11/2025 Attention deficit hyperactivity disorder (ADHD), predominantly inattentive type (ICD-10 - F90.0) -She scored 5/6 on Adult ADHD Self-Report Scale -Started on Methylphenidate ER 10mg one month ago and she feels it has been a wonderful - Initial good response to methylphenidate with diminished duration of effect; currently on low dose (10 mg ER).- Increase morning dose to methylphenidate ER 20 mg; prescribe methylphenidate immediate dosing 5 mg for afternoon use as needed, with flexible dosing based on daily symptom burden.- Monitor for stimulant tolerance and effectiveness; patient instructed to avoid afternoon dose if not needed. 07/11/2025 Endometriosis (ICD-10 - N80.9) - Exploratory lab on March 26, 2025, diagnosed with stage 3 endometrisosis and multiple ovarian cysts. -Set to have total hysterectomy on 07/12/25. - Follow up postoperatively, appointment scheduled for 08/15/25 to potentially extend time off work. -Not able to start hormone therapy at week 6 of pre-op 07/11/2025 Major depressive disorder, single episode, severe without psychotic features (ICD-10 - F32.2) -Follows with Delores Power weekly. -She currently feels depression is well controlled -Weaning off lexapro and start desvenlafine 07/11/2025 Cold extremities (ICD-10 - R20.9) -She is requesting thyroid labs due to feeling cold. 07/11/2025 Esophageal spasm (ICD-10 - K22.4) - Chest pain attributed to esophageal spasm;- Monitor symptoms; consider dietary triggers and avoidance; -Continue PPI- No acute intervention required; patient advised to track episodes and associated dietary factors. Plan Of Treatment Medication Medication Name Sig Start Date Stop Date Notes Desvenlafaxine Succinate ER 25 MG Tablet Extended Release 24 Hour 1 tablet Orally Once a day; Duration: 30 days 07/11/2025 Escitalopram Oxalate 20 MG Tablet 1.5 tablet Orally Once a day Wean off by 10mg weekly until done Methylphenidate HCl ER 20 MG Tablet Extended Release 1 tablet Orally daily; Duration: 30 days 07/11/2025 Dose increased from 10mg to 20mg Methylphenidate HCl 5 MG Tablet 1 tablet on an empty stomach-take no later than 2-3pm Orally Once a day; Duration: 30 days 07/11/2025 Treatment Notes Assessment Notes Anxiety disorder, unspecified -Uses Buspar and hydroxyzine TID. She feels that hydroxyzine works best. She also uses clonazepam as needed. -Reviewed [facility] testing with patient. Will wean off Esctiatlopram over the month -Will start desvenlafaxine. -She has notice huge improvement with methylphendidate ER 10mg -She isn't sure if what she is experiencing is ADD vs anxiety. -She scored 5/6 on Adult ADHD Self-Report Scale -GeneSight testing completed today -She is still doing counseling with Delores Power Attention deficit hyperactiv ity disorder (ADHD), predominantly inattentive type -She scored 5/6 on Adult ADHD Self-Report Scale -Started on Methylphenidate ER 10mg one month ago and she feels it has been a wonderful - Initial good response to methylphenidate with diminished duration of effect; currently on low dose (10 mg ER).- Increase morning dose to methylphenidate ER 20 mg; prescribe methylphenidate immediate dosing 5 mg for afternoon use as needed, with flexible dosing based on daily symptom burden.- Monitor for stimulant tolerance and effectiveness; patient instructed to avoid afternoon dose if not needed. Endometriosis - Exploratory lab on March 26, 2025, diagnosed with stage 3 endometrisosis and multiple ovarian cysts. -Set to have total hysterectomy on 07/12/25. - Follow up postoperatively, appointment scheduled for 08/15/25 to potentially extend time off work. -Not able to start hormone therapy at week 6 of pre-op Major depressive disorder, s christopher episode, severe without psychotic features -Follows with Delores Power weekly. -She currently feels depression is well controlled -Weaning off lexapro and start desvenlafine Cold extremities -She is requesting t hyroid labs due to feeling cold. Esophageal spasm - Chest pain attribu lou to esophageal spasm;- Monitor symptoms; consider dietary triggers and avoidance; -Continue PPI- No acute intervention required; patient advised to track episodes and associated dietary factors. Pending Test Test Name Order Date Free T4 And TSH 07/11/2025 Next Appt Details Provider Name:Angie Kala overton, 08/15/2025 08:30:00 AM, [address] [place], [address], [phone] History and Physical Notes * HPI (History of Present Illness) Category Sub-Category Detail Notes Category Not es HPI Yumi Maravilla reports feeling anxious and nervous about hysterectomy tomorrow. She describes initial significant improvement in focus and anxiety after starting methylphenidate, with the effect lasting until about 2:00 PM, but notes the medication is now less effective and does not last all day. She attributes increased anxiety to recent conflict and lack of communication with her parents, which has also contributed to feeling more depressed. She states Lexapro is only moderately effective and does not fully address her symptoms. She previously tried Wellbutrin, which was not helpful. Effexor worked well for years but eventually stopped being effective, and discontinuing it was very difficult. Prozac caused severe gastrointestinal side effects. Buspar has not been effective, while hydroxyzine is more helpful for her symptoms. She is currently taking 20 mg of Lexapro daily, using one and a half tablets. She had GeneSight testing and here to discuss results. Progress Notes * Yumi MARAVILLA MDOB:1989 (35 yo F)Acc No.[id number]:07/11/2025 Patient: Yumi Lara Provider: Marcie Vieira NP :1990 A ge:35 Y S ex:Female Date:07/11/2025 Phone: Address:[facility] [address] [place], [id number] Pcp:Dr. Caroline Pires Subjective: * Chief Complaints: * G o over genesight testing * HPI: H PI: Yumi Maravilla reports feeling anxious and nervous about hysterectomy tomorrow. She describes initial significant improvement in focus and anxiety after starting methylphenidate, with the effect lasting until about 2:00 PM, but notes the medication is now less effective and does not last all day. She attributes increased anxiety to recent conflict and lack of communication with her parents, which has also contributed to feeling more depressed. She states Lexapro is only moderately effective and does not fully address her symptoms. She previously tried Wellbutrin, which was not helpful. Effexor worked well for years but eventually stopped being effective, and discontinuing it was very difficult. Prozac caused severe gastrointestinal side effects. Buspar has not been effective, while hydroxyzine is more helpful for her symptoms. She is currently taking 20 mg of Lexapro daily, using one and a half tablets. She had GeneSight testing and here to discuss results. * Medical History: Disease of biliary tract, unspecified Splenomegaly, not elsewhere classified Hypothyroidism, unspecified Hypoglycemia, unspecified Chronic kidney disease, stage 3 unspecified Major depressive disorder, single episode, severe without psychotic features Insomnia, unspecified Adjustment disorder with depressed mood Scoliosis, unspecified Essential (primary) hypertension Abnormal weight loss Migraine without aura, not intractable, without status migrainosus Acne, unspecified Anxiety disorder, unspecified * Surgical History: cholecystectomy ,notes : lap 09/05/24 Dr Lopez Laparoscopy ,notes : laparoscopic destruction of endometriosis 1/26/24 Tubal ligation ,notes : bilateral tubal ligation 12/09/23 Fracture Repair, Radius/Ulna 11/01/2018 Dr Vince Karimi Robotic Microsurgical excision of endometriosis 03/26/2025 Surgical History verified. * Family History: F ather: depression, hypertension, hyperlipidemia, heart attack. M other: depression, hypertension, hypothyroidism. B rother: hypertension. 1 brother(s) . . F amily History Verified.. * Social History: T obacco Use: T obacco Control (Standard) T obacco use: N onsmoker D rug/Alcohol: D o you drink alcohol?: Socially. 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 S ocial History Verified. * Medications: U nknownGabapentin 600 MG Tablet 1 tablet Orally Once a day valACYclovir HCl 500 MG Tablet Oral Ubrelvy 100 MG Tablet 1 tablet Orally twice a day Levothyroxine Sodium 25 MCG Tablet 1 tablet every other day alt with 50mcg Orally Once a day alertnating every other day with 50mcg, Notes to Pharmacist: Alternating dosesEscitalopram Oxalate 20 MG Tablet 1.5 tablet Orally Once a day Levothyroxine Sodium 50 MCG Tablet 1 tablet every other morning on an empty stomach Orally alternating every other day with 25mcg tabletDicyclomine HCl 20 MG Tablet 1 tablet Orally 4 times a day As needed before mealshydrOXYzine HCl 25 MG Tablet 1 tablet as needed Orally 3 times a day Baclofen 5 MG Tablet Oral busPIRone HCl 10 MG Tablet 1 Oral three times a day , stop date 12/14/2025, Notes to Pharmacist: ,PRN Reason:for anxietybusPIRone HCl 10 MG Tablet 1 tablet Orally 3 times a day , stop date 08/16/2025, Notes to Pharmacist: ,PRN Reason:for anxietyclonazePAM 1 MG Tablet 1 tablet Orally twice a day As neededTopiramate 25 MG Tablet TAKE 1 TABLET BY MOUTH EVERY DAY AT BEDTIME TAKE WITH 100MG TABLET TO EQUAL 125MG DAILY AT BEDTIME Orally Once a day Topiramate 100 MG Tablet TAKE 1 TABLET(S) BY MOUTH EVERY NIGHT AT BEDTIME Oral Once a day Methylphenidate HCl ER 10 MG Tablet Extended Release 1 tablet Orally daily Tretinoin 0.025 % Cream 1 application in the evening to face Externally Once a day Unknown Gabapentin 600 MG Tablet 1 tablet Orally Once a day Unknown valACYclovir HCl 500 MG Tablet Oral Unknown Ubrelvy 100 MG Tablet 1 tablet Orally twice a day Unknown Levothyroxine Sodium 25 MCG Tablet 1 tablet every other day alt with 50mcg Orally Once a day alertnating every other day with 50mcg, Notes to Pharmacist: Alternating dosesUnknown Escitalopram Oxalate 20 MG Tablet 1.5 tablet Orally Once a day Unknown Levothyroxine Sodium 50 MCG Tablet 1 tablet every other morning on an empty stomach Orally alternating every other day with 25mcg tabletUnknown Dicyclomine HCl 20 MG Tablet 1 tablet Orally 4 times a day As needed before mealsUnknown hydrOXYzine HCl 25 MG Tablet 1 tablet as needed Orally 3 times a day Unknown Baclofen 5 MG Tablet Oral Unknown busPIRone HCl 10 MG Tablet 1 Oral three times a day , stop date 12/14/2025, Notes to Pharmacist: ,PRN Reason:for anxietyUnknown busPIRone HCl 10 MG Tablet 1 tablet Orally 3 times a day , stop date 08/16/2025, Notes to Pharmacist: ,PRN Reason:for anxietyUnknown clonazePAM 1 MG Tablet 1 tablet Orally twice a day As neededUnknown Topiramate 25 MG Tablet TAKE 1 TABLET BY MOUTH EVERY DAY AT BEDTIME TAKE WITH 100MG TABLET TO EQUAL 125MG DAILY AT BEDTIME Orally Once a day Unknown Topiramate 100 MG Tablet TAKE 1 TABLET(S) BY MOUTH EVERY NIGHT AT BEDTIME Oral Once a day Unknown Methylphenidate HCl ER 10 MG Tablet Extended Release 1 tablet Orally daily Unknown Tretinoin 0.025 % Cream 1 application in the evening to face Externally Once a day * Allergies: C ephalosporins: Allergy - Onset Date 09/28/2021isinopril: cough - Allergy - Onset Date 09/28/2021yesAllergies Verified. Objective: * Vitals: B P:112/62mm Hg, HR:89/min, Temp:98.4F, Oxygen sat %:99%, Ht: 69.00 in, Wt:168.2lbs, Wt-k.3 kg, Ht-cm: 175.26 cm, BMI:24.84Index, Body Surface Area: 1.93, Weight change: -1.6 lbs. Past Vitals:* 06/17/2025 BP:102/64mm Hg, HR:76/min, O xygen sat %:99%, Wt:169.8lbs, Wt-k.02 kg * 03/22/2025 BP:92/62mm Hg, HR:81/min, Ox ygen sat %:98%, Wt:162.4lbs, Wt-k.66 kg Assessment: * Assessment: 1. E ndometriosis - N80.9 (Primary) 2 . A nxiety disorder, unspecified - F41.9 S pecify :Src Problem: Anxiety 3 . A ttention deficit hyperactivity disorder (ADHD), predominantly inattentive type - F90.0 4 . M ajor depressive disorder, single episode, severe without psychotic features - F32.2 S pecify :Src Problem: Current severe episode of major depressive disorder without psychotic features without prior episode 5 . C old extremities - R20.9 6 . E sophageal spasm - K22.4 Plan: * Treatment: 2. A nxiety disorder, unspecified Stop Escitalopram Oxalate Tablet, 20 MG, 1.5 tablet, Orally, Once a day, Notes to Pharmacist: Wean off by 10mg weekly until done; S tart Desvenlafaxine Succinate ER Tablet Extended Release 24 Hour, 25 MG, 1 tablet, Orally, Once a day, 30 days, 30, Refills 5. Notes: -Uses Buspar and hydroxyzine TID. She feels that hydroxyzine works best. She also uses clonazepam as needed. -Reviewed Gene[facility] testing with patient. Will wean off Esctiatlopram over the month -Will start desvenlafaxine. -She has notice huge improvement with methylphendidate ER 10mg -She isn't sure if what she is experiencing is ADD vs anxiety. -She scored 5/6 on Adult ADHD Self-Report Scale -GeneSight testing completed today -She is still doing counseling with Delores Power 3. A ttention deficit hyperactivity disorder (ADHD), predominantly inattentive type Refill Methylphenidate HCl ER Tablet Extended Release, 20 MG, 1 tablet, Orally, daily, 30 days, 30 Tablet, Refills 0, Notes to Pharmacist: Dose increased from 10mg to 20mg; S tart Methylphenidate HCl Tablet, 5 MG, 1 tablet on an empty stomach-take no later than 2-3pm, Orally, Once a day As needed, 30 days, 30 Tablet, Refills 0. Notes: -She scored 5/6 on Adult ADHD Self-Report Scale -Started on Methylphenidate ER 10mg one month ago and she feels it has been a wonderful - Initial good response to methylphenidate with diminished duration of effect; currently on low dose (10 mg ER).- Increase morning dose to methylphenidate ER 20 mg; prescribe methylphenidate immediate dosing 5 mg for afternoon use as needed, with flexible dosing based on daily symptom burden.- Monitor for stimulant tolerance and effectiveness; patient instructed to avoid afternoon dose if not needed. 4. M ajor depressive disorder, single episode, severe without psychotic features Notes: -Follows with Delores Power weekly. -She currently feels depression is well controlled -Weaning off lexapro and start desvenlafine 5. C old extremities L AB: Free T4 And TSH Notes: -She is requesting thyroid labs due to feeling cold. 6. E sophageal spasm Notes: - Chest pain attributed to esophageal spasm;- Monitor symptoms; consider dietary triggers and avoidance; - Continue PPI- No acute intervention required; patient advised to track episodes and associated dietary factors. Billing Information: * Visit Code: 36204 OFFICE VISIT MODERATE. * Procedure Codes: * Sign off status: Completed true * Provider: Marcie Vieira NP Date: 07/11/2025 Generated for Santiago meneses/Cat/Carolyn on: 07/12/2025 01:38 AM CDT
[2025-07-12] VITALS (9 sets, daily range): BP systolic 101–114; BP diastolic 57–71; PULSE 60–85; RESP 12–20; TEMP 36.6–37.2; O2SAT 98–100
--- OUTSIDE RECORDS SUMMARY | 2025-07-12 01:39 | XMS_ITS | Patient Health Record ---
Author Organization [facility] Address [address] [place] [address] Care Team Providers Care Steel Pan Form Placing Supervisor Name Role Phone Dr. Caroline Pires Primary Care Provider [phone] Angie Vieira Unavailable [phone] Migration, Provider Unavailable Unavailable Allergies Allergen (clinical [...] Interpretation: Performing Lab: Notes/Report: Test Performed by: Lelia Condon [place] [id number] Certified Solid Waste Facility Operator: Martinez Medel DO T4 Free 0.64 0.60-1.70 ng/dL TSH 1.38 0.45-5.33 mcIU/mL Comprehensive Metabolic Pane l Reviewed date:03/20/2025 09:43:28 AM Interpretation: Performing Lab: Notes/Report: MRI : Brain with and without contrast Reviewed date:12/25/2024 04:39:53 PM Interpretation: Performing Lab: Notes/Report: DEXA Hip and Spine Reviewed date:04/15/2025 05:43:46 PM Interpretation: Performing Lab: Notes/Report: Thyroid Stimulating Hormone Reviewed date:03/20/2025 09:44:23 AM Interpretation: Performing Lab: Notes/Report: Lipid Panel {Chol, Trig, HDL , LDL} Reviewed date:03/20/2025 09:43:00 AM Interpretation: Performing Lab: Notes/Report: CBC w Auto Diff Reviewed date:03/20/2025 09:42:27 AM Interpretation: Performing Lab: Notes/Report: T4 Free Reviewed date:03/20/2025 09:45:24 AM Interpretation: Performing Lab: Notes/Report: Reason For Referral Reason MONTEMAYOR's Diagnosis 1 Migraine without aur a, not intractable, without status migrainosus (G43.009) Referral Organization [facility] Referring Provider First Name Angie Referring Provider Last Name Isha Referring Provider Speciality Nurse Prac titioner Referred Provider Specialty Neurology General Notes Tisha Chaney 0 01/07/2025 08:45:04 AM JUNIOR ACCOUNT EXECUTIVE >Faxed referral to Dr. Bahena [phone], Norah Reynolds 02/05/2025 01:21:08 PM CDT >no consult note seen in chart, please check on status of referral, Tisha Chaney 04/19/2025 10:59:34 AM CDT >Pt was seen on 01/18/25 and 02/05/25. Pt scheduled for next visit on 04/30/25. Consult notes to be faxed to office Referral Priority Urgent Medications Medication SIG (Take, Route, Frequency, Duration) Notes Start Date End Date Status Levothyroxine Sodium 50 MCG Tablet 1 tablet every other morning on an empty stomach Orally; Duration: 90 days alternating every other day with 25mcg tablet Unknown Dicyclomine HCl 20 MG Tablet 1 tablet Orally 4 times a day; Duration: 10 days As needed before meals 04/29/2025 Unknown Tretinoin 0.025 % Cream 1 application in the evening to face Externally Once a day; Duration: 30 days Unknown Desvenlafaxine Succinate ER 25 MG Tablet Extended Release 24 Hour 1 tablet Orally Once a day; Duration: 30 days 07/11/2025 Active busPIRone HCl 10 MG Tablet 1 Oral three times a day; Duration: 30 days ,PRN Reason:for anxiety 06/17/2025 12/14/2025 Unknown busPIRone HCl 10 MG Tablet 1 tablet Orally 3 times a day; Duration: 30 days ,PRN Reason:for anxiety 06/17/2025 08/16/2025 Unknown hydrOXYzine HCl 25 MG Tablet 1 tablet as needed Orally 3 times a day; Duration: 30 days Unknown Baclofen 5 MG Tablet Oral; Duration: 30 Days Unknown Ubrelvy 100 MG Tablet 1 tablet Orally twice a day; Duration: 30 days 12/25/2024 Unknown Topiramate 100 MG Tablet TAKE 1 TABLET(S) BY MOUTH EVERY NIGHT AT BEDTIME Oral Once a day; Duration: 90 days Unknown Levothyroxine Sodium 25 MCG Tablet 1 tablet every other day alt with 50mcg Orally Once a day; Duration: 45 days alertnating every other day with 50mcg Alternating doses 03/11/2025 Unknown Methylphenidate HCl ER 20 MG Tablet Extended Release 1 tablet Orally daily; Duration: 30 days Dose increased from 10mg to 20mg 07/11/2025 Active Gabapentin 600 MG Tablet 1 tablet Orally Once a day Unknown clonazePAM 1 MG Tablet 1 tablet Orally twice a day; Duration: 15 days As needed 06/17/2025 Unknown Methylphenidate HCl 5 MG Tablet 1 tablet on an empty stomach-take no later than 2-3pm Orally Once a day; Duration: 30 days As needed 07/11/2025 Active valACYclovir HCl 500 MG Tablet Oral; Duration: 90 01/15/2021 Unknown Topiramate 25 MG Tablet TAKE 1 TABLET BY MOUTH EVERY DAY AT BEDTIME TAKE WITH 100MG TABLET TO EQUAL 125MG DAILY AT BEDTIME Orally Once a day; Duration: 90 days Unknown Immunizations Vaccine Route Administration Date Status Comme nts WHILL Covid-19 Vaccine 1st dose Unknown 06/28/2021 Administered [...] immunization record ,immstatus : Complete Social History Tobacco Use: Social History Observation [...] W/U Status Risk Notes Problem Esophageal spasm (69422575) Esophageal spasm (K22.4) Active confirmed Problem Attention deficit hyperactivity disorder, predominantly inattentive type (34714837) Attention deficit hyperactivity disorder (ADHD), predominantly inattentive type (F90.0) Active confirmed Problem Low back pain (626551157) Low back pain, unspecified (M54.50) Active confirmed Problem Chronic kidney disease stage 3 (disorder) (116440140) Chronic kidney disease, stage 3 unspecified (N18.30) Active confirmed Problem Postprocedural states (938607130) Other specified postprocedural states (Z98.890) Active confirmed Problem Imaging result abnormal (275996097) Abnormal findings on diagnostic imaging of other specified body structures (R93.89) Active confirmed prominence of right renal pelvis, fullness around adrenal gland Problem History of gastrointestinal disease (225420205) Personal history of other diseases of the digestive system (Z87.19) Active confirmed Problem Symptom: generalized (239082476) Other general symptoms and signs (R68.89) Active confirmed Problem Abnormal weight loss (125547197) Abnormal weight loss (R63.4) Active confirmed Problem Splenomegaly (22121212) Splenomegaly, not elsewhere classified (R16.1) Active confirmed Problem Pain in thoracic spine (106043100) Pain in thoracic spine (M54.6) Active confirmed Problem Acne (41472182) Acne, unspecified (L70.9) Active confirmed Problem Disorder of biliary tract (424789195) Disease of biliary tract, unspecified (K83.9) Active confirmed Problem Essential hypertension (29996670) Essential (primary) hypertension (I10) Active confirmed Problem Adjustment disorder with depressed mood (58908209) Adjustment disorder with depressed mood (F43.21) Active confirmed Problem Anxiety disorder (909189886) Anxiety disorder, unspecified (F41.9) Active confirmed Problem Hypoglycemia (060194893) Hypoglycemia, unspecified (E16.2) Active confirmed Problem Hypothyroidism (12359412) Hypothyroidism, unspecified (E03.9) Active confirmed Problem Chronic kidney disease stage 3B (disorder) (371293215) Chronic kidney disease, stage 3b (N18.32) Active confirmed Problem Body mass index 25-29 - overweight (441864944) Body mass index (BMI) 27.0-27.9, adult (Z68.27) Active confirmed Problem Acute pancreatitis (478265239) Acute pancreatitis without necrosis or infection, unspecified (K85.90) Active confirmed Problem Laboratory test result abnormal (145040694) Abnormal levels of other serum enzymes (R74.8) Active confirmed Problem Backache (701712449) Dorsalgia, unspecified (M54.9) 023 Active confirmed Problem Scoliosis (532990298) Scoliosis, unspecified (M41.9) 023 Active confirmed mild Problem Arthralgia of the upper arm (143099425) Pain in left elbow (M25.522) 023 Active confirmed Problem Insomnia (902032313) Insomnia, unspecified (G47.00) Active confirmed Problem Chronic migraine without aura, non-refractory (disorder) (239268242190111) Migraine without aura, not intractable, without status migrainosus (G43.009) 022 Active confirmed Problem Severe major depression, single episode, without psychotic features (87171505) Major depressive disorder, single episode, severe without psychotic features (F32.2) Active confirmed Vital Signs Heart Rate 89 /min 07/11/2025 Temperature 98.4 degrees Fahrenheit 07/11/2025 Respiratory Rate 20 /min 03/22/2025 Height-cm 175.26 cm 07/11/2025 Blood pressure diastolic 62 mm Hg 07/11/2025 Oximetry 99 % 07/11/2025 Weight-kg 76.3 kg 07/11/2025 Height 69.00 in 07/11/2025 Blood pressure systolic 112 mm Hg 07/11/2025 Weight 168.2 lbs 07/11/2025 BMI 24.84 kg/m2 07/11/2025 Encounters Encounter Location Date Provider Diagnosis [address] [address] 07/13/2024 Provider Migration Hypothyroidism, unspecified E03.[address] [address] 07/19/2024 Provider Migration Acne, unspecified L70.[address] [address] 07/23/2024 Provider Migration Splenomegaly, not elsewhere classified R16.1 ; Other specified abnormal findings of blood chemistry R79.89 ; Other specified symptoms and signs involving the digestive system and abdomen R19.8 ; Abnormal levels of other serum enzymes R74.8 ; Right upper quadrant pain R10.11 ; Abnormal findings on diagnostic imaging of other specified body structures R93.89 and Abnormal weight loss R63.[address] [address] 08/03/2024 Provider Migration Migraine without aura, not intractable, without status migrainosus G43.[address] [address] 09/28/2024 Angie Vieira Other specified postprocedural states Z98.890 ; Hypothyroidism, unspecified E03.9 ; Acute pancreatitis without necrosis or infection, unspecified K85.90 and Disease of biliary tract, unspecified K83.[address] [address] 10/02/2024 Anige Vieira Dorsalgia, unspecifi ed M54.9 ; Acute pancreatitis without necrosis or infection, unspecified K85.90 and Hypothyroidism, unspecified E03.[address] [address] 11/19/2024 Angie Vieira Anxiety disorder, unspecified F41.9 ; Insomnia, unspecified G47.00 and Migraine without aura, not intractable, without status migrainosus G43.[address] [address] 12/27/2024 Angie Vieira Chronic daily headac he R51.9 ; Anxiety disorder, unspecified F41.9 and Hypothyroidism, unspecified E03.[address] [address] 03/22/2025 Angie Vieira Endometriosis N80.9 ; Migraine without aura, not intractable, without status migrainosus G43.009 ; History of hormone therapy Z92.29 ; Acne vulgaris L70.0 ; Major depressive disorder, single episode, severe without psychotic features F32.2 ; Anxiety disorder, unspecified F41.9 ; Hypothyroidism, unspecified E03.9 ; Essential (primary) hypertension I10 ; Chronic kidney disease, stage 3b N18.32 and Chronic diarrhea K52.[address] [address] 06/17/2025 Angie Vieira Anxiety disorder, unspecified F41.9 ; Endometriosis N80.9 ; Attention deficit hyperactivity disorder (ADHD), predominantly inattentive type F90.0 ; Major depressive disorder, single episode, severe without psychotic features F32.2 ; Substernal chest pain R07.2 ; Migraine without aura, not intractable, without status migrainosus G43.009 ; Essential (primary) hypertension I10 ; History of hormone therapy Z92.29 and Chronic kidney disease, stage 3b N18.[address] [address] 07/11/2025 Angie Vieira Anxiety disorder, unspecified F41.9 ; Attention deficit hyperactivity disorder (ADHD), predominantly inattentive type F90.0 ; Endometriosis N80.9 ; Major depressive disorder, single episode, severe without psychotic features F32.2 ; Cold extremities R20.9 and Esophageal spasm K22.[address] [address] 10/13/2024 Provider Migration [address] [address] 10/14/2024 Provider Migration [address] [address] 11/26/2024 Angie Vieira Migraine without aur a, not intractable, without status migrainosus G43.[address] [address] 12/03/2024 Dr. Caroline Pires [address] [address] 12/23/2024 Dr. Caroline Pires [address] [address] 01/18/2025 Angie Vieira Anxiety disorder, unspecified F41.[address] [address] 03/06/2025 Angie Vieira Essential (primary) hypertension I10 and Hypothyroidism, unspecified E03.[address] [address] 03/10/2025 Dr. Caroline Pires Abnormal levels of other serum enzymes R74.[address] [address] 03/11/2025 Angie Isha [address] [address] 04/29/[address] [address] 12/27/[address] [address] 01/06/2025 Angie Vieira Chronic daily headac he R51.[address] [address] 01/07/2025 Dr. Caroline Pires [address] [address] 01/18/[address] [address] 03/14/2025 Dr. Caroline Pires Assessments Encounter Date Diagnosis (ICD Code) Assessment Notes Treatment Notes Treatment Clinical Notes Section Notes 03/06/2025 Essential (primary) hypertension (ICD-10 - I10) 01/06/2025 Chronic daily headache (ICD-10 - R51.9) 03/10/2025 Abnormal levels of other serum enzymes (ICD-10 - R74.8) 03/06/2025 Hypothyroidism, unspecified (ICD-10 - E03.9) 03/22/2025 Endometriosis (ICD-10 - N80.9) - Surgery scheduled for March 26, 2025, for removal of endometriosis. Discussion of potential hysterectomy post-surgery -Since stopping Myfembree, she needs a bone density 03/22/2025 Migraine without aura, not intractable, without status migrainosus (ICD-10 - G43.009) - Headaches improved with gabapentin and Botox. Previous medication caused adverse effects.- Continue gabapentin 600 mg daily. Botox injections ongoing. Ubrelvy 100 mg twice a day prescribed. Neurology follow-up scheduled for May. 12/27/2024 Chronic daily headache (ICD-10 - R51.9) [...] pain, general pain, anxiety, and sleep issues. 11/26/2024 Migraine without aura, not intractable, without status migrainosus (ICD-10 - G43.009) Electronic Prior Authorization was requested for Ubrelvy 50 MG Tablet. Provider can order medication once approval received. 11/19/2024 Anxiety disorder, unspecified (ICD-10 - F41.9) [...] of anxiety and management from daily MONTEMAYOR. 07/11/2025 Anxiety disorder, unspecified (ICD-10 - F41.9) [...] is still doing counseling with Delores Power 01/18/2025 Anxiety disorder, unspecified (ICD-10 - F41.9) 06/17/2025 Anxiety disorder, unspecified (ICD-10 - F41.9) -Uses Buspar and hydroxyzine TID. Esctiatlopram 30mg daily. Clonazepam as needed -She isn't sure if what she is experiencing is ADD vs anxiety. -She scored 5/6 on Adult ADHD Self-Report Scale -GeneSight testing completed today -She is still doing counseling with Delores Power 11/19/2024 Insomnia, unspecified (ICD-10 - G47.00) Increasing quetiapine from 200mg to 300mg. She has hyroxyzine. Will see if trying to control anxiety will help with slep. 10/02/2024 Hypothyroidism, unspecified (ICD-10 - E03.9) 10/02/2024 Dorsalgia, unspecified (ICD-10 - M54.9) 10/02/2024 Acute pancreatitis without necrosis or infection, unspecified (ICD-10 - K85.90) 09/28/2024 Hypothyroidism, unspecified (ICD-10 - E03.9) 09/28/2024 Disease of biliary tract, unspecified (ICD-10 - K83.9) 09/28/2024 Acute pancreatitis without necrosis or infection, unspecified (ICD-10 - K85.90) 09/28/2024 Other specified postprocedural states (ICD-10 - Z98.890) 08/03/2024 Migraine without aura, not intractable, without status migrainosus (ICD-10 - G43.009) 07/23/2024 Right upper quadrant pain (ICD-10 - [...] right renal pelvis, fullness around adrenal gland 07/19/2024 Acne, unspecified (ICD-10 - L70.9) 07/13/2024 Hypothyroidism, unspecified (ICD-10 - E03.9) 12/27/2024 Anxiety disorder, unspecified (ICD-10 - F41.9) - Stress may be contributing to headaches. Ongoing stress related to personal circumstances, including family matters.- Continue seeing therapist Delores for stress management. Monitor stress levels and their impact on headaches. 07/11/2025 Attention deficit hyperactivity disorder (ADHD), predominantly [...] to avoid afternoon dose if not needed. 11/19/2024 Migraine without aura, not intractable, without [...] recommend coming into office for Toradol shot. 06/17/2025 Attention deficit hyperactivity disorder (ADHD), predominantly inattentive type (ICD-10 - F90.0) -She isn't sure if what she is experiencing is ADD vs anxiety. -She scored 5/6 on Adult ADHD Self-Report Scale -Will start Methylphenidate ER 10mg. Will follow-up in a month sooner if needed 06/17/2025 Endometriosis (ICD-10 - N80.9) - Exploratory lab on March 26, 2025, diagnosed with stage 3 endometrisosis and multiple ovarian cysts. -Set to have total hysterectomy on 07/12/25. - Follow up postoperatively, appointment scheduled for August 01, 2025, to assess recovery and ongoing needs. Hormone replacement therapy to be considered 6 weeks post-surgery due to risk of postoperative DVT. -Patient says surgeon has only given her 3 weeks off work, she is worried that she will not be doing well due to hormone decrease and wanting our office to consider extending her time off work. [facility]25 03/22/2025 History of hormone therapy (ICD-10 - Z92.29) -She has been on Myfembree for endometriosis and pain. This has been discontinued. She is going to get a bone density 03/22/2025 Acne vulgaris (ICD-10 - L70.0) -Acne has flared since stopping Myfembree. Will readdress after endometrial surgery as not fully sure what the final outcome will be after surgery. 07/11/2025 Endometriosis (ICD-10 - N80.9) - Exploratory lab on March 26, 2025, diagnosed with stage 3 endometrisosis and multiple ovarian cysts. -Set to have total hysterectomy on 07/12/25. - Follow up postoperatively, appointment scheduled for 08/15/25 to potentially extend time off work. -Not able to start hormone therapy at week 6 of pre-op 12/27/2024 Hypothyroidism, unspecified (ICD-10 - E03.9) - She is due for labwork to recheck thyroid. Will send order for labs to [facility] to get full panel of labs 06/17/2025 Major depressive disorder, single episode, severe without psychotic features (ICD-10 - F32.2) -Follows with Delores Power weekly. -She currently feels depression is well controlled -Anxiety vs ADD is the most prevelant -Will be doing GeneSight testing 07/11/2025 Major depressive disorder, single episode, severe without psychotic features (ICD-10 - F32.2) -Follows with Delores Power weekly. -She currently feels depression is well controlled -Weaning off lexapro and start desvenlafine 07/11/2025 Cold extremities (ICD-10 - R20.9) -She is requesting thyroid labs due to feeling cold. 06/17/2025 Substernal chest pain (ICD-10 - R07.2) -In ER for chest pain. Pain improved with either the nitro or GI cocktail. Tropoonis were all negative. -Set to have stress test next week. -Still need to get ER report to review at the time of signing off note 03/22/2025 Major depressive disorder, single episode, severe without psychotic features (ICD-10 - F32.2) -Follows with Delores Power weekly. 03/22/2025 Anxiety disorder, unspecified (ICD-10 - F41.9) -Uses clonazepam as needed 06/17/2025 Migraine without aura, not intractable, without status migrainosus (ICD-10 - G43.009) - Headaches improved with gabapentin and Botox. Previous medication caused adverse effects.- Continue gabapentin 600 mg daily. Botox injections ongoing. Ubrelvy 100 mg twice a day prescribed. 06/17/2025 Essential (primary) hypertension (ICD-10 - I10) -BP is low today and has been low 07/11/2025 Esophageal spasm (ICD-10 - K22.4) - Chest pain attributed to esophageal spasm;- Monitor symptoms; consider dietary triggers and avoidance; -Continue PPI- No acute intervention required; patient advised to track episodes and associated dietary factors. 06/17/2025 Chronic kidney disease, stage 3b (ICD-10 - N18.32) Latest GFR is 54, it as low as 34 in September when she was having acute pancreatitis. -Will get ER report with labs 03/22/2025 Hypothyroidism, unspecified (ICD-10 - E03.9) TSH was too higg on 25mcg and too low on 50mcg. Having her alternate 25/50mcg daily. Latest TSH is 1.214. Will continue to alternate 06/17/2025 History of hormone therapy (ICD-10 - Z92.29) -She has been on Myfembree for endometriosis and pain. She will be starting hormone replacement after hysterectomy at the 6 week post-op period 03/22/2025 Essential (primary) hypertension (ICD-10 - I10) -BP is low today 03/22/2025 Chronic kidney disease, stage 3b (ICD-10 - N18.32) Latest GFR is 54, it as low as 34 in September when she was having acute pancreatitis. -She had been on high doses of ibuprofen for migraines, migraines are better and require less ibuprofne at this time 03/22/2025 Chronic diarrhea (ICD-10 - K52.9) - Explosive diarrhea noted, potentially linked to endometriosis.- Continue dicyclomine twice a day. 11/19/2024 Other This was a Telehealth visit via [employer] on [facility]. The visit lasted 13 minutes. 12/27/2024 Other This was a Telehealth visit that lasted 24 minutes Plan Of Treatment Pending Test Test Name Order Date Free T4 And TSH 07/11/2025 Next Appt Details Provider Name:Angie overton, 08/15/2025 08:30:00 AM, [address] [facility], [place], [address], [phone] Insurance Providers Payer Name Payer Address Payer Phone Subscriber Number Group Number Insured Name Patient Relationship to Insured Coverage Start Date Coverage End Date [facility] [address] [address] [place] [address] [id number] Yumi Maravilla Self - patient is the insured 4 Medical (General) History Medical History History ICD Code Disease of biliary tract, unspecified K8 3.9 Splenomegaly, not elsewhere classified R 16.1 Hypothyroidism, unspecified E03.9 Hypoglycemia, unspecified E16.2 Chronic kidney disease, stage 3 unspecif ied N18.30 Major depressive disorder, single episod e, severe without psychotic features F32.2 Insomnia, unspecified G47.00 Adjustment disorder with depressed mood F43.21 Scoliosis, unspecified M41.9 Essential (primary) hypertension I10 Abnormal weight loss R63.4 Migraine without aura, not intractable, without status migrainosus G43.009 Acne, unspecified L70.9 Anxiety disorder, unspecified F41.9 Surgical History Surgery Date(Month/Year) cholecystectomy ,notes : lap 09/05/24 Dr Lopez Laparoscopy ,notes : laparoscopic destru ction of endometriosis 12/09/23 Tubal ligation ,notes : bilateral tubal ligation 12/09/23 Fracture Repair, Radius/Ulna 11/01/2018 Dr Vince Karimi [facility] exci [place] of endometriosis 03/26/2025
--- OUTSIDE RECORDS SUMMARY | 2025-07-12 01:40 | XMS_ITS | Clinical Summary ---
Author Organization [facility] Address [address] [place] [address] Care Team Providers Care Development Geologist Name Role Phone Caroline Pires MD Primary [...] with endometriosis Take 1 tablet by mouth blister packaging machine operator before breakfast 07/21/20 23 Active spironolactone (ALDACTONE) 50 mg tabletIndications: hypertension Take 1 tablet (50 mg total) by mouth blister packaging machine operator before breakfast 06/20/20 23 Active topiramate (TOPAMAX) 100 mg tabletIndications: Migraine Prevention Take 1 tablet (100 mg total) by mouth nightly 07/07/20 23 Active valACYclovir (VALTREX) 500 mg tabletIndications: Prophylaxis, Medical,HSV Take 1 tablet (500 mg total) by mouth blister packaging machine operator before breakfast 07/07/20 23 Active cyclobenzaprine (FLEXERIL) [...] Jerardo Heart attack Father Jerardo Hypertension Father Jerrado Depression Mother Swathi Relation Name Status Comments [...] on file Legal Sex Female 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
--- OUTSIDE RECORDS SUMMARY | 2025-07-12 01:42 | XMS_ITS | Encounter Summary ---
Author Organization [facility] Address [address] [place] [address] Care Team Providers Care Tractor Driver Name Role Phone Unavailable Primary Care Provider Unavailabl e Encounter Details Date Type Department Care Team (Latest Contact Info) Description 08/05/2008 Outpatient Historical [facility] 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
--- OUTSIDE RECORDS SUMMARY | 2025-07-12 01:42 | XMS_ITS | Clinical Summary ---
Author Organization [facility] Address [address] 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
--- OUTSIDE RECORDS SUMMARY | 2025-07-12 01:42 | XMS_ITS | Encounter Summary ---
Author Organization [facility] Address 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
--- OUTSIDE RECORDS SUMMARY | 2025-07-12 01:42 | XMS_ITS | Encounter Summary ---
Author Organization [facility] Address [address] [place] [address] Care Team Providers Care Habilitation Worker Name Role Phone Unavailable Primary Care [...] on file Legal Sex Female 5:31 AM COMIC ILLUSTRATOR Gender Identity Not on file Sexual Orientation Not on file documented as of this encounter Plan of Treatment Not on file documented as of this encounter Procedures Procedure Name Priority Date/Time Associated Diagnosis Comments POC , URINE Routine 01/09/2008 12:20 PM COMIC ILLUSTRATOR HEMOGLOBIN AND HEMATOCRIT Stat 01/09/2008 12:15 PM COMIC ILLUSTRATOR documented in this encounter Results * POC , URINE (01/09/2008 12:20 PM COMIC ILLUSTRATOR) , URINE POC Negative Negative [facility] Urine specimen (specimen) 01/09/2008 12:20 PM COMIC ILLUSTRATOR 01/09/2008 12:20 PM COMIC ILLUSTRATOR us Cheikh Griggs POINT OF CARE TESTING Final Resu lt [facility] [address] [place] [address] * (ABNORMAL) HEMOGLOBIN AND HEMATOCRIT (01/09/2008 12:15 PM COMIC ILLUSTRATOR) HEMATOCRIT 43.3 35.5 - 44.0 % [facility] HEMOGLOBIN 15.0(H) 11.8 - 14.8 g/dL [facility] Blood specimen (specimen) 01/09/2008 12:15 PM COMIC ILLUSTRATOR 01/09/2008 12:42 PM COMIC ILLUSTRATOR Cheikh Griggs HEMATOLOGY ORDERABLES Final Resu lt [facility] [address] [place] [address] documented in this encounter Visit Diagnoses Diagnosis Unspecified otitis media documented in this encounter
--- OUTSIDE RECORDS SUMMARY | 2025-07-12 01:42 | XMS_ITS | Encounter Summary ---
Author Organization [facility] Address [address] [place] [address] Care Team Providers Care Snuff Maker Name Role Phone Unavailable Primary Care Provider [...] on file Legal Sex Female 5:31 AM INFORMATION AND DATA ARCHITECT ANALYST Gender Identity Not on file Sexual Orientation Not on file documented as of this encounter Plan of Treatment Not on file documented as of this encounter Procedures Procedure Name Priority Date/Time Associated Diagnosis Comments CT IAC WO CONTRAST Timed Study 01/01/2008 3: 16 PM INFORMATION AND DATA ARCHITECT ANALYST documented in this encounter Results * CT IAC WO CONTRAST (01/01/2008 3:16 PM INFORMATION AND DATA ARCHITECT ANALYST) Anatomical Region Laterality Modality Head Other 01/01/2008 3:16 PM INFORMATION AND DATA ARCHITECT ANALYST Narrative 01/01/2008 8:26 PM INFORMATION AND DATA ARCHITECT ANALYST [facility] [address], [place] [address] Admit Date: 01/01/2008 YUMI DÍAZ Sex: F Admit Prov: AVA CARDENAS Date: 1990 Primary Care Prov: CMRN: [id number] Room: [facility] SSN: [id number] IMAGING SERVICES Ordering Prov: N/A Accession Number: [id number] Interpretation CT SCAN OF IAC NONCONTRAST 01/01/2008 [...] SJ Procedure Note Provider, Historical - 01/01/2008 [facility] [address], [place] [address] Admit Date: 01/01/2008 DÍAZYUMI Sex: F Admit Prov: AVA CARDENAS Date: 1990 Primary Care Prov: CMRN: [id number] Room: [facility] SSN: [id number] IMAGING SERVICES Ordering Prov: N/A Interpretation CT [...]
--- OUTSIDE RECORDS SUMMARY | 2025-07-12 01:42 | XMS_ITS | Clinical Summary ---
Author Organization [facility] Address [address] [place] [address] Care Team Providers Care Remelt Pan Tank Operator Name Role Phone Angie Vieira APRN-MACROECONOMICS PROFESSOR Primary Care Provide r Source Comments [facility],non-owned Affiliates and Associated Physician Practices is amultiple site organization consisting of ambulatory clinics and hospital sitesin [place], [place], [place] and [place]. This disclosure is being madepursuant to the Care Everywhere program and may not contain all information available regarding this patient. Last updated 18.[facility] Allergies Active Allergy Reactions Criticality Noted Date [...] on file Legal Sex Female 5:37 AM REHABILITATION AIDE/SCHEDULER Gender Identity Not on file Sexual Orientation [...] patient's age to complete this topic Insurance [facility] Address: [facility] [address] [place] [address] [employer] SELF PAY NO INSURANCE Member Subscriber Plan / Payer (Ef fective for All Dates) Name:Yumi Maravilla Member ID:Not on file Relation to Subscriber:Not on file Name:YUMI MARAVILLA Subscriber ID:Not on file (Home) Address: [address] [place] [id number] Payer ID:Not on file Group ID:Not on file Type:Self Pay Address: [facility] Address: [place] [address] [facility] Address: [place] [address] [facility] Address: [place] [address] Care Teams Remelt Pan Tank Operator Relationship Specialty Start Date End Date Angie Vieira, SCAFFOLD SETTER-MACROECONOMICS PROFESSOR [address] [place] [address] PCP - General Nurse Practitioner Family 03/22/25
--- OUTSIDE RECORDS SUMMARY | 2025-07-12 01:42 | XMS_ITS | Encounter Summary ---
Author Organization [facility] Address 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
--- NOTE | 2025-07-12 06:49 | WPDHPUPDATE1 ---
History and Physical Update Update Date/Time: 07/12/25 06:49 History and Physical has been reviewed, including an updated exam of the patient. There are NO changes in the patient's condition. Risks, benefits, and alternatives have been discussed and questions answered. Patient agrees to proceed with procedure.
--- NOTE | 2025-07-12 07:06 | WPDANESEPPF ---
Anes - Initial Pre Proc Eval Procedure: Operation Date: 07/12/25 09:30 Proposed Procedures p Robotic Assisted Total Vaginal Hysterectomy, Bilateral Salpingo Oohorectomy - Romeo Paul MD Date/Time: 07/12/25 07:06 Surgeon: Romeo Paul MD Pre Op Diagnosis: stage 3 endometriosis, pelvic adhesions,pain,dysme Patient Data Age: 35 Gender: F Height: 1.75 m Weight: 73.63 kg Allergies Allergy/AdvReac Type Severity Reaction Status Date / Time Cephalosporins Allergy Intermediate HIVES Verified 07/12/25 07:35 lisinopril AdvReac Mild cough Verified 07/12/25 07:35 Home Medications ?Medication ?Instructions ?Recorded ?Confirmed ?Type topiramate 100 mg tablet 125 mg PO HS 03/02/22 07/12/25 History buspirone 10 mg tablet 10 mg PO DAILY 12/01/23 07/12/25 History escitalopram oxalate 20 mg tablet 20 mg PO DAILY 12/01/23 07/12/25 History baclofen 5 mg tablet 5 mg PO TID 07/02/25 07/12/25 History levothyroxine 25 mcg tablet 25 mcg PO DAILY 07/02/25 07/12/25 History methylphenidate HCl 10 mg 10 mg PO DAILY 07/02/25 07/12/25 History tablet,extended release quetiapine 100 mg tablet 200 mg PO DAILY 07/02/25 07/12/25 History gabapentin 600 mg tablet 600 mg PO HS 07/05/25 07/12/25 History hydrocodone 5 mg-acetaminophen 325 1 tablet PO Q4H PRN pain #20 tabs 07/12/25 Rx mg tablet Patient hx anesthesia problems: post op nausea/vomiting Family hx anesthesia problems: none Results Review: All pre-operative results and documents have been reviewed as part of the pre-operative evaluation. [facility] Past Medical History Medical History (Updated 07/12/25 @ 08:33 by David Crawford DO) Hypothyroidism Elevated liver enzymes Upper abdominal pain Hematochezia Diarrhea Abdominal pain Colitis Depression Anxiety Migraine Surgical History Surgical History Status post laparoscopic cholecystectomy 09/05/[address] Lopez History of placement of ear tubes H/O elbow surgery History of removal of ovarian cyst History of tubal ligation Family History Family History Father Diabetes mellitus Hypertension Mother Hypertension Social History Social History Smoking status: Never smoker Second hand tobacco smoke exposure: No Alcohol intake: never Drinks per week: 1 Substance use: never Substance use type: does not use Do You Feel Safe in your Home?: Yes Lack of Transportation: No Lack of Food: Never True Current Housing: I Have Housing Concerned About Future Housing: No Difficulty Paying Gas/Electric Bills: No Difficulty Paying for Meds: No Currently Unemployed: No Education: Don't Know Difficulty w/ Childcare or Family Care: No Living arrangements: with family Gender identity (if verbalized by the patient): Female Spiritual care concerns: No Anes - Eval Final PreProcedure Day of Procedure 07/12/25 07:06 Patient weight: normal Heart: regular rate and rhythm Lungs: clear to auscultation Airway: Mallampati scale class II Neurological: alert and oriented Last oral intake: >/= 8 hours ASA classification: II Emergent: no Anesthetic plan: proceed Anesthesia type and monitoring: general ETT and standard monitoring Results Review: All pre-operative results and documents have been reviewed as part of the pre-operative evaluation. Informed Consent: The patient's anesthetic plan and its attendant risks and benefits were discussed with the patient/family/POA. Questions were solicited and answers provided to the satisfaction of the patient/family/POA.
[2025-07-12] MEDS: ACETAMINOPHEN 500 MG TABLET 1000 MG PO ×3 (07:50→21:57)
[2025-07-12] MEDS: LACTATED RINGERS 1,000 ML 30 ML IV CONT ×2 (07:55→10:35)
[2025-07-12] MEDS: KETOROLAC 15 MG/ML VIAL (*BKC) IV PUSH (07:55)
[2025-07-12 08:15] LABS: BEDSIDEPREGUCG Negative (Negative)
[2025-07-12] MEDS: SCOPOLAMINE 1 MG PATCH 1 PATCH TRANSDERM (08:38)
[2025-07-12] MEDS: CLINDAMYCIN 900 MG/D5W 50 ML 900 MG/50 ML PIGGYBACK 50 MG IVPB (09:23)
[2025-07-12] MEDS: GENTAMICIN SULFATE INJ 370 MG in DEXTROSE 5% 100 ML 100 MG IVPB (09:23)
--- NOTE | 2025-07-12 10:04 | S_PTH ---
PATIENT: Yumi Maravilla LOC: [facility] U#:[id number] AGE/SX: 35/F ROOM: RE07/12/[address]: Romeo Paul MD : 1990 BED: DIS: 07/13/2025 SPEC #: [id number] RECD: 07/12/25 11:14 STATUS: [place] REQ #: [id number] KELLY: 07/12/25 10:[address]: Romeo Guillory DEPT: [facility] Surgical RECD BY: Stephenie Corral ENTERED: 07/12/25 11:15 SP TYPE: Surgical OTHR DR: Caroline Pires MD Tissues: A - Uterus Procedures: Hematoxylin and Eosin Stain Gross and Microscopic Level 5
--- NOTE | 2025-07-12 10:15 | W.PM.PROC2 ---
Procedure Note - Detailed Date of Procedure 07/12/25 Pre-op Diagnosis stage 3 endometriosis, pelvic adhesions,pain,dysme Post-op Diagnosis Same Procedure Performed Robotic total vaginal hysterectomy and bilateral salpingo-oophorectomy Surgeon Romeo Paul MD Anesthesia General Indications 35-year-old female with long history of stage III endometriosis Findings Uterus had endometrial implants as well as the ovaries tubes. Description of Procedure Patient was prepped draped in normal sterile fashion placed in dorsal lithotomy position. Under excellent general endotracheal anesthesia weighted speculum placed in posterior anterior the cervix was then grasped with a single-tooth tenaculum. Uterus sounded to 8cm. Serial dilatation fragmented dilators performed followed by passes the 8. TRAM and the 3. Cold. Next the 16 Macedonian catheter was placed in the bladder drained clear urine the weighted speculum single-tooth removed. The gloves were changed. A suprapubic incision made the Veress needle passed in the abdomen. Abdomen filled with CO2 gas [id number]. The 8mm trocar advanced in the abdomen. Downside visualized no injury seen. Patient placed in 18? Trendelenburg and right left lateral quadrant incision made. 8mm trocars advanced under direct visualization assuring no injury. Right upper quadrant incision made the 8mm trocar advanced under direct visualization assuring no injury. The robot was docked. Attention was turned to the general counselor. Left round ligament was grasped, burned, cut. Anterior bladder flap was formed by sharply dissecting the peritoneum and reflecting the bladder caudally away from the cervix uterus the opposite round ligament was clamped, burned, cut. Next removing the left ovary and tube the left infundibulopelvic structure was skeletonized serially clamping burning cutting and bringing this to the level of the previously cut round ligament. In similar fashion removed the right ovary and tube the infundibulopelvic structure was skeletonized clamping burning cutting and bringing this level of previously cut round ligament right. The cardinal broad ligaments then serially skeletonized clamped burned cut hugging the cervix uterus until the large tortuous vessels on the left were visualized these were individually clamped, burned, cut. A similar fashion the cardinal and broad ligaments on the right were serially skeletonized clamping burning or cut until the uterine vessels could be seen right these were individually clamped, burned,. A colpotomy incision was made cervix uterus ovaries and tubes removed through the vagina. The vagina was then closed with continuous running 0V lock from lateral edge to lateral edge back to the midline. Irrigation undertaken until clear blood loss estimated at 5cc. The instruments withdrawn as hemostasis was assured. The robot was undocked. The gas removed from the abdomen. The incisions closed with 4 Monocryl and glue. The patient went to recovery in satisfactory condition. All sponge, needle, instrument counts were correct. There were no immediate complications noted Estimated Blood Loss 5 Drains No Packing No Pathology Yes Complications No immediate complications Condition Stable Disposition PACU
--- NOTE | 2025-07-12 10:19 | P.DS_ITS ---
DS: Admitting Diagnosis Discharge Date 07/13/2025 Admitting Diagnosis Endometriosis DS: Discharge Diagnosis Discharge Diagnosis (1) Endometriosis: Code(s): N80.9 - Endometriosis, unspecified Status: Acute DS: Summary Hospital Course Reason for hospitalization: Patient was admitted on 07 12 25 for robotic hysterectomy and bilateral salpingo- oophorectomy Hospital Course: Patient's hospital course unremarkable. She remained afebrile. She was up, voiding without difficulty, eating regular diet, ambulating, generally without complaints. Time Spent with Patient Time attestation: Total time spent providing and/or coordinating discharge services: Exam Const: General: cooperative, healthy appearing and comfortable Nutritional Appearance: average body habitus Orientation/consciousness: oriented to person, oriented to place and oriented to time Resp: Effort & Inspection: normal respiratory effort Cardio: Rate: regular rate Rhythm: regular rhythm Heart sounds: S1 normal heart sound present and S2 normal heart sound present GI: Inspection: normal to inspection and incision (Wounds are clean dry and intact) DS: Data Data Completed and Pending Pending studies at discharge: Pending at discharge 07/12/25 10:04 Surgical [PTH] Routine Labs on day of discharge: Labs from last 24 hours 07/12/25 07:33 POC Urine HCG, Qual Negative Discharge Plan Discharge Patient Disposition: Home Discharge Instructions: Remove the Scopolamine patch that was placed behind your ear in 72 hours or less. Wash your hands after touching. Patient Language: Burkinan Stand Alone Forms: General Discharge Instructions Follow-up/Referrals: Romeo Guillory MD [Physician, SERVICE OR WORK DISPATCHER] Discharge Medications: New hydrocodone-acetaminophen 5-325 mg tablet 1 tablet PO Q4H PRN (Reason: pain) Qty: 20 0RF Continued escitalopram oxalate 20 mg tablet 20 mg PO DAILY buspirone 10 mg tablet 10 mg PO DAILY topiramate 100 mg Tablet 125 mg PO HS Patient Comments: patient takes for migraines methylphenidate HCl 10 mg tablet extended release 10 mg PO DAILY levothyroxine 25 mcg tablet 25 mcg PO DAILY quetiapine 100 mg tablet 200 mg PO DAILY Patient Comments: HS baclofen 5 mg tablet 5 mg PO TID gabapentin 600 mg tablet 600 mg PO HS
[2025-07-12] MEDS: fentaNYL CITRATE INJ (*CRX) 100 MCG/2 ML VIAL 25 MCG IV PUSH ×8 (10:50→11:30)
--- NOTE | 2025-07-12 12:30 | ADMGEN ---
This patient, Yumi Maravilla, was admitted to OB 2nd Floor Room 290-00. Patient/family oriented to hospital policies and general routines including ID bracelet, bed and alarms, visiting hours, pain management, procedures, bathroom and other care routines, personal items, smoking policy, room service/diet, and visiting hours. Information on how to activate the Rapid Response Team has been discussed. Patient/Family are encouraged to report perceived risks to care and to ask questions if they do not understand what they are told or what they should do.
[2025-07-12] MEDS: oxyCODONE HCL (*CRX) 5 MG TAB IR 10 MG PO ×2 (12:43→18:49)
[2025-07-12] MEDS: KETOROLAC 30 MG/ML VIAL (*BKC) IV PUSH ×2 (15:50→21:56)
[2025-07-12] MEDS: DOCUSATE SODIUM 100 MG CAPSULE PO (18:12)
[2025-07-12] MEDS: SIMETHICONE 80 MG TAB.CHEW PO (18:12)
[2025-07-12] MEDS: GABAPENTIN 300 MG CAPSULE 600 MG PO (19:55)
[2025-07-12] MEDS: TOPIRAMATE 100 MG TABLET PO (19:56)
[2025-07-12] MEDS: BACLOFEN 5 MG TABLET PO (19:56)
[2025-07-12] MEDS: TOPIRAMATE 25 MG TABLET PO (19:56)
[2025-07-13 00:15] VITALS: BP 106/63; PULSE 70; RESP 16; TEMP 36.6; O2SAT 98
[2025-07-13 03:30] VITALS: BP 96/54; PULSE 78; RESP 16; TEMP 36.1; O2SAT 98
[2025-07-13] MEDS: KETOROLAC 30 MG/ML VIAL (*BKC) IV PUSH (03:36)
[2025-07-13] MEDS: ACETAMINOPHEN 500 MG TABLET 1000 MG PO ×2 (03:37→09:22)
[2025-07-13] MEDS: oxyCODONE HCL (*CRX) 5 MG TAB IR PO ×3 (04:34→11:24)
[2025-07-13 04:37] LABS: Hematocrit 32.0 % (37.0-47.0); Hemoglobin 10.9 g/dL (12.0-15.0); Immature Granulocyte Percent A 0.2 % (0-0.5); Lymphocytes Absolute Auto 2.58 K/mm3 (0.9-3.2); Mean Corpuscular HGB Conc 34.1 g/dl (32-36); Mean Corpuscular Hemoglobin 31.1 pg (26-34); Mean Corpuscular Volume 91.2 fl (80-100); Nucleated Red Blood Cells Absolute Auto 0.000 K/mm3 (0.0-0.012); Nucleated Red Blood Cells Perc 0.0 % (0.0-0.2); Platelet Count Result 152 k/mm3 (150-375); Red Blood Count 3.51 M/mm3 (4.2-5.4); White Blood Count 8.7 K/mm3 (4.5-10.0)
[2025-07-13] MEDS: LEVOTHYROXINE SODIUM 50 MCG TABLET PO (07:39)
[2025-07-13] MEDS: BACLOFEN 5 MG TABLET PO (07:39)
[2025-07-13 08:30] VITALS: BP 98/55; PULSE 87; RESP 16; TEMP 36.6; O2SAT 97
--- NOTE | 2025-07-13 08:55 | WPDANESPN ---
Anes - Prog Note Post-Op Date/Time: 07/13/25 08:55 Cardiovascular status: normal Respiratory status: normal Airway patency: baseline Mental status: baseline Post-Op hydration status: normal Vital Signs: Last Vital Signs Temp 97.9 F 07/13/25 08:30 Pulse 87 07/13/25 08:30 Resp 16 07/13/25 08:30 BP 98/55 L 07/13/25 08:30 Pulse Ox 97 07/13/25 08:30 O2 Del Method Room Air 07/12/25 18:53 O2 Flow Rate 6 07/12/25 11:05 Pain Score (VAS): 0 I/O: Intake & Output 07/12/25 07/13/25 07/13/25 23:59 07:59 15:59 Intake Total 1100 Output Total 1175 600 Balance -75 -600 Laboratory Tests 07/13/25 04:32 07/13/25 04:32 WBC 8.7 RBC 3.51 L Hgb 10.9 L Hct 32.0 L MCV 91.2 MCH 31.1 MCHC 34.1 RDW 13.0 Plt Count 152 MPV 10.5 H Immature Gran % (Auto) 0.2 Neut % (Auto) 61.5 Lymph % (Auto) 29.7 [place] % (Auto) 7.1 Eos % (Auto) 0.9 Baso % (Auto) 0.6 Lymph # (Auto) 2.58 [place] # (Auto) 0.6 Eos # (Auto) 0.1 Baso # (Auto) 0.1 Abs Immat Gran (auto) 0.02 Absolute Neuts (auto) 5.3 Absolute Nucleated RBC 0.000 Nucleated RBC % 0.0 Post-procedural complaints: none Patient Feedback: Patient satisfied with anesthetic care. denies pain but states having bloated feeling, still unable to pass flatus. encouraged ambulation.
[2025-07-13] MEDS: SIMETHICONE 80 MG TAB.CHEW PO (09:19)
[2025-07-13] MEDS: ESCITALOPRAM OXALATE 10 MG TABLET 20 MG PO (09:20)
[2025-07-13] MEDS: DOCUSATE SODIUM 100 MG CAPSULE PO (09:21)
[2025-07-13] MEDS: IBUPROFEN 600 MG TABLET PO (09:22)
[2025-07-13] MEDS: ENOXAPARIN 40 MG/0.4 ML SYRINGE SUB-Q (09:23)
--- NOTE | 2025-07-13 10:11 | PM.GYNPNOP ---
LASER SPECIALIST - A/P Postoperative Procedures: Procedures Operation Date: 07/12/25 09:30 Actual Procedure Side Surgeon p Robotic Assisted Total Vaginal Hysterectomy, Bilateral Salpingo Oohorectomy Bilateral Romeo Paul MD Postoperative day: 1 Postoperative status: doing well Postoperative plan: routine post-op care and discharge Time Spent With Patient Time: Total time spent is greater than 50% in coordination of care (as documented) at patient's floor/unit and/or counseling patient: Time with patient: less than 15 minutes LASER SPECIALIST- PN:Subj Post-Op Subjective Date/time seen: 07/13/25 10:11 Subjective: patient has no complaints, pain is well controlled and patient is tolerating oral intake Exam Narrative: incisions c/d/i abdomen soft, mild tenderness, nd LASER SPECIALIST - PN: Obj Data Vital Signs Vital Signs: Vital Signs - 24 hr 07/12/25 10:35 07/12/25 10:50 07/12/25 11:05 Temperature 98.6 F Pulse Rate 82 71 85 Respiratory Rate 12 12 18 Blood Pressure 102/71 105/62 108/60 Pulse Oximetry 100 100 100 Oxygen Delivery Simple Face Mask Simple Face Mask Simple Face Mask Oxygen Flow Rate 6 6 6 07/12/25 11:20 07/12/25 11:35 07/12/25 12:25 Temperature 99 F Pulse Rate 72 81 77 Respiratory Rate 18 18 16 Blood Pressure 111/57 L 107/67 106/59 L Pulse Oximetry 100 99 100 Oxygen Delivery Room Air Room Air Oxygen Flow Rate 07/12/25 12:30 07/12/25 15:45 07/12/25 15:45 Temperature 98.4 F Pulse Rate 69 Respiratory Rate 16 Blood Pressure 102/61 Pulse Oximetry 98 Oxygen Delivery Room Air Room Air Oxygen Flow Rate 07/12/25 18:53 07/12/25 18:53 07/13/25 00:15 Temperature 98.3 F 97.9 F Pulse Rate 60 70 Respiratory Rate 18 16 Blood Pressure 101/59 L 106/63 Pulse Oximetry 99 98 Oxygen Delivery Room Air Oxygen Flow Rate 07/13/25 03:30 07/13/25 08:30 Temperature 97 F L 97.9 F Pulse Rate 78 87 Respiratory Rate 16 16 Blood Pressure 96/54 L 98/55 L Pulse Oximetry 98 97 Oxygen Delivery Oxygen Flow Rate Intake/Output Intake/Output: Intake & Output 08/07/11/25 07/12/25 07/13/25 23:59 23:59 23:59 23:59 Intake Total 1350 Output Total 1546 600 Balance -195 -600 Meds/Results Medications: Active Medications Generic Name Dose Route Start Last Admin Trade Name Freq PRN Reason Stop Dose Admin Acetaminophen 1,000 mg 07/12/25 18:00 07/13/25 09:22 Acetaminophen 500 Mg Tablet PO 1,000 mg Q6HR RAFAEL Administration Baclofen 5 mg 07/12/25 22:00 07/13/25 07:39 Baclofen 5 Mg Tablet PO 5 mg Q8HR RAFAEL Administration Buspirone HCl 10 mg 07/13/25 09:00 07/13/25 09:21 Buspirone Hcl 10 Mg Tablet PO 10 mg DAILY RAFAEL Administration Docusate Sodium 100 mg 07/12/25 17:00 07/13/25 09:21 Docusate Sodium 100 Mg Capsule PO 100 mg BID RAFAEL Administration Enoxaparin Sodium 40 mg 07/13/25 09:00 07/13/25 09:23 Enoxaparin 40 Mg/0.4 Ml Syringe SUB-Q 40 mg DAILY RAFAEL Administration Escitalopram Oxalate 20 mg 07/13/25 09:00 07/13/25 09:20 Escitalopram Oxalate 10 Mg Tablet PO 20 mg DAILY RAFAEL Administration Gabapentin 600 mg 07/12/25 21:00 07/12/25 19:55 Gabapentin 300 Mg Capsule PO 600 mg QHS RAFAEL Administration Ibuprofen 600 mg 07/13/25 12:00 07/13/25 09:22 Ibuprofen 600 Mg Tablet PO 600 mg Q6HR RAFAEL Administration Levothyroxine Sodium 50 mcg 07/13/25 06:30 07/13/25 07:39 Levothyroxine Sodium 50 Mcg Tablet PO 50 mcg DAILY@0630 RAFAEL Administration Naloxone HCl 0.1 mg 07/12/25 12:22 Naloxone Hcl 0.4 Mg/Ml Vial IV PUSH Q2M PRN Respiratory rate less than 10 Ondansetron HCl 4 mg 07/12/25 12:22 Ondansetron Inj 4 Mg/2 Ml Vial IV PUSH Q6H PRN Nausea And Vomiting Oxycodone HCl 5 mg 07/12/25 12:22 07/13/25 09:21 Oxycodone Hcl (*Crx) 5 Mg Tab Ir PO 5 mg Q4H PRN Administration Pain Rated 4-6 Oxycodone HCl 10 mg 07/12/25 12:22 07/12/25 18:49 Oxycodone Hcl (*Crx) 5 Mg Tab Ir PO 10 mg Q6H PRN Administration Pain Rated 7-10 Quetiapine Fumarate 200 mg 07/12/25 21:00 07/12/25 19:56 Quetiapine Fumarate 100 Mg Tablet PO 200 mg HS RAAFEL Administration Simethicone 80 mg 07/12/25 17:00 07/13/25 09:19 Simethicone 80 Mg Tab.Chew PO 80 mg TIDWM RAFAEL Administration Topiramate 100 mg 07/12/25 21:00 07/12/25 19:56 Topiramate 100 Mg Tablet PO 100 mg QHS RAFAEL Administration Topiramate 25 mg 07/12/25 21:00 07/12/25 19:56 Topiramate 25 Mg Tablet PO 25 mg QHS RAFAEL Administration Labs 07/13/25 04:32 Labs: Laboratory Results - last 24 hr 07/13/25 04:32 WBC 8.7 RBC 3.51 L Hgb 10.9 L Hct 32.0 L MCV 91.2 MCH 31.1 MCHC 34.1 RDW 13.0 Plt Count 152 MPV 10.5 H Immature Gran % (Auto) 0.2 Neut % (Auto) 61.5 Lymph % (Auto) 29.7 Carver % (Auto) 7.1 Eos % (Auto) 0.9 Baso % (Auto) 0.6 Lymph # (Auto) 2.58 Carver # (Auto) 0.6 Eos # (Auto) 0.1 Baso # (Auto) 0.1 Abs Immat Gran (auto) 0.02 Absolute Neuts (auto) 5.3 Absolute Nucleated RBC 0.000 Nucleated RBC % 0.0
== END 2025-07-13 11:30 | disposition home or self-care (01) ==
LOC: ANHSURGERY 07:20 → ANHOB2 12:31
PROVIDERS: PCP Family Medicine; Visit Provider Obstetrics & Gynecology
PROC: (CPT 58552; principal; 2025-07-12 09:30)
DX: N80.203 Endometriosis of bilateral fallopian tubes, unspecified depth (principal); N80.103 Endometriosis of bilateral ovaries, unspecified depth; E03.9 Hypothyroidism, unspecified; F32.A Depression, unspecified; F41.9 Anxiety disorder, unspecified; I10 Essential (primary) hypertension; G47.33 Obstructive sleep apnea (adult) (pediatric); Z79.891 Long term (current) use of opiate analgesic; Z98.890 Other specified postprocedural states; Z90.49 Acquired absence of other specified parts of digestive tract; Z98.51 Tubal ligation status; Z87.19 Personal history of other diseases of the digestive system
CPT/HCPCS: 58552; S2900; 36415; 85025; 88307; 99199; A9270; J1100; J1171; J1580; J1650; J1885; J2003; J2250; J2405; J2704; J3010; J7030; J7120